=== PATIENT | male | born 1985 | race Caucasian/White ===

== ENCOUNTER 2021-02-20 16:12 | Emergency (ER) | payer MEDICARE, OTHER, SELFPAY ==
--- NOTE | ~2021-02-20 | CT_ITS ---
EXAMINATION: CT lumbar spine wo con DATE: 02/20/2021 19:22 INDICATION: Low back pain radiating to the left leg TECHNIQUE: Computed tomography (CT) of the lumbar spine was performed without intravenous contrast. T he dose-length product was 692.59 mGy-cm. COMPARISON: None FINDINGS: There are bilateral renal stones which are nonobstructing. Vertebral artery heights are matt ntained. There is mild disc narrowing at L2-3. There is levoscoliosis centered at L4. No acute fractu re, subluxation or dislocation. No evidence for spondylolisthesis. There is mild annular disc bulging at multiple levels without significant spinal stenosis. IMPRESSION: 1. No acute abnormality of the lumbar spine. 2: Mild lumbar spondylosis with levoscoliosis. 3: Nonobstructing bilateral nephrolithiasis. Reviewed, dictated and finalized at location A.
--- NOTE | ~2021-02-20 | US_ITS ---
US scrotum doppler INDICATION: Left testicular pain TECHNIQUE: Testicular sonogram utilizing grayscale and color Doppler FINDINGS: The testes are normal in size and appearance. No focal lesions are seen. The right testes measures 4.9 x 3.3 x 2.5 cm centimeters, and the left testis measures 4.3 x 3.1 x 2.2 cm cm. There is normal vascular flow to both testes. The right and left epididymides appear normal. There is no varicocele or hydrocele. IMPRESSION: 1. NORMAL TESTICULAR ULTRASOUND. Reviewed, dictated and finalized at location A.
[2021-02-20 16:42] VITALS: BP 133/66; PULSE 76; RESP 20; TEMP 36.2; O2SAT 100
[2021-02-20] MEDS: ACETAMINOPHEN 500 MG TABLET 1000 MG PO (18:57)
[2021-02-20] MEDS: CYCLOBENZAPRINE HCL 10 MG TABLET PO (18:57)
[2021-02-20 19:02] LABS: Basophils Percent Auto 0.6 % (0.2-1.2); Eosinophils Absolute Auto 0.1 K/mm3 (0-0.3); Eosinophils Percent Auto 2.4 % (0-4.4); Hematocrit 45.3 % (42.0-52.0); Hemoglobin 15.6 g/dL (14.0-18.0); Immature Granulocyte Absolute 0.01 K/mm3 (0.00-0.031); Immature Granulocyte Percent A 0.2 % (0-0.5); Lymphocytes Absolute Auto 1.68 K/mm3 (0.9-3.2); Lymphocytes Percent Auto 33.3 % (18.3-44.2); Mean Corpuscular HGB Conc 34.4 g/dl (32-36); Mean Corpuscular Volume 89.9 fl (80-100); Mean Platelet Volume 8.5 fl (7.4-10.4); Monocytes Absolute Auto 0.4 K/mm3 (0.1-0.6); Monocytes Percent Auto 7.9 % (2.6-8.5); Neutrophils Absolute Auto 2.8 K/mm3 (1.3-6.7); Neutrophils Percent Auto 55.6 % (45.5-73.1); Platelet Count Result 219 k/mm3 (150-375); Red Blood Count 5.04 M/mm3 (4.6-6.20); Red Cell Distribution Width 12.3 % (11.5-14.5); White Blood Count 5.1 K/mm3 (4.5-10.0)
--- NOTE | 2021-02-20 19:03 | ED.BACK ---
HPI - Back Pain/Injury General Chief Complaint: Back Pain/Injury Stated Complaint: back pain Time Seen by Provider: 02/20/21 17:58 Source: patient Mode of arrival: ambulatory Limitations: no limitations History of Present Illness HPI Narrative: This is a 35 year old male that presents to the ER for low back pain x 1 week. Reports the pain radiates down his left leg. Reports the pain is worse with movement and relieved with rest. also reports he has had pain in his left testicle for the last 3 days. No known injuries or trauma. Reports history of low back problems and that he has had disc replacements in the past. His spinal surgeon is at the [facility]. Denies fever, abdominal pain, vomiting, dysuria, hematuria, weakness, numbness, or bowel/bladder incontinence. Related Data Home Medications Medication Instructions Recorded Confirmed albuterol 02/20/21 methylphenidate 02/20/21 02/20/21 pantoprazole PO 02/20/21 sucralfate 02/20/21 vortioxetine 20 mg PO DAILY 02/20/21 02/20/21 Allergies Allergy/AdvReac Type Severity Reaction Status Date / Time topiramate Allergy Unknown Unknown Unverified 02/20/21 18:19 Review of Systems Review of Systems: Narrative: CONSTITUTIONAL: Denies fever GASTROINTESTINAL: Denies abdominal pain, nausea, vomiting GENITOURINARY: Denies dysuria or hematuria. SKIN: Denies rash MUSCULOSKELETAL: Reports back pain, joint pain, and myalgia. NEUROLOGIC: Denies numbness, or weakness. All systems reviewed & are unremarkable except as noted in HPI and below PMFSH Past Medical History Medical History (Updated 02/20/21 @ 20:18 by Laya Orozco PA-C) History of COPD History of depression History of gastroesophageal reflux (GERD) Exam Narrative: Exam Narrative: GENERAL: Well-appearing, well-nourished, and in no acute distress. HEAD: Normocephalic, atraumatic. EYES: EOMI. CHEST: Clear to auscultation. No respiratory distress. No wheezes rales or rhonchi HEART: Regular rate and rhythm. No murmur heard. Normal peripheral pulses. ABDOMEN: Soft, nontender, nondistended, normal active bowel sounds. No CVA tenderness BACK: No midline spinal tenderness EXTREMITIES: Normal range of motion. No edema. Strength equal in bilateral lower extremities (5/5) SKIN: Warm, dry, no rash. NEURO: No focal deficits. Alert and oriented x3. PSYCH: Normal mood and affect Course Vital Signs Vital signs: Vital Signs Temperature 97.2 F L 02/20/21 16:42 Pulse Rate 76 02/20/21 16:42 Respiratory Rate 20 02/20/21 16:42 Blood Pressure 133/66 02/20/21 16:42 Pulse Oximetry 100 02/20/21 16:42 Temperature 97.2 F L 02/20/21 16:42 Pulse Rate 76 02/20/21 16:42 Respiratory Rate 20 02/20/21 16:42 Blood Pressure 133/66 02/20/21 16:42 Pulse Oximetry 100 02/20/21 16:42 MDM - Back Pain/Injury MDM Narrative Medical decision making narrative: Patient presents to the emergency department for low back pain. Also reporting left testicular pain. No known injuries or trauma. He is neurologically intact. He is afebrile and nontoxic-appearing. CBC and metabolic panel without concerning findings. UA was normal. Scrotal ultrasound without acute findings. CT scan of the lumbar spine is without acute findings. Shows mild lumbar spondylosis. Patient updated on case findings. Instructed to rest, ice and take [id number] pain medication as needed. He is to follow-up with his spine surgeon. He was given warnings to return to the ER Lab Data Attestation: I reviewed the patient's lab results. Result diagrams: 02/20/21 18:56 02/20/21 18:56 Labs: Lab Results 02/20/21 02/20/21 02/20/21 Range/Units 18:56 18:56 18:56 WBC 5.1 (4.5-10.0) K/mm3 RBC 5.04 (4.6-6.20) M/mm3 Hgb 15.6 (14.0-18.0) g/dL Hct 45.3 (42.0-52.0) % MCV 89.9 (80-100) fl MCH 31.0 (26-34) pg MCHC 34.4 (32-36) g/dl RDW 12.3 (11.5-14.5) % Plt Count 219
[2021-02-20 19:05] LABS: Add Urine Microscopic? NO; Appearance Urine Clear (Clear); Bilirubin Urine Negative (Negative); Blood Urine Negative (Negative); Color Urine Yellow (Yellow); Glucose Urine UA Negative (Negative); Ketones Urine Negative (Negative); Leukocyte Esterase Ur Negative LEU/UL (Negative); Nitrate Urine Negative (Negative); Protein Urine Negative (Negative); Specific Grav Ur 1.029 (1.001-1.035); Urobilinogen Urine Negative mg/dL (<2.0)
[2021-02-20 19:15] LABS: Anion Gap 5 mmol/L (8-16); Blood Urea Nitrogen 17 mg/dL (9-20); Calcium 9.2 mg/dL (8.4-10.2); Carbon Dioxide 31 mmol/L (22-30); Chloride 104 mmol/L (98-107); Estimated CRCL calculation 92 ml/min; Estimated Glomerular Filt Rate > 60; Glucose 112 mg/dL (75-110); Sodium 140 mmol/L (137-145)
[2021-02-20 19:23] LABS: Potassium 4.2 mmol/L (3.4-5.0)
[2021-02-20 21:36] VITALS: BP 105/80; PULSE 70; RESP 16; TEMP 37; O2SAT 96
== END 2021-02-20 21:37 | disposition home or self-care (01) ==
PROVIDERS: Physician Assistant; Emergency Provider Emergency Medicine
DX: M54.16 Radiculopathy, lumbar region (principal); J44.9 Chronic obstructive pulmonary disease, unspecified; K21.9 Gastro-esophageal reflux disease without esophagitis; F32.9 Major depressive disorder, single episode, unspecified; M47.816 Spondylosis without myelopathy or radiculopathy, lumbar region; N20.0 Calculus of kidney; N50.812 Left testicular pain
CPT/HCPCS: 36415; 72131; 76870; 80048; 81003; 85025; 93976; 99284; A9270

== ENCOUNTER 2022-01-09 09:23 | Emergency (ER) | payer MEDICARE, OTHER, SELFPAY ==
--- NOTE | ~2022-01-09 | CT_ITS ---
EXAMINATION: CT abdomen pelvis wo con DATE: 01/09/2022 11:26 INDICATION: Right flank pain TECHNIQUE: Computed tomography (CT) of the abdomen and pelvis was performed without intravenous contr ast. The dose-length product (DLP) was 580.12 mGy-cm. Automated exposure control and iterative recons truction technique were employed. COMPARISON: None FINDINGS: Minimal dependent atelectasis is present in the lung bases. The heart size is normal. The l iver, spleen, pancreas, gallbladder, and adrenal glands are normal. There is a 5 mm stone in the lowe r pole calyx of the right kidney. There is no hydronephrosis or hydroureter. The left kidney is unrem arkable. No pathologically enlarged abdominal or pelvic lymph nodes are identified. There is no free intraperitoneal gas or evidence of bowel obstruction. IMPRESSION: 1. 5 mm stone in a lower pole calyx of the right kidney. Reviewed, dictated and finalized at location B. [employer]
[2022-01-09 09:33] VITALS: BP 123/64; PULSE 78; RESP 19; TEMP 36.4; O2SAT 100
[2022-01-09 10:16] LABS: Basophils Percent Auto 0.4 % (0.2-1.2); Eosinophils Absolute Auto 0.1 K/mm3 (0-0.3); Eosinophils Percent Auto 0.6 % (0-4.4); Hematocrit 49.6 % (42.0-52.0); Hemoglobin 17.4 g/dL (14.0-18.0); Immature Granulocyte Absolute 0.03 K/mm3 (0.00-0.031); Immature Granulocyte Percent A 0.4 % (0-0.5); Lymphocytes Absolute Auto 0.83 K/mm3 (0.9-3.2); Lymphocytes Percent Auto 10.2 % (18.3-44.2); Mean Corpuscular HGB Conc 35.1 g/dl (32-36); Mean Corpuscular Volume 91.2 fl (80-100); Mean Platelet Volume 8.8 fl (7.4-10.4); Monocytes Absolute Auto 0.6 K/mm3 (0.1-0.6); Monocytes Percent Auto 6.9 % (2.6-8.5); Neutrophils Absolute Auto 6.7 K/mm3 (1.3-6.7); Neutrophils Percent Auto 81.5 % (45.5-73.1); Platelet Count Result 217 k/mm3 (150-375); Red Blood Count 5.44 M/mm3 (4.6-6.20); Red Cell Distribution Width 12.5 % (11.5-14.5); White Blood Count 8.2 K/mm3 (4.5-10.0)
[2022-01-09 10:27] LABS: Add Urine Microscopic? YES; Appearance Urine Clear (Clear); Bilirubin Urine Negative (Negative); Blood Urine 1+ (Negative); Color Urine Straw (Yellow); Glucose Urine UA Negative (Negative); Ketones Urine Trace mg/dL (Negative); Leukocyte Esterase Ur Negative LEU/UL (Negative); Mucus Urine Rare /lpf; Nitrate Urine Negative (Negative); Protein Urine Negative (Negative); Specific Grav Ur 1.011 (1.001-1.035); Urobilinogen Urine Negative mg/dL (<2.0); WBC Urine 0-3 /hpf
[2022-01-09 10:30] LABS: Alanine Aminotransferase 21 U/L (4-50); Albumin Level 4.7 g/dL (3.5-5.1); Alkaline Phosphatase 56 U/L (38-126); Anion Gap 9 mmol/L (8-16); Aspartate Amino Transferase 26 U/L (17-59); Bilirubin,Total 0.8 mg/dL (0.2-1.3); Blood Urea Nitrogen 14 mg/dL (9-20); Calcium 9.1 mg/dL (8.4-10.2); Carbon Dioxide 24 mmol/L (22-30); Chloride 103 mmol/L (98-107); Estimated CRCL calculation 90 ml/min; Estimated Glomerular Filt Rate > 60; Glucose 127 mg/dL (65-110); Potassium 3.9 mmol/L (3.4-5.0); Sodium 136 mmol/L (137-145)
[2022-01-09] MEDS: ONDANSETRON INJ 4 MG/2 ML VIAL IV PUSH (11:36)
[2022-01-09] MEDS: SODIUM CHLORIDE 0.9% IV 1,000 ML 999 ML IV CONT (11:36)
[2022-01-09] MEDS: KETOROLAC 30 MG/ML VIAL (*BKC) IV PUSH (11:36)
--- NOTE | 2022-01-09 12:37 | ED.GENADULT ---
HPI - General Adult General Chief complaint: Abdominal Pain Stated complaint: R flank pain Time Seen by Provider: 01/09/22 11:04 History of Present Illness HPI narrative: Patient is a 36-year-old male who presents ER with right-sided flank pain. Radiates into his testicle, but it is his left testicle. No hematuria. Mild pressure in his suprapubic region. Feels similar to previous kidney stones. Has had some waves of nausea without vomiting. No fevers or chills or sweats. Patient is oxygen dependent due to COPD. He has had no increase in his O2 or dyspnea. No swelling to his testicles. No urethral discharge. No concern for STI. Related Data Home Medications Medication Instructions Recorded Confirmed albuterol 02/20/21 methylphenidate 02/20/21 02/20/21 pantoprazole PO 02/20/21 sucralfate 02/20/21 vortioxetine 20 mg PO DAILY 02/20/21 02/20/21 Allergies Allergy/AdvReac Type Severity Reaction Status Date / Time topiramate Allergy Unknown Unknown Unverified 01/09/22 11:20 Review of Systems Review of Systems: All systems reviewed & are unremarkable except as noted in HPI and below Constitutional: Constitutional: Denies chills, Denies fever(s) and Denies weakness ENT: Denies nasal congestion and Denies sore throat Cardiovascular: Cardiovascular: Denies chest pain, Denies rapid heart rate and Denies radiating jaw, neck or arm pain Respiratory: Respiratory: Denies cough and Denies dyspnea Gastrointestinal: Gastrointestinal: Reports abdominal pain, Denies diarrhea, Reports nausea and Denies vomiting Genitourinary: Genitourinary: Denies hematuria, Denies oliguria, Denies dysuria and Reports urinary frequency PMFSH Past Medical History Medical History (Updated 01/09/22 @ 12:44 by Mika Butcher MD) Diabetes History of COPD History of depression History of gastroesophageal reflux (GERD) Kidney stones Surgical History Surgical History (Updated 01/09/22 @ 12:41 by Mika Butcher MD) No pertinent past surgical history Exam Narrative: GENERAL: Well-appearing, well-nourished, and in no acute distress. HEAD: Normocephalic, atraumatic. CHEST: Clear to auscultation. No respiratory distress. HEART: Regular rate and rhythm. Normal peripheral pulses. ABDOMEN: Soft, nontender, nondistended, normal active bowel sound. : Normal-appearing external genitalia without urethral discharge, testicles normal in appearance without tenderness or swelling. No epididymal tenderness. No tenderness over the spermatic cord. EXTREMITIES: Normal range of motion. No edema. SKIN: Warm, dry, no rash. NEURO: Alert and oriented x3. PSYCH: Normal mood and affect. Course Course Emergency Course: Pain improved with Toradol. Unremarkable evaluation. Discharge home. Vital Signs Vital signs: Vital Signs Temperature 97.6 F 01/09/22 09:33 Pulse Rate 78 01/09/22 09:33 Respiratory Rate 19 01/09/22 09:33 Blood Pressure 123/64 01/09/22 09:33 Pulse Oximetry 100 01/09/22 09:33 Temperature 97.6 F 01/09/22 09:33 Pulse Rate 78 01/09/22 09:33 Respiratory Rate 19 01/09/22 09:33 Blood Pressure 123/64 01/09/22 09:33 Pulse Oximetry 100 01/09/22 09:33 Medical Decision Making Vital Signs Vital Signs: Vital Signs Temperature 97.6 F 01/09/22 09:33 Pulse Rate 78 01/09/22 09:33 Respiratory Rate 19 01/09/22 09:33 Blood Pressure 123/64 01/09/22 09:33 Pulse Oximetry 100 01/09/22 09:33 Temperature 97.6 F 01/09/22 09:33 Pulse Rate 78 01/09/22 09:33 Respiratory Rate 19 01/09/22 09:33 Blood Pressure 123/64 01/09/22 09:33 Pulse Oximetry 100 01/09/22 09:33 Lab Data Result diagrams: 01/09/22 10:07 01/09/22 10:07 Labs: Lab Results 01/09/22 01/09/22 01/09/22 Range/Units 10:07 10:07 10:07 WBC 8.2 (4.5-10.0) K/mm3 RBC 5.44 (4.6-6.20) M/mm3 Hgb 17.4 (14.0-18.0) g/dL Hct 49.6 (42.0-52.0) % MCV 91.2
[2022-01-09 13:15] VITALS: BP 116/77; PULSE 70; RESP 19; TEMP 36.6; O2SAT 100
== END 2022-01-09 13:17 | disposition home or self-care (01) ==
PROVIDERS: Emergency Provider Emergency Medicine; PCP Internal Medicine
DX: R10.9 Unspecified abdominal pain (principal); E11.9 Type 2 diabetes mellitus without complications; J44.9 Chronic obstructive pulmonary disease, unspecified; K21.9 Gastro-esophageal reflux disease without esophagitis; Z87.442 Personal history of urinary calculi; F32.A Depression, unspecified
CPT/HCPCS: 36415; 74176; 80053; 81001; 85025; 96361; 96374; 96375; 99284; J1885; J2405; J7030

== ENCOUNTER 2022-09-05 01:56 | Day surgery (SDC) | payer MEDICARE, OTHER, SELFPAY ==
[2022-09-05] VITALS (11 sets, daily range): BP systolic 96–142; BP diastolic 59–94; PULSE 72–93; RESP 9–20; TEMP 36.5–36.7; O2SAT 98–100
--- NOTE | ~2022-09-05 | XR_ITS ---
EXAMINATION: XR retrograde pyelo w/stent RT DATE: 09/05/2022 12:29 CDT INDICATION: cysto, right RPG, right stent placement . TECHNIQUE: 5 fluoroscopic images of the abdomen and pelvis were obtained during right retrograde pyel ography with stent placement performed by the surgeon. I was not present in the operating room. Fluor oscopy exposure time was 45.8 seconds. DAP [id number] [id number]. COMPARISON: CT and x-ray abdomen, performed on the same date FINDINGS: Contrast fills a mildly dilated right collecting system. Stent deployment with partial uncoiling of t he proximal stent in the region of the renal pelvis. The distal coil is positioned over the bladder. IMPRESSION: Fluoroscopic documentation of right retrograde pyelography with stent placement. Please refer to the operative note for complete procedural details . Reviewed, dictated and finalized at location K. IMPRESSION: Fluoroscopic documentation of right retrograde pyelography with stent placement . Please refer to the operative note for complete procedural details .
--- NOTE | ~2022-09-05 | XR_ITS ---
XR abdomen/kub 1V DATE: 09/05/2022 06:22 INDICATION: Right kidney stone TECHNIQUE: 2 portable supine AP views COMPARISON: 09/2022 CT abdomen pelvis FINDINGS: Faint calcific density overlies the proximal right ureter at the L1-2 level, corresponding to the location of a reported 6 mm calculus at the proximal right ureter on 09/05/2022 CT abdomen pelv is examination. There is a prominent amount of fecal material in the cecum and ascending colon and to a lesser extent descending colon and gaseous distention of ascending and transverse colon. There are nondilated gas distended small bowel segments, possibly due to adynamic ileus. No bowel obstruction is evident. IMPRESSION: Faintly calcified proximal right ureteral calcified calculus Prominent of fecal material and gas in the colon and nondilated small bowel gas; no bowel obstruction is evident Reviewed, dictated and finalized at Location A. Reviewed, dictated and finalized at location A. IMPRESSION: Faintly calcified proximal right ureteral calcified calculus Prominent of fecal material and gas in the colon and nondilated small bowel gas ; no bowel obstruction is evident
--- NOTE | ~2022-09-05 | CT_ITS ---
EXAMINATION: CT abdomen pelvis wo con DATE: 09/05/2022 04:50 INDICATION: Right scrotal pain. Known right kidney stones. TECHNIQUE: Computed tomography (CT) of the abdomen and pelvis was performed without intravenous contr ast. Automated exposure control and iterative reconstruction technique were employed. Exam dose: 544 .60 mGy-cm total exam DLP. COMPARISON: 01/09/[address] abdomen pelvis FINDINGS: Mild atelectasis in the lower lungs. Normal heart size. No pericardial or pleural effusion. The liver, gallbladder, bile ducts, spleen, pancreas, pancreatic duct, and adrenal glands are unremar kable. There are couple of pinpoint nonobstructing left renal calculi. No left ureteral calculus or left hyd roureteronephrosis. There are couple of pinpoint nonobstructing right renal calculi. Approximately 4 x 6.7 mm proximal ri ght ureteral calculus with moderate right hydronephrosis. Prostate enlargement and calcifications. The urinary bladder is unremarkable. Bilateral small fat-containing inguinal hernias. Small fat-containing umbilical hernia. Normal appendix. No bowel obstruction or intraperitoneal free air. Included skeletal structures are unremarkable. IMPRESSION: 4 x 6.7 mm proximal right ureteral calculus with moderate right hydronephrosis There are couple of pinpoint nonobstructing calculi of each kidney Reviewed, dictated and finalized at [facility]. Reviewed, dictated and finalized at location A. IMPRESSION: 4 x 6.7 mm proximal right ureteral calculus with moderate right hy dronephrosis There are couple of pinpoint nonobstructing calculi of each kidney
[2022-09-05] MEDS: ONDANSETRON INJ 4 MG/2 ML VIAL IV PUSH ×2 (02:50→09:30)
[2022-09-05] MEDS: HYDROmorphone HCL INJ (*CRX) 1 MG/ML SYR IV PUSH ×3 (02:50→09:34)
--- NOTE | 2022-09-05 02:54 | ED.MALEGU ---
HPI - Male Genitourinary General Chief complaint: Urogenital-Male Stated complaint: kidney stone Time Seen by Provider: 09/05/22 02:34 Source: patient, EMS and RN notes reviewed Mode of arrival: EMS Limitations: no limitations History of Present Illness HPI Narrative: This is a 37 year old male with history of COPD, chronic respiratory failure on 2 L NC , kidney stones who presents for evaluation of right testicular pain. Patient states last wednesday he developed right testicular pain, so he went to ER at the [facility]. He was diagnosed with obstruction right proximal ureteral stone. He was seen by his urologist on Wednesday and he was told yesterday that he will need to have procedure done. He was told they would call him in 7-10 days. He has been prescribed hydrocodone 7.5 and he last took at dose at 8 pm tonight. He reports subjective fever with nausea. His pain has been severe so he called EMS. HE was given morphine 4 mg IV by EMS. He denies testicular swelling or discoloration. He still has severe pain. Related Data Home Medications Medication Instructions Recorded Confirmed albuterol 02/20/21 methylphenidate 10 mg/9 hr daily 02/20/21 02/20/21 transdermal patch pantoprazole 40 mg tablet,delayed PO 02/20/21 release sucralfate 1 gram tablet 02/20/21 vortioxetine 20 mg tablet 20 mg PO DAILY 02/20/21 02/20/21 Allergies Allergy/AdvReac Type Severity Reaction Status Date / Time topiramate Allergy Unknown Unknown Verified 09/05/22 14:04 Review of Systems Review of Systems: All systems reviewed & are unremarkable except as noted in HPI and below Constitutional: Constitutional: Reports chills, Denies fatigue and Reports fever(s) Cardiovascular: Cardiovascular: Denies chest pain Respiratory: Respiratory: Denies chest congestion and Denies cough Gastrointestinal: Gastrointestinal: Denies abdominal pain, Denies diarrhea and Reports nausea Genitourinary: Genitourinary: Denies hematuria, Denies oliguria, Reports testicular pain and Denies urinary frequency Musculoskeletal: Musculoskeletal: Denies back pain and Denies myalgias PMF Past Medical History Medical History Diabetes History of COPD History of depression History of gastroesophageal reflux (GERD) Kidney stones Surgical History Surgical History (Updated 09/05/22 @ 11:55 by Kuldeep Rosado MD) History of lumbar surgery Social History Social History Smoking status: Former smoker Exam Const: General: alert Nutritional Appearance: well nourished Limitations: no limitations HENMT: Head: normal to inspection Eyes: EOM: EOMs intact bilaterally Neck: Neck: normal visual inspection Chest: Chest palpation & inspection: normal inspection of the chest Resp: Effort & Inspection: normal respiratory effort Auscultation: clear to auscultation bilaterally Cardio: Rate: regular rate Rhythm: regular rhythm Heart sounds: no murmurs GI: GI Palp: Yes Soft to palpation, Yes Tenderness to palpation present (GI), No Guarding due to palpation present (GI) and No Rigid due to palpation Auscultation: normal bowel sounds Back/Spine/Pelvis: Back: no CVA tenderness Skin: General skin exam: normal color Rashes: no rashes Wounds: no wounds Neuro: General: patient oriented x3 and moves all extremities Cranial nerves: Yes CN's II-XII intact bilaterally Speech: normal speech Gait exam (Neuro): Normal gait present Extrem: General: normal to inspection Psych: Mental Status: mental status grossly normal Affect: normal affect Attitude: cooperative Course Reevaluation(s) Reevaluation #1: Patient reports pain is 4/10. He states he would like to stay at [facility] instead of [facility]. I Discussed option of discharge vs possible stent. Patient would like to have stent. Date: 09/05/22 Time: 06:47 Reevaluation #2: Dr. Andrade came to ER and he
[2022-09-05 03:20] LABS: Appearance Urine Clear (Clear); Basophils Percent Auto 0.2 % (0.2-1.2); Bilirubin Urine Negative (Negative); Blood Urine 3+ (Negative); Color Urine Yellow (Yellow); Eosinophils Percent Auto 0.4 % (0-4.4); Glucose Urine UA Negative (Negative); Hematocrit 49.6 % (42.0-52.0); Hemoglobin 17.4 g/dL (14.0-18.0); Immature Granulocyte Absolute 0.03 K/mm3 (0.00-0.031); Immature Granulocyte Percent A 0.3 % (0-0.5); Ketones Urine 3+ mg/dL (Negative); Leukocyte Esterase Ur Negative LEU/UL (Negative); Lymphocytes Absolute Auto 0.73 K/mm3 (0.9-3.2); Mean Corpuscular HGB Conc 35.1 g/dl (32-36); Mean Corpuscular Hemoglobin 31.2 pg (26-34); Mean Corpuscular Volume 88.9 fl (80-100); Mean Platelet Volume 8.3 fl (7.4-10.4); Monocytes Absolute Auto 0.4 K/mm3 (0.1-0.6); Monocytes Percent Auto 3.8 % (2.6-8.5); Neutrophils Absolute Auto 9.2 K/mm3 (1.3-6.7); Neutrophils Percent Auto 88.3 % (45.5-73.1); Nitrate Urine Negative (Negative); Platelet Count Result 211 k/mm3 (150-375); Protein Urine 1+ mg/dL (Negative); Red Blood Count 5.58 M/mm3 (4.6-6.20); Red Cell Distribution Width 12.6 % (11.5-14.5); Specific Grav Ur 1.015 (1.001-1.035); Urobilinogen Urine 0.2 mg/dL (<2.0); White Blood Count 10.4 K/mm3 (4.5-10.0); pH Urine 8.5 (5.0-9.0)
[2022-09-05 03:25] LABS: Amorphous Sediment Urine Few; Bacteria Urine Trace /hpf; Mucus Urine Few /lpf; RBC Urine >75 /hpf (0-2); Squamous Epithelial Cell Urine Rare /hpf (Few)
[2022-09-05 03:34] LABS: Alanine Aminotransferase 31 U/L (6-50); Albumin Level 4.7 g/dL (3.5-5.1); Alkaline Phosphatase 57 U/L (38-126); Anion Gap 12 mmol/L (8-16); Aspartate Amino Transferase 33 U/L (17-59); Bilirubin,Total 1.5 mg/dL (0.2-1.3); Blood Urea Nitrogen 18 mg/dL (9-20); Calcium 9.4 mg/dL (8.4-10.2); Carbon Dioxide 24 mmol/L (22-30); Chloride 100 mmol/L (98-107); Estimated Glomerular Filt Rate > 60; Glucose 130 mg/dL (65-110); Sodium 136 mmol/L (137-145)
[2022-09-05 03:43] LABS: Add Urine Microscopic? YES
[2022-09-05] MEDS: SODIUM CHLORIDE 0.9% IV 1,000 ML 999 ML IV CONT (06:24)
--- NOTE | 2022-09-05 07:24 | P.HP_ITS ---
History of Present Illness History of Present Illness Consent: Risks, benefits, and alternatives have been discussed and questions answered. Patient agrees to proceed with procedure. Chief complaint: kidney stone Narrative: Luis Angel Palmer is a 37 year old male the history of recurrent urolithiasis who was in the emergency department at the [facility] approximately 1 week ago. He was diagnosed with a proximal ureteral stone but was told it would take 7-10 days for treatment. He presents here with intractable pain, nausea vomiting. He has had no fevers or chills. Review of Systems Cardiovascular: Cardiovascular: Denies chest pain, Denies lightheadedness, Denies palpitations and Denies dyspnea Respiratory: Respiratory: Denies dyspnea Gastrointestinal: Gastrointestinal: Denies diarrhea, Denies nausea and Denies vomiting Genitourinary: Genitourinary: Denies hematuria and Denies dysuria Endocrine: Endocrine: Denies palpitations PMFSH Past Medical History Medical History Diabetes History of COPD History of depression History of gastroesophageal reflux (GERD) Kidney stones Surgical History Surgical History (Updated 01/09/22 @ 12:41 by Mika Butcher MD) No pertinent past surgical history Social History Social History (Updated 09/05/22 @ 02:58 by Korin Brown MD) Smoking status: Current every day smoker Meds Home Medications and Allergies Home Medications Medication Instructions Recorded Confirmed Type albuterol 02/20/21 History methylphenidate 10 mg/9 hr daily 02/20/21 02/20/21 History transdermal patch pantoprazole 40 mg tablet,delayed PO 02/20/21 History release sucralfate 1 gram tablet 02/20/21 History vortioxetine 20 mg tablet 20 mg PO DAILY 02/20/21 02/20/21 History Allergies Allergy/AdvReac Type Severity Reaction Status Date / Time topiramate Allergy Unknown Unknown Verified 09/05/22 02:01 Vital Signs Vital Signs - 24 hr 09/05/22 01:57 09/05/22 02:43 09/05/22 07:09 Temperature 98.0 F Pulse Rate 89 72 Respiratory Rate 20 18 Blood Pressure 142/94 H 133/86 Pulse Oximetry 100 99 Oxygen Delivery Nasal Cannula Nasal Cannula Oxygen Flow Rate 2 2 Exam Const: General: no acute distress Resp: Effort & Inspection: normal respiratory effort GI: Inspection: non-distended GI Palp: No abdominal tenderness and No Guarding due to palpation present (GI) Auscultation: normal bowel sounds Assessment and Plan Assessment and plan (1) Calculus of proximal right ureter: Code(s): N20.1 - Calculus of ureter Status: Acute Assessment and Plan: * Cystoscopy with right retrograde pyelogram and right ureteral stent placement. This can be done as an outpatient. * Right ESWL either at the [facility] here in the future.
--- NOTE | 2022-09-05 07:43 | PC.NURSE ---
Patient denies any needs at this time. Patient resting on stretcher, looking at his cell phone.
--- NOTE | 2022-09-05 11:39 | WPDHPUPDATE1 ---
History and Physical Update Update Date/Time: 09/05/22 11:39 History and Physical has been reviewed, including an updated exam of the patient. There are NO changes in the patient's condition. Risks, benefits, and alternatives have been discussed and questions answered. Patient agrees to proceed with procedure.
--- NOTE | 2022-09-05 11:54 | WPDANESEPPF ---
Anes - Initial Pre Proc Eval Procedure: Operation Date: 09/05/22 12:00 Proposed Procedures p Cystoscopy, Right Stent Placement, Right Retrograde Pyelogram(Right) - Papito Andrade MD Date/Time: 09/05/22 11:54 Surgeon: Papito Andrade MD Pre Op Diagnosis: Stent Placement Patient Data Age: 37 Gender: M Height: 1.75 m Weight: Last Vital Signs Temp 36.7 C 09/05/22 01:57 Pulse 72 09/05/22 07:09 Resp 18 09/05/22 07:09 BP 119/62 09/05/22 11:33 Pulse Ox 99 09/05/22 11:19 O2 Del Method Nasal Cannula 09/05/22 02:43 O2 Flow Rate 2 09/05/22 02:43 Allergies Allergy/AdvReac Type Severity Reaction Status Date / Time topiramate Allergy Unknown Unknown Verified 09/05/22 02:01 Home Medications Medication Instructions Recorded Confirmed Type albuterol 02/20/21 History methylphenidate 10 mg/9 hr daily 02/20/21 02/20/21 History transdermal patch pantoprazole 40 mg tablet,delayed PO 02/20/21 History release sucralfate 1 gram tablet 02/20/21 History vortioxetine 20 mg tablet 20 mg PO DAILY 02/20/21 02/20/21 History Laboratory Tests 09/05/22 09/05/22 09/05/22 03:11 03:11 03:12 WBC 10.4 K/mm3 H K/mm3 (4.5-10.0) RBC 5.58 M/mm3 M/mm3 (4.6-6.20) Hgb 17.4 g/dL g/dL (14.0-18.0) Hct 49.6 % % (42.0-52.0) MCV 88.9 fl fl (80-100) MCH 31.2 pg pg (26-34) MCHC 35.1 g/dl g/dl (32-36) RDW 12.6 % % (11.5-14.5) Plt Count 211 k/mm3 k/mm3 (150-375) MPV 8.3 fl fl (7.4-10.4) Immature Gran % (Auto) 0.3 % % (0-0.5) Neut % (Auto) 88.3 % H % (45.5-73.1) Lymph % (Auto) 7.0 % L % (18.3-44.2) Dewitt % (Auto) 3.8 % % (2.6-8.5) Eos % (Auto) 0.4 % % (0-4.4) Baso % (Auto) 0.2 % % (0.2-1.2) Lymph # (Auto) 0.73 K/mm3 L K/mm3 (0.9-3.2) Dewitt # (Auto) 0.4 K/mm3 K/mm3 (0.1-0.6) Eos # (Auto) 0.0 K/mm3 K/mm3 (0-0.3) Baso # (Auto) 0.0 K/mm3 K/mm3 (0.0-0.1) Abs Immat Gran (auto) 0.03 K/mm3 K/mm3 (0.00-0.031) Absolute Neuts (auto) 9.2 K/mm3 H K/mm3 (1.3-6.7) Absolute Nucleated RBC 0.0 K/mm3 K/mm3 (0.0-0.012) Nucleated RBC % 0.0 % % (0.0-0.2) Sodium 136 mmol/L L mmol/L (137-145) Potassium 4.0 mmol/L mmol/L (3.4-5.0) Chloride 100 mmol/L mmol/L (98-107) Carbon Dioxide 24 mmol/L mmol/L (22-30) Anion Gap 12 mmol/L mmol/L (8-16) BUN 18 mg/dL mg/dL (9-20) Creatinine 1.30 mg/dL mg/dL (0.7-1.3) Estim Creat Clear Calc Not Reportable Estimated GFR > 60 (59 - ) Glucose 130 mg/dL H mg/dL (65-110) Calcium 9.4 mg/dL mg/dL (8.4-10.2) Total Bilirubin 1.5 mg/dL H mg/dL (0.2-1.3) AST 33 U/L U/L (17-59) ALT 31 U/L U/L (6-50) Alkaline Phosphatase 57 U/L U/L (38-126) Total Protein 8.0 g/dL g/dL (6.3-8.2) Albumin 4.7 g/dL g/dL (3.5-5.1) Urine Color Yellow (Yellow) Urine Appearance Clear (Clear) Urine pH 8.5 (5.0-9.0) Ur Specific [place] 1.015 (1.001-1.035) Urine Protein 1+ mg/dL H mg/dL (Negative) Urine Glucose (UA) Negative mg/dL mg/dL (Negative) Urine Ketones 3+ mg/dL H mg/dL (Negative) Ur Blood (Man) 3+ H (Negative) Urine Nitrate Negative (Negative) Urine Bilirubin Negative (Negative) Urine Urobilinogen 0.2 mg/dL mg/dL (<2.0) Leukocyte Esterase Rfl Negative ASIF/UL ASIF/UL (Negative) Urine RBC >75 /hpf H /hpf (0-2) Urine WBC 7-9 /hpf H /hpf Ur Squamous Epith Cells Rare /hpf /hpf (Few) Amorphous Sediment Few H (None) Urine Bacteria Trace /hpf /hpf
[2022-09-05] MEDS: LACTATED RINGERS 1,000 ML 30 ML IV CONT (12:27)
[2022-09-05] MEDS: ceFAZolin SODIUM 1 GM VIAL 2 GM IV PUSH (12:41)
[2022-09-05] MEDS: LIDOCAINE HCL 2% GEL UROJET 10 ML PKG MUCOUS MEM (12:47)
--- NOTE | 2022-09-05 13:19 | W.PM.PROC2 ---
Procedure Note - Detailed Date of Procedure 09/05/22 Pre-op Diagnosis Right proximal ureteral stone Post-op Diagnosis Same Procedure Performed Cystoscopy, right retrograde pyelography and right ureteral stent placement Surgeon Papito Andrade MD Anesthesia General Description of Procedure patient is brought the operative suite was prepped draped in routine sterile fashion while in dorsal lithotomy position. 2% lidocaine jelly was introduced intraurethrally and a general LMA anesthetic is administered per the anesthesia department. Cystoscopy is undertaken with a 19 F rigid cystoscope. There was no intravesical foreign body or neoplasm. He has minimal prostatic hyperplasia. There is a single orthotopic ureteral orifice bilaterally. An angiographic catheter was used to obtain a right retrograde pyelogram to outline the renal pelvis and ensure appropriate positioning of a ureteral stent. A 0.035 in glidewire was advanced into the right renal pelvis and a 4.8 F variable length stent is position with the proximal tip in the renal pelvis and distal tip in the bladder. Scopes and wires removed and the patient was taken recovery room in good condition. Drains Yes Packing No Pathology None sent Complications No immediate complications
[2022-09-05] MEDS: oxyCODONE HCL (*CRX) 5 MG TAB IR PO (14:05)
--- NOTE | 2022-09-05 15:06 | SUR.PHASEII ---
Patient wears 4L NC Home O2.
== END 2022-09-05 15:04 | disposition home or self-care (01) ==
LOC: ANHED 07:20 → ANHSURGERY 07:33
PROVIDERS: Emergency Provider General Practice; PCP Internal Medicine; Visit Provider Urology
PROC: (CPT 52352; principal; 2022-09-05 12:00)
DX: N13.2 Hydronephrosis with renal and ureteral calculous obstruction (principal); J44.9 Chronic obstructive pulmonary disease, unspecified; E11.9 Type 2 diabetes mellitus without complications; K21.9 Gastro-esophageal reflux disease without esophagitis; F32.A Depression, unspecified; Z79.51 Long term (current) use of inhaled steroids; Z87.891 Personal history of nicotine dependence
CPT/HCPCS: 52332; 36415; 74018; 74176; 74420; 80053; 81001; 85025; 87086; 96361; 96374; 96375; 96376; 99285; A9270; C1758; C1769; C1887; C2617; J0131; J0690; J1100; J1170; J2250; J2405; J2704; J3010; J7030; J7120

== ENCOUNTER 2022-10-22 15:23 | Observation (INO) | payer MEDICARE, OTHER, SELFPAY ==
[2022-10-22] VITALS (27 sets, daily range): BP systolic 96–125; BP diastolic 41–67; PULSE 84–141; RESP 19–43; TEMP 36.6–36.7; O2SAT 95–100; BMI 27.7
--- NOTE | ~2022-10-22 | CT_ITS ---
EXAMINATION: CTA chest PE protocol DATE: 10/22/2022 17:16 INDICATION: Chest pain, shortness of breath, nonproductive cough. Tachycardia. TECHNIQUE: Computed tomography angiography (CTA) of the chest was performed with 100 mL Omnipaque-350 intravenous contrast timed to evaluate the pulmonary arteries. Coronal maximum intensity projection 3D-reconstructions were created by the technologist. Automated exposure control and iterative reconst ruction technique were employed. Exam dose: 486.62 mGy-cm total exam DLP. COMPARISON: 01/14/2015 CT pulmonary scan Minimal portable AP chest FINDINGS: There is minimal dependent right upper and left lower lobe atelectasis and mild dependent right lower lobe atelectasis. No pulmonary consolidation. There is moderate opacification the pulmonary arteries and no evidence of pulmonary embolism. No thoracic aortic aneurysm or dissection. Normal heart size. Trace pericardial fluid. No hilar or me diastinal mass lesion or lymphadenopathy. Indeterminate approximately 1.8 cm mass in upper pole right kidney. Adrenal glands are unremarkable. Included skeletal structures are unremarkable. IMPRESSION: No evidence of pulmonary embolism Reviewed, dictated and finalized at [facility]. Reviewed, dictated and finalized at location A. RECORDER REPAIRER
--- NOTE | ~2022-10-22 | US_ITS ---
EXAMINATION: US abdomen limited DATE: 10/23/2022 09:37 INDICATION: Epigastric abdominal pain. TECHNIQUE: Multiple grayscale and Doppler ultrasound images of the abdomen were obtained. COMPARISON: None FINDINGS: The region of the pancreas is obscured by shadowing bowel gas. The visualized proximal inferior vena cava is normal. 1.7 cm cyst at the upper pole of the right kidney. Liver has normal echogenicity and contour, with a smooth surface. No liver lesion identified. No intrahepatic biliary duct dilation mariel pected. Portal venous flow was seen in the hepatopetal, normal direction and has normal Doppler wavef orm. The gallbladder is normal in appearance. There is no cholelithiasis. The common bile duct measu res 5 mm, which is normal. Sonographic Cornelius sign was reported as negative by the vaccine customer representative. IMPRESSION: 1. Incidental 1.7 cm right renal cyst. Otherwise normal right upper quadrant ultrasound. Reviewed, dictated and finalized at location B. ER IMPRESSION: 1. Incidental 1.7 cm right renal cyst. Otherwise normal right upper quadrant ul trasound.
--- NOTE | ~2022-10-22 | NM_ITS ---
EXAMINATION: NM anton stress w perfusion DATE: 10/23/2022 12:50 INDICATION: Chest pain TECHNIQUE: Rest images were obtained following intravenous administration of 11.8 mCi Tc99m tetrofosm in (Myoview). The patient was infused intravenously with Lexiscan (Regadenoson). Then, 35.5 mCi Tc99m tetrofosmin (Myoview) was administered intravenously, and stress images were obtained. Data was kraig nstructed into short axis and horizontal and vertical long axis SPECT images. Gated SPECT images were also obtained. COMPARISON: None. FINDINGS: There is no definite reversible or fixed perfusion abnormality to suggest ischemia or infar ction. There is normal left ventricular chamber size, wall motion and ejection fraction. Left ventr icular ejection fraction measures >70%. IMPRESSION: 1. Normal myocardial perfusion at rest and during stress. 2. Left ventricular ejection fraction measuring >70%. Reviewed, dictated and finalized at location A. UCT DESIGN ENGINEER
--- NOTE | 2022-10-22 15:45 | ECG_ITS ---
Measurements Intervals [place] Rate: 122 P: 54 WI: 114 QRS: 61 QRSD: 106 T: 1 QT: 349 QTc: 499 Interpretive Statements SINUS TACHYCARDIA WITH SHORT WI INTERVAL POSSIBLE INFERIOR MYOCARDIAL INFARCTION , OF INDETERMINATE AGE WITH POSTERIOR EXTENSION [30 ms Q WAVE IN II/aVFPROMINENT R WAV ABNORMAL ECG NO PREVIOUS ECG AVAILABLE FOR COMPARISON Electronically Signed On 10-22-2022 16:55:52 COLLISION REPAIR TECHNICIAN by Enoch Hoffman M.D.
--- NOTE | 2022-10-22 15:46 | ED.SOB ---
HPI - SOB/Dyspnea General Chief Complaint: Shortness of Breath/Dyspnea Stated Complaint: SOB, COPD, ANXIETY History of Present Illness HPI Narrative: Pt presents with SOB and CP with breathing for 3 days. Pt has history of PE on blood thinners from several weeks ago. Pt was seen at [facility] and diagnosed. 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 Related Data Home Medications Medication Instructions Recorded Confirmed albuterol 02/20/21 methylphenidate 10 mg/9 hr daily 02/20/21 02/20/21 transdermal patch pantoprazole 40 mg tablet,delayed PO 02/20/21 release sucralfate 1 gram tablet 02/20/21 vortioxetine 20 mg tablet 20 mg PO DAILY 02/20/21 02/20/21 Allergies Allergy/AdvReac Type Severity Reaction Status Date / Time topiramate Allergy Unknown Unknown Verified 10/22/22 15:34 Review of Systems Review of Systems: All systems reviewed & are unremarkable except as noted in HPI and below PMFSH Past Medical History Medical History (Updated 10/22/22 @ 18:04 by Lala Barnett III, DO) Diabetes History of COPD History of depression History of gastroesophageal reflux (GERD) Kidney stones Surgical History Surgical History (Updated 09/05/22 @ 11:55 by Kuldeep Rosado MD) History of lumbar surgery Social History Social History Smoking status: Former smoker Exam Const: General: healthy appearing Nutritional Appearance: well nourished Orientation/consciousness: patient oriented x3 Limitations: no limitations Chest: Chest palpation & inspection: normal inspection of the chest Resp: Effort & Inspection: tachypneic Auscultation: clear to auscultation bilaterally Cardio: Rate: tachycardic Rhythm: regular rhythm GI: GI Palp: Yes Soft to palpation Auscultation: normal bowel sounds Skin: General skin exam: normal color Rashes: no rashes Neuro: General: patient oriented x3, moves all extremities, no meningeal signs, no focal motor deficits and CN's II-XI intact bilaterally Cranial nerves: Yes Nystagmus not present Speech: normal speech Extrem: General: normal to inspection and no clubbing, cyanosis or edema Psych: Mental Status: mental status grossly normal Affect: normal affect Attitude: cooperative Course Vital Signs Vital signs: Vital Signs Temperature 98.0 F 10/22/22 15:22 Pulse Rate 128 H 10/22/22 15:22 Respiratory Rate 43 H 10/22/22 15:22 Blood Pressure 111/41 L 10/22/22 15:22 Pulse Oximetry 97 10/22/22 15:22 Oxygen Delivery Nasal Cannula 10/22/22 15:22 Oxygen Flow Rate 2 10/22/22 15:22 Temperature 98.0 F 10/22/22 15:22 Pulse Rate 128 H 10/22/22 15:22 Respiratory Rate 43 H 10/22/22 15:22 Blood Pressure 111/41 L 10/22/22 15:22 Pulse Oximetry 97 10/22/22 15:36 Oxygen Delivery Nasal Cannula 10/22/22 15:36 Oxygen Flow Rate 2 10/22/22 15:36 MDM - SOB/Dyspnea Lab Data 10/22/22 16:12 10/22/22 16:12 Labs: Lab Results 10/22/22 10/22/22 10/22/22 Range/Units 16:12 16:12 16:12 WBC 10.0 (4.5-10.0) K/mm3 RBC 5.16 (4.6-6.20) M/mm3 Hgb 16.2 (14.0-18.0) g/dL Hct 47.7 (42.0-52.0) % MCV 92.4 (80-100) fl MCH 31.4 (26-34) pg MCHC 34.0 (32-36) g/dl RDW 13.6 (11.5-14.5) % Plt Count 178 (150-375) k/mm3 MPV 8.5 (7.4-10.4) fl Immature Gran % (Auto) 0.4 (0-0.5) % Neut % (Auto) 79.4 H (45.5-73.1) % Lymph % (Auto) 12.5 L (18.3-44.2) % [place] % (Auto) 6.0 (2.6-8.5) % Eos % (Auto) 1.5 (0-4.4) % Baso % (Auto) 0.2 (0.2-1.2) % Lymph # (Auto) 1.25 (0.9-3.2) K/mm3 [place] # (Auto) 0.6 (0.1-0.6) K/mm3 Eos # (Auto) 0.2 (0-0.3) K/mm3 Baso # (Auto) 0.0 (0.0-0.1) K/mm3 Abs Immat Gran (auto) 0.04 H (0.00-0.031) K/mm3 Absolute Neuts (auto) 7.9 H (1.3-6.7) K/mm3 Absolute Nucleated RBC 0.0 (0.0-0.012) K/mm3
[2022-10-22 16:17] LABS: Basophils Percent Auto 0.2 % (0.2-1.2); Eosinophils Absolute Auto 0.2 K/mm3 (0-0.3); Eosinophils Percent Auto 1.5 % (0-4.4); Hematocrit 47.7 % (42.0-52.0); Hemoglobin 16.2 g/dL (14.0-18.0); Immature Granulocyte Absolute 0.04 K/mm3 (0.00-0.031); Immature Granulocyte Percent A 0.4 % (0-0.5); Lymphocytes Absolute Auto 1.25 K/mm3 (0.9-3.2); Lymphocytes Percent Auto 12.5 % (18.3-44.2); Mean Corpuscular Hemoglobin 31.4 pg (26-34); Mean Corpuscular Volume 92.4 fl (80-100); Mean Platelet Volume 8.5 fl (7.4-10.4); Monocytes Absolute Auto 0.6 K/mm3 (0.1-0.6); Neutrophils Absolute Auto 7.9 K/mm3 (1.3-6.7); Neutrophils Percent Auto 79.4 % (45.5-73.1); Platelet Count Result 178 k/mm3 (150-375); Red Blood Count 5.16 M/mm3 (4.6-6.20); Red Cell Distribution Width 13.6 % (11.5-14.5)
[2022-10-22 16:28] LABS: INR 1.1; Prothrombin Time 13.9 Seconds (11.1-14.7)
[2022-10-22 16:29] LABS: Partial Thromboplastin Time 27.3 SECONDS (22.3-36.8)
[2022-10-22 16:37] LABS: Albumin Level 4.4 g/dL (3.5-5.1); Alkaline Phosphatase 39 U/L (38-126); Anion Gap 10 mmol/L (8-16); Aspartate Amino Transferase 23 U/L (17-59); Bilirubin,Total 0.4 mg/dL (0.2-1.3); Blood Urea Nitrogen 13 mg/dL (9-20); Calcium 8.5 mg/dL (8.4-10.2); Carbon Dioxide 24 mmol/L (22-30); Chloride 104 mmol/L (98-107); Estimated CRCL calculation 82 ml/min; Estimated Glomerular Filt Rate > 60; Glucose 161 mg/dL (65-110); Potassium 2.5 mmol/L (3.4-5.0); Sodium 138 mmol/L (137-145)
[2022-10-22 16:40] LABS: Alanine Aminotransferase 32 U/L (6-50)
[2022-10-22 16:43] LABS: Troponin I < 0.012 ng/mL (0.000-0.034)
[2022-10-22] MEDS: POTASSIUM CHLORIDE 20 MEQ TABLET 40 MEQ PO (17:34)
[2022-10-22] MEDS: MORPHINE SULFATE (*CRX) 4 MG/ML INJ IV PUSH (17:38)
[2022-10-22] MEDS: KCL 20 MEQ/SW 100 ML 100 ML 50 MEQ IVPB (17:50)
[2022-10-22] MEDS: SODIUM CHLORIDE 0.9% IV 250 ML 50 ML (17:56)
[2022-10-22 18:57] LABS: Influenza A QL RT-PCR Negative (Negative); Influenza B QL RT-PCR Negative (Negative); SARS-CoV-2 RNA PCR Negative
--- NOTE | 2022-10-22 19:05 | PM.IMHP ---
H&P: HPI History of Present Illness Date/Time: 10/22/22 19:05 Chief Complaint: Chest pain Narrative: This is a 37-year-old male patient has chronic respiratory failure with chronic oxygen at 2 L per nasal cannula. The patient has been feeling short of breath and having chest pain for last 3 days. The patient has a history of a Pe and had been on blood thinners several weeks ago. Patient has COPD from inhaling chemicals while he was in [place]. The patient [place] goes to [place] and [place] [facility] [place]. [facility] told him to go to the emergency room so he chose to come here. No evidence of any PE indeterminate approximately 1.8 cm mass in upper pole right kidney. His potassium was 2.5. He was given oral potassium as well as IV potassium. The patient was given morphine and Zofran and a GI cocktail in the emergency room. Initial troponin was nonreactive. Next troponin 0.080 and last 1 is pending. Initial EKG was read as sinus tachycardia with short WA interval. Second EKG was the same. The patient is complaining of midsternal chest pain that does not radiate anywhere he also has a history of GERD. The patient is being admitted to observation status and we will change it to IMU. Date of service is 10/22/2022 Review of Systems Review of Systems: See HPI All systems reviewed & are unremarkable except as noted in HPI and below Constitutional: Constitutional: Reports as per HPI and Reports no additional constitutional complaints Eyes: Eyes: Reports as per HPI and Reports no additional eye complaints ENT: Reports system reviewed and no additional complaints, except as documented and Reports Normal hearing present Cardiovascular: Cardiovascular: Reports no additional cardiovascular complaints Respiratory: Respiratory: Reports no additional respiratory complaints and Reports no additional respiratory complaints Gastrointestinal: Gastrointestinal: Reports as per HPI and Reports no additional gastrointestinal complaints Musculoskeletal: Musculoskeletal: Reports no additional musculoskeletal complaints Integumentary/Breasts: Skin/Breast: Reports system reviewed and no additional complaints, except as docu and Reports as per HPI Neurologic: Reports system reviewed and no additional complaints, except as documented, Reports as per HPI and Reports Normal hearing present Psychiatric: Psychiatric: Reports no additional psychiatric complaints and Reports as per HPI Endocrine: Endocrine: Reports no additional endocrine complaints Hematologic/Lymphatic: Hematologic/Lymphatic: Reports no additional hematologic/lymphatic complaints Allergic/Immunologic: Allergic/Immunologic: Reports no additional allergic/immunologic complaints [facility] Past Medical History Medical History (Updated 10/22/22 @ 22:51 by Reena Ahuja NP) History of COPD History of depression History of gastroesophageal reflux (GERD) History of kidney stones Kidney stones Pulmonary emboli Seizure Surgical History Surgical History (Updated 10/22/22 @ 22:42 by Reena Ahuja NP) H/O cystoscopy History of lumbar surgery History of urethral stent Family History Family History (Updated 10/22/22 @ 19:07 by Reena Ahuja NP) Father Diabetes mellitus Social History Social History (Updated 10/22/22 @ 22:43 by Reena Ahuja NP) Social History: The patient lives alone. He is single. He has no children. He is disabled . He typically goes to the [place]. He is a former smoker. He denies any alcohol marijuana or illicit drugs. 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
--- NOTE | 2022-10-22 19:52 | ECG_ITS ---
Measurements Intervals [place] Rate: 116 P: 52 SD: 126 QRS: 50 QRSD: 100 T: -13 QT: 330 QTc: 459 Interpretive Statements SINUS TACHYCARDIA NONSPECIFIC ST & T-WAVE ABNORMALITY COMPARED TO ECG 10/22/2022 16:11:28 NO SIGNIFICANT CHANGE Electronically Signed On 10-23-2022 19:55:18 BUSINESS CONTINUITY CONSULTANT by Inocente Kovacs M.D.
--- NOTE | 2022-10-22 20:02 | PC.NURSE ---
patient reported midsternal CP with nausea. Patient's trop slightly elevated. EKG repeated and Reena hospitalist aware and assessed results.
[2022-10-22] MEDS: ONDANSETRON INJ 4 MG/2 ML VIAL IV PUSH (20:11)
[2022-10-22] MEDS: MORPHINE SULFATE (*CRX) 2 MG/ML INJ IV PUSH (20:14)
[2022-10-22] MEDS: BELLADONNA ALK/PHENOB ELIX 10 ML, MAG HYDROX/ALUMINUM HYD/SIMETH 30 ML, LIDOCAINE HCL 2... PO (20:15)
[2022-10-22 21:50] LABS: Troponin I 0.093 ng/mL (0.000-0.034)
[2022-10-22] MEDS: HYDROcodone/acetaminophen (*CRX) 5-325 MG TABLET 1 TAB PO (21:53)
[2022-10-22] MEDS: PANTOPRAZOLE SODIUM IV 40 MG VIAL IV PUSH (21:55)
--- NOTE | 2022-10-22 22:45 | PC.NURSE ---
critical results called to provider and she is also aware of drop in BP. ok to send to IMU and she will assess patient in room
--- NOTE | 2022-10-22 22:49 | EST_ITS ---
Patient Info Name: Luis Angel Palmer Age: 37 years : 1985 Gender: Male Ht: 69 in Wt: 200 lbs BSA: 2.12 m2 HR: 99 bpm BP: 121 / 58 mmHg Heart Rhythm: Sinus Rhythm Exam Date: 10/23/2022 11:17 AM Exam Location: [facility] Stress Patient Status: Inpatient Admit Date: 10/22/2022 Staff Ordering Physician: Reena Ahuja NP Attending Provider: Cristian Moore MD Exercise Technologist: Alma Chi CT Exercise Physician: Inocente Kovacs MD Exam Type: CA stress anton w NM Study Info Indications R07.9 - Chest pain, unspecified A regadenoson stress test was performed. Summary 1. Sinus tachycardia with small nondiagnostic Q-waves. 2. No ST or T-wave abnormality noted with Lexiscan infusion. 3. Clinically and electrocardiographically negative Lexiscan stress test. 4. Myocardial perfusion imaging study to be interpreted by radiology. Protocol: Lexiscan Stress ECG Details Stage: REST Duration (min): 0 min : 59 sec HR (bpm): 102 SBP (mmHg): 121 DBP (mmHg): 58 Stage: REST Duration (min): 8 min : 6 sec HR (bpm): 121 SBP (mmHg): 121 DBP (mmHg): 58 Stage: STAGE 1 Duration (min): 0 min : 59 sec HR (bpm): 165 SBP (mmHg): 121 DBP (mmHg): 57 Stage: RECOVERY Duration (min): 1 min : 0 sec HR (bpm): 169 SBP (mmHg): 121 DBP (mmHg): 57 Stage: RECOVERY Duration (min): 2 min : 0 sec HR (bpm): 146 SBP (mmHg): 121 DBP (mmHg): 57 Stage: RECOVERY Duration (min): 3 min : 0 sec HR (bpm): 136 SBP (mmHg): 117 DBP (mmHg): 93 Stage: RECOVERY Duration (min): 4 min : 0 sec HR (bpm): 134 SBP (mmHg): 117 DBP (mmHg): 93 Stage: RECOVERY Duration (min): 5 min : 0 sec HR (bpm): 135 SBP (mmHg): 117 DBP (mmHg): 93 Stage: RECOVERY Duration (min): 5 min : 36 sec HR (bpm): 127 SBP (mmHg): 115 DBP (mmHg): 51 Rest HR: 121 bpm Peak HR: 169 bpm Rest Sys BP: 121 mmHg Peak Sys BP: 121 mmHg Max Pred HR: 184 bpm % Max Pred HR: 92 % Target HR: 156 bpm Max RPP: 20,449 bpm*mmHg Termination Reason: Completed protocol Cardiac Symptoms: None Total Time: 1 min : 0 sec Rest Rice BP: 58 mmHg Peak Rice BP: 57 mmHg Total Dose: 0.4 mg Resting ECG Sinus tachycardia with small nondiagnostic Q-waves. Stress ECG No ST or T-wave abnormality noted with Lexiscan infusion. Report Signatures
[2022-10-22 23:12] LABS: Anion Gap 9 mmol/L (8-16); Blood Urea Nitrogen 13 mg/dL (9-20); Calcium 8.9 mg/dL (8.4-10.2); Carbon Dioxide 25 mmol/L (22-30); Chloride 104 mmol/L (98-107); Estimated CRCL calculation 82 ml/min; Estimated Glomerular Filt Rate > 60; Glucose 168 mg/dL (65-110); Potassium 3.1 mmol/L (3.4-5.0); Sodium 138 mmol/L (137-145)
--- NOTE | 2022-10-22 23:22 | ADMGEN ---
This patient, Luis Angel Palmer, was admitted to IMU Room 209-01. Patient/family oriented to hospital policies and general routines including ID bracelet, bed and alarms, visiting hours, pain management, procedures, bathroom and other care routines, personal items, smoking policy, room service/diet, and visiting hours. Information on how to activate the Rapid Response Team has been discussed. Patient/Family are encouraged to report perceived risks to care and to ask questions if they do not understand what they are told or what they should do.
[2022-10-23] VITALS (14 sets, daily range): BP systolic 99–114; BP diastolic 42–52; PULSE 91–135; RESP 16–22; TEMP 36–36.3; O2SAT 97–99; BMI 37.7
--- NOTE | 2022-10-23 | ECHO_ITS ---
Patient Info Name: Luis Angel Palmer Age: 37 years : 1985 Gender: Male Ht: 69 in Wt: 200 lbs BSA: 2.12 m2 HR: 103 bpm BP: 109 / 42 mmHg Heart Rhythm: Sinus Rhythm Technical Quality: Fair Exam Date: 10/23/2022 8:26 AM Exam Location: [facility] Pulmonary Patient Status: Outpatient Admit Date: 10/22/2022 Staff Ordering Physician: Reena Ahuja NP Photoengraving Photographer: Malaika Smith RDCS Attending Provider: Cristian Moore MD Referring Physician: Seymour HURST; Exam Type: CA echo doppler color flow Study Info Indications R07.9 - Chest pain, unspecified Complete two-dimensional, color flow and Doppler transthoracic echocardiogram is performed. Summary 1. Complete two-dimensional, color flow and Doppler transthoracic echocardiogram is performed. 2. Normal left ventricular size with hyperdynamic systolic function and normal diastolic function. 3. Otherwise unremarkable echocardiogram. Left Ventricle Left ventricular chamber dimension is normal. Left ventricular systolic function is hyperdynamic, estimated at >70%. The left ventricular diastolic function is normal. Right Ventricle Right ventricular chamber dimension is normal. Left Atria Left atrial chamber dimension is normal. Right Atria Right atrial chamber dimension is normal. Aortic Valve The aortic valve is normal. Pulmonic Valve The pulmonic valve is normal. Mitral Valve The mitral valve has normal leaflets. Tricuspid Valve The tricuspid valve leaflets are normal. Pericardium/Pleural The pericardium appears normal. Aorta The aortic root size at the sinus of Valsalva is normal. Left Ventricular Outflow Tract Name Value Normal LVOT 2D LVOT Diameter 2.0 cm LVOT Doppler LVOT Peak Gradient 5 mmHg LVOT Mean Gradient 3 mmHg LVOT VTI 18 cm LVOT VTI/AV VTI Ratio 0.6 LVOT Stroke Volume 57 ml LVOT CO 5.7 l/min LVOT CI 2.7 l/min/m2 Pulmonic Valve Name Value Normal RVOT Doppler RVOT Peak Gradient 5 mmHg PV Doppler PV Peak Gradient 12 mmHg Mitral Valve Name Value Normal MV Doppler MV Decel [place] 698 cm/s2 MV PHT 45 ms MV Area (PHT) 4.9 cm2 4.0-5.0 MV Diastolic Function
[2022-10-23 06:09] LABS: Basophils Percent Auto 0.3 % (0.2-1.2); Eosinophils Absolute Auto 0.1 K/mm3 (0-0.3); Eosinophils Percent Auto 1.2 % (0-4.4); Hematocrit 44.5 % (42.0-52.0); Hemoglobin 14.8 g/dL (14.0-18.0); Immature Granulocyte Absolute 0.03 K/mm3 (0.00-0.031); Immature Granulocyte Percent A 0.5 % (0-0.5); Lymphocytes Percent Auto 18.6 % (18.3-44.2); Mean Corpuscular HGB Conc 33.3 g/dl (32-36); Mean Corpuscular Hemoglobin 31.1 pg (26-34); Mean Corpuscular Volume 93.5 fl (80-100); Mean Platelet Volume 8.6 fl (7.4-10.4); Monocytes Absolute Auto 0.5 K/mm3 (0.1-0.6); Monocytes Percent Auto 7.3 % (2.6-8.5); Neutrophils Absolute Auto 4.7 K/mm3 (1.3-6.7); Neutrophils Percent Auto 72.1 % (45.5-73.1); Platelet Count Result 147 k/mm3 (150-375); Red Blood Count 4.76 M/mm3 (4.6-6.20); Red Cell Distribution Width 13.9 % (11.5-14.5); White Blood Count 6.5 K/mm3 (4.5-10.0)
[2022-10-23 06:27] LABS: Alanine Aminotransferase 18 U/L (6-50); Albumin Level 3.9 g/dL (3.5-5.1); Alkaline Phosphatase 39 U/L (38-126); Anion Gap 7 mmol/L (8-16); Aspartate Amino Transferase 18 U/L (17-59); Bilirubin,Total 0.4 mg/dL (0.2-1.3); Blood Urea Nitrogen 14 mg/dL (9-20); CRP 1.2 mg/dL (<1.0); Calcium 8.4 mg/dL (8.4-10.2); Carbon Dioxide 25 mmol/L (22-30); Chloride 106 mmol/L (98-107); Estimated CRCL calculation 90 ml/min; Estimated Glomerular Filt Rate > 60; Glucose 114 mg/dL (65-110); Lipase 38 U/L (23-300); Magnesium 1.9 mg/dL (1.6-2.3); Potassium 3.3 mmol/L (3.4-5.0); Sodium 138 mmol/L (137-145)
--- NOTE | 2022-10-23 07:40 | PM.IMPN ---
Progress Note: A&P Assessment and Plan (1) Chest pain: Code(s): R07.9 - Chest pain, unspecified Status: Acute Assessment and Plan: Uncertain etiology, concern for GI origin, home CT negative, continue PPI, check right upper quadrant ultrasound, follow-up stress test and echo Trend troponins, monitor telemetry Given 1 dose of therapeutic Lovenox in the ER, then transitioned to Eliquis 5 mg, because patient has been off blood thinners for a while, will increase this dose to 10 mg twice daily for 7 days and then reduce back down to 5 mg twice daily (2) Pulmonary emboli: Code(s): I26.99 - Other pulmonary embolism without acute cor pulmonale Status: Acute Assessment and Plan: History of PE, no longer on a blood thinner, unsure when patient was diagnosed with this Continue Eliquis as above (3) History of gastroesophageal reflux (GERD): Code(s): Z87.19 - Personal history of other diseases of the digestive system Status: Acute Assessment and Plan: PPI b.i.d. (4) Hypokalemia: Code(s): E87.6 - Hypokalemia Status: Acute Assessment and Plan: Replete and recheck Plan DVT prophylaxis with Eliquis GI prophylaxis with PPI Code status full code Subjective Date/time seen: 10/23/22 07:40 Interval history: No overnight events noted. No chest pain or shortness of breath. No nausea, vomiting or diarrhea. No fevers or chills. Review of Systems Review of Systems: 12 point review of systems was assessed and was negative except as noted in the HPI Exam Narrative: General: No acute distress, alert and oriented per baseline HEENT: Atraumatic, normocephalic, mucous membranes moist CV: Regular rate and rhythm, S1, S2 Lungs: Clear to auscultation bilaterally, no rales or crackles noted, no wheezes, good air entry Abdomen: Soft, nontender, nondistended Extremities: Normal to inspection Skin: No rashes noted, no lesions or wounds seen Psych: Euthymic, normal affect Objective Data Vital Signs Vital Signs: Vital Signs - 24 hr 10/22/22 15:22 10/22/22 15:35 10/22/22 15:36 Temperature 98.0 F Pulse Rate 128 H Respiratory Rate 43 H Blood Pressure 111/41 L Pulse Oximetry 97 97 97 Oxygen Delivery Nasal Cannula Nasal Cannula Nasal Cannula Oxygen Flow Rate 2 2 2 10/22/22 15:44 10/22/22 15:45 10/22/22 15:46 Temperature Pulse Rate 141 H 133 H 129 H Respiratory Rate 25 H 29 H 26 H Blood Pressure 110/46 L Pulse Oximetry 98 95 95 Oxygen Delivery Oxygen Flow Rate 10/22/22 16:00 10/22/22 16:01 10/22/22 16:15 Temperature Pulse Rate 122 H 124 H 132 H Respiratory Rate 24 H 22 H 29 H Blood Pressure 101/44 L Pulse Oximetry 97 96 98 Oxygen Delivery Oxygen Flow Rate 10/22/22 16:30 10/22/22 16:31 10/22/22 16:45 Temperature Pulse Rate 121 H 119 H 121 H Respiratory Rate 25 H 24 H 24 H Blood Pressure Pulse Oximetry 98 98 96 Oxygen Delivery Oxygen Flow Rate 10/22/22 16:46 10/22/22 17:18 10/22/22 17:30 Temperature Pulse Rate 118 H 127 H 127 H Respiratory Rate 23 H 22 H Blood Pressure 98/45 L Pulse Oximetry 96 99 Oxygen Delivery Oxygen Flow Rate 10/22/22 17:31 10/22/22 17:45 10/22/22 17:46 Temperature Pulse Rate 128 H 130 H 135 H Respiratory Rate 19 26 H 36 H Blood Pressure 96/58 L 108/61 Pulse Oximetry 99 97 98 Oxygen Delivery Oxygen Flow Rate 10/22/22 18:00 10/22/22 18:15 10/22/22 18:16 Temperature Pulse Rate 128 H 136 H 132 H Respiratory Rate 29 H 21 H 23 H Blood Pressure Pulse Oximetry 96 100 100 Oxygen Delivery Oxygen Flow Rate 10/22/22 18:20 10/22/22 18:31 10/22/22 18:48 Temperature Pulse Rate 119 H 121 H 119 H Respiratory Rate 27 H 31 H 26 H Blood Pressure 112/65 Pulse Oximetry 99 98 97 Oxygen Delivery Oxygen Flow Rate 10/22/22 22:36 10/22/22 23:05 10/22/22 23:57 Temperature 97.8 F Pulse Rate 97 84 96 Respirato
[2022-10-23] MEDS: DIVALPROEX SODIUM DR 250 MG TABEC 500 MG PO (08:05)
[2022-10-23] MEDS: LORazepam (*CRX) 0.5 MG TABLET PO ×3 (08:06→17:56)
[2022-10-23] MEDS: diphenhydrAMINE HCl INJ 50 MG/ML VIAL 25 MG IV PUSH (09:46)
[2022-10-23] MEDS: POTASSIUM CHLORIDE 20 MEQ TABLET 40 MEQ PO (09:46)
[2022-10-23] MEDS: KETOROLAC 30 MG/ML VIAL (*BKC) IV PUSH (09:47)
[2022-10-23] MEDS: METOCLOPRAMIDE HCL INJ 10 MG/2 ML VIAL IV PUSH (09:50)
[2022-10-23] MEDS: APIXABAN 5 MG TABLET 10 MG PO ×2 (14:11→17:56)
[2022-10-23] MEDS: ACETAMINOPHEN 500 MG TABLET 1000 MG PO (14:15)
[2022-10-23 14:20] LABS: Add Urine Microscopic? YES; Appearance Urine Clear (Clear); Bilirubin Urine Negative (Negative); Blood Urine Trace-Intact (Negative); Color Urine Light Yellow (Yellow); Glucose Urine UA Negative (Negative); Ketones Urine Negative (Negative); Leukocyte Esterase Ur Negative LEU/UL (NEGATIVE); Nitrate Urine Negative (Negative); Protein Urine Negative (Negative); Specific Grav Ur >= 1.030 (1.001-1.035); Urobilinogen Urine 0.2 mg/dL (<2.0); pH Urine 5.5 (5.0-9.0)
[2022-10-23 14:26] LABS: Bacteria Urine Trace /hpf; Mucus Urine Moderate /lpf; Squamous Epithelial Cell Urine Rare /hpf (Few)
--- NOTE | 2022-11-05 13:40 | PM.DS ---
DS: Admitting Diagnosis Discharge Date 10/23/22 Admitting Diagnosis chest pain DS: Discharge Diagnosis Discharge Diagnosis (1) Chest pain: Code(s): R07.9 - Chest pain, unspecified Status: Acute Assessment and Plan: Uncertain etiology, concern for GI origin, home CT negative, continue PPI, check right upper quadrant ultrasound, follow-up stress test and echo Trend troponins, monitor telemetry Given 1 dose of therapeutic Lovenox in the ER, then transitioned to Eliquis 5 mg, because patient has been off blood thinners for a while, will increase this dose to 10 mg twice daily for 7 days and then reduce back down to 5 mg twice daily (2) Pulmonary emboli: Code(s): I26.99 - Other pulmonary embolism without acute cor pulmonale Status: Acute Assessment and Plan: History of PE, no longer on a blood thinner, unsure when patient was diagnosed with this Continue Eliquis as above (3) History of gastroesophageal reflux (GERD): Code(s): Z87.19 - Personal history of other diseases of the digestive system Status: Acute Assessment and Plan: PPI b.i.d. (4) Hypokalemia: Code(s): E87.6 - Hypokalemia Status: Acute Assessment and Plan: Replete and recheck Plan DVT prophylaxis with Eliquis GI prophylaxis with PPI Code status full code DS: Summary Hospital Course Hospital Course: 37-year-old male patient has chronic respiratory failure with chronic oxygen at 2 L per nasal cannula.? The patient has been feeling short of breath and having chest pain for last 3 days.? The patient has a history of a Pe and had been on blood thinners several weeks ago.? Patient has COPD from inhaling chemicals while he was in [place].? The patient typically goes to the [place] and was seen at a [facility] today.? [facility] told him to go to the emergency room so he chose to come here.? No evidence of any PE indeterminate approximately 1.8 cm mass in upper pole right kidney.? His potassium was 2.5.? He was given oral potassium as well as IV potassium.? The patient was given morphine and Zofran and a GI cocktail in the emergency room.? Initial troponin was nonreactive.? Next troponin 0.080 and last 1 is pending.? Initial EKG was read as sinus tachycardia with short OR interval.? Second EKG was the same.? The patient is complaining of midsternal chest pain that does not radiate anywhere he also has a history of GERD. Stress test and echo negative, symptoms resolved. Follow up outpatient. Time Spent with Patient Time attestation: Total time spent providing and/or coordinating discharge services: Exam Narrative: General: No acute distress, alert and oriented per baseline HEENT: Atraumatic, normocephalic, mucous membranes moist CV: Regular rate and rhythm, S1, S2 Lungs: Clear to auscultation bilaterally, no rales or crackles noted, no wheezes, good air entry Abdomen: Soft, nontender, nondistended Extremities: Normal to inspection Skin: No rashes noted, no lesions or wounds seen Psych: Euthymic, normal affect Discharge Plan Discharge Attending physician on discharge: Calli Orozco Consulting providers: Reena Ahuja ; Enoch Hoffman ; Simeon Covington ; Inocente Kovacs ; Chirag Ward Discharging Clinician: Calli Orozco Patient Disposition: Home, Self-Care Activity: as tolerated Diet: as tolerated Discharge Instructions: Please follow up with cardiology at the [facility] and get your 30 day event monitor on Wednesday as scheduled. Patient Instructions: Antibiotic Form, Chest Pain (DC) Stand Alone Forms: General Discharge Information Follow-up/Referrals: Deysi,MD Kranthi [Primary Care Provider] - Discharge Medications: Continued pantoprazole 40 mg Tablet,Delayed Release (Dr/Ec) 40 mg PO DAILY albuterol sulfate 0.63 mg/3 mL Solution For Nebulization 0.63 mg INHALATION Q4H PRN (Reason: Shortness Of Breath Or Wheezing) divalproex [Depakote] 50
== END 2022-10-23 19:45 | disposition home or self-care (01) ==
LOC: ANHED 18:04 → ANHIMU 10-23 00:23 → ANH3MEDSUR 10-27 10:47 → ANHIMU 10-27 10:47
PROVIDERS: Nurse Practitioner; Admitting Provider Internal Medicine; Emergency Provider Emergency Medicine; PCP Internal Medicine; Visit Provider Student in an Organized Health Care Education/Training Program
DX: R07.9 Chest pain, unspecified (principal); I26.99 Other pulmonary embolism without acute cor pulmonale; E87.6 Hypokalemia; N28.1 Cyst of kidney, acquired; E11.9 Type 2 diabetes mellitus without complications; J44.9 Chronic obstructive pulmonary disease, unspecified; J68.9 Unspecified respiratory condition due to chemicals, gases, fumes and vapors; K21.9 Gastro-esophageal reflux disease without esophagitis; J96.10 Chronic respiratory failure, unspecified whether with hypoxia or hypercapnia; F32.A Depression, unspecified; R00.0 Tachycardia, unspecified; Z83.3 Family history of diabetes mellitus; Z99.81 Dependence on supplemental oxygen; R94.31 Abnormal electrocardiogram [ECG] [EKG]; Z87.891 Personal history of nicotine dependence; Z87.19 Personal history of other diseases of the digestive system; Z79.51 Long term (current) use of inhaled steroids; Z79.891 Long term (current) use of opiate analgesic; Z79.899 Other long term (current) drug therapy; Z86.711 Personal history of pulmonary embolism
CPT/HCPCS: 36415; 71275; 76705; 78452; 80048; 80053; 81001; 83690; 83735; 84443; 84484; 85025; 85610; 85730; 86140; 87636; 93005; 93017; 93306; 96365; 96366; 96375; 96376; 99285; A9270; A9502; C9113; G0378; J1200; J1885; J2270; J2405; J2765; J2785; J3480; J7050; Q9967

== ENCOUNTER 2023-03-24 08:42 | Emergency (ER) | payer MEDICARE, OTHER, SELFPAY ==
--- NOTE | ~2023-03-24 | US_ITS ---
EXAMINATION: US scrotum doppler DATE: 03/24/2023 09:34 INDICATION: Left testicular pain. TECHNIQUE: Grayscale and Doppler ultrasound images of the testes were obtained. COMPARISON: CT abdomen and pelvis 09/05/2022 FINDINGS: The right testis measures 4.1 x 2.0 x 2.6 cm. The left testis measures 3.7 x 1.8 x 2.8 cm. There is normal vascular flow to both testes. The right epididymis is normal with normal vascular susana w. The left epididymis is normal with normal vascular flow. There is no varicocele or hydrocele. IMPRESSION: 1. Normal testes. Reviewed, dictated and finalized at location A. IMPRESSION: 1. Normal testes.
--- NOTE | ~2023-03-24 | CT_ITS ---
EXAMINATION: CT abdomen pelvis wo con DATE: 03/24/2023 14:42 CDT INDICATION: Kidney stones TECHNIQUE: Computed tomographic angiography (CTA) of the abdomen was performed without and with 100 m L Omnipaque-350 intravenous contrast. The dose-length product was 229.51 mGy-cm. Maximum intensity pr ojection 3D-reconstructions of the aorta and other arteries were constructed by the technologist on a separate workstation. Automated exposure control and iterative reconstruction technique were employed. COMPARISON: CT dated 09/05/2022. FINDINGS: There is emphysema. Heart size normal. No significant pleural or pericardial effusion. The liver, spleen, pancreas, adrenal glands are unremarkable. Gallbladder is present. There small nonobst ructing bilateral renal stones measuring 2 mm. There is a small hyperdense lesion of the right kidney measuring 4 mm, likely hyperdense cysts. No hydronephrosis. No ureteral stones. Bladder is unremarka ble. Gallbladder is present. Nonobstructive bowel pattern. No free air or free fluid. There is an accessor y splenule. There is levoscoliosis. IMPRESSION: 1. Nonobstructing bilateral nephrolithiasis. Reviewed, dictated and finalized at location B.
[2023-03-24 08:48] VITALS: BP 143/73; PULSE 94; RESP 20; TEMP 36.6; O2SAT 98
[2023-03-24 11:05] LABS: Appearance Urine Clear (Clear); Bilirubin Urine Negative (Negative); Blood Urine Negative (Negative); Color Urine Yellow (Yellow); Glucose Urine UA Negative (Negative); Ketones Urine Negative (Negative); Leukocyte Esterase Ur Negative LEU/UL (Negative); Nitrate Urine Negative (Negative); Protein Urine Negative (Negative); Specific Grav Ur 1.025 (1.001-1.035); pH Urine 5.5 (5.0-9.0)
[2023-03-24 11:22] LABS: Add Urine Microscopic? NO
--- NOTE | 2023-03-24 11:53 | ED.MALEGU ---
HPI - Male Genitourinary General Chief complaint: Urogenital-Male Stated complaint: testicular pain Time Seen by Provider: 03/24/23 10:52 History of Present Illness HPI Narrative: 37-year-old male reports for evaluation of left testicular pain since last night. Patient states intermittently, the left testicle retracts with pain described as squeezing . States it will then let back down into the scrotum and the pain will resolve. Patient states this has been occurring about every 30 minutes since the onset last night. He denies swelling to his testicles, fever, rashes, penile discharge, concern for STDs, abdominal pain, n/v/d, rectal pain, hematuria. Patient states this is never happened to him before. He reports increased testicular pain when he urinates as well. Related Data Home Medications Medication Instructions Recorded Confirmed pantoprazole 40 mg tablet,delayed 40 mg PO DAILY 02/20/21 10/23/22 release albuterol sulfate 0.63 mg/3 mL 0.63 mg inhalation Q4H PRN 10/23/22 10/23/22 solution for nebulization Shortness Of Breath Or Wheezing apixaban 5 mg tablet (Eliquis) 5 mg PO BID 10/23/22 10/23/22 divalproex 500 mg tablet,delayed 500 mg PO DAILY 10/23/22 10/23/22 release (Depakote) lorazepam 0.5 mg tablet 0.5 mg PO TID 10/23/22 10/23/22 Allergies Allergy/AdvReac Type Severity Reaction Status Date / Time topiramate Allergy Unknown Unknown Verified 10/22/22 15:34 Review of Systems Review of Systems: CONSTITUTIONAL: Denies fever, chills EYES: Denies visual changes, redness, or discharge. ENT: Denies rhinorrhea, congestion, sore throat, or otalgia. CARDIOVASCULAR: Denies chest pain, palpitations, or edema. RESPIRATORY: Denies cough or dyspnea. GASTROINTESTINAL: Denies abdominal pain, nausea, vomiting, or diarrhea. GENITOURINARY: See HPI SKIN: Denies rash or itching. MUSCULOSKELETAL: Denies back pain, joint pain, or myalgia. NEUROLOGIC: Denies headache, numbness, dizziness, or weakness. PSYCHIATRIC: Denies anxiety or depression. [facility] Past Medical History Medical History History of COPD History of depression History of gastroesophageal reflux (GERD) History of kidney stones Kidney stones Pulmonary emboli Seizure Surgical History Surgical History H/O cystoscopy History of lumbar surgery History of urethral stent Family History Family History Father Diabetes mellitus Social History Social History Social History: The patient lives alone. He is single. He has no children. He is disabled . He typically goes to the [place]. He is a former smoker. He denies any alcohol marijuana or illicit drugs. No power of estate attorney was listed Code status full code Smoking status: Former smoker Alcohol intake: never Substance use: never Substance use type: does not use Lack of Transportation: No Lack of Food: Never True Current Housing: I Have Housing Concerned About Future Housing: No Difficulty Paying Gas/Electric Bills: No Difficulty Paying for Meds: No Currently Unemployed: No Education: High School Diploma/GED Difficulty w/ Childcare or Family Care: No Spiritual care concerns: No Exam Narrative: GENERAL: Well-appearing, in no acute distress. HEAD: Normocephalic EYES: PERRLA ENT: Nares clear. Mucous membranes moist. Oropharynx without tonsillar hypertrophy exudate or other lesions. NECK: Supple. CHEST: No respiratory distress. Clear to auscultation, no adventitious breath sounds. HEART: Regular rate and rhythm. No murmur heard. Normal peripheral pulses. ABDOMEN: Soft, nontender, normal active bowel sounds. No CVA tenderness. : No edema or tenderness with palpation of testicles or penis. No rash, crepitus, or other overlying skin
[2023-03-24 12:42] VITALS: BP 140/74; PULSE 85; RESP 20; O2SAT 96
--- NOTE | 2023-03-24 13:11 | PC.NURSE ---
physical exam performed by provider with loan underwriter present
[2023-03-24 14:37] LABS: Basophils Percent Auto 0.5 % (0.2-1.2); Eosinophils Absolute Auto 0.2 K/mm3 (0-0.3); Eosinophils Percent Auto 2.6 % (0-4.4); Hematocrit 49.8 % (42.0-52.0); Hemoglobin 17.2 g/dL (14.0-18.0); Immature Granulocyte Absolute 0.02 K/mm3 (0.00-0.031); Immature Granulocyte Percent A 0.3 % (0-0.5); Lymphocytes Absolute Auto 1.56 K/mm3 (0.9-3.2); Lymphocytes Percent Auto 26.6 % (18.3-44.2); Mean Corpuscular HGB Conc 34.5 g/dl (32-36); Mean Corpuscular Hemoglobin 31.7 pg (26-34); Mean Corpuscular Volume 91.9 fl (80-100); Mean Platelet Volume 8.6 fl (7.4-10.4); Monocytes Absolute Auto 0.4 K/mm3 (0.1-0.6); Monocytes Percent Auto 7.2 % (2.6-8.5); Neutrophils Absolute Auto 3.7 K/mm3 (1.3-6.7); Neutrophils Percent Auto 62.8 % (45.5-73.1); Platelet Count Result 220 k/mm3 (150-375); Red Blood Count 5.42 M/mm3 (4.6-6.20); Red Cell Distribution Width 12.8 % (11.5-14.5); White Blood Count 5.9 K/mm3 (4.5-10.0)
[2023-03-24 14:51] LABS: Alanine Aminotransferase 24 U/L (6-50); Albumin Level 4.6 g/dL (3.5-5.1); Alkaline Phosphatase 44 U/L (38-126); Anion Gap 8 mmol/L (8-16); Aspartate Amino Transferase 24 U/L (17-59); Bilirubin,Total 0.6 mg/dL (0.2-1.3); Blood Urea Nitrogen 16 mg/dL (9-20); Calcium 8.7 mg/dL (8.4-10.2); Carbon Dioxide 27 mmol/L (22-30); Chloride 103 mmol/L (98-107); Estimated CRCL calculation 96 ml/min; Estimated Glomerular Filt Rate > 60; Glucose 83 mg/dL (65-110); Lipase 166 U/L (23-300); Sodium 138 mmol/L (137-145)
--- NOTE | 2023-03-24 16:44 | WPDURCON ---
Assessment and Plan Assessment and plan (1) Left testicular pain: Code(s): N50.812 - Left testicular pain Status: Acute Plan 37-year-old gentleman with history of nephrolithiasis and acute onset of left-sided intermittent testicular pain. The pain is now resolved. -recommend scrotal elevation and nonsteroidal anti-inflammatories as needed. -patient to be given a 1 week course of doxycycline for empiric antibiotic treatment -ultrasound imaging without abnormality. Torsion is unlikely. Patient instructed to return to the ER immediately/worsening testicular pain. -no significant kidney stone. Patient should continue follow-up at the [facility] for stone management Urology Consult Note HPI Date Seen: 03/24/23 Primary Care Provider: Kranthi Jo, Consult Narrative Narrative: Luis Angel Palmer is a 37 year old male presented to the ER with 1 day acute intermittent left-sided testicular pain. Denies nausea vomiting. He denies fevers or chills. PMFSH Past Medical History Medical History History of COPD History of depression History of gastroesophageal reflux (GERD) History of kidney stones Kidney stones Pulmonary emboli Seizure Surgical History Surgical History H/O cystoscopy History of lumbar surgery History of urethral stent Family History Family History Father Diabetes mellitus Social History Social History Social History: The patient lives alone. He is single. He has no children. He is disabled . He typically goes to the [place]. He is a former smoker. He denies any alcohol marijuana or illicit drugs. No power of commercial real estate attorney was listed Code status full code Smoking status: Former smoker Alcohol intake: never Substance use: never Substance use type: does not use Lack of Transportation: No Lack of Food: Never True Current Housing: I Have Housing Concerned About Future Housing: No Difficulty Paying Gas/Electric Bills: No Difficulty Paying for Meds: No Currently Unemployed: No Education: High School Diploma/GED Difficulty w/ Childcare or Family Care: No Spiritual care concerns: No Meds Home Medications and Allergies Home Medications Medication Instructions Recorded Confirmed Type pantoprazole 40 mg tablet,delayed 40 mg PO DAILY 02/20/21 10/23/22 History release albuterol sulfate 0.63 mg/3 mL 0.63 mg inhalation Q4H PRN 10/23/22 10/23/22 History solution for nebulization Shortness Of Breath Or Wheezing apixaban 5 mg tablet (Eliquis) 5 mg PO BID 10/23/22 10/23/22 History divalproex 500 mg tablet,delayed 500 mg PO DAILY 10/23/22 10/23/22 History release (Depakote) lorazepam 0.5 mg tablet 0.5 mg PO TID 10/23/22 10/23/22 History doxycycline monohydrate 100 mg 100 mg PO BID #14 caps 03/24/23 Rx capsule Allergies Allergy/AdvReac Type Severity Reaction Status Date / Time topiramate Allergy Unknown Unknown Verified 10/22/22 15:34 Vital Signs Vital Signs - 24 hr 03/24/23 08:48 03/24/23 12:42 Temperature 36.6 C Pulse Rate 94 85 Respiratory Rate 20 20 Blood Pressure 143/73 H 140/74 Pulse Oximetry 98 96 Oxygen Delivery Nasal Cannula Oxygen Flow Rate 2 Exam Narrative: The patient is awake and alert. He is in no acute distress. His breathing is unlabored. His abdomen soft nontender nondistended. Patient has bilateral descended testicles and normal phallus. There are no testicular masses. He does not have significant testicular tenderness. The patient has bilateral normal epididymi without pain or discomfort to palpation Results Labs 03/24/23 14:30 03/24/23 14:30 Labs: Short CBC 03/24/23 Range/Units 14:30 WBC 5.9 (4.5-10.0) K/mm3 Hgb 17.
== END 2023-03-24 16:13 | disposition home or self-care (01) ==
PROVIDERS: Emergency Medicine; Emergency Provider Physician Assistant; PCP Internal Medicine
DX: N50.812 Left testicular pain (principal); N20.0 Calculus of kidney; J44.9 Chronic obstructive pulmonary disease, unspecified; K21.9 Gastro-esophageal reflux disease without esophagitis; F32.A Depression, unspecified; Z96.0 Presence of urogenital implants; Z87.442 Personal history of urinary calculi; Z86.711 Personal history of pulmonary embolism; Z87.891 Personal history of nicotine dependence; Z79.01 Long term (current) use of anticoagulants
CPT/HCPCS: 36415; 74176; 76870; 80053; 81003; 83690; 85025; 93976; 99284

== ENCOUNTER 2023-06-18 11:03 | Emergency (ER) | payer MEDICARE, OTHER, SELFPAY ==
--- NOTE | ~2023-06-18 | XR_ITS ---
EXAMINATION: XR knee RT 3V DATE: 06/18/2023 11:55 INDICATION: Right posterior knee pain. Fall. TECHNIQUE: 3 views of right knee were obtained. COMPARISON: None. FINDINGS: Bone alignment is normal. No fracture. 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 Joint spaces are normal. No knee joint effusion. IMPRESSION: 1. No fracture. Reviewed, dictated and finalized at location A. IMPRESSION: 1. No fracture.
[2023-06-18 11:08] VITALS: BP 132/72; PULSE 86; RESP 16; TEMP 36.2; O2SAT 99
--- NOTE | 2023-06-18 12:27 | ED.GENADULT ---
HPI - General Adult General Chief complaint: Extremity Injury, Lower Stated complaint: fall through ceiling Time Seen by Provider: 06/18/23 11:22 Source: patient Mode of arrival: ambulatory Limitations: no limitations History of Present Illness HPI narrative: This is a 37-year-old male who presents to the ED with chief complaint of right knee injury occurring just prior to arrival. Patient states he was working up in his attic above his porch when he missed the plywood board on the floor and it caused him to go through the roof. Patient states he was able to grab onto the rafters above and prevent himself from falling all the way down to the porch. He reports that he felt like he hyperextended the knee when he went through and felt a pop. Denies any further site of pain or injury. Denies numbness or weakness. Related Data Home Medications Medication Instructions Recorded Confirmed pantoprazole 40 mg tablet,delayed 40 mg PO DAILY 02/20/21 10/23/22 release albuterol sulfate 0.63 mg/3 mL 0.63 mg inhalation Q4H PRN 10/23/22 10/23/22 solution for nebulization Shortness Of Breath Or Wheezing apixaban 5 mg tablet (Eliquis) 5 mg PO BID 10/23/22 10/23/22 divalproex 500 mg tablet,delayed 500 mg PO DAILY 10/23/22 10/23/22 release (Depakote) lorazepam 0.5 mg tablet 0.5 mg PO TID 10/23/22 10/23/22 Allergies Allergy/AdvReac Type Severity Reaction Status Date / Time topiramate Allergy Unknown Unknown Verified 06/18/23 11:27 Review of Systems Review of Systems: All systems as dictated in [facility] Past Medical History Medical History History of COPD History of depression History of gastroesophageal reflux (GERD) History of kidney stones Kidney stones Pulmonary emboli Seizure Surgical History Surgical History H/O cystoscopy History of lumbar surgery History of urethral stent Family History Family History Father Diabetes mellitus Social History Social History Social History: The patient lives alone. He is single. He has no children. He is disabled . He typically goes to the [place]. He is a former smoker. He denies any alcohol marijuana or illicit drugs. No power of claim attorney was listed Code status full code Smoking status: Former smoker Alcohol intake: never Substance use: never Substance use type: does not use Lack of Transportation: No Lack of Food: Never True Current Housing: I Have Housing Concerned About Future Housing: No Difficulty Paying Gas/Electric Bills: No Difficulty Paying for Meds: No Currently Unemployed: No Education: High School Diploma/GED Difficulty w/ Childcare or Family Care: No Spiritual care concerns: No Exam Narrative: GENERAL: Well-appearing, well-nourished, and in no acute distress. HEAD: Normocephalic, atraumatic. EYES: PERRLA and EOMI. ENT: Nares clear, no rhinorrhea or epistaxis. Mucous membranes moist. Oropharynx without tonsillar hypertrophy exudate or other lesions. NECK: Supple. No adenopathy or masses. CHEST: No respiratory distress. Clear to auscultation. No wheezes rales or rhonchi HEART: Regular rate and rhythm. No murmur heard. Normal peripheral pulses. ABDOMEN: Soft, nontender, nondistended, normal active bowel sounds. MSK: Right knee: No gross deformity. No swelling. No bruising. Full range of motion. Moderate medial and posterior tenderness. Neurovascularly intact distally. Left knee: Benign. SKIN: Warm, dry, no rash. NEURO: Alert and oriented x3. No focal deficits. PSYCH: Normal mood and affect. Course Vital Signs Vital signs: Vital Signs Temperature 97.1 F L 06/18/23 11:08 Pulse Rate 86 06/18/23 11:08 Respiratory Rate 16 06/18/23 11:08 Blood Pressure 132/
== END 2023-06-18 13:43 | disposition home or self-care (01) ==
PROVIDERS: Emergency Provider Physician Assistant; PCP Internal Medicine
DX: S89.91XA Unspecified injury of right lower leg, initial encounter (principal); J44.9 Chronic obstructive pulmonary disease, unspecified; K21.9 Gastro-esophageal reflux disease without esophagitis; F32.A Depression, unspecified; Z86.711 Personal history of pulmonary embolism; Z87.442 Personal history of urinary calculi; Z79.01 Long term (current) use of anticoagulants; Z87.891 Personal history of nicotine dependence; W13.2XXA Fall from, out of or through roof, initial encounter
CPT/HCPCS: 73562; 99283

== ENCOUNTER 2024-02-28 18:09 | Emergency (ER) | payer MEDICARE, OTHER, SELFPAY ==
--- NOTE | ~2024-02-28 | XR_ITS ---
EXAM: XR hand LT min 3V DATE: 02/28/2024 22:13 HISTORY: laceration to the base of the thumb . COMPARISON: None available. FINDINGS: Normal mineralization. No fracture or dislocation. No lytic or blastic lesion. Joint space s are maintained. No erosion or periosteal change. 3 mm linear radiopacity in the soft tissues anteri or to the third DIP joint. IMPRESSION: No acute osseous finding. 3 mm linear, radiopaque foreign body in the soft tissues anteri or to the third DIP joint. Reviewed, dictated and finalized at location K. IMPRESSION: No acute osseous finding. 3 mm linear, radiopaque foreign body in t he soft tissues anterior to the third DIP joint.
[2024-02-28 18:53] VITALS: BP 119/79; PULSE 83; RESP 16; TEMP 36.7; O2SAT 98
[2024-02-28] MEDS: TETANUS,DIPHTHERIA,AC PERTUSSIS ADULT (0.5 ML) BOOSTRIX IM (22:42)
--- NOTE | 2024-02-28 23:36 | ED.WOUNDLAC ---
HPI - Wound/Laceration General Chief Complaint: Wound/Laceration Stated Complaint: lac to right hand Time Seen by Provider: 02/28/24 21:07 Source: patient Mode of arrival: ambulatory Limitations: no limitations History of Present Illness HPI narrative: This is a 38-year-old male that presents to the ER for laceration to the left 1st finger sustained just prior to arrival. Reports he was cutting turkey and accidentally cut himself with a knife. He is not up to date on his tetanus vaccination. Reports bleeding and pain to the area. Denies decreased range of motion or numbness. Related Data Home Medications Medication Instructions Recorded Confirmed pantoprazole 40 mg tablet,delayed 40 mg PO DAILY 02/20/21 10/23/22 release albuterol sulfate 0.63 mg/3 mL 0.63 mg inhalation Q4H PRN 10/23/22 10/23/22 solution for nebulization Shortness Of Breath Or Wheezing apixaban 5 mg tablet (Eliquis) 5 mg PO BID 10/23/22 10/23/22 divalproex 500 mg tablet,delayed 500 mg PO DAILY 10/23/22 10/23/22 release (Depakote) lorazepam 0.5 mg tablet 0.5 mg PO TID 10/23/22 10/23/22 Allergies Allergy/AdvReac Type Severity Reaction Status Date / Time topiramate Allergy Unknown Unknown Verified 06/18/23 11:27 Review of Systems Review of Systems: CONSTITUTIONAL: Denies fever SKIN: Reports laceration MUSCULOSKELETAL: Reports joint pain, and myalgia. NEUROLOGIC: Denies numbness All systems reviewed & are unremarkable except as noted in HPI and below PMFSH Past Medical History Medical History History of COPD History of depression History of gastroesophageal reflux (GERD) History of kidney stones Kidney stones Pulmonary emboli Seizure Surgical History Surgical History H/O cystoscopy History of lumbar surgery History of urethral stent Family History Family History Father Diabetes mellitus Social History Social History Social History: The patient lives alone. He is single. He has no children. He is disabled . He typically goes to the [place]. He is a former smoker. He denies any alcohol marijuana or illicit drugs. No power of deputy prosecuting attorney was listed Code status full code Smoking status: Former smoker Alcohol intake: never Substance use: never Substance use type: does not use Lack of Transportation: No Lack of Food: Never True Current Housing: I Have Housing Concerned About Future Housing: No Difficulty Paying Gas/Electric Bills: No Difficulty Paying for Meds: No Currently Unemployed: No Education: High School Diploma/GED Difficulty w/ Childcare or Family Care: No Spiritual care concerns: No Exam Narrative: GENERAL: Well-appearing, well-nourished, and in no acute distress. HEAD: Normocephalic, atraumatic. EYES: EOMI. EXTREMITIES: Normal range of motion. No edema. 3 cm linear, superficial laceration at the base of the left thumb SKIN: Warm, dry, no rash. NEURO: No focal deficits. Alert and oriented x3. PSYCH: Normal mood and affect Course Course Emergency Course: Patient updated on his workup and agrees with plan of care Vital Signs Vital signs: Vital Signs Temperature 98.0 F 02/28/24 18:53 Pulse Rate 83 02/28/24 18:53 Respiratory Rate 16 02/28/24 18:53 Blood Pressure 119/79 02/28/24 18:53 Pulse Oximetry 98 02/28/24 18:53 Oxygen Delivery Nasal Cannula 02/28/24 18:53 Oxygen Flow Rate 2 02/28/24 18:53 Temperature 98.0 F 02/28/24 18:53 Pulse Rate 83 02/28/24 18:53 Respiratory Rate 16 02/28/24 18:53 Blood Pressure 119/79 02/28/24 18:53 Pulse Oximetry 98 02/28/24 18:53 Oxygen Delivery Nasal Cannula 02/28/24 18:53 Oxygen Flow Rate 2 02/28/24 18:53 Procedures Laceration Laceration 1:
[2024-02-29 00:06] VITALS: BP 118/74; PULSE 84; RESP 18; O2SAT 98
== END 2024-02-29 00:07 | disposition home or self-care (01) ==
PROVIDERS: Emergency Provider Physician Assistant; PCP Internal Medicine
DX: S61.012A Laceration without foreign body of left thumb without damage to nail, initial encounter (principal); Z23 Encounter for immunization; J44.9 Chronic obstructive pulmonary disease, unspecified; K21.9 Gastro-esophageal reflux disease without esophagitis; Z87.442 Personal history of urinary calculi; F32.A Depression, unspecified; Z86.711 Personal history of pulmonary embolism; Z87.891 Personal history of nicotine dependence; Z79.01 Long term (current) use of anticoagulants; W26.0XXA Contact with knife, initial encounter; Y93.G1 Activity, food preparation and clean up
CPT/HCPCS: 73130; 90471; 90715; 99283

== ENCOUNTER 2025-05-24 10:39 | Emergency (ER) | payer MEDICARE, OTHER, SELFPAY ==
[2025-05-24 10:43] VITALS: BP 124/83; PULSE 95; RESP 20; TEMP 36.5; O2SAT 98
--- OUTSIDE RECORDS SUMMARY | 2025-05-24 10:43 | XMS_ITS | Clinical Summary ---
Author Organization [facility] Healthcare Address [address] [place] [address] Care Team Providers Care Fac Engineer Name Role Phone No, Physician Primary Care Provider [phone] Allergies Active Allergy Reactions Criticality Noted Date Comments Sumatriptan Anaphylaxis High 03/01/2025 Topiramate Anxiety Low 02/21/2018 Medications albuterol (PROVENTIL,VENTOLI N) 0.63 mg/3 mL nebulizer solutionIndication s:Chronic Obstructive Pulmonary Disease Take 3 mL (0.63 mg total) by nebulization every 6 (six) hours as needed for wheezing or shortness of breath Active divalproex ER (DEPAKOTE ER) 500 mg 24 hr tabletIndications: Migraine Prevention,epileps y,Stress seizures Grand Mal Take 3 tablets (1,500 mg total) by mouth 3 (three) times a day Active tamsulosin (FLOMAX) 0.4 mg extended release capsuleIndications :Urolithiasis Take 1 capsule (0.4 mg total) by mouth 2 (two) times a day as needed None in past 6 months Active budesonide/glycopy r/formoterol (BREZTRI AEROSPHERE INHAL) Inhale 2 puffs 2 (two) times a day Active cholecalciferol (VITAMIN D-3) 25 mcg (1,000 unit) tabletIndications: Vitamin D Deficiency Take 1 tablet (1,000 Units total) by mouth every morning Active ferrous sulfate 325 mg (65 mg of elemental iron) tabletIndications: Iron Deficiency Anemia Take 1 tablet (325 mg total) by mouth daily with breakfast Active minoxidiL (LONITEN) 10 mg tabletIndications: 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 Take 1 tablet (10 mg total) by mouth every morning Active testosterone cypionate (DEPO-TESTOTERONE) 200 mg/mL injectionIndicatio ns:Androgen Deficiency Inject 0.5 mL (100 mg total) into the muscle as instructed every 14 (fourteen) days WED and Active pantoprazole DR (PROTONIX) 40 mg EC tabletIndications: gastroesophageal reflux disease Take 1 tablet (40 mg total) by mouth every morning Active albuterol HFA (PROVENTIL HFA,VENTOLIN HFA,PROAIR HFA) 90 mcg/actuation inhalerIndications :Chronic Obstructive Pulmonary Disease Inhale 2 puffs every 6 (six) hours as needed for wheezing or shortness of breath Active sertraline (ZOLOFT) 50 mg tabletIndications: depression Take 1 tablet (50 mg total) by mouth nightly Takes for 14 days 1/2 tab and then goes to full tab thereafter 11/29/19 24 Active morphine ER (MS CONTIN) 30 mg 12 hr tabletIndications: severe chronic pain requiring long-term opioid treatment Take 1 tablet (30 mg total) by mouth 2 (two) times a day Active clonazePAM (KlonoPIN) 1 mg tabletIndications: anxiety Take 1 tablet (1 mg total) by mouth 4 (four) times a day He states he takes generally 3-4 times daily depending on day Active miscellaneous medical supply miscIndications:Ch ronic Obstructive Pulmonary Disease with Bronchospasms 1 each Home Oxygen 2 liters nasal cannula (16-18 hours a day) Active HYDROcodone-acetam inophen (NORCO) 5-325 mg per tabletIndications: Pain Take 1 tablet by mouth every 6 (six) hours as needed for pain 8 tablet 11/30/19 25 Active Additional Information Patient not taking.Reported on 01/08/2025 ondansetron ODT (ZOFRAN-ODT) 8 mg disintegrating tablet 01/02/20 25 Active Zepbound 2.5 mg/0.5 mL pen injector Inject 2.5 mL (12.5 mg total) under the skin once a week 01/24/20 25 Active spironolactone (ALDACTONE) 100 mg tablet TAKE 1 TABLET BY ORAL ROUTE EVERY DAY FOR EDEMA 02/22/20 25 Active Active Problems Problem Noted Date Diagnosed Date Bronchiolitis obliterans 03/01/2025 Obstructive sleep apnea 01/26/2025 Trigger middle finger of right hand 10/16/2024 Trigger finger, left middle finger 10/16/2024 Dyspnea, unspecified type 10/05/2022 Panlobular emphysema 10/05/2022 Seizure disorder 10/05/2022 History of pulmonary embolism 10/05/2022 Overview (10/05/2022): 2015 Acute pulmonary embolism without acute cor pulmo nale 10/05/2022 Migraines 10/05/2022 PTSD (post-traumatic stress disorder) 10/05/2022 Syncope 10/05/2022 Sinus tachycardia 10/05/2022 Encounters Date Type Department Care Team Description 03/01/2025 2:27 PM CDT - 03/01/2025 11:59 PM CDT Hospital Encounter [facility] [address] [place] [address] Discharge Disposition: Discharge to home or self care 03/01/2025 1:00 PM CDT Office Visit [facility] [address] [facility] Advanced [facility] 8th [place] [address] [place] [address] Birdie Coleman MD Bronchiolitis obliterans (HCC) (Primary Dx); Chronic obstructive pulmonary disease, unspecified COPD type (HCC) 03/01/2025 11:14 AM CDT - 03/01/2025 11:59 PM CDT Hospital Encounter [facility] [address] [facility] [address] [place] [address] Bronchiolitis obliterans (HCC) Discharge Disposition: Discharge to home or self care 03/01/2025 11:02 AM CDT - 03/01/2025 11:59 PM CDT Hospital Encounter [facility]) [address] [place] [address] Bronchiolitis obliterans (HCC) Discharge Disposition: Discharge to home or self care from Last 3 Months Surgical History Surgery Date Site/Laterality Comments LUMBAR DISC SURGERY 11/01/2017 - 10/31/2018 KIDNEY STONE SURGERY 11/01/2021 - 10/31/2022 TRIGGER FINGER RELEASE 11/30/2024 Left left middle Medical History Medical History Date Comments COPD (chronic obstructive pulmonary disease) (HC C) Seizures (HCC) PTSD (post-traumatic stress disorder) Migraines On home oxygen therapy Family History Medical History Relation Name Comments Alzheimer disease early onset Father Diabetes type II Father No Known Problems Mother Leukemia Sister Anesthesia problems Neg Hx Relation Name Status Comments Father Mother Alive Sister Alive Social History Tobacco Use Types Packs/Day Years Used Date Smoking Tobacco: Former Cigarettes 0.1 6 2 008 - 2014 Passive Smoke Exposure: Past Smokeless Tobacco: Never Tobacco Cessation:Counseling Given: Not Answered Passive Exposure Comments:Dad smoked AUDIT-C Answer Date Recorded Q1: How often do you have a drink containing alcohol? Never 11/30/2024 Q2: How many drinks containi ng alcohol do you have on a typical day when you are drinking? Patient does not drink Q3: How often do you have si x or more drinks on one occasion? Never 11/30/2024 Personal Safety Answer Date Recorded Have you ever been in or are you currently in a harmful physical or emotional relationship or is someone making you feel afraid or unsafe? 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 Gender Identity Not on file Sexual Orientation Not on file Obstetrics History Last Filed Vital Signs Vital Sign Reading Time Taken Comments Blood Pressure 116/77 03/01/2025 12:53 PM CDT Pulse 86 03/01/2025 12:53 PM CDT Temperature 36.3 C (97.4 F) 03/01/2025 12:53 PM CDT Respiratory Rate 18 03/01/2025 12:53 PM CDT Oxygen Saturation 99% 03/01/2025 12:53 PM CDT Inhaled Oxygen Concentration - - Weight 95.7 kg (211 lb) 03/01/2025 12:53 PM CDT Height 172.7 cm (5' 8) 03/01/2025 12:53 PM CDT Body Mass Index 32.08 03/01/2025 12:53 PM CDT Plan of Treatment Health Maintenance Due Date Last Done Comments Depression Screening 1985 Hepatitis C Screening 1985 Regular Well Visit/Exam 18-64 2004 Varicella Vaccines (1 of 2 - 13+ 2-dose series) 08/13/2009 HPV Vaccines (1 - 3-dose SCD M series) 2013 Influenza Vaccine (#1) 2025 2, 08/03/2021, 08/01/2021, Additional history exists DTaP/Tdap/Td Vaccine (5 - Td or Tdap) 02/27/2034 02/28/2024, 05/12/2016, 05/11/2006, Additional history exists Pneumococcal vaccine <65 (3 of 3 - PCV20 or PCV21) 2036 09/06/2017, 10/14/2015 Hepatitis B Screening Completed 07/19/2007 , 11/19/2006, 06/16/2006, Additional history exists Procedures Procedure Name Priority Date/Time Associated Diagnosis Comments PULMONARY FUNCTION TEST (PFT) Routine 03/01/2025 12:37 PM CDT Bronchiolitis obliterans (HCC) XR CHEST PA LATERAL 2 VIEWS Schedule Routine, Read Routine (OP Routine) 03/01/2025 11:07 AM CDT Bronchiolitis obliterans (HCC) from Last 3 Months Results * Pulmonary Function Test - (03/01/2025 12:37 PM CDT) FVC PRE 1.57 L [facility] FVC %PRE PRED 34 % [facility] FVC POST 2.11 L [facility] FVC %POST PRED 46 % [facility] FEV1 PRE 0.92 L [facility] FEV1 %PRE PRED 24 % [facility] FEV1 POST 1.48 L [facility] FEV1 %POST PRED 39 % [facility] FEV1/FVC PRE 58.8 % [facility] FEV1/FVC POST 70.1 % [facility] FRC [address] PRE 3.[address] [facility] [address] %PRE PRED 98 % [facility] RV PRE 2.53 L [facility] RV %PRE PRED 149 % [facility] TLC PRE 4.62 L [facility] TLC %PRE PRED 70 % [facility] DLCO PRE 10.9 ml/min/mmH g [facility] DLCO %PRE PRED 36 % [facility] FIO2 % 21.00 % [facility] PaO2 70.0 mmHg [facility] PaCO2 40.0 mmHg [facility] pH 7.40 [facility] A-aDO2 POC 30.0 mmHg [facility] METHGB % 0.5 % [facility] COHb POC 1.4 % [facility] HCO3 24.8 mEq/L [facility] Anatomical Region Laterality Modality PFT 03/01/2025 11:4 3 AM CDT Narrative 03/01/2025 6:45 PM CDT Table formatting from the original result was not included. [facility] Division of Pulmonary & Critical Care Medicine [address] [place] [address]; [place] [address] [facility]; [place] [address]; [phone] Pulmonary Function Laboratory Pulmonary Stress Test Simple/Oxygen Assessment Patient: Luis Angel Palmer Date: 03/01/2025 : 1985 Ht: 68 in Wt: 211 lbs Time (min) Distance (ft)/ Mazariegos O2 L/M SpO2 HR Katlyn* BP FEV1 % Pred Rest: RA 98 90 3 140/101 0.92 24 % Walk/Bike: 1 RA 97 97 4 2 RA 99 109 5 3 RA 100 109 5 4 RA 99 105 5 5 RA 99 103 6 6 min 0 sec RA 99 109 6 Recovery: 1 RA 99 114 6 138/94 1.09 29 % 3 RA 99 92 5 *Katlyn rate of perceived exertion (1-10 dyspnea scale) Anthony, CHEST 2003; 123:1408 Walk Test Summary: Six Minute Walk Distance: 375 ft Six-minute Walk Work [distance (m) x body wt (kg)]: 72645 kg.m (normal >60,000kg.m) Oxygen required to maintain SpO2 greater than 90% during six minutes of walkin L/M Comments: O2A. Stopped 5 times due to shortness of breath and dizziness. Interpretation: Breathing room air, SpO2 is normal at rest and during exercise sufficient to increase pulse, SpO2 is stable. On this basis, SpO2 is adequate at rest breathing room air and while walking breathing room air. This level of exercise is associated with no significant change of FEV1. By signing this report, the attending pulmonary physician certifies that he/she has personally reviewed and interpreted the graphic and numerical data associated with this pulmonary function study and has reviewed and /or edited a preliminary draft report and agrees with the written final report. PFT performed at:->[facility] Adult PFT Lab- [facility] Procedure:->Oxygen Assessment Titration Procedure:->Spirometry Procedure:->Spirometry with Bronchodilator Procedure:->ABG Procedure:->Lung Volumes Procedure:->DLCO Lung Volumes via:->Pleth with Airway Resistance DLCO:->Spirometry Pulmonary Function Test Interpretation SPIROMETRY: There is a decrease in expiratory airflow at all lung volumes. The FEV1 to FVC ratio is reduced. The decreased expiratory flow and FEV1 and FVC are consistent with a combined restrictive and obstructive abnormality. There is significant improvement after inhaling a single dose of albuterol. The inspiratory loop is suggestive of submaximal effort. LUNG VOLUMES: TLC measured by plethysmography is decreased. The increased RV suggests air trapping. DLCO: DLCO testing did not meet standards of accuracy and reproducibility. The diffusing capacity corrected for hemoglobin level (DLCO ADJ) is severely decreased. A decreased diffusing capacity may be due to loss of pulmonary capillary surface area. Causes include pulmonary fibrosis (altered V/Q relationship), pulmonary vascular disease, emphysema, or interstitial pneumonitis. ARTERIAL BLOOD GAS: The pH and pCO2 are normal. The arterial pO2 is below the lower limit of normal for the patient's age at rest. O2 saturation measured by oximetry is adequate at rest. Measured hemoglobin is 18.3 g/dL. Impression: There is a combined severe obstructive and mild restrictive ventilatory defect. There is air trapping. There is a severe impairment of alveolar gas exchange by DLCO. There is a mild impairment of gas exchange at rest by ABG. Polycythemia is noted. The attending pulmonary physician certifies a physician presence in the [facility] during the administration of aerosolized bronchodilator. The attending pulmonary physician certifies that he/she has reviewed and interpreted the graphic and numerical data of this pulmonary function study and agrees with the written final report. The lower limit of normal for PaO2 and %HbO2 is age dependent. However, the [facility] Pul[facility] Function Laboratory defines hypoxemia as a PaO2 <56 mm Hg or a %HbO2 <89%. Starting on November of [address] [facility] Pul[facility] Function Laboratory utilizes race neutral GLI Global normative equations. us Genevieve Butcher MD PFT ORDERABLES Final Result * XR Chest Pa Lateral 2 Views (03/01/2025 11:07 AM CDT) Anatomical Region Laterality Modality Body, Chest N/A Computed Radiogr aphy 03/01/2025 11:3 7 AM CDT Impressions 03/01/2025 11:56 AM CDT Comparison radiographs dated 10/05/2022. No focal airspace consolidation, pleural effusion or pneumothorax. Normal cardiomediastinal silhouette. Moderate gaseous distention of the stomach and mild distention of the distal esophagus, best seen on the lateral radiograph. Dictated by: Sunni Shepard MD The radiology attending physician has personally reviewed this study, and had reviewed and/or edited this written report and agrees with it. Electronically signed by: Chaparro Chilel MD, PHD Narrative 03/01/2025 11:56 AM CDT EXAMINATION: 2 view chest radiograph Procedure Note Chaparro Chilel MD PhD - 03/01/2025 EXAMINATION: 2 view chest radiograph IMPRESSION: Comparison radiographs dated 10/05/2022. No focal airspace consolidation, pleural effusion or pneumothorax. Normal cardiomediastinal silhouette. Moderate gaseous distention of the stomach and mild distention of the distal esophagus, best seen on the lateral radiograph. Dictated by: Sunni Shepard MD The radiology attending physician has personally reviewed this study, and had reviewed and/or edited this written report and agrees with it. Electronically signed by: Chaparro Chilel MD, PHD Genevieve Butcher MD IMG XR PROCEDURES Final Resu lt from Last 3 Months Insurance [employer] [facility] MEDICARE ADVANTAGE [facility] FOR LIFE [place] COMMUN[facility] [place] C[facility] FOR LIFE [facility] MEDICARE ADVANTAGE Advance Directives For more information, please contact: [phone] * Full Code (Latest Code Status on File) Date Activated Date Inactivated Comments 10/05/2022 5:48 PM 10/06/2022 10:50 PM Care Teams Fac Engineer Relationship Specialty Start Date End Date No, Physician PCP - General 03/24/24
--- OUTSIDE RECORDS SUMMARY | 2025-05-24 10:43 | XMS_ITS | Referral Summary ---
Author Organization [facility] Healthcare Address [address] [place] [address] Care Team Providers Care Drywall Taper Name Role Phone No, Physician Primary Care Provider [phone] Encounters Date Type Department Care Team Description 03/01/2025 2:27 PM CDT - 03/01/2025 11:59 PM CDT Hospital Encounter [facility] [place] [facility] ([facility]) [address] [place] [address] Discharge Disposition: Discharge to home or self care 03/01/2025 11:02 AM CDT - 03/01/2025 11:59 PM CDT Hospital Encounter [facility] ([facility]) [address] [place] [address] Bronchiolitis obliterans (HCC) Discharge Disposition: Discharge to home or self care 03/01/2025 1:00 PM CDT Office Visit [facility] [address] [place] [address] Advanced Medicine 8th [place] [address] [place] [address] Birdie Coleman MD Bronchiolitis obliterans (HCC) (Primary Dx); Chronic obstructive pulmonary disease, unspecified COPD type (HCC) 03/01/2025 11:14 AM CDT - 03/01/2025 11:59 PM CDT Hospital Encounter [facility] [address] [facility] [address] [place] [id number] Bronchiolitis obliterans (HCC) Discharge Disposition: Discharge to home or self care from Last 3 Months Allergies Active Allergy Reactions Criticality Noted Date [...] as needed for pain 8 tablet 11/30/19 Active Additional Information Patient not taking.Reported on 01/08/2025 ondansetron ODT (ZOFRAN-ODT) 8 mg disintegrating tablet 01/02/20 Active Zepbound 2.5 mg/0.5 mL pen injector Inject 2.5 mL (12.5 mg total) under the skin once a week 01/24/20 Active spironolactone (ALDACTONE) 100 mg tablet TAKE 1 TABLET BY ORAL ROUTE EVERY DAY FOR EDEMA 02/22/20 25 Active Active Problems Problem Noted Date Diagnosed Date Bronchiolitis obliterans 03/01/2025 Obstructive sleep apnea 01/26/2025 Trigger middle finger of right hand 10/16/2024 Trigger finger, left middle finger 10/16/2024 Dyspnea, unspecified type 10/05/2022 Panlobular emphysema 10/05/2022 Seizure disorder 10/05/2022 History of pulmonary embolism 10/05/2022 Overview (10/05/2022): 2014 Acute pulmonary embolism without acute cor pulmo nale 10/05/2022 Migraines 10/05/2022 PTSD (post-traumatic stress disorder) 10/05/2022 Syncope 10/05/2022 Sinus tachycardia 10/05/2022 Social History Tobacco Use Types Packs/Day Years [...] on file 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 Gender Identity Not on file Sexual Orientation Not on file Last Filed Vital Signs Vital Sign Reading [...] 03/01/2025 12:53 PM CDT Plan of Treatment Not on file Procedures Procedure Name Priority Date/Time Associated Diagnosis Comments PULMONARY FUNCTION TEST (PFT) Routine 03/01/2025 12:37 PM CDT Bronchiolitis obliterans (HCC) XR CHEST PA LATERAL 2 VIEWS Schedule Routine, Read Routine (OP Routine) 03/01/2025 11:07 AM CDT Bronchiolitis obliterans (HCC) from Last 3 Months Results * Pulmonary Function Test - (03/01/2025 12:37 PM CDT) FVC PRE 1.57 L [facility] FVC %PRE PRED 34 % [facility] FVC POST 2.11 L [facility] FVC %POST PRED 46 % [facility] FEV1 PRE 0.92 L [facility] FEV1 %PRE PRED 24 % [facility] FEV1 POST 1.48 L [facility] FEV1 %POST PRED 39 % [facility] FEV1/FVC PRE 58.8 % [facility] FEV1/FVC POST 70.1 % [facility] FRC PL PRE 3.16 L [facility] FRC PL %PRE PRED 98 % [facility] RV PRE 2.53 L [facility] RV %PRE PRED 149 % [facility] TLC PRE 4.62 L [facility] TLC %PRE PRED 70 % [facility] DLCO PRE 10.9 ml/min/mmH g [facility] DLCO %PRE PRED 36 % [facility] FIO2 % 21.00 % [facility] PaO2 70.0 mmHg [facility] PaCO2 40.0 mmHg [facility] pH 7.40 [facility] A-aDO2 POC 30.0 mmHg [facility] METHGB % 0.5 % [facility] COHb POC 1.4 % [facility] HCO3 24.8 mEq/L [facility] Anatomical Region Laterality Modality PFT 03/01/2025 11:4 3 AM CDT Narrative 03/01/2025 6:45 PM CDT Table formatting from the original result was not included. [facility] Division of Pulmonary & Critical Care Medicine [address] [place] [address]; [place] [address] [facility]; [place] [address]; [phone] Pulmonary Function Laboratory Pulmonary Stress Test Simple/Oxygen [...] Work [distance (m) x body wt (kg)]: 26076 kg.m (normal >60,000kg.m) Oxygen required to maintain [...] with the written final report. PFT performed at:->[facility] Adult PFT Lab- [facility] Procedure:->Oxygen Assessment Titration [...] and %HbO2 is age dependent. However, the [facility] Pulmonary Function Laboratory defines hypoxemia as a PaO2 <56 mm Hg or a %HbO2 <89%. Starting on November of 2024 the [facility] Pulmonary Function Laboratory utilizes race neutral GLI [...] Resu lt from Last 3 Months Insurance FOR LIFE [facility] MEDICARE ADVANTAGE [facility] MEDIC[facility] Address: [address] [address] [place] [address] FOR LIFE [facility] FOR LIFE [facility] MEDICARE ADVANTAGE [facility] Address: [id number] [place] [id number] Advance Directives For more information, please contact: [phone] * Full Code (Latest Code Status on File) Date Activated Date Inactivated Comments 10/05/2022 5:48 PM 10/06/2022 10:50 PM Care Teams Drywall Taper Relationship Specialty Start Date End Date No, Physician PCP - General 03/24/24
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
--- OUTSIDE RECORDS SUMMARY | 2025-05-24 10:43 | XMS_ITS | Clinical Summary ---
Author Organization [facility] Address [address] [place] [address] Phone Care Team Providers Care Oil Well Services Superintendent Name Role Phone Unavailable Primary Care Provider Unavailabl e Allergies No known active allergies Medications No known medications Active Problems Problem Noted Date Diagnosed Date Respiratory alkalosis 09/22/2022 Tachypnea 09/22/2022 Chronic bronchitis 09/22/2022 PTSD (post-traumatic stress disorder) 09/22/2022 Migraines 09/22/2022 History of seizures 09/22/2022 COPD with exacerbation 09/22/2022 Social History Tobacco Use Types Packs/Day Years Used Date Smoking Tobacco: Unknown Tobacco Cessation:Counseling Given: Not Answered Sex and Gender Information Value Date Recorded Sex Assigned at Not on file Legal Sex Male 8:47 AM BUSINESS ACCOUNT SPECIALIST Gender Identity Not on file Sexual Orientation Not on file Last Filed Vital Signs Vital Sign Reading Time Taken Comments Blood Pressure 104/53 09/22/2022 9:20 PM BUSINESS ACCOUNT SPECIALIST Pulse 100 09/22/2022 9:20 PM BUSINESS ACCOUNT SPECIALIST Temperature 37.6 C (99.7 F) 09/22/2022 1:52 PM BUSINESS ACCOUNT SPECIALIST Respiratory Rate 25 09/22/2022 9:20 PM BUSINESS ACCOUNT SPECIALIST Oxygen Saturation 98% 09/22/2022 9:20 PM BUSINESS ACCOUNT SPECIALIST Inhaled Oxygen Concentration - - Weight 81.6 kg (180 lb) 09/22/2022 1:47 PM BUSINESS ACCOUNT SPECIALIST Height 175.3 cm (5' 9) 09/22/2022 1:47 PM BUSINESS ACCOUNT SPECIALIST Body Mass Index 26.58 09/22/2022 1:47 PM BUSINESS ACCOUNT SPECIALIST Plan of Treatment Health Maintenance Due Date Last Done Comments HPV VACCINES (1 - Male 3-dose series) 2001 DTAP/TDAP/TD VACCINES (1 - Tdap) 2005 HEPATITIS B VACCINES (1 of 3 - 19+ 3-dose series) 07/02 INFLUENZA VACCINE (#1) 2025 Insurance AETNA [facility] * Guarantor: [facility] H (C) 2022 Account Type Relation to Patient Date of Phone Billing Address Corporate Other DEFAULT ADDRESS [address] [place]
--- NOTE | 2025-05-24 10:54 | ED_ITS ---
HPI - Allergic Reaction General Chief complaint: Allergic Reaction Stated complaint: bee stings Time Seen by Provider: 05/24/25 10:53 Source: patient Mode of arrival: wheelchair Limitations: no limitations History of Present Illness HPI narrative: This is a 39-year-old male that presents to the emergency department for allergic reaction. Reports about 20 minutes ago he was stung by what he believes to be knees. He sustained a sting to the lip and feels like 1 in the mouth. He has been having feelings of swelling in the mouth and throat, difficulty breathing. Reports no previous similar allergic reactions. He does have history of COPD, chronically wears oxygen. Related Data Home Medications ?Medication ?Instructions ?Recorded ?Confirmed ?Last Taken ?Type pantoprazole 40 mg tablet,delayed 40 mg PO DAILY 02/20/21 10/23/22 Unknown History release albuterol sulfate 0.63 mg/3 mL 0.63 mg inhalation Q4H PRN 10/23/22 10/23/22 Unkn own History solution for nebulization Shortness Of Breath Or Wheezing apixaban 5 mg tablet (Eliquis) 5 mg PO BID 10/23/22 10/23/22 Unknown History divalproex 500 mg tablet,delayed 500 mg PO DAILY 10/23/22 10/23/22 Unknown History release (Depakote) lorazepam 0.5 mg tablet 0.5 mg PO TID 10/23/22 10/23/22 Unknown History Allergies Allergy/AdvReac Type Severity Reaction Status Date / Time topiramate Allergy Unknown Unknown Verified 06/18/23 11:27 Review of Systems Review of Systems: All systems reviewed & are unremarkable except as noted in HPI and below PMFSH Past Medical History Medical History History of COPD History of depression History of gastroesophageal reflux (GERD) History of kidney stones Kidney stones Pulmonary emboli Seizure Surgical History Surgical History H/O cystoscopy History of lumbar surgery History of urethral stent Family History Family History Father Diabetes mellitus Social History Social History Social History: The patient lives alone. He is single. He has no children. He is disabled . He typically goes to the [place]. He is a former smoker. He denies any alcohol marijuana or illicit drugs. 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 HEAD: Normocephalic, atraumatic. EYES: EOMI. ENT: Nares clear, no rhinorrhea or epistaxis. Mucous membranes moist. Oropharynx without tonsillar hypertrophy exudate or other lesions. Swelling of the left side of the upper lip noted. No obvious swelling in the mouth or oropharynx NECK: Supple. No adenopathy or masses. CHEST: Clear to auscultation. No respiratory distress. No wheezes rales or rhonchi HEART: Regular rate and rhythm. No murmur heard. Normal peripheral pulses. EXTREMITIES: Normal range of motion. No edema. SKIN: Warm, dry, no rash. NEURO: No focal deficits. Alert and oriented x3. PSYCH: Normal mood and affect Course Course Emergency Course: patient resting comfortably. swelling to the lip has improved. Vital Signs Vital signs: Vital Signs Temperature 97.7 F 05/24/25 10:43 Pulse Rate 95 05/24/25 10:43 Respiratory Rate 20 05/24/25 10:43 Blood Pressure 124/83 05/24/25 10:43 Pulse Oximetry 98 05/24/25 10:43 Oxygen Delivery Nasal Cannula 05/24/25 10:43 Oxygen Flow Rate 2 05/24/25 10:43 Temperature 97.7 F 05/24/25 10:43 Pulse Rate 106 H 05/24/25 13:46 Respiratory Rate 20 05/24/25 13:46 Blood Pressure 127/82 05/24/25 13:46 Pulse Oximetry 96 05/24/25 13:46 Oxygen Delivery Room Air 05/24/25 11:02 Oxygen Flow Rate 2 05/24/25 10:43 MDM - Allergic Reaction MDM Narrative Medical decision making narrative: Patient presents to the emergency department after being stung by several bees around the mouth. Oxygen saturations remained normal on room air. Lungs are clear on exam. Swelling noted of the lip, no notable swelling inside of the mouth or in the throat. The patient was given Benadryl, Pepcid, Solu-Medrol, and epinephrine. He was monitored in the ER for 4 hours with continued improvement in his condition. Will be discharged with a prescription for epinephrine. Instructed to have close follow-up with his PCP Differential Diagnosis Differential diagnosis: Likely anaphylaxis, allergic reaction, angioedema, contact dermatitis and urticaria Critical Care Time Critical Care Time Critical Care Time: No Discharge Plan Discharge Clinical Impression: Allergic reaction Qualifiers: Encounter type: initial encounter Qualified Code(s): T78.40XA - Allergy, unspecified, initial encounter Patient Disposition: Home Condition: Improved Instructions: General Allergic Reaction (ED) Additional Instructions: Return to the emergency department if you experience fever, difficulty swallowing, trouble breathing, or any other symptoms that are concerning to you Take a Pepcid and Zyrtec daily. Benadryl as needed for severe itching Follow-up with your primary care doctor Patient Language: Ukrainian Prescriptions: New epinephrine [EpiPen 2-Ralph] 0.3 mg/0.3 mL auto-injector 0.3 mg IM Q5-15M PRN (Reason: anaphylaxis) Qty: 2 0RF Rx Instructions: do not exceed 3 doses per episode No Action pantoprazole 40 mg Tablet,Delayed Release (Dr/Ec) 40 mg PO DAILY doxycycline monohydrate 100 mg capsule 100 mg PO BID Qty: 14 0RF cephalexin 500 mg capsule 500 mg PO Q8H 5 Days Qty: 15 0RF albuterol sulfate 0.63 mg/3 mL Solution For Nebulization 0.63 mg INHALATION Q4H PRN (Reason: Shortness Of Breath Or Wheezing) divalproex [Depakote] 500 mg Tablet,Delayed Release (Dr/Ec) 500 mg PO DAILY lorazepam 0.5 mg Tablet 0.5 mg PO TID Eliquis 5 mg tablet 5 mg PO BID Follow-up/Referrals: Deysi,MD Kranthi [Primary Care Provider] -
[2025-05-24] MEDS: EPINEPHrine HCL INJ 1 MG/ML AMPUL 0.3 MG IM (10:59)
[2025-05-24] MEDS: FAMOTIDINE 20 MG/2 ML VIAL IV PUSH (11:00)
[2025-05-24 11:02] VITALS: BP 112/68; PULSE 84; RESP 16; O2SAT 100
[2025-05-24 11:11] VITALS: PULSE 80; RESP 20
[2025-05-24] MEDS: IPRATROPIUM 0.5 MG/ALBUTEROL SULFATE 2.5 MG AMPUL.NEB 3 ML INHALATION (11:11)
[2025-05-24 11:22] VITALS: PULSE 81; RESP 20
--- OUTSIDE RECORDS SUMMARY | 2025-05-24 11:49 | XMS_ITS | Clinical Summary ---
Author Organization [facility] Address [address] [place] [address] Phone Care Team Providers Care Electronic Test Technician Name Role Phone Unavailable Primary Care Provider [...] on file Legal Sex Male 8:47 AM SENIOR BIOINFORMATICS SCIENTIST Gender Identity Not on file Sexual Orientation Not on file Last Filed Vital Signs Vital Sign Reading Time Taken Comments Blood Pressure 104/53 09/22/2022 9:20 PM SENIOR BIOINFORMATICS SCIENTIST Pulse 100 09/22/2022 9:20 PM SENIOR BIOINFORMATICS SCIENTIST Temperature 37.6 C (99.7 F) 09/22/2022 1:52 PM SENIOR BIOINFORMATICS SCIENTIST Respiratory Rate 25 09/22/2022 9:20 PM SENIOR BIOINFORMATICS SCIENTIST Oxygen Saturation 98% 09/22/2022 9:20 PM SENIOR BIOINFORMATICS SCIENTIST Inhaled Oxygen Concentration - - Weight 81.6 kg (180 lb) 09/22/2022 1:47 PM SENIOR BIOINFORMATICS SCIENTIST Height 175.3 cm (5' 9) 09/22/2022 1:47 PM SENIOR BIOINFORMATICS SCIENTIST Body Mass Index 26.58 09/22/2022 1:47 PM SENIOR BIOINFORMATICS SCIENTIST Plan of Treatment Health Maintenance Due Date Last Done Comments HPV VACCINES (1 - Male 3-dose series) 2001 DTAP/TDAP/TD VACCINES (1 - Tdap) 2005 HEPATITIS B VACCINES (1 of 3 - 19+ 3-dose series) 07/02 INFLUENZA VACCINE (#1) 2025 Insurance AETNA O [facility] * Guarantor: [facility] H (C) 2022 Account Type Relation to Patient Date of Phone Billing Address Corporate Other DEFAULT ADDRESS [address] [place]
--- OUTSIDE RECORDS SUMMARY | 2025-05-24 11:49 | XMS_ITS | Encounter Summary ---
Author Name [facility] [place] Organization [facility] [place] [facility] [place] Address [address] [place] [id number] Care Team Providers Care Aerophysics Engineer Name Role Phone HENRY POPE Primary Care Provider Unavailabl e Insurance Providers: All historical and current Section Date Range: From patient's date of to the date document was created. This section includes the names of all active insurance providers for the patient. Insurance Provider Type of Coverage Plan Name Start of Policy Coverage End of Policy Coverage Group Number Member ID Insurance Provider's Telephone Number Policy Lowe's Name Patient's Relationship to Policy Lowe AARP [facility] MEDICARE ADVANTAGE [facility] Nov 01, 2024 [id number] ALLI RAMOS PATIENT AETNA [facility] MEDICARE ADVANTAGE [facility] Nov 01, 2021 [id number] ALLI RAMOS PATIENT INACTIVE [facility] TRI Oct 14, 2009 [facility] [id number] ALLI RAMOS PATIENT MEDICARE ([place]) MEDICARE ([place]) PART A Sep 01, 2015 PART A [id number] ALLI RAMOS PATIENT MEDICARE (WN) MEDICARE ([place]) PART B Sep 01, 2015 PART B [id number] ALLI RAMOS PATIENT -FO R-LIFE [facility] [facility] FOR LIFE WNR Nov 01, 2017 FOR LIFE [id number] [phone] ALLI RAMOS PATIENT Selected Encounter This section includes the information on record at [place] for the Encounter. Date/Time Encounter Type Encounter Description Reason Provider Source Apr 18, 2025 08:00 AM 3D RENDER W/INTRP POSTPROCES CARDIAC ECHO ICD-10-CM R06.00 Dyspnea, unspecified OU,JIAFU IHE Encounter Template Text not used by [place] Assessments - Encounter Diagnoses This section includes the primary and secondary diagnoses documented for the Encounter. Date/Time Primary/Secondary Diagnosis Diagnosis Name Provider Source Apr 18, 2025 09:27 AM PRIMARY Dyspnea, unspecified [facility] Plan of Treatment: Future Appointments (+ 6 months) and Future Tests (+/- 45 days) The Plan of Treatment section includes future care activities for the patient from all [place] treatmentfacilities. This section includes future appointments and future orders which are active, pending or scheduled. Future Appointments This section includes appointments that were scheduled to occur 6 months from the date of the Encounter, up to a maximum of 20 appointments. The data comes from all [place] treatment facilities. Appointment Date/Time Appointment Type Appointme nt Facility Name May 15, 2025 09:00 AM AMBULATORY - MEDICINE [facility] Jun 13, 2025 10:00 AM AMBULATORY - SURGERY [facility] Jun 29, 2025 01:30 PM AMBULATORY - NEUROLOGY [facility] Jul 03, 2025 01:30 PM AMBULATORY - SURGERY [facility] Jul 19, 2025 03:00 PM AMBULATORY - MEDICINE [facility] Sep 04, 2025 11:20 AM AMBULATORY - MEDICINE [facility] Active, Pending, and Scheduled Orders This section includes a listing of several types of active, pending, and scheduled orders, including clinic medications orders, diagnostic test orders, procedure orders and consult orders; where the start date of the order is 45 days before the date of the Encounter or 45 days after the date of theEncounter. The data comes from all [place] treatment facilities. Test Date/Time Test Type Test Details Facility Name Apr 05, 2025 08:18 AM Consult Order [facility]THO SURG Cons Paperboard Machine Operator's Choice [facility] May 15, 2025 09:46 AM Consult Order NEUROLOGY BOTOX INJECTION OUTPATIENT AWILDA Cons Paperboard Machine Operator's Choice [facility] Social History: Smoking Status (Most current) and Tobacco Use (All prior to encounter date) This section includes the most current, and the historical, smoking and tobacco- related health factors from the [place] facility where the Encounter took place. Current Smoking Status This section includes the most current smoking, or tobacco-related health factor, from the [place] facility where the Encounter took place. Date/Time Current Smoking Status Comment Mirtha ity Jun 19, 2024 12:19 PM VA-TOBACCO NEVER USED [facility] Tobacco Use History This section includes a history of the smoking, or tobacco-related health factors, that were collected on or before the date of the Encounter. The data comes from the [place] facility where the Encounter took place. Date/Time Smoking Status/Tobacco Use Comment F acility Sep 03, 2023 12:30 PM AH-BPR SMOKING DEPLOYMENT NO [facility] Apr 27, 2022 11:01 AM VA-TOBACCO NEVER USED [facility] Oct 10, 2020 10:28 AM [place]-TOBACCO NEVER USED [facility] Encounter Notes: All associated encounter notes This section contains the clinical notes associated to the Encounter. Date/Time Encounter Note(s) Provider Source Apr 18, 2025 09:26 AM CARDIOLOGY DIAGNOS TIC STUDY NOTE: LOCAL TITLE: CP ECHO TTE STL STANDARD TITLE: CARDIOLOGY DIAGNOSTIC STUDY NOTE DATE OF NOTE: APR 18, 2025@09:26:57 ENTRY DATE: APR 18, 2025@09:26:57 AUTHOR: CLINICAL,DEVICE PRO EXP COSIGNER: URGENCY: STATUS: COMPLETED DOCUMENT IN [facility] SEE FULL REPORT IN [facility] SIGNATURE NOT REQUIRED SEE SIGNATURE IN [facility]IST[facility] ([employer] TTE (P)) AUTO-INSTRUMENT DIAGNOSIS Procedure: TTE CP TTE ECHOCARDIOGRAM AWILDA Release Status: Released Off-Line Verified Date Verified: Apr 18, 2025@09:26:34 Administrative Closure: 04/18/2025 by: DEVICE PROXY SERVICE CLINICAL CLINICAL,DEVICE PROXY SERVICE CLINICAL,DEVICE PROXY SERVICE [facility]
--- OUTSIDE RECORDS SUMMARY | 2025-05-24 11:49 | XMS_ITS ---
Author Name [facility] [place] [facility] [place] [facility] [place] Address [address] [place] [address] Care Team Providers Care Certified Technician Specialist Name Role Phone HERNY POPE Primary Care Provider Unavailabl e Insurance [...] Lowe's Name Patient's Relationship to Policy Lowe AENA [facility] MEDICARE ADVANTAGE [facility]) Nov 01, 2021 [id number] ALLI RAMOS PATIENT AETNA [facility] ([facility]) MEDICARE ADVANTAGE [place] INDIV IDUAL - ILLI Nov 01, 2019 [id number] ARIELANGELATAL ALLI PATIENT INACTIVE [facility] TRI Oct 14, 2009 [facility] [id number] ALLI RAMOS PATIENT MEDICARE (WNR) MEDICARE (M) PART A Sep 01, 2015 PART A [id number] ALLI RAMOS PATIENT MEDICARE (WN) MEDICARE (M) PART B Sep 01, 2015 PART B [id number] ALLI RAMOS PATIENT -FO R-LIFE [facility] RE FOR LIFE WNR Nov 01, 2017 [facility] LIFE [id number] [phone] ALLI RAMOS PATIENT Selected Encounter This section includes the information on record at [place] for the Encounter. Date/Time Encounter Type Encounter Description Reason Provider Source Dec 13, 2024 08:00 AM OFFICE O/P EST LOW 20 MIN OPTOMETRY ICD-10-CM H53.19 Other subjective visual disturbances JOSE ALBERTO DAVIS E IHE Encounter Template Text not used by [place] Assessments - Encounter Diagnoses This section includes the primary and secondary diagnoses documented for the Encounter. Date/Time Primary/Secondary Diagnosis Diagnosis Name Provider Source Dec 13, 2024 11:59 AM PRIMARY Other subjective visual disturbances [facility] Dec 13, 2024 11:59 AM SECONDARY Hypermetropia, bilateral [facility] Dec 13, 2024 11:59 AM SECONDARY Strabismic amblyopia, left eye [facility] Plan of Treatment: Future Appointments (+ 6 months) and Future Tests (+/- 45 days) The Plan of Treatment section includes future care activities for the patient from all [place] treatmentfacilities. This section includes future appointments and future orders which are active, pending or scheduled. Future Appointments This section includes appointments that were scheduled to occur 6 months from the date of the Encounter, up to a maximum of 20 appointments. The data comes from all [place] treatment facilities. Appointment Date/Time Appointment Type Appointme nt Facility Name Jan 02, 2025 01:30 PM AMBULATORY - MEDICINE [facility] Jan 15, 2025 02:00 AM AMBULATORY - MEDICINE [facility] Feb 22, 2025 02:30 PM AMBULATORY - MEDICINE [facility] Feb 23, 2025 08:20 AM AMBULATORY - SURGERY [facility] March 01, 2025 11:15 AM AMBULATORY - MEDICINE [facility] March 06, 2025 01:30 PM AMBULATORY - SURGERY [facility] Apr 05, 2025 11:00 AM AMBULATORY - PSYCHIATRY [facility] Active, Pending, and Scheduled Orders This section includes a listing of several types of active, pending, and scheduled orders, including clinic medications orders, diagnostic test orders, procedure orders and consult orders; where the start date of the order is 45 days before the date of the Encounter or 45 days after the date of theEncounter. The data comes from all [place] treatment facilities. Test Date/Time Test Type Test Details Facility Name Dec 07, 2024 07:14 AM Consult Order [facility] Cons Sales Representative [employer] [facility] Jan 02, 2025 12:00 AM Laboratory - Chemistry Order IRON/TIBC PROFILE GOLD/RED SST SERUM SP [facility] Jan 02, 2025 12:00 AM Laboratory - Chemistry Order CBC BLOOD SP [facility] Jan 02, 2025 12:00 AM Laboratory - Chemistry Order COMPREHENSIVE METABOLIC PANEL GREEN LI/HEP BLD/PLAS PLASMA SP [facility] Jan 02, 2025 12:00 AM Laboratory - Chemistry Order FERRITIN GOLD/RED SST SERUM SP [facility] Jan 02, 2025 12:00 AM Laboratory - Chemistry Order [id number] BLOOD SP [facility] Jan 02, 2025 12:00 AM Laboratory - Chemistry Order LIPID PANEL (STL) GREEN LI/HEP BLD/PLAS PLASMA SP [facility] Jan 02, 2025 12:00 AM Laboratory - Chemistry Order VITAMIN D, 25-HYDROXY GOLD/RED SST SERUM SP [facility] Jan 02, 2025 12:00 AM Laboratory - Chemistry Order TSH (MA-PB) GOLD/RED SST SERUM SP [facility] Social History: Smoking Status (Most current) and Tobacco Use (All prior to encounter date) This section includes the most current, and the historical, smoking and tobacco- related health factors from the [place] facility where the Encounter took place. Current Smoking Status This section includes the most current smoking, or tobacco-related health factor, from the [place] facility where the Encounter took place. Date/Time Current Smoking Status Comment Mirtha itcoreen Jun 19, 2024 12:19 PM VA-TOBACCO NEVER USED [facility] Tobacco Use History This section includes a history of the smoking, or tobacco-related health factors, that were collected on or before the date of the Encounter. The data comes from the [place] facility where the Encounter took place. Date/Time Smoking Status/Tobacco Use Comment Robert stewart Sep 03, 2023 12:30 PM -BPR SMOKING DEPLOYMENT NO . [facility] Apr 27, 2022 11:01 AM VA-TOBACCO NEVER USED [facility] Oct 10, 2020 10:28 AM VA-TOBACCO NEVER USED [facility] Encounter Notes: All associated encounter notes This section contains the clinical notes associated to the Encounter. Date/Time Encounter Note(s) Provider Source Dec 13, 2024 12:53 PM OPTOMETRY CONSULT: LOCAL TITLE: OPTOMETRY CONSULT STL STANDARD TITLE: OPTOMETRY CONSULT DATE OF NOTE: DEC 13, 2024@12:53 ENTRY DATE: DEC 13, 2024@12:53:28 AUTHOR: JANETTE DAVIS EXP COSIGNER: URGENCY: STATUS: COMPLETED 12/13/24 VISUAL FIELD Report HVF 24-2 Report Reason for HVF: 1. Visual Disturbance Assessment: O.D. Reliability poor Description of VF: superior arcuate defect O.S. Reliability poor Description of VF : superior defect /es/ JANETTE DAVIS, HANK Staff Physician, Optometry Signed: 12/13/2024 12:59 JANETTE DAVIS Terrie [facility] Dec 13, 2024 08:03 AM OPTOMETRY NOTE: LOCAL TITLE: OPTOMETRY NOTE STANDARD TITLE: OPTOMETRY NOTE DATE OF NOTE: DEC 13, 2024@08:03 ENTRY DATE: DEC 13, 2024@08:03:25 AUTHOR: JANETTE DAVIS EXP COSIGNER: URGENCY: STATUS: COMPLETED Last seen: Comprehensive 06/12/2024 CC: doctor directed F/u for subjective vision loss Here today for HVF 1. Vision is - blurry/static vision 10-15 seconds and then clears - still experiencing same symptoms - feels he sees longstanding floaters - reports he has never seen well w/ left eye Ocular meds: ATs as needed Ocular ROS: 1. Hx of Strabismic Amblyopia OS *Hx of EOM surgery as a child. 2. High Hyperopia/Astigmatism OU (-) ocular injuries (-) ocular injections/laser treatments Family OcHX: (-) blindness (-) glaucoma (-) AMD (-) RD Cardiovascular ROS: no change from problem & medication lists CPRS Problem list, medications and allergies reviewed: [facility] Serology for Diabetes GLUCOSE 148 H mg/dL 11/02/2024 17:05 HGA1C 5.3 % 03/17/2024 08:23 Cardiovascular BP: 122/76 (11/02/2024 20:00) Pulse: 94 (11/02/2024 20:00) Neuro: Orientation: Normal Psych: Mood/Affect: Normal Depression/suicide ideation: NO VISUAL ACUITY With correction Distance Visual Acuity [employer] Hostess OD: 20/20 OS: 20/25-2 Pupils PERRL OU (-)APD Tours Hostess Confrontation: FTFC OU Extra-Ocular Muscles Full OU (-) pain, diplopia Externals/adnexa Unremarkable OU Manifest Refraction: 06/12/24 OD: +6.25 -3.25 x095 20/20 OS: +6.25 -3.25 x070 20/30-2 - stable per chart review SLIT LAMP EXAMINATION Lids/Lashes/Lacrimal No blepharitis OU Conjunctiva Clear OU Sclera White/quiet OU Cornea Clear OU Ant Chamber Deep and quiet OU Iris Normal, (-)NVI OU Lens Clear OU Intraocular Pressures (Goldmann) 1 gtt fluress Date OD OS Time Meds 03/15/23 16 16 1431 none 06/12/24 16 16 0958 none 12/13/2024 16 15 0837 none Tours Hostess RETINAL EVALUATION - undilated retinal exam Optic Nerve OD: 0.2 CDR Flat, pink, distinct (-)NVD OS: 0.2 CDR Flat, pink, distinct (-)NVD Vessels: 2/3 OU, (-)NVE OU Macula: OD: Flat, clear (-)CSME OS: Flat, clear (-)CSME Additional testing: brought forward and updated as needed OCT RNFL: 06/12/24 OD: avg 113, no thinning (poor quality scan sup) OS: avg 109, no thinning 360 *GCC: no thinning 360 OU OCT MACULA: 06/12/24 OD: normal foveal contour, trace ERM, no SRF/IRF OS: normal foveal contour, no SRF/IRF HVF 24-2 12/13/2024 OD: Reliability poor, high false NEG Fixation losses 07/14 Description of the VF: superior nasal defect crosses horizontal midline, nasal step defect repeatable since previous scan in 2022, scattered isolated inferior defects *possible eyelid involvement superiorly OS: Reliability good Fixation losses 0/0 Description of the VF: relative superior hemifield defect, improved since previous scan in 2022, scattered isolated inferior temporal defects Kathy Taveras, Optometry Tours Hostess participated in the care of this under my supervision. I personally examined the patient and provided the following assessment and plan: Assessment/Plan 12/13/2024 1. 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 reports continued episodes of blurred/static vision vision OU that lasts 10-15 seconds. Not worsening since previous visit. - CT Head (03/2023): Impression: no acute intracranial process. If clinical suspicion is high for hypertensive, consider MRI with diffusion-weighted imaging. - No ONH edema noted on undilated evaluation today or DFE 06/12/2024 - HVF 24-2 today: OD: superior nasal defect, possible eyelid interference OS: relative superior hemifield defect, improved field since 2022 - Educated patient on findings, HVF field, ocular health - Due to patient still noting symptoms wiill refer to neuro-ophth for evalaution, pt agreeable to plan - Refer for next available visit with neuro-ophthalmology. 2. Hx of Strabismic Amblyopia, OS - Stable BVA - Discussed monocular precautions - Monitor 3. Refractive error, OU - Pt. is a SCL wearer (obtains outside) - Discussed proper CL care and hygiene - Discussed monocular precautions - Hold off on new specs today, vision stable with habitual. Pt edu on all findings and given the opportunity to have questions answered RTC next available with neuro-ophthalmology, sooner with changes /es/ JANETTE DAVIS, OD Staff Physician, Optometry Signed: 12/13/2024 12:59 JANETTE DAVIS [facility]
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
--- OUTSIDE RECORDS SUMMARY | 2025-05-24 11:50 | XMS_ITS | Encounter Summary ---
Author Name [facility] [place] [facility] [place] Address [address] [place] [address] Care Team Providers Care Tie Bucker Name Role Phone HENRY POPE Primary Care [...] Name Patient's Relationship to Policy Lowe AARP [facility] ([facility]) MEDICARE ADVANTAGE [facility] ([facility]) Nov 01, 2024 [id number] ALLI RAMOS PATIENT AETNA [facility] ([facility]) MEDICARE ADVANTAGE [facility] ([facility]) Nov 01, 2021 [id number] ALLI RAMOS PATIENT INACTIVE [facility] TRI Oct 14, 2009 [facility] [id number] ALLI RAMOS PATIENT MEDICARE (WNR) MEDICARE (M) PART B Sep 01, 2015 PART B [id number] ALLI RAMOS PATIENT MEDICARE (WN) MEDICARE (M) PART A Sep 01, 2015 PART A [id number] ALLI RAMOS PATIENT -FO R-LIFE [facility] FOR LIFE WNR Nov 01, 2017 FOR LIFE [id number] [phone] ALLI RAMOS PATIENT Selected Encounter This section includes the information on record at [place] for the Encounter. Date/Time Encounter Type Encounter Description Reason Pro vider Source Apr 12, 2025 09:15 AM Outpatient Encounter PULMONARY/CHEST IHE Encounter Template Text not used by [place] Plan of Treatment: Future Appointments (+ 6 months) and Future Tests (+/- 45 days) The Plan of Treatment section includes future care activities for the patient from all [place] treatmentfacilities. This section includes future appointments and future orders which are active, pending or scheduled. Future Appointments This section includes appointments that were scheduled to occur 6 months from the date of the Encounter, up to a maximum of 20 appointments. The data comes from all [facility]. Appointment Date/Time Appointment Type Appointme nt Facility Name Apr 18, 2025 08:00 AM AMBULATORY - MEDICINE [facility] May 15, 2025 09:00 AM AMBULATORY - MEDICINE [facility] Jun 13, 2025 10:00 AM AMBULATORY - SURGERY [facility] Jun 29, 2025 01:30 PM AMBULATORY - NEUROLOGY [facility] Jul 03, 2025 01:30 PM AMBULATORY - SURGERY [facility] Jul 19, 2025 03:00 PM AMBULATORY - MEDICINE [facility] Sep 04, 2025 11:20 AM AMBULATORY - MEDICINE [facility] Active, Pending, and Scheduled Orders This section includes a listing of several types of active, pending, and scheduled orders, including clinic medications orders, diagnostic test orders, procedure orders and consult orders; where the start date of the order is 45 days before the date of the Encounter or 45 days after the date of theEncounter. The data comes from all [facility]. Test Date/Time Test Type Test Details Facility Name Apr 05, 2025 08:18 AM Consult Order [facility] Cons [facility] May 15, 2025 09:46 AM Consult Order NEUROLOGY BOTOX INJECTION OUTPATIENT AWILDA Cons [facility] Choice [facility] Vital Signs: All taken on the encounter date This section contains inpatient and outpatient Vital Signs collected on the date of the Encounter. Date/Time Temperature Pulse Blood Pressure Respiratory Rate SP02 Pain Height Weight Body Mass Index Source Apr 12, 2025 09:43 AM 98.1 74 107/69 16 98 198.4 30 [facility] Social History: Smoking Status (Most current) and Tobacco Use (All prior to encounter date) This section includes the most current, and the historical, smoking and tobacco- related health factors from the [place] facility where the Encounter took place. Current Smoking Status This section includes the most current smoking, or tobacco-related health factor, from the [place] facility where the Encounter took place. Date/Time Current Smoking Status Comment Mirtha ity Sep 03, 2023 12:30 PM AH-BPR SMOKING DEPLOYMENT NO [facility] Tobacco Use History This section includes a history of the smoking, or tobacco-related health factors, that were collected on or before the date of the Encounter. The data comes from the [place] facility where the Encounter took place. Date/Time Smoking Status/Tobacco Use Comment F acility Sep 23, 2022 12:40 AM ORYX ADMIT TOBACCO SCREEN NO [facility] Sep 06, 2022 05:41 AM ORYX ADMIT TOBACCO SCREEN NO [facility] May 09, 2018 08:36 PM LIFETIME NON-USER OF TOBACCO [facility] Apr 02, 2014 10:48 AM CURRENT TOBACCO USER [facility] Apr 02, 2014 10:48 AM TOBACCO OFFERRED P T MEDS (PROVIDER) [facility] Sep 15, 2011 10:37 AM CURRENT TOBACCO USER [facility] Apr 13, 2011 02:21 PM CURRENT TOBACCO USER [facility] May 22, 2010 02:00 PM CURRENT TOBACCO USER [facility] May 22, 2010 02:[address] [facility] SMOKING CLINIC [facility] May 22, 2010 02:00 PM TOBACCO OFFERRED P T MEDS (PROVIDER) [facility] Apr 21, 2010 02:03 PM CURRENT TOBACCO USER [facility] Apr 21, 2010 02:03 PM TOBACCO MEDS OFFER ED BUT DECLINED [facility] Encounter Notes: All associated encounter notes This section contains the clinical notes associated to the Encounter. Date/Time Encounter Note(s) Provider Source Apr 12, 2025 03:56 PM CARDIOLOGY DIAGNOS TIC STUDY CONSULT: LOCAL TITLE: EKG CONSULT STL STANDARD TITLE: CARDIOLOGY DIAGNOSTIC STUDY CONSULT DATE OF NOTE: APR 12, 2025@15:56:46 ENTRY DATE: APR 12, 2025@15:56:46 AUTHOR: CLINICAL,DEVICE PRO EXP COSIGNER: URGENCY: STATUS: COMPLETED DOCUMENT IN [facility] SEE FULL REPORT IN [facility] SIGNATURE NOT REQUIRED SEE SIGNATURE IN [facility] ([place] EKG) AUTO-INSTRUMENT DIAGNOSIS Procedure: [id number] Lead ECG Release Status: Released Off-Line Verified Date Verified: Apr 12, 2025@15:56:45 90014.2 Ventricular Rate: 68 BPM 85242.3 Atrial Rate: 68 BPM 19702.4 P-R Interval: 128 ms 31465.5 QRS Duration: 96 ms 81731.6 Q-T Interval: 394 ms 90034 QTC Calculation(Bazett)418 ms 42951.12 Calculated P Draper: 30 degrees 98218.13 Calculated R Draper: 63 degrees 21778.14 Calculated T Draper: 5 degrees Normal sinus rhythm Normal ECG When compared with ECG of 02-NOV-2024 17:27, Nonspecific T wave abnormality no longer evident in Lateral leads Administrative Closure: 04/12/2025 by: CLINICAL,DEVICE PROXY SERVICE CLINICAL,DEVICE PROXY SERVICE [facility]
--- OUTSIDE RECORDS SUMMARY | 2025-05-24 11:50 | XMS_ITS ---
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 to father for help and led to counseling/support at [facility] Current Access to Guns/Weapons: Present, describe: Lethal means counseling completed. Comment: stored safely, gives to friend when have suicidal thoughts TRAUMA HISTORY: Non- Trauma History, Violence: Absent/Denied Trauma History (including MST): Present: see above Abuse/Neglect/Exploitation/Interpe rsonal Violence Absent/Denied SUBSTANCE USE & ADDICTIVE DISORDER HISTORY: ======== History of Problematic Substance Use: Present, describe: *Alcohol: see above Other addictions/behaviors that is difficult to stop or [place] engages in for longer than intended (e.g. gambling.etc): Absent/Denied History of substance related medical problems: Absent/Denied PERTINENT MEDICAL/SURGICAL HISTORY: Primary Care Provider:HENRY POPE History of Illness/Medications: Present, describe: Rated Disabilities: MIGRAINE HEADACHES (30%-SC): Depakote CHRONIC OBSTRUCTIVE PULMONARY DISEASE (100%-SC):inhalers SEIZURE DISORDER (10%-SC): Depakote, last around 2012 LUMBOSACRAL OR CERVICAL STRAIN (10%-SC): oxycodone *Kidney stones: following topiramate, controlled with diet *Low vitamin D: supplement *Pulmonary embolism: *Iron deficiency anemia: supplement *Low testosterone: supplement from civilian PCP History of Head Injuries: Present, describe: *Head injuries following seizures (e.g. fell down stairs), last seizure around 2012 NUTRITION ASSESSMENT: Unexplained/unintended weight loss: No Reliable access to nutrition (e.g., missing meals b/c of inadequate finances, etc): Yes PAIN ASSESSMENT: On scale of 0 to 10 rate pain: 6 Location: back, lungs Current pain management plan:Other seeing physician relations specialist, morphine Achieving Pain Management Goals: Yes Is the interested in additional services for pain at this time? If so, recommendation is: Life Sustaining Treatment Orders ALLERGIES: TOPAMAX 25MG TABLET OUTPATIENT MEDICATIONS: Active Outpatient Medications (excluding Supplies): Issue Date Status Last Fill Active Outpatient Medications Refills Expiration ========= = 1) ALBUTEROL 90MCG (CFC-F) 200D ORAL INHL Qty: ACTIVE (S) Issue: 08/10/24 3 for 90 days Sig: INHALE 2 PUFFS ORAL Refills: 2 Last : 11/02/24 INHALATION FOUR TIMES A DAY FOR BREATHING. Expr : 08/11/25 SHAKE WELL. RINSE MOUTHPIECE FREQUENTLY TO PREVENT CLOGGING. Indication: FOR COPD 2) ALBUTEROL SO4 0.083% INHL 3ML Qty: 180 for ACTIVE (S) Issue: 08/10/24 60 days Sig: INHALE 1 VIAL (2.5MG/3ML) BY Refills: 3 Last : 12/02/24 NEBULIZATION EVERY 6 HOURS DIRECTED Expr : 08/11/25 NEEDED FOR BREATHING Indication: FOR COPD 3) ATOGEPANT 60MG TAB Qty: 30 for 30 days Sig: ACTIVE Issue: 01/13/24 TAKE ONE TABLET BY MOUTH ONCE A DAY Refills: 0 Last : 06/06/24 Indication: FOR MIGRAINE HEADACHE Expr : 01/13/25 4) BREZTRI 160/9/4.8MCG/ACT 120D ORAL INHL Qty: ACTIVE (S) Issue: 08/10/24 3 for 90 days Sig: INHALE 2 PUFFS INHALATION Refills: 2 Last : 11/02/24 TWICE A DAY DIRECTED FOR BREATHING (CLEAN Expr : 08/11/25 INHALER FOLLOWED BY 2 PRIMING PUFFS ONCE WEEKLY) 5) CARBOXYMETHYLCELLULOSE NA 1% OPH GEL Qty: 30 ACTIVE Issue: 06/12/24 for 60 days Sig: INSTILL 1 DROP INTO BOTH Refills: 4 Last : 08/02/24 EYES FOUR TIMES A DAY NEEDED Expr : 06/13/25 Indication: FOR DRY EYE(S) Issue Date Status Last Fill Pending Outpatient Medications Refills Expiration ========= = 1) SERTRALINE HCL 50MG TAB Qty: 83 Sig: TAKE PENDING ONE-HALF TABLET BY MOUTH AT BEDTIME FOR 14 Refills: 0 DAYS, THEN TAKE ONE TABLET AT BEDTIME FOR 76 DAYS Indication: FOR POST TRAUMATIC STRESS DISORDER Start Date Active Non-VA Medications Status Stop Date ========= = 1) Non-VA CHOLECALCIFEROL (LOW DOSE VIT D) - ACTIVE (OTC) TAB Sig: BY MOUTH 2) Non-VA CLONAZEPAM 1MG TAB SiMG BY MOUTH ACTIVE THREE TIMES A DAY (MORNING, NOON, EARLY EVENING) Indication: FOR ANXIETY 3) Non-VA FERROUS SULFATE 325MG TAB SiMG ACTIVE BY MOUTH ONCE A DAY 4) Non-VA MORPHINE SO4 IR 30MG TAB SiMG BY ACTIVE MOUTH TWICE A DAY Indication: FOR SEVERE PAIN 5) Non-VA TESTOSTERONE CYPIONATE (PA-F) ACTIVE INJ,SOLN Sig: DEEP INTRAMUSCULARLY 11 Total Medications ACTIVE OUTPATIENT INJECTIONS AND INPATIENT MEDICATIONS: No medications found. FAMILY HISTORY (including history of mental health conditions, suicide, addiction/substance abuse): Denies family history of mental illness, addictive disorders, or suicide SOCIAL AND DEVELOPMENTAL HISTORY: = Mr. Ramos was born and raised in the [facility]. He denied having any significant childhood trauma, injury, or abuse. He attended normal classes in school and graduated high school on time. He did attempt to return to college after the , but he struggled with interpersonal interactions and focus. He was last week. He does not have any biological children. He lives with his part-time, otherwise living in a more secluded/rural house. [place] He is unemployed and receives VA disability/SSDI. He identifies as Anglican. Denies any ongoing legal issues. 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 REVIEW OF SYSTEMS: Positive 13 system review Constitutional: Normal Eyes: Normal Ears/Nose/Mouth/Throat: Normal Cardiovascular: Normal Respiratory: Abnormal: cough Gastrointestinal: Normal Genitourinary: Normal Muscular: Normal Integumentary: Normal Neurological: Abnormal: migraine Endocrine: Normal Hematologic/Lymphatic: Normal Allergies/Immune: Normal PSYCHIATRIC SPECIALTY EXAMINATION: MENTAL STATUS EXAMINATION CONSTITUTIONAL: Vital signs: Pulse.................81 (10/16/2024 13:47) Temperature...........97.3 F [36.3 C] (10/16/2024 13:47) Blood Pressure........132/89 (10/16/2024 13:47) Pain..................6 (10/16/2024 13:47) Weight................228 lb [103.42 kg] (10/16/2024 13:47) Patient Weight History - Last Four Patient Weight History - Last Four 1. 228.0 lbs. / 103.4 kg. on OCT 16, 2024@13:47:39 2. 217.1 lbs. / 98.5 kg. on SEP 12, 2024@09:39:08 3. 215.0 lbs. / 97.5 kg. on MARCH 31, 2024@09:58:09 4. 217.4 lbs. / 98.6 kg. on MARCH 17, 2024@07:51:49 BMI: 34.7 General appearance of patient: White male, appears stated age, overweight, good hygiene/grooming, short/dark hair with large/well manicured faith, wearing appropriate street clothes, supplemental oxygen delivered via nasal cannula MUSCULOSKELETAL: Assessment of muscle strength and tone: Moving spontaneously without abnormal movement appreciated Examination of gait and station: Stable and intact PSYCHIATRIC: Description of speech: Mildly slow; unremarkable amount, volume, and prosody Description of thought processes: Linear, logical, goal oriented Description of associations: Intact Description of abnormal psychotic thoughts: Denies auditory or visual hallucinations, not clearly responding to internal stimuli, no clearly delusional content on exam, denies suicidal and homicidal ideation, denies clear obsessions or compulsive behaviors Description of the patient's judgement: Good COMPLETE MENTAL STATUS EXAMINATION INCLUDING: Orientation to time, place and person: Oriented normally throughout interview Recent and remote memory: Grossly intact Attention span and concentration: Engaged throughout interview appropriately Language: Normal Fund of knowledge: Average Mood and affect: Worse with reactive/mood congruent affect LABORATORY DATA: CBC: WBC 6.1 10*3/uL 03/17/2024 08:21 RBC 5.77 H 10*6/uL 03/17/2024 08:21 HGB 17.7 H g/dL 03/17/2024 08:21 HCT 50.5 H % 03/17/2024 08:21 MCV 87.5 fL 03/17/2024 08:21 MCH 30.7 pg 03/17/2024 08:21 MCHC 35.0 g/dL 03/17/2024 08:21 RDW 12.8 % 03/17/2024 08:21 PLT 227 10*3/uL 03/17/2024 08:21 MPV 9.2 fL 03/17/2024 08:21 NEUTROPHILS, AUTO % 68 % 03/17/2024 08:21 LYMPHOCYTES, AUTO % 23 % 03/17/2024 08:21 MONOCYTES, AUTO % 7 % 03/17/2024 08:21 EOSINOPHILS, AUTO % 2 % 03/17/2024 08:21 BASOPHILS, AUTO % 0 % 03/17/2024 08:21 NEUTROPHILS, ABSOLUTE 4.17 10*3/uL 03/17/2024 08:21 LYMPHOCYTES, ABSOLUTE 1.38 10*3/uL 03/17/2024 08:21 MONOCYTES, ABSOLUTE 0.43 10*3/uL 03/17/2024 08:21 EOSINOPHILS, ABSOLUTE 0.10 10*3/uL 03/17/2024 08:21 BASOPHILS, ABSOLUTE 0.02 10*3/uL 03/17/2024 08:21 CHEM 7: SODIUM 138 mEq/L 09/14/2024 14:46 POTASSIUM 4.2 mEq/L 09/14/2024 14:46 CHLORIDE 104 mEq/L 09/14/2024 14:46 UREA NITROGEN 14.9 mg/dL 09/14/2024 14:46 CREATININE 1.41 H mg/dL 09/14/2024 14:46 CALCIUM 9.9 mg/dL 09/14/2024 14:46 CARBON DIOXIDE 26 mEq/L 09/14/2024 14:46 GLUCOSE 124 H mg/dL 09/14/2024 14:46 EGFR (CKD-EPI 2020) 65.4 09/14/2024 14:46 HEPATIC PANEL: 10/18/2024 17:02 CONFIDENTIAL HEPATIC PANEL STL SUMMARY pg. 1 ALLI RAMOS [id number] : 1985 [facility] - Lab Tests Selected (max 1 occurrence or 1 year) Collection DT Specimen Test Name Result Units Ref Range 03/17/2024 08:23 PLASMA PROTEIN 7.5 g/dL 6 - 8.6 Comment: No hemolysis noted. 09/14/2024 14:46 PLASMA ALBUMIN 4.4 g/dL 3.4 - 5 Comment: No hemolysis noted. 03/17/2024 08:23 PLASMA TOTAL BILIRUBIN 0.7 mg/dL 0.2 - 1.2 03/17/2024 08:23 PLASMA ALKALINE PHOSPHAT 50 U/L 40 - 150 03/17/2024 08:23 PLASMA AST/SGOT 14 U/L 5 - 34 03/17/2024 08:23 PLASMA ALT/SGPT 20 U/L 8 - 40 Comment: No hemolysis noted. LABS: 10/16/2024 *Several other labs collected *ESR normal *CRP normal *CPK elevated (233) *Rheumatoid factor negative 09/14/2024 *BMP with elevated creatinine (1.41) (liver enzymes normal 03/17/2024 *Uric acid normal 03/17/2024 *TSH normal *Vitamin D low (20.4) *Lipid panel with hypertriglyceridemia (162), low HDL (39), elevated LDL (126) *Hemoglobin A1c 5.3 *CBC with elevated hemoglobin (17.7), elevated hematocrit (50.5) ECG *03/15/2023: Normal sinus rhythm, anterior infarct (age undetermined), QTc 416 Imaging *03/15/2023, head CT without contrast (blurry vision, left greater than right): No acute intracranial process. If clinical suspicion is high for hypertensive, consider MRI with diffusion-weighted imaging SAFETY RISK ASSESSMENT Risk Factors for Suicide: *History of suicidal behaviors *Access to lethal means *History of mental health hospitalizations *Psychological conditions/symptoms *Medical conditions and health-related problems *Preexisting risk factors (e.g. trauma) Protective Factors Against Suicide: *Access to and engagement with health care *Reports motivation for medical treatment *Access to and engagement with mental health care *Reports motivation for mental health treatment *Has a significant other *Hope for the future *Protective personal traits or beliefs (e.g. help seeking, cognitive flexibility) *Reports holiness or spiritual beliefs/connections (Anglican) *Connections to cultural groups (e.g. ethnic, holiness, community) *Strong desire to live Risk Factors for Homicide: *Access to lethal means Protective Factors Against Homicide: *Denial of intention to harm anyone *Absence of violent fantasies *Absence of accepting attitudes toward violence *Lack of preparatory behavior *No history of violence Overall: *Current/imminent risk of harm to self or others is low. *Chronic risk of harm to self or others is intermediate. *The does not meet criteria for involuntary commitment at this time but will benefit from ongoing outpatient mental health treatment. ASSESSMENT AND TREATMENT PLANNING: DSM V DIAGNOSIS: 1. Posttraumatic Stress Disorder 100% SC 2. Alcohol Use Disorder, Mild, in Sustained Remission (2021) ASSESSMENT AND TREATMENT PLAN (INCLUDING RISK ASSESSMENT): Mr. Ramos is a , domiciled, disabled, male [employer] with a history most consistent with posttraumatic stress disorder and alcohol use disorder (in remission), complicated by a history of epilepsy, migraine, COPD, pulmonary embolism, nephrolithiasis, iron deficiency anemia, low vitamin D, low testosterone, and chronic pain. See above for diagnostic details/criteria and risk assessment. Today, he reports worsening anxiety/irritability and nightmares since discontinuing duloxetine. However, he reports incomplete control of symptoms when at full dose of duloxetine. Consequently, we discussed alternative agents and he is comfortable trialing sertraline. We discussed risks of his other medications as well, specifically opiate and benzodiazepine prescriptions. He was also encouraged to discuss moving divalproex to evening dosing only to minimize daytime fatigue. He is comfortable with this plan and follow-up in 1 or 2 months. INTERVENTIONS: Medications: *Titrate sertraline: 25 mg nightly x 14 nights, then 50 mg nightly Other: *Divalproex ER 750 mg 2 times daily (neurology; seizure/migraine) *Encouraged to discuss changing to QHS dosing *Clonazepam 1 mg daily (not VA) *Taking 3-4 times a day *Discussed risks of long-term use and with opiates coprescription *Morphine 30 mg twice a day *Recently switched from OxyContin We discussed alternatives to treatment, including no treatment, as well as risks, benefits, side effects. The patient/guardian understood and consented to treatment provided. [place] is new to team. Provided [place] with an overview of the interdisciplinary team and available services. REFERRALS: None INSTRUCTIONS GIVEN TO PATIENT/FAMILY: Report medication side effects promptly No alcohol/illicit drug use with medication Exercise caution with driving/use of machinery Monitor for sedation with use of the medication and if needed avoid use in situations where decreased level of alertness could potentially be dangerous Follow up with Primary Care Provider If symptoms get worse, call clinic or Emergency Room as appropriate Provided orientation to the inter-disciplinary team and ways to access crisis/emergency care FOLLOW-UP: Return to clinic 1-2 months /loren/ SHAGGY MUKHERJEE Staff Physician / [place]iat[place] [facility] [place]: 10/18/2024 17:29 SHAGGY MUKHERJEE [facility]
--- OUTSIDE RECORDS SUMMARY | 2025-05-24 11:50 | XMS_ITS | Encounter Summary ---
Author Name [facility] Address [address] [place] [address] Care Team Providers Care Vice President Lending Name Role Phone HENRY POPE Primary Care [...] Name Patient's Relationship to Policy Lowe AARP [facility] ([facility]) MEDICARE ADVANTAGE [facility] ([facility]) Nov 01, 2024 [id number] ALLI RAMOS PATIENT AETNA [facility] ([facility]) MEDICARE ADVANTAGE [facility] ([facility]) Nov 01, 2021 [id number] ALLI RAMOS PATIENT INACTIVE [facility] TRI Oct 14, 2009 [facility] [id number] ALLI RAMOS PATIENT MEDICARE (WNR) MEDICARE (M) PART B Sep 01, 2015 PART B [id number] [phone] ALLI RAMOS PATIENT MEDICARE (WN) MEDICARE (M) PART A Sep 01, 2015 PART A [id number] ALLI RAMOS PATIENT -FO R-LIFE [facility] WNR Nov 01, 2017 [facility] LIFE [id number] [phone] ALLI RAMOS PATIENT Selected Encounter This section includes the information on record at [place] for the Encounter. Date/Time Encounter Type Encounter Description Reason Provider Source Dec 21, 2024 10:14 AM Outpatient Encounter COMMUNITY CARE CONSULT YUN LOUIS Marquis Encounter Template Text not used by [place] Plan of Treatment: Future Appointments (+ 6 months) and Future Tests (+/- 45 days) The Plan of Treatment section includes future care activities for the [facility] This section includes future appointments and future orders which are active, pending or scheduled. Future Appointments This section includes appointments that were scheduled to occur 6 months from the date of the Encounter, up to a maximum of 20 appointments. The data comes from all [place] treatment facilities. Appointment Date/Time Appointment Type Appointme nt Facility Name Jan 02, 2025 01:30 PM AMBULATORY - MEDICINE [facility] Jan 15, 2025 02:00 AM AMBULATORY - MEDICINE [facility] Feb 22, 2025 02:30 PM AMBULATORY - MEDICINE [facility] Feb 23, 2025 08:20 AM AMBULATORY - SURGERY [facility] March 01, 2025 11:15 AM AMBULATORY - MEDICINE [facility] Apr 05, 2025 11:00 AM AMBULATORY - PSYCHIATRY [facility] Apr 12, 2025 09:30 AM AMBULATORY - MEDICINE [facility] Apr 18, 2025 08:00 AM AM[facility]ORY - [facility]ICINE [facility] May 15, 2025 09:00 AM AMBULATORY - MEDICINE [facility] Jun 13, 2025 10:00 AM AMBULATORY - SURGERY [facility] Active, Pending, and Scheduled Orders This section includes a listing of several types of active, pending, and scheduled orders, including clinic medications orders, diagnostic test orders, procedure orders and consult orders; where the start date of the order is 45 days before the date of the Encounter or 45 days after the date of theEncounter. The data comes from all [place] treatment facilities. Test Date/Time Test Type Test Details Facility Name Jan 02, 2025 12:00 AM Laboratory - Chemistry Order IRON/TIBC PROFILE GOLD/RED SST SERUM SP [facility] Jan 02, 2025 12:00 AM Laboratory - Chemistry Order FERRITIN GOLD/RED SST SERUM SP [facility] Jan 02, 2025 12:00 AM Laboratory - Chemistry Order CBC BLOOD SP [facility] Jan 02, 2025 12:00 AM Laboratory - Chemistry Order COMPREHENSIVE METABOLIC PANEL GREEN LI/HEP BLD/PLAS PLASMA SP [facility] Jan 02, 2025 12:00 AM Laboratory - Chemistry Order HGA1C BLOOD SP [facility] Jan 02, 2025 12:00 AM Laboratory - Chemistry Order LIPID PANEL (STL) GREEN LI/HEP BLD/PLAS PLASMA SP [facility] Jan 02, 2025 12:00 AM Laboratory - Chemistry Order TSH (MA-PB) GOLD/RED SST SERUM SP [facility] Jan 02, 2025 12:00 AM Laboratory - Chemistry Order VITAMIN D, 25-HYDROXY GOLD/RED SST SERUM SP [facility] Social History: Smoking Status (Most current) and Tobacco Use (All prior to encounter date) This section includes the most current, and the historical, smoking and tobacco- related health factors from the [place] facility where the Encounter took place. Current Smoking Status This section includes the most current smoking, or tobacco-related health factor, from the [place] facility where the Encounter took place. Date/Time Current Smoking Status Comment Mirtha ity Sep 03, 2023 12:30 PM AH-BPR SMOKING DEPLOYMENT NO [facility] Tobacco Use History This section includes a history of the smoking, or tobacco-related health factors, that were collected on or before the date of the Encounter. The data comes from the [place] facility where the Encounter took place. Date/Time Smoking Status/Tobacco Use Comment F acility Sep 23, 2022 12:40 AM ORYX ADMIT TOBACCO SCREEN NO [facility] Sep 06, 2022 05:41 AM ORYX ADMIT TOBACCO SCREEN NO [facility] May 09, 2018 08:36 PM LIFETIME NON-USER OF TOBACCO [facility] Apr 02, 2014 10:48 AM CURRENT TOBACCO USER [facility] Apr 02, 2014 10:48 AM TOBACCO OFFERRED P T MEDS (PROVIDER) [facility] Sep 15, 2011 10:37 AM CURRENT TOBACCO USER [facility] Apr 13, 2011 02:21 PM CURRENT TOBACCO USER [facility] May 22, 2010 02:00 PM CURRENT TOBACCO USER [facility] May 22, 2010 02:[address] OP SMOKING CLINIC [facility] May 22, 2010 02:00 PM TOBACCO OFFERRED P T MEDS (PROVIDER) [facility] Apr 21, 2010 02:03 PM CURRENT TOBACCO USER [facility] Apr 21, 2010 02:03 PM TOBACCO MEDS OFFER ED BUT DECLINED [facility] Encounter Notes: All associated encounter notes This section contains the clinical notes associated to the Encounter. Date/Time Encounter Note(s) Provider Source Dec 14, 2024 01:30 PM NONVA NOTE: LOCAL TITLE: COMMUNITY CARE-CARE COORDINATION PLAN NOTE [address] TITLE: NONVA NOTE DATE OF NOTE: DEC 14, 2024@13:30 ENTRY DATE: DEC 21, 2024@10:14:40 AUTHOR: YUN LOUIS EXP COSIGNER: URGENCY: STATUS: COMPLETED COMMUNITY CARE-CARE COORDINATION PLAN NOTE [address] Has ADDENDA Community Care Consult: pulmonary Consult No: [id number] [facility] Referral #: Chief Complaint: Obstructive lung disease, chronic hyxpoxemic resp failure, burn pit exposure Patient Admitted? 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 Follow up with provider for scheduling update. Follow up with after appointment. Assess if any other care is needed. 39 yr old with severe obstructive lung dz presumably 2/2 burn pit exposure, very limted tobacco hx <5PY, on suppl O2 for 8 yrs. /loren/ YUN LOUIS RN MSN REGISTERED NURSE Signed: 12/21/2024 10:17 12/21/2024 ADDENDUM STATUS: COMPLETED CONTACT [facility] contacted on Dec to discuss LVM for patient regarding community care consult being approved and will be faxed to preferred provider. Left CC contact phone number if any questions. Action Needed? Yes f/u re appt status /loren/ YUN LOUIS RN MSN REGISTERED NURSE Signed: 12/21/2024 10:21 04/05/2025 ADDENDUM STATUS: COMPLETED PROVIDER CONTACT Records received from [facility] on Apr to include scheduled visit on 03/01/2025, PFT report and X-Ray. Significant findings documented. Inhouse Provider to f/u with [facility] regarding any significant testing or results, as needed. Documents can be viewed in [facility]. Appointment Management: Appointment 1 Pulmonary Appointment Location: [facility] Appointment Date: Sep @.2:30 PM Reason for Appointment: Follow up visit Action Needed? Yes Will f/u monthly for any additional assistance needed related to episode of care. /loren/ KYLIE PRUITT REGISTERED NURSE Signed: 04/05/2025 15:13 YUN LOUIS [facility]
--- OUTSIDE RECORDS SUMMARY | 2025-05-24 11:50 | XMS_ITS | Encounter Summary ---
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 Oct 14, [address] [facility] [id number] ALLI RAMOS PATIENT MEDICARE (WNR) MEDICARE (M) PART B Sep 01, 2015 PART B [id number] [phone] ALLI RAMOS PATIENT MEDICARE (WNR) MEDICARE (M) PART A Sep 01, 2015 PART A [id number] ALLI RAMOS PATIENT -FO R-LIFE [facility] RE FOR LIFE WNR Nov 01, 2017 FOR LIFE [id number] [phone] ALLI RAMOS PATIENT Selected Encounter This section includes the information on record at [place] for the Encounter. Date/Time Encounter Type Encounter Description Reason Provider Source Nov 02, 2024 04:33 PM Outpatient Encounter EMERGENCY DEPT DORCAS BENITEZ Marquis Encounter Template Text not used by [place] Plan of Treatment: Future Appointments (+ 6 months) and Future Tests (+/- 45 days) The Plan of Treatment section includes future care activities for the patient from all [place] [facility]. This section includes future appointments and future orders which are active, pending or scheduled. Future Appointments This section includes appointments that were scheduled to occur 6 months from the date of the Encounter, up to a maximum of 20 appointments. The data comes from all [facility]. Appointment Date/Time Appointment Type Appointme nt Facility Name Dec 05, 2024 09:30 AM AMBULATORY - PSYCHIATRY [facility] Dec 13, 2024 08:00 AM AMBULATORY - SURGERY [facility] Jan 02, 2025 01:30 PM AMBULATORY - MEDICINE [facility] Jan 15, 2025 02:00 AM AMBULATORY - MEDICINE [facility] Feb 22, 2025 02:30 PM AMBULATORY - MEDICINE [facility] Feb 23, 2025 08:20 AM AMBULATORY - SURGERY [facility] March 01, 2025 11:15 AM AMBULATORY - MEDICINE [facility] March 06, 2025 01:30 PM AMBULATORY - SURGERY [facility] Apr 05, 2025 11:00 AM AMBULATORY - PSYCHIATRY [facility] Active, Pending, and Scheduled Orders This section includes a listing of several types of active, pending, and scheduled orders, including clinic medications orders, diagnostic test orders, procedure orders and consult orders; where the start date of the order is 45 days before the date of the Encounter or 45 days after the date of theEncounter. The data comes from all [facility] treatment facilities. Test Date/Time Test Type Test Details Facility Name Dec 07, 2024 07:14 AM Consult Order [facility] PULMONARY Cons Latin Dancer's Choice [facility] Lab Results: +/- 30 days of the encounter This section includes the Chemistry and Hematology Lab Results on record with [place] for the patient. Radiology Reports and Pathology Reports are provided separately, in subsequent sections. Lab Results This section contains the Chemistry/Hematology Results that were resulted 30 days before or 30 daysafter the date of the Encounter. Date/Time Source Result Type Result - Unit Interpretation Reference Range Specimen Type Comment Nov 02, 2024 05:25 PM [facility] COVID-19 DIAGNOSTIC (FLU/RSV)(ST) NASOPHARYNX Spec imen Type: NASOPHARYNX Comment: Qualitative [...] Nov 02, 2024 04:41 PM Reporting Lab: [facility] [address] [facility] [address] Performing Lab: [facility] [address] [facility] [address] INFLUENZA A Negative Negative INFLUENZA B Negative Negative COVID-19 (STL-PB) Not Detected Not Detec leonardo RSV (Cepheid) NEGATIVE Negative Nov 02, 2024 05:05 PM [facility] APTT PLASMA Specimen Type: PLASM A No comment entered. Ordering Provider: BRIAN ULLOA Report Released Date/Time: Nov 02, 2024 05:13 PM Reporting Lab: [facility] [address] [facility] [address] Performing Lab: [facility] [address] [facility] [address] APTT 32.9 s 26.7-39.9 Nov 02, 2024 05:05 PM [facility] TROPONIN I PLASMA Specimen Type: PLASM A Comment: No hemolysis noted. Ordering Provider: BRIAN ULLOA Report Released Date/Time: Nov 02, 2024 05:13 PM Reporting Lab: [facility] [address] [facility] [address] Performing Lab: [facility] [address] [facility] [address] TROPONIN I <0.010 ng/mL 0-0.033 Nov 02, 2024 05:05 PM [facility] PT/INR NEW (STL-MA) PLASMA Specimen Type: PLAS MA No comment entered. Ordering Provider: BRIAN ULLOA Report Released Date/Time: Nov 02, 2024 05:13 PM Reporting Lab: [facility] [address] [facility] [address] Performing Lab: [facility] [address] [facility] [address] PROTIME 12.4 s 9.4-12.5 INR VALUE 1.1 {INR} Nov 02, 2024 05:05 PM [facility] D-DIMER HS (MA-STL-PB) PLASMA Specimen Type: P LASMA No comment entered. Ordering Provider: BRIAN ULLOA Report Released Date/Time: Nov 02, 2024 05:13 PM Reporting Lab: [facility] [address] [facility] [address] Performing Lab: [facility] [address] [facility] [address] D-DIMER HS (MA-STL-PB) <215 <500 Nov 02, 2024 05:05 PM [facility] BRAIN NATRIURETIC PEPTIDE PLASMA Specimen Type : PLASMA No comment entered. Ordering Provider: BRIAN ULLOA Report Released Date/Time: Nov 02, 2024 05:16 PM Reporting Lab: [facility] [address] [facility] [address] Performing Lab: [facility] [address] [facility] [address] BRAIN NATRIURETIC PEPTIDE <10.0 pg/mL 0- 100 Nov 02, 2024 05:05 PM [facility] COMPREHENSIVE METABOLIC PANEL PLASMA Specimen Type: PLASMA Comment: No hemolysis noted. Ordering Provider: BRIAN ULLOA Report Released Date/Time: Nov 02, 2024 05:13 PM Reporting Lab: [address] [address] Performing Lab: [address] [address] CREATININE 0.91 mg/dL 0.7-1.3 UREA NITROGEN 15.6 [...] 110.6 >60 Nov 02, 2024 05:05 PM [facility] CBC BLOOD Specimen Type: BLOOD No comment entered. Ordering Provider: BRIAN ULLOA Report Released Date/Time: Nov 02, 2024 05:13 PM Reporting Lab: [address] [address] Performing Lab: [address] [address] WBC 7.1 10*3/uL 3.6-11.2 RBC 5.35 10*6/uL [...] 0.00-0. 20 Oct 16, 2024 03:52 PM [facility] SHANNON AB (STL) SERUM Specimen Type: SERUM Comment: A positive result indicates an autoantibody against one or more of the following antigens: SM, SM/LIDAR TECHNICIAN, Ro/SS-A, La/SS-B, Scl-70, Bree-1. Positive screens will be reflexed to an SHANNON Profile to determine which antibody(s) are present. Ordering Provider: CLAUDINE SCHMITZ Report Released Date/Time: Oct 16, 2024 12:45 PM Reporting Lab: [address] [address] Performing Lab: [facility] [address] [facility] [address] SHANNON SCREEN(STL) Negative Negative Oct 16, 2024 03:52 PM [facility] ALDOLASE SERUM Specimen Type: SERUM Comment: Test Performed by [employer], [employer] [facility], [address] [place] [address] Srikanth Navarro M.D., Ph.D., Director of Laboratories , [place] [id number] Ordering Provider: CLAUDINE SCHMITZ Report Released Date/Time: Oct 16, 2024 12:45 PM Reporting Lab: [facility] [address] [place] [phone] Performing Lab: [facility] [address] [facility] ALDOLASE 6.4 U/L <=8.1 Oct 16, 2024 03:51 PM [facility] RESTRICTED-SO OTHER Specimen Type: OTHER Comment: ~For Test: RESTRICTED-SO ~3-Full Gold Top SST tubes For test results see [facility] Lab & Path consult #[id number] placed on 10/16/2024. SMN 10/30/2024 Ordering Provider: CLAUDINE SCHMITZ Report Released Date/Time: Oct 16, 2024 01:53 PM Reporting Lab: [place] [address] Performing Lab: [address] RESTRICTED-SO comment Oct 16, 2024 03:51 PM [facility] ANTI-CCP SERUM Specimen Type: SERUM Comment: REFERENCE RANGE: <20 Units Negative: <20 Weak Positive: 20 - 39 Moderate Positive: 40 - 59 Strong Positive: >59 Test Per[facility] by [facility], [employer] [facility], [address] [place] [address] Srikanth Navarro M.D., Ph.D., Director of Laboratories , [facility] [id number] Ordering Provider: CLAUDINE SCHMITZ Report Released Date/Time: Oct 16, 2024 12:45 PM Reporting Lab: [address] [address] Performing Lab: [address] ANTI-CCP <16 SEE BELOW Oct 16, 2024 03:51 PM [facility] ANCA/Vasculitides (STL) SERUM Specimen Type: SERUM No comment entered. Ordering Provider: CLAUDINE SCHMITZ Report Released Date/Time: Oct 16, 2024 12:45 PM Reporting Lab: [address] [address] Performing Lab: [address] [address] .MYELOPEROXIDASE AB NEGATIVE NEGATIVE .PROTEINASE AB NEGATIVE NEGATIVE Oct 16, 2024 03:51 PM [facility] ANTI-NUCLEAR ANTIBODY (STL-PB) SERUM Specimen Type: SERUM No comment entered. Ordering Provider: CLAUDINE SCHMITZ Report Released Date/Time: Oct 16, 2024 12:45 PM Reporting Lab: [facility] [address] [place] [address] Performing Lab: [facility] [address] [place] [phone] ANTI-NUCLEAR ANTIBODY (STL-PB) POSITIVE H Oct 16, 2024 03:51 PM [facility] BRETT-TITER(STL)CONFIRMATION SERUM Specimen Typ e: SERUM No comment entered. Ordering Provider: CLAUDINE SCHMITZ Report Released Date/Time: Oct 16, 2024 12:45 PM Reporting Lab: [address] [address] Performing Lab: [address] [address] BRETT-TITER(STL)CONFIRMATION 320 {titer} Oct 16, 2024 03:51 PM [facility] RHEUMATOID FACTOR (STL) SERUM Specimen Type: SERUM No comment entered. Ordering Provider: CLAUDINE SCHMITZ Report Released Date/Time: Oct 16, 2024 12:45 PM Reporting Lab: [address] [address] Performing Lab: [address] [address] RHEUMATOID FACTOR (STL) <15.0 0-29 Oct 16, 2024 03:51 PM [facility] CPK PLASMA Specimen Type: PLASM A No comment entered. Ordering Provider: CLAUDINE SCHMITZ Report Released Date/Time: Oct 16, 2024 12:45 PM Reporting Lab: [address] [address] Performing Lab: [address] [address] CPK 233 U/L H 30-200 Oct 16, 2024 03:51 PM [facility] CRP PLASMA Specimen Type: PLASM A No comment entered. Ordering Provider: CLAUDINE SCHMITZ Report Released Date/Time: Oct 16, 2024 12:45 PM Reporting Lab: [facility] [address] [facility] [address] Performing Lab: [facility] [address] [facility] [address] CRP 0.3 mg/dL 0-0.5 Oct 16, 2024 03:51 PM [facility] ESR ISED(STL) BLOOD Specimen Type: BLOOD No comment entered. Ordering Provider: CLAUDINE SCHMITZ Report Released Date/Time: Oct 16, 2024 12:45 PM Reporting Lab: [place] [address] [facility] [address] Performing Lab: [place] [address] [facility] [address] ESR ISED(STL) 2 mm/h 0-14 Vital Signs: All taken on the encounter date This section contains inpatient and outpatient Vital Signs collected on the date of the Encounter. Date/Time Temperature Pulse Blood Pressure Respiratory Rate SP02 Pain Height Weight Body Mass Index Source Nov 02, 2024 08:00 PM 94 122/76 18 96 [facility] Nov 02, 2024 07:00 PM 81 127/73 0 [facility] Nov 02, 2024 05:00 PM 97 139/84 0 [facility] Nov 02, 2024 04:38 PM 92 143/81 16 [facility] Social History: Smoking Status (Most current) and Tobacco Use (All prior to encounter date) This section includes the most current, and the historical, smoking and tobacco- related health factors from the [place] facility where the Encounter took place. Current Smoking Status This section includes the most current smoking, or tobacco-related health factor, from the [place] facility where the Encounter took place. Date/Time Current Smoking Status Comment Mirtha henry Sep 03, 2023 12:30 PM AH-BPR SMOKING DEPLOYMENT NO [facility] Tobacco Use History This section includes a history of the smoking, or tobacco-related health factors, that were collected on or before the date of the Encounter. The data comes from the [place] facility where the Encounter took place. Date/Time Smoking Status/Tobacco Use Comment F acility Sep 23, 2022 12:40 AM ORYX ADMIT TOBACCO SCREEN NO [facility] Sep 06, 2022 05:41 AM ORYX ADMIT TOBACCO SCREEN NO [facility] May 09, 2018 08:36 PM LIFETIME NON-USER OF TOBACCO [facility] Apr 02, 2014 10:48 AM CURRENT TOBACCO USER [facility] Apr 02, 2014 10:48 AM TOBACCO OFFERRED P T MEDS (PROVIDER) [facility] Sep 15, 2011 10:37 AM CURRENT TOBACCO USER [facility] Apr 13, 2011 02:21 PM CURRENT TOBACCO USER [facility] May 22, 2010 02:00 PM CURRENT TOBACCO USER [facility] May 22, 2010 02:[address] [facility] SMOKING CLINIC [facility] May 22, 2010 02:00 PM TOBACCO OFFERRED P T MEDS (PROVIDER) [facility] Apr 21, 2010 02:03 PM CURRENT TOBACCO USER [facility] Apr 21, 2010 02:03 PM TOBACCO MEDS OFFER ED BUT DECLINED [facility] Radiology Reports: +/- 30 days of the [...] the Encounter. The data comes from all [place] treatment facilities. Date/Time Radiology Report Provider Source Nov 02, 2024 04:52 PM CHEST X-RAY, 2 VIE WS: ALLI RAMOS [id number] -[id number] M Exm Date: NOV 02, 2024@16:52 Req Phys: MARCELO FERNANDEZ Loc: [facility]-EMERGENCY DEPT 3RD SHIFT (R Img Loc: -MAIN RADIOLOGY SUITE Service: [facility] [address] [place] [address] (Case [id number] COMPLETE) CHEST X-RAY, 2 VIEWS (RAD Detailed) CPT:80148 Reason for Study: chest tightness Clinical History: Report Status: Verified Date Reported: NOV 02, 2024 Date Verified: NOV 02, 2024 Skiver Counter E-Sig: Report: CHEST X-RAY, 2 VIEWS HISTORY: chest tightness COMPARISON: Chest radiograph 09/26/2022 TECHNIQUE: Frontal and lateral views of the chest, submitted to the [place] National Teleradiology Program (NTP) for interpretation. FINDINGS: Lungs: Similar scattered areas of atelectasis-scarring. No new consolidation. Pleura: No pleural effusion or pneumothorax. Mediastinum: Normal size and contour. Bones: Unremarkable. Impression: No acute cardiopulmonary disease. READING PHYSICIAN: Dami [id number] 11/02/2024 17:59 [facility] National Teleradiology Program [phone] (For Medical Practitioner Use Only) Attention Patients / Veterans: If you have questions or concerns about these test results, please contact your ordering provider or primary care team. Primary Interpreting Staff: RADIOLOGY,OUTSIDE SERVICE, Staff Physician / RADIOLOGY,OUTSIDE SERVICE [facility] Encounter Notes: All associated encounter notes This section contains the clinical notes associated to the Encounter. Date/Time Encounter Note(s) Provider Source Nov 02, 2024 04:37 PM EMERGENCY DEPT TRI AGE NOTE: LOCAL TITLE: EMERGENCY DEPARTMENT TRIAGE NOTE STANDARD TITLE: EMERGENCY DEPT TRIAGE NOTE DATE OF NOTE: NOV 02, 2024@16:37 ENTRY DATE: NOV 02, 2024@16:37:36 AUTHOR: DORCAS BENITEZ EXP COSIGNER: URGENCY: STATUS: COMPLETED EMERGENCY DEPARTMENT TRIAGE NOTE Has ADDENDA Emergency Department/Urgent Care Center Triage Patient age:39 Sex in chart: MALE Mode of Arrival: Private vehicle Self Mode of Mobility: * Walk Chief Complaint: sob,nausea, fatigue. 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 Pt observed wearing 2L NC>. 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 NURS TELE PULMONARY NOTE::::::: calls Pulmonary w/ c/o SOB , feels like someone sitting on chest, lungs burning, exhaustion for the last several days. He denies fever but c/o night sweats. [place] instructed to present to the ER for evaluation. agreeable to plan. Level of Consciousness (AVPU): Alert = Appears aware of and responsive to the environment on their own. Follows commands, opens eyes spontaneously, and tracks objects. Vital Signs: Pulse 92 Respirations 16 Blood Pressure 143/81 Pulse Oximetry 98 Room Air Pain: DVPRS Scale Location: chest pain Defense and Veterans Pain Rating Scale (DVPRS): 7 Focus of attention, prevents doing daily activities Patient's acceptable pain goal: Suicide Screen: [place] Suicide Severity Rating Scale (C-SSRS) screener 1. Over the past month, have you [...] went to the roof but didn't jump)? No 8. If YES, was this within the past 3 months? Response not required due to responses to other questions. 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 12) Pulmonary embolism 13) Therapeutic drug effect 14) Tachycardia 15) Right knee pain 16) Iron deficiency anemia 17) Contact with and (Suspected) Exposure to Air Pollution 18) Contact with and (suspected) exposure to other hazardous substances 19) Exposure to Disaster, War and other Hostilities 20) Exposure to Potentially Hazardous Substance ([facility] [id number]) 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 patient wheeled to exam room 102-1 for c/o SOB. patient placed on the monitor, blood pressure cuff, and pulse ox. pt covered with blankets. call light placed at bedside. pt waiting for provider evaluation. Blood Pressure: 139/84 Pulse: 97 Pain: 0 Pulse Oximetry: 95% 170 Dr. Ulloa in to examine patient. 172 20 gauge IV started in RAC times 1 attempt. Good blood return. blood specimens obtained and IV flushed with 10ml of saline. no signs of infiltration noted. IV secured to site and specimens sent to lab via transport personnel. covid swab obtained. 1730 ekg completed at bedside by KILEY Quick. 1745 see BCMA solumedrol 125mg IVP given. albuterol/ipratropium neb started. 1800 pt c/o nausea. made aware. 182 see BCMA zofran 4mg IVP given. albuterol/ipratropium neb started. 1900 Blood Pressure: 127/73 Pulse: 81 Pain: 0 Pulse Oximetry: 99% 1929 report given to KILEY Lam. /loren/ TODD MORGAN RN REGISTERED NURSE Signed: 11/02/2024 19:48 11/02/2024 ADDENDUM STATUS: COMPLETED 1930 Tita Leigh RN, assumes pt care from KILEY Bond. Pt lying on stretcher in er room 102-1 without distress or complaints. Pt has #20 PAL noted to right ac. Awaiting dispostion/additional orders. 2033 Discharge instructions explained. Pt verbalizes understanding. Ambulatory with steady gait out of ed. No adverse reaction to medication. /es/ KEYSHA LEIGH RN REGISTERED NURSE Signed: 11/02/2024 20:47 DORCAS BENITEZ [facility]
--- OUTSIDE RECORDS SUMMARY | 2025-05-24 11:50 | XMS_ITS | Encounter Summary ---
Author Name [facility] [place] Organization [facility] [place] [facility] [place] Address [address] [place] [address] Care Team Providers Care Life Specialist Name Role Phone HENRY POPE Primary [...] Name Patient's Relationship to Policy Lowe AARP [facility] ([facility]) MEDICARE ADVANTAGE [facility] ([facility]) Nov 01, 2024 [id number] ALLI RAMOS PATIENT AETNA [facility] ([facility]) MEDICARE ADVANTAGE [facility] ([facility]) Nov 01, 2021 [id number] ALLI RAMOS PATIENT INACTIVE [facility] TRI Oct 14, 2009 [facility] [id number] ALLI RAMOS PATIENT MEDICARE (WN) MEDICARE (M) PART A Sep 01, 2015 PART A [id number] [phone] ALLI RAMOS PATIENT MEDICARE (WN) MEDICARE (M) PART B Sep 01, 2015 PART B [id number] ALLI RAMOS PATIENT -FO R-LIFE [facility] RE FOR LIFE WNR Nov 01, 2017 FOR LIFE [id number] [phone] ALLI RAMOS PATIENT Selected Encounter This section includes the information on record at [place] for the Encounter. 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 Date/Time Primary/Secondary Diagnosis Diagnosis Name Provider Source Apr 12, 2025 12:22 PM PRIMARY Bronchiolitis obliterans and bronchiolitis obliterans synd [facility] Apr 12, 2025 12:22 PM SECONDARY Chronic obstructive pulmonary disease, unspecified [facility] Apr 12, 2025 12:22 PM SECONDARY Chronic respiratory failure with hypoxia [facility] Apr 12, 2025 12:22 PM SECONDARY Contact with and exposure to other hazardous substances [facility] Plan of Treatment: Future Appointments (+ 6 months) and Future Tests (+/- 45 days) The Plan of Treatment section includes future care activities for the patient from all [place] treatmentfacilities. This section includes future appointments and future orders which are active, pending or scheduled. Future Appointments This section includes appointments that were scheduled to occur 6 months from the date of the Encounter, up to a maximum of 20 appointments. The data comes from all [place] treatment facilities. Appointment Date/Time Appointment Type Appointme nt Facility Name Apr 18, 2025 08:00 AM AMBULATORY - MEDICINE [facility] May 15, 2025 09:00 AM AMBULATORY - MEDICINE [facility] Jun 13, 2025 10:00 AM AMBULATORY - SURGERY [facility] Jun 29, 2025 01:30 PM AMBULATORY - NEUROLOGY [facility] Jul 03, 2025 01:30 PM AMBULATORY - SURGERY [facility] Jul 19, 2025 03:00 PM AMBULATORY - MEDICINE [facility] Sep 04, 2025 11:20 AM AMBULATORY - MEDICINE [facility] Active, Pending, and Scheduled Orders This section includes a listing of several types of active, pending, and scheduled orders, including clinic medications orders, diagnostic test orders, procedure orders and consult orders; where the start date of the order is 45 days before the date of the Encounter or 45 days after the date of theEncounter. The data comes from all [place] treatment facilities. Test Date/Time Test Type Test Details Facility Name Apr 05, 2025 08:18 AM Consult Order [facility]THO SURG Cons Plate Worker [facility] May 15, 2025 09:46 AM Consult Order NEUROLOGY BOTOX INJECTION OUTPATIENT [facility] Cons Plate Worker [facility] Vital Signs: All taken on the encounter date This section contains inpatient and outpatient Vital Signs collected on the date of the Encounter. Date/Time Temperature Pulse Blood Pressure Respiratory Rate SP02 Pain Height Weight Body Mass Index Source Apr 12, 2025 09:43 AM 98.1 74 107/69 16 98 198.4 30 [facility] Social History: Smoking Status (Most current) and Tobacco Use (All prior to encounter date) This section includes the most current, and the historical, smoking and tobacco- related health factors from the [place] facility where the Encounter took place. Current Smoking Status This section includes the most current smoking, or tobacco-related health factor, from the [place] facility where the Encounter took place. Date/Time Current Smoking Status Comment Mirtha ity Sep 03, 2023 12:30 PM AH-BPR SMOKING DEPLOYMENT NO [facility] Tobacco Use History This section includes a history of the smoking, or tobacco-related health factors, that were collected on or before the date of the Encounter. The data comes from the [place] facility where the Encounter took place. Date/Time Smoking Status/Tobacco Use Comment F acility Sep 23, 2022 12:40 AM ORYX ADMIT TOBACCO SCREEN NO [facility] Sep 06, 2022 05:41 AM ORYX ADMIT TOBACCO SCREEN NO [facility] May 09, 2018 08:36 PM LIFETIME NON-USER OF TOBACCO [facility] Apr 02, 2014 10:48 AM CURRENT TOBACCO USER [facility] Apr 02, 2014 10:48 AM TOBACCO OFFERRED P T MEDS (PROVIDER) [facility] Sep 15, 2011 10:37 AM CURRENT TOBACCO USER [facility] Apr 13, 2011 02:21 PM CURRENT TOBACCO USER [facility] May 22, 2010 02:00 PM CURRENT TOBACCO USER [facility] May 22, 2010 02:[address] [facility]MO[facility] CLIN[facility] May 22, 2010 02:00 PM TOBACCO OFFERRED P T MEDS (PROVIDER) [facility] Apr 21, 2010 02:03 PM CURRENT TOBACCO USER [facility] Apr 21, 2010 02:03 PM TOBACCO MEDS OFFER ED BUT DECLINED [facility] Encounter Notes: All associated encounter notes This section contains the clinical notes associated to the Encounter. Date/Time Encounter Note(s) Provider Source Apr 12, 2025 09:45 AM PULMONARY OUTPATIENT NOTE: LOCAL TITLE: PULMONARY OUTPATIENT FOLLOW UP [facility] STANDARD TITLE: PULMONARY OUTPATIENT NOTE DATE OF NOTE: APR 12, 2025@09:45 ENTRY DATE: APR 12, 2025@10:04:48 AUTHOR: CLAUDINE SCHMITZ COSIGNER: URGENCY: STATUS: COMPLETED PULMONARY OUTPATIENT FOLLOW UP [facility] Has ADDENDA 39 year old MALE here for Pulmonary follow up visit on 04/12/25 09:30. HISTORY: See prior pulm notes for more details. 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 Recent consult at [facility].....recs: 1. Echo to evkaci for pHTN (hx of PE in past)..scheduled 04/18. If elevated, f/u VQ scan for chronic PE. 2. 6 month trial azithro 250mg daily for improvement in pulm function/sx. 3. CARP. Here today for EKG before starting azithro, no QT prolongation. Will start azithro first, then f/u in early fall, consider CARP at that time. Has f/u appt at [facility] in Sep. 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 12) Pulmonary embolism 13) Therapeutic drug effect 14) Tachycardia 15) Right knee pain 16) Iron deficiency anemia 17) Contact with and (Suspected) Exposure to Air Pollution 18) Contact with and (suspected) exposure to other hazardous substances 19) Exposure to Disaster, War and other Hostilities 20) Exposure to Potentially Hazardous Substance (SCT 559046174661213) 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 SHAKE WELL. RINSE MOUTHPIECE FREQUENTLY TO PREVENT CLOGGING. Indication: FOR COPD 2) ALBUTEROL SO4 0.083% INHL 3ML INHALE 1 VIAL (2.5MG/3ML) BY ACTIVE (S) NEBULIZATION EVERY 6 HOURS DIRECTED NEEDED FOR BREATHING Indication: FOR COPD 3) BREZTRI 160/9/4.8MCG/ACT 120D ORAL INHL INHALE 2 PUFFS ACTIVE (S) INHALATION TWICE A DAY DIRECTED FOR BREATHING (CLEAN INHALER FOLLOWED BY 2 PRIMING PUFFS ONCE WEEKLY) 4) CARBOXYMETHYLCELLULOSE NA 1% OPH GEL INSTILL 1 DROP INTO ACTIVE BOTH EYES FOUR TIMES A DAY NEEDED Indication: FOR DRY EYE(S) 5) DIVALPROEX 250MG 24HR (ER) SA TAB TAKE THREE TABLETS BY ACTIVE (S) MOUTH TWICE A DAY Indication: FOR SEIZURES 6) SERTRALINE HCL 100MG TAB TAKE ONE TABLET BY MOUTH AT BEDTIME ACTIVE (S) Indication: PTSD Pending Outpatient Medications Status 1) AZITHROMYCIN 250MG TAB TAKE ONE TABLET BY MOUTH ONCE A DAY PENDING TAKE UNTIL GONE. DO NOT TAKE WITH ALUMINUM OR MAGNESIUM ANTACIDS. Indication: BRONCHIOLITIS OBLITERANS Active Non-VA Medications Status 1) Non-VA CHOLECALCIFEROL (LOW DOSE VIT D) - (OTC) TAB BY MOUTH ACTIVE 2) Non-VA CLONAZEPAM 1MG TAB 1MG BY MOUTH THREE TIMES A DAY ACTIVE (MORNING, NOON, EARLY EVENING) Indication: FOR ANXIETY 3) Non-VA FERROUS SULFATE 325MG TAB 325MG BY MOUTH ONCE A DAY ACTIVE 4) Non-VA MORPHINE SO4 IR 30MG TAB 30MG BY MOUTH TWICE A DAY ACTIVE Indication: FOR SEVERE PAIN 5) Non-VA TESTOSTERONE CYPIONATE (PA-F) INJ,SOLN DEEP ACTIVE INTRAMUSCULARLY 12 Total Medications ALLERGIES: TOPAMAX 25MG TABLET REVIEW OF SYSTEMS: - As noted above, otherwise negative. PHYSICAL EXAMINATION: Vital Signs: Temperature: 98.1 F [36.7 C] (04/12/2025 09:43) Blood Pressure: 107/69 (04/12/2025 09:43) Pulse: 74 (04/12/2025 09:43) Respirations: 16 (04/12/2025 09:43) Pain: 0 (02/23/2025 08:04) Patient Height:68 in [172.7 cm] (02/23/2025 08:04) Patient Weight:198.4 lb [89.99 kg] (04/12/2025 09:43) BMI: 30.2 O2 saturation: 98% (04/12/2025 09:43) GENERAL: Walked to exam rooml on suppl O2, no distress. HEENT: Supple. RESP: Nonlabored at rest. BS diminished, no wheezing/crackles. CARDIO: RRR. 12 lead EKG, SR, no QT prolongation. 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 Continue suppl O2. - Continue current inhaler tx: Breztri, prn alb MDI/nebulizer. - Start azithromcyin 250mg daily, 6 month trial. - Check echo for pHTN, scheduled 04/18. - Consider CARP at next f/u. RTC in 3 months /quirino SCHMITZ PHYSICIAN KETTLE FRY COOK OPERATOR Signed: 04/12/2025 12:24 04/20/2025 ADDENDUM STATUS: COMPLETED [place] contacted via phone. Echo results reviewed, wnl. No evidence of pHTN. /quirino SCHMITZ PHYSICIAN KETTLE FRY COOK OPERATOR Signed: 04/20/2025 10:38 CLAUDINE SCHMITZ [facility]
--- OUTSIDE RECORDS SUMMARY | 2025-05-24 11:50 | XMS_ITS | Clinical Summary ---
Author Organization [facility] Address [address] [place] [address] Care Team Providers Care Training Professional Name Role Phone Unavailable Primary Care Provider Unavailabl e Source Comments [facility],non-owned Affiliates and Associated Physician Practices is amultiple site organization consisting of ambulatory clinics and hospital sitesin [place], [place], [place] and [place]. This disclosure is being madepursuant to the Care Everywhere program and may not contain all information available regarding this patient. 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 Gender Identity Not on file Sexual Orientation Not on file Last Filed Vital Signs Vital Sign Reading Time Taken Comments Blood Pressure 126/79 09/13/2021 3:57 AM DANCING MASTER Pulse 74 09/13/2021 3:57 AM DANCING MASTER Temperature 36.8 C (98.2 F) 09/13/2021 3:57 AM DANCING MASTER Respiratory Rate 18 09/13/2021 3:57 AM DANCING MASTER Oxygen Saturation 99% 09/13/2021 3:57 AM DANCING MASTER Inhaled Oxygen Concentration - - Weight 81.7 kg (180 lb 1.9 oz) 09/13/2021 3:57 A M DANCING MASTER Height 172.7 cm (5' 8) 09/12/2021 3:40 AM DANCING MASTER Body Mass Index 27.39 09/12/2021 3:40 AM DANCING MASTER Plan of Treatment Health Maintenance Due Date [...] complete this topic Insurance THIRD LIBERTARIAN LIABILITY Republican Liability [employer] TPL THIRD LIBERTARIAN LIABILITY Republican Liability TP THIRD LIBERTARIAN LIABILITY Republican Liability [employer] Advance Directives * Full Code (Latest Code Status on File) Date Activated Date Inactivated Comments 09/12/2021 7:32 PM 09/13/2021 1:27 PM * Full Code Date Activated Date Inactivated Comments 09/12/2021 8:47 AM 09/12/2021 7:32 PM * Full Code Date Activated Date Inactivated Comments 09/12/2021 1:27 AM 09/12/2021 8:47 AM
--- OUTSIDE RECORDS SUMMARY | 2025-05-24 11:51 | XMS_ITS | Encounter Summary ---
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 Tech Name Role Phone STEPHANIE POPE Primary Care Provider Unavailabl e Insurance [...] Name Patient's Relationship to Policy Lowe AETNA [facility] (R) MEDICARE ADVANTAGE [facility] ([facility] Nov 01, 2021 [id number] [phone] ALLI RAMOS PATIENT AETNA [facility] (R) MEDICARE ADVANTAGE [place] INDIV IDUAL - [place]I Nov 01, 2019 [id number] ALLI RAMOS PATIENT [facility]NA[facility] Oct 14, 2009 [facility] [id number] ALLI RAMOS PATIENT MEDICARE (WNR) MEDICARE (M) PART B Sep 01, 2015 PART B [id number] ALLI RAMOS PATIENT MEDICARE (WN) MEDICARE (M) PART A Sep 01, 2015 PART A [id number] ALLI RAMOS PATIENT -FO R-LIFE [facility] FOR LIFE WNR Nov 01, 2017 FOR LIFE [id number] [phone] ALLI RAMOS PATIENT Selected Encounter This section includes the information on record at [place] for the Encounter. Date/Time Encounter Type Encounter Description Reason Provider Source Nov 02, 2024 04:33 PM EMERGENCY DEPT VISIT MOD [facility] EMERGENCY DEPT ICD-10-CM J44.9 Chronic obstructive pulmonary disease, unspecified BRIAN ULLOA [facility] Encounter Template Text not used by [place] Assessments - Encounter Diagnoses This section includes the primary and secondary diagnoses documented for the Encounter. Date/Time Primary/Secondary Diagnosis Diagnosis Name Provider Source Nov 02, 2024 08:35 PM PRIMARY Chronic obstructive pulmonary disease, unspecified BRIAN ULLOA [facility] Plan of Treatment: Future Appointments (+ 6 months) and Future Tests (+/- 45 days) The Plan of Treatment section includes future care activities for the patient from all [place] treatmentfacilities. This section includes future appointments and future orders which are active, pending or scheduled. Future Appointments This section includes appointments that were scheduled to occur 6 months from the date of the Encounter, up to a maximum of 20 appointments. The data comes from all [place] treatment facilities. Appointment Date/Time Appointment Type Appointme nt Facility Name Dec 05, 2024 09:30 AM AMBULATORY - PSYCHIATRY [facility] Dec 13, 2024 08:00 AM AMBULATORY - SURGERY [facility] Jan 02, 2025 01:30 PM AMBULATORY - MEDICINE [facility] Jan 15, 2025 02:00 AM AMBULATORY - MEDICINE [facility] Feb 22, 2025 02:30 PM AMBULATORY - MEDICINE [facility] Feb 23, 2025 08:20 AM AMBULATORY - SURGERY [facility] March 01, 2025 11:15 AM AMBULATORY - MEDICINE [facility] March 06, 2025 01:30 PM AMBULATORY - SURGERY [facility] Apr 05, 2025 11:00 AM AMBULATORY - PSYCHIATRY [facility] Active, Pending, and Scheduled Orders This section includes a listing of several types of active, pending, and scheduled orders, including clinic medications orders, diagnostic test orders, procedure orders and consult orders; where the start date of the order is 45 days before the date of the Encounter or 45 days after the date of theEncounter. The data comes from all [place] treatment facilities. Test Date/Time Test Type Test Details Facility Name Dec 07, 2024 07:14 AM Consult Order [facility] P[facility] Cons It Portfolio Manager's Choice [facility] Lab Results: +/- 30 days of the encounter This section includes the Chemistry and Hematology Lab Results on record with [place] for the patient. Radiology Reports and Pathology Reports are provided separately, in subsequent sections. Lab Results This section contains the Chemistry/Hematology Results that were resulted 30 days before or 30 daysafter the date of the Encounter. Date/Time Source Result Type Result - Unit Interpretation Reference Range Specimen Type Comment Nov 02, 2024 05:25 PM [facility] COVID-19 DIAGNOSTIC (FLU/RSV)(STL) NASOPHARYNX Spec imen Type: [...] Nov 02, 2024 04:41 PM Reporting Lab: [facility] [address] [facility] [address] Performing Lab: [place] [address] [facility] [address] INFLUENZA A Negative Negative INFLUENZA B Negative Negative COVID-19 (STL-PB) Not Detected Not Detec leonardo RSV (Cepheid) NEGATIVE Negative Nov 02, 2024 05:05 PM [facility] APTT PLASMA Specimen Type: PLASM A No comment entered. Ordering Provider: BRIAN ULLOA Report Released Date/Time: Nov 02, 2024 05:13 PM Reporting Lab: [facility] [address] [facility] [address] Performing Lab: [facility] [address] [place] [phone] APTT 32.9 s 26.7-39.9 Nov 02, 2024 05:05 PM [facility] TROPONIN I PLASMA Specimen Type: PLASM A Comment: No hemolysis noted. Ordering Provider: BRIAN ULLOA Report Released Date/Time: Nov 02, 2024 05:13 PM Reporting Lab: [place] [address] [facility] [address] Performing Lab: [address] [address] TROPONIN I <0.010 ng/mL 0-0.033 Nov 02, 2024 05:05 PM [facility] PT/INR NEW (STL-MA) PLASMA Specimen Type: PLAS MA No comment entered. Ordering Provider: BRIAN ULLOA Report Released Date/Time: Nov 02, 2024 05:13 PM Reporting Lab: [place] [address] [facility] [address] Performing Lab: [address] [address] PROTIME 12.4 s 9.4-12.5 INR VALUE 1.1 {INR} Nov 02, 2024 05:05 PM [facility] D-DIMER HS (MA-STL-PB) PLASMA Specimen Type: P LASMA No comment entered. Ordering Provider: BRIAN ULLOA Report Released Date/Time: Nov 02, 2024 05:13 PM Reporting Lab: [address] [address] Performing Lab: [address] [address] D-DIMER HS (MA-STL-PB) <215 <500 Nov 02, 2024 05:05 PM [facility] BRAIN NATRIURETIC PEPTIDE PLASMA Specimen Type : PLASMA No comment entered. Ordering Provider: BRIAN ULLOA Report Released Date/Time: Nov 02, 2024 05:16 PM Reporting Lab: [address] [address] Performing Lab: [address] [address] BRAIN NATRIURETIC PEPTIDE <10.0 pg/mL 0- 100 Nov 02, 2024 05:05 PM [facility] COMPREHENSIVE METABOLIC PANEL PLASMA Specimen Type: PLASMA Comment: No hemolysis noted. Ordering Provider: BRIAN ULLOA Report Released Date/Time: Nov 02, 2024 05:13 PM Reporting Lab: [address] [address] Performing Lab: [address] [address] CREATININE 0.91 mg/dL 0.7-1.3 UREA NITROGEN 15.6 [...] 110.6 >60 Nov 02, 2024 05:05 PM [facility] CBC BLOOD Specimen Type: BLOOD No comment entered. Ordering Provider: BRIAN ULLOA Report Released Date/Time: Nov 02, 2024 05:13 PM Reporting Lab: [address] [address] Performing Lab: [address] [address] WBC 7.1 10*3/uL 3.6-11.2 RBC 5.35 10*6/uL [...] 0.00-0. 20 Oct 16, 2024 03:[address] [facility] SHANNON AB (STL) SERUM Specimen Type: SERUM Comment: A positive result indicates an autoantibody against one or more of the following antigens: SM, SM/MANAGEMENT PROFESSOR, Ro/SS-A, La/SS-B, Scl-70, Bree-1. Positive screens will be reflexed to an SHANNON Profile to determine which antibody(s) are present. Ordering Provider: CLAUDINE SCHMITZ Report Released Date/Time: Oct 16, 2024 12:45 PM Reporting Lab: [address] [address] Performing Lab: [facility] [address] [facility] [address] SHANNON SCREEN(STL) Negative Negative Oct 16, 2024 03:52 PM [facility] ALDOLASE SERUM Specimen Type: SERUM Comment: Test Performed by Erika Landaverde, [employer] [facility], [address] [place] [address] Srikanth Navarro M.D., Ph.D., Director of Laboratories , CLIA [id number] Ordering Provider: CLAUDINE SCHMITZ Report Released Date/Time: Oct 16, 2024 12:45 PM Reporting Lab: [facility] [address] [facility] [address] Performing Lab: [address] ALDOLASE 6.4 U/L <=8.1 Oct 16, 2024 03:51 PM [facility] RESTRICTED-SO OTHER Specimen Type: OTHER Comment: ~For Test: RESTRICTED-SO ~3-Full Gold Top SST tubes For test results see [facility] Lab & Path consult #[id number] placed on 10/16/2024. SMN 10/30/2024 Ordering Provider: CLAUDINE SCHMITZ Report Released Date/Time: Oct 16, 2024 01:53 PM Reporting Lab: [address] [address] Performing Lab: [address] RESTRICTED-SO comment Oct 16, 2024 03:51 PM [facility] ANTI-CCP SERUM Specimen Type: SERUM Comment: REFERENCE RANGE: <20 Units Negative: <20 Weak Positive: 20 - 39 Moderate Positive: 40 - 59 Strong Positive: >59 Test Per[facility] by [facility], [employer] [facility], [address] [place] [address] Srikanth Navarro M.D., Ph.D., Director of Laboratories , [facility] [id number] Ordering Provider: CLAUDINE SCHMITZ Report Released Date/Time: Oct 16, 2024 12:45 PM Reporting Lab: [place] [address] [facility] [address] Performing Lab: [address] ANTI-CCP <16 SEE BELOW Oct 16, 2024 03:51 PM [facility] ANCA/Vasculitides (STL) SERUM Specimen Type: SERUM No comment entered. Ordering Provider: CLAUDINE SCHMITZ Report Released Date/Time: Oct 16, 2024 12:45 PM Reporting Lab: [facility] [address] [facility] [address] Performing Lab: [facility] [address] [facility] [address] .MYELOPEROXIDASE AB NEGATIVE NEGATIVE .PROTEINASE AB NEGATIVE NEGATIVE Oct 16, 2024 03:51 PM [facility] ANTI-NUCLEAR ANTIBODY (STL-PB) SERUM Specimen Type: SERUM No comment entered. Ordering Provider: CLAUDINE SCHMITZ Report Released Date/Time: Oct 16, 2024 12:45 PM Reporting Lab: [facility] [address] [facility] [address] Performing Lab: [facility] [address] [facility] [address] ANTI-NUCLEAR ANTIBODY (STL-PB) POSITIVE H Oct 16, 2024 03:51 PM [facility] BRETT-TITER(STL)CONFIRMATION SERUM Specimen Typ e: SERUM No comment entered. Ordering Provider: CLAUDINE SCHMITZ Report Released Date/Time: Oct 16, 2024 12:45 PM Reporting Lab: [facility] [address] [facility] [address] Performing Lab: [facility] [address] [facility] [address] BRETT-TITER(STL)CONFIRMATION 320 {titer} Oct 16, 2024 03:51 PM [facility] RHEUMATOID FACTOR (STL) SERUM Specimen Type: SERUM No comment entered. Ordering Provider: CLAUDINE SCHMITZ Report Released Date/Time: Oct 16, 2024 12:45 PM Reporting Lab: [facility] [address] [facility] [address] Performing Lab: [facility] [address] [facility] [address] RHEUMATOID FACTOR (STL) <15.0 0-29 Oct 16, 2024 03:51 PM [facility] CPK PLASMA Specimen Type: PLASM A No comment entered. Ordering Provider: CLAUDINE SCHMITZ Report Released Date/Time: Oct 16, 2024 12:45 PM Reporting Lab: [facility] [address] [facility] [address] Performing Lab: [facility] [address] [facility] [address] CPK 233 U/L H 30-200 Oct 16, 2024 03:51 PM [facility] CRP PLASMA Specimen Type: PLASM A No comment entered. Ordering Provider: CLAUDINE SCHMITZ Report Released Date/Time: Oct 16, 2024 12:45 PM Reporting Lab: [address] [address] Performing Lab: [address] [address] CRP 0.3 mg/dL 0-0.5 Oct 16, 2024 03:51 PM [facility] ESR ISED(STL) BLOOD Specimen Type: BLOOD No comment entered. Ordering Provider: CLAUDINE SCHMITZ Report Released Date/Time: Oct 16, 2024 12:45 PM Reporting Lab: [place] [address] [facility] [address] Performing Lab: [address] [address] ESR ISED(STL) 2 mm/h 0-14 Vital Signs: All taken on the encounter date This section contains inpatient and outpatient Vital Signs collected on the date of the Encounter. Date/Time Temperature Pulse Blood Pressure Respiratory Rate SP02 Pain Height Weight Body Mass Index Source Nov 02, 2024 08:00 PM 94 122/[address] [facility] Nov 02, 2024 07:00 PM 81 127/[address] [facility] Nov 02, 2024 05:00 PM 97 139/[address] [facility] Nov 02, 2024 04:38 PM 92 143/[address] [facility] Social History: Smoking Status (Most current) and Tobacco Use (All prior to encounter date) This section includes the most current, and the historical, smoking and tobacco- related health factors from the [place] facility where the Encounter took place. Current Smoking Status This section includes the most current smoking, or tobacco-related health factor, from the [place] facility where the Encounter took place. Date/Time Current Smoking Status Comment Mirtha ity Sep 03, 2023 12:30 PM AH-BPR SMOKING DEPLOYMENT NO [facility] Tobacco Use History This section includes a history of the smoking, or tobacco-related health factors, that were collected on or before the date of the Encounter. The data comes from the [place] facility where the Encounter took place. Date/Time Smoking Status/Tobacco Use Comment F acility Sep 23, 2022 12:40 AM ORYX ADMIT TOBACCO SCREEN NO [facility] Sep 06, 2022 05:41 AM ORYX ADMIT TOBACCO SCREEN NO [facility] May 09, 2018 08:36 PM LIFETIME NON-USER OF TOBACCO [facility] Apr 02, 2014 10:48 AM CURRENT TOBACCO USER [facility] Apr 02, 2014 10:48 AM TOBACCO OFFERRED P T MEDS (PROVIDER) [facility] Sep 15, 2011 10:37 AM CURRENT TOBACCO USER [facility] Apr 13, 2011 02:21 PM CURRENT TOBACCO USER [facility] May 22, 2010 02:00 PM CURRENT TOBACCO USER [facility] May 22, 2010 02:[address] [facility] SMOKING CLIN[facility] May 22, 2010 02:00 PM TOBACCO OFFERRED P T MEDS (PROVIDER) [facility] Apr 21, 2010 02:03 PM CURRENT TOBACCO USER [facility] Apr 21, 2010 02:03 PM TOBACCO MEDS OFFER ED BUT DECLINED [facility] Radiology Reports: +/- 30 days of the [...] the Encounter. The data comes from all [place] treatment facilities. Date/Time Radiology Report Provider Source Nov 02, 2024 04:52 PM CHEST X-RAY, 2 VIE WS: ALLI RAMOS [id number] -[id number] M Exm Date: NOV 02, 2024@16:52 Req Phys: MARCELO FERNANDEZ Loc: [facility]-EMERGENCY DEPT 3RD SHIFT (R Img Loc: [facility]-MAIN RADIOLOGY SUITE Service: [facility], [address] [place] [address] (Case [id number] COMPLETE) CHEST X-RAY, 2 VIEWS (RAD Detailed) CPT:21775 Reason for Study: chest tightness Clinical History: Report Status: Verified Date Reported: NOV 02, 2024 Date Verified: NOV 02, 2024 Contract Officer E-Sig: Report: CHEST X-RAY, 2 VIEWS HISTORY: chest tightness COMPARISON: Chest radiograph 09/26/2022 TECHNIQUE: Frontal and lateral views of the chest, submitted to the [place] National Teleradiology Program (NTP) for interpretation. FINDINGS: Lungs: Similar scattered areas of atelectasis-scarring. No new consolidation. Pleura: No pleural effusion or pneumothorax. Mediastinum: Normal size and contour. Bones: Unremarkable. Impression: No acute cardiopulmonary disease. READING PHYSICIAN: Dami [id number] 11/02/2024 17:59 PST [facility] National Teleradiology Program [phone] (For Medical Practitioner Use Only) Attention Patients / Veterans: If you have questions or concerns about these test results, please contact your ordering provider or primary care team. Primary Interpreting Staff: RADIOLOGY,OUTSIDE SERVICE, Staff Physician / RADIOLOGY,OUTSIDE SERVICE [facility] Encounter Notes: All associated encounter notes This section contains the clinical notes associated to the Encounter. Date/Time Encounter Note(s) Provider Source Nov 02, 2024 05:14 PM PHYSICIAN EMERGENCY DEPT NOTE: LOCAL TITLE: EMERGENCY DEPARTMENT STL STANDARD TITLE: PHYSICIAN EMERGENCY DEPT NOTE DATE OF NOTE: NOV 02, 2024@17:14 ENTRY DATE: NOV 02, 2024@17:14:12 AUTHOR: BRIAN ULLOA COSIGNER: URGENCY: STATUS: COMPLETED TRIAGE CHIEF COMPLAINT: HPI: Patient is a 39-year-old male with history of migraine headaches, seizure disorder, chronic low back pain, COPD, PTSD, presents for chest heaviness, shortness of breath. Symptoms started approximately 3 days ago. Patient reports worsening shortness of breath. He also reports a sense of chest heaviness he equates as being very difficult to breathe. Patient has a history of COPD and wears 2 L nasal cannula at baseline. He is currently using his baseline oxygen requirement. He has taken multiple neb treatments as well as his albuterol MDI over the last 2 to 3 days without relief. He also reports a nonproductive cough. Patient states that this feels like a COPD exacerbation but much worse than once he has previously experienced. No orthopnea. No lower extremity swelling or pain. No fevers. No other symptoms reported. REVIEW OF SYSTEMS: See HPI for further details. All 10 systems reviewed and otherwise negative unless otherwise detailed herein. 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 12) Pulmonary embolism 13) Therapeutic drug effect 14) Tachycardia 15) Right knee pain 16) Iron deficiency anemia 17) Contact with and (Suspected) Exposure to Air Pollution 18) Contact with and (suspected) exposure to other hazardous substances 19) Exposure to Disaster, War and other Hostilities 20) Exposure to Potentially Hazardous Substance ([facility] [id number]) 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 22) Chronic post-traumatic stress disorder 23) History of alcohol abuse CURRENT MEDICATIONS: Active Outpatient Medications (including Supplies): Active [...] Indication: FOR COPD 3) ATOGEPANT 60MG TAB TAKE ONE TABLET BY MOUTH ONCE A DAY ACTIVE Indication: FOR MIGRAINE HEADACHE 4) BREZTRI 160/9/4.8MCG/ACT 120D ORAL INHL INHALE 2 PUFFS ACTIVE (S) INHALATION TWICE A DAY DIRECTED FOR BREATHING (CLEAN INHALER FOLLOWED BY 2 PRIMING PUFFS ONCE WEEKLY) 5) CARBOXYMETHYLCELLULOSE NA 1% OPH GEL INSTILL 1 DROP INTO ACTIVE BOTH EYES FOUR TIMES A DAY NEEDED Indication: FOR DRY EYE(S) 6) SERTRALINE HCL 50MG TAB TAKE ONE-HALF TABLET BY MOUTH AT ACTIVE BEDTIME FOR 14 DAYS, THEN TAKE ONE TABLET AT BEDTIME FOR 76 DAYS Indication: FOR POST TRAUMATIC STRESS DISORDER Active Non-[place] Medications Status 1) Non-VA CHOLECALCIFEROL [...] TESTOSTERONE CYPIONATE (PA-F) INJ,SOLN DEEP ACTIVE INTRAMUSCULARLY 11 Total Medications 1) ALBUTEROL/IPRATROPIUM (NEB) SOLN,INHL NEB Q20MIN PRN 1 AMPULE (3ML) 2) METHYLPREDNISOLONE NA SUCC INJ,SOLN IVP ONE-TIME 125MG/1VIAL. I have reviewed the patient's medication list with the patient and/or his/her care-chief wellness officer. Any medication discrepancies have been resolved. Patient will be provided with an updated list of his/her medication(s). SURGICAL HISTORY: not pertinent FAMILY HISTORY: not pertinent SOCIAL HISTORY: Social History Main Topics: Smoking status: 04/02/2014 Current Tobacco User Alcohol Use: not indorsed ____ Illicit Drug Use: not indorsed Sexual Activity: Other Topics of Concern: Child bearing age: N/A LMP: N/A possible: N/A ALLERGIES: Review of patient's allergies indicates: TOPAMAX 25MG TABLET PHYSICAL EXAM: VITAL SIGNS: 143/81 (11/02/2024 16:38)92 (11/02/2024 16:38)96% (10/16/2024 13:47)97.3 F [36.3 C] (10/16/2024 13:47)16 (11/02/2024 16:38)The OBJECT WEIGHT LAST 3 was NOT found...Contact IRM. MAThe OBJECT was NOT found...Contact IRM.PAIN ASSESSMENTThe OBJECT was NOT found...Contact IRM. No data available for: PAIN CONSTITUTIONAL: No acute distress, Non-toxic appearance HENT: airway patent EYES: Conj pink, sclera clear NECK: Normal range of motion, No tenderness, Supple, No stridor CARDIOVASCULAR: Normal heart rate, Normal rhythm PULMONARY/CHEST: Scattered expiratory wheezes bilaterally; diminished bilaterally ABDOMEN: Soft, flat, No tenderness, No masses, No pulsatile masses BACK: No tenderness, No CVA tenderness : RECTAL: EXTREMITIES: Normal range of motion, Intact distal pulses, No edema, No tenderness NEUROLOGIC: Alert & oriented/reactive, Normal motor function, No ataxia, No focal deficits appreciated on cursory screening exam SKIN: Warm, Dry, No erythema, No rash LABS: Report Released Date/Time: Nov 02, 2024@18:32 Provider: MARCELO FERNANDEZ Specimen: NASOPHARYNX. JCGE [id number] Specimen Collection Date: Nov 02, 2024@17:25 Test name Result units Ref. range Site Code COVID-19 (STL-PB) Not Detected Ref: Not Detected [657] Eval: A negative result does not preclude infection with SARS-CoV-2 and should Eval: not be used as the sole basis for treatment or other patient management Eval: decisions. Positive results do not rule out bacterial infection or Eval: co-infection with other viruses. All results must be combined with Eval: clinical observations, patient history, and epidemiological information Eval: for final interpretation. RSV (Cepheid) NEGATIVE Ref: Negative [657] INFLUENZA A Negative Ref: Negative [657] INFLUENZA B Negative Ref: Negative [657] Comment: Qualitative real-time PCR and RT-PCR to [...] history, and epidemiological information for final interpretation. Report Released Date/Time: Nov 02, 2024@18:11 Provider: BRIAN ULLOA Specimen: PLASMA. JC [id number] Specimen Collection Date: Nov 02, 2024@17:05 Test name Result units Ref. range Site Code BRAIN NATRIURETIC PEPTIDE <10.0 pg/mL 0 - 100 [657] Eval: BNP LEVELS INCREASE WITH AGE IN THE GENERAL POPULATION WITH THE HIGHEST Eval: VALUES SEEN IN INDIVIDUALS GREATER THAN 75 YEARS OF AGE. Eval: REFERENCE: J. AM. KAJAL. CARDIOL. 2002; [phone] Report Released Date/Time: Nov 02, 2024@18:11 Provider: BRIAN ULLOA Specimen: PLASMA. JCCO [id number] Specimen Collection Date: Nov 02, 2024@17:05 Test name Result units Ref. range Site Code APTT 32.9 sec 26.7 - 39.9 [657] Eval: Effective 04/01/2020 Therapeutic Range for Heparin is 70-90 seconds. Eval: Eval: Therapeutic Range for ARGATROBAN (direct thrombin inhibitor): Eval: Steady-state APTT 1.5 - 3 times the initial baseline value (not to exceed Eval: 100 secs.) Eval: Eval: Therapeutic Range for LEPIRUDIN (direct thrombin inhibitor): APTT 1.5- Eval: 2.5 times the mean of the normal range. Eval: Eval: Providers: Please ensure that the aPTT specimen is received in the Eval: clinical lab within 1 hours of collection (unless frozen); if it is used Eval: for therapeutic heparin monitoring. Completion of testing after 4 hours Eval: may result in inaccurate test results. D-DIMER HS (MA-STL-PB) <215 ng/mL (FEU)Ref: <=500 [657] Eval: O-499 ng/ml FEU is considered negative, equal to or greater than 500 Eval: ng/ml FEU is positive. Eval: Eval: When the D-Dimer result is used in the evaluation of Deep Vein Eval: Thrombosis, Venous Thromboembolism, and/or Pulmonary Embolism, the Eval: cut-off for these conditions is 500 ng/mL FEU. Result of D-dimer assays Eval: should always be interpreted in conjunction with the patient's medical Eval: history, clinical presentation and other findings. Interference by Eval: Rheumatoid Factor may cause an elevated D-Dimer result. INR VALUE 1.1 INR [657] Eval: Eval: INTERPRETATION: Eval: Eval: Eval: Normal INR range 0.9 - 1.1 for Non-anticoagulated patients. Eval: Eval: The recommended therapeutic range for Eval: mechanical prosthetic heart valves is an Eval: INR range of 2.5 - 3.5. Eval: Eval: For all other conditions the recommended Eval: INR range is 2.0 - 3.0. PROTIME 12.4 sec 9.4 - 12.5 [657] Eval: EFFECTIVE 10/03/14 REFERENCE RANGE 9.6 - 12.5 (NEW INSTRUMENT - [id number]) Eval: Eval: EFFECTIVE 08/01/09 REFERENC RANGE 9.0 - 11.5 (NEW INSTRUMENT-[id number]) Eval: Eval: NOTE: REF RANGE CHANGE EFF 08/03/01 REF LOW 9.6 REF HIGH 12.8 (STAGO) Report Released Date/Time: Nov 02, 2024@18:03 Provider: BRIAN ULLOA Specimen: PLASMA. [facility] [id number] Specimen Collection Date: Nov 02, 2024@17:05 Test name Result units Ref. range Site Code TROPONIN I <0.010 ng/mL 0 - 0.033 [657] EGFR (CKD-EPI 2020) 110.6 Ref: >=60 [657] SODIUM 137 mEq/L 136 - 145 [657] POTASSIUM 3.3 L mEq/L 3.5 - 5 [657] CHLORIDE 106 mEq/L 98 - 107 [657] Eval: Effect 08/01/06 Ref Range changed from 96-109 to 98-107 UREA NITROGEN 15.6 mg/dL 9.0 - 25.0 [657] CREATININE 0.91 mg/dL 0.7 - 1.3 [657] Eval: NEW REF RANGE EFFECTIVE [id number] PER VISN DIRECTIVE CALCIUM 9.5 mg/dL 8.4 - 10.4 [657] Eval: Effective 07/16/14 ref range change from 8.4-10.2 to 8.4-10.4 as per VISN Eval: 15 Lab Committee Eval: Eval: Instances of spuriously high total calcium in lithium heparin tubes have Eval: been reported. If the total calcium resulted for this patient appears Eval: questionable, please order repeat testing on serum (blood collected in Eval: red-marbled top tube). PROTEIN 7.4 g/dL 6 - 8.6 [657] ALBUMIN 4.5 g/dL 3.4 - 5 [657] Eval: RR LOW CHANGED EFF [id number] PER VISN DIRECTIVE ALKALINE PHOSPHATASE 58 U/L 40 - 150 [657] Eval: NOTE: REF RANGE HIGH CHANGED EFF [id number] FROM 115 to 92 Eval: Ref Range Low changed from 30 to 34 Effective March Eval: Ref Range High Changed from 92 to 104 Effective March Eval: EFF 08/01/06 REF LOW CHANGED FROM 34 TO 40 Eval: REF HIGH CHANGED FROM 104 TO 150 ALT/SGPT 26 U/L 8 - 40 [657] Eval: EFFECTIVE 08/15/07 REF RANGE FROM 0-55 TO 8-40 AST/SGOT 22 U/L 5 - 34 [657] Eval: Effect 08/01/06 Ref Range changed from 8-40 to 5-34 TOTAL BILIRUBIN 0.4 mg/dL 0.2 - 1.2 [657] Eval: 07/04/14 : Reference Range changed in [place] to 0.2 - 1.2% on 07/04/14 by CHRISTIANO Eval: as per VISN 15 Directive. Eval: Eval: REF RANGE HIGH CHANDED FROM 1.2 TO 1.0 EFFECTIVE 08/01/08 Eval: Eval: Effect 08/01/06 Ref High changed from 1.0 to 1.2 CARBON DIOXIDE 18 L mEq/L 22 - 31 [657] Eval: CRITICAL VALUES ENTERED [id number]/PER VISN 15 DIRECTIVE Eval: Effective 08/01/06 Ref High changed from 31 to 32. GLUCOSE 148 H mg/dL 72 - 99 [657] Eval: Fasting Blood Sugar Interpretation effective 03/04/04: Eval: FPG <100 mg/dL = Normal Fasting Glucose Eval: FPG 100 - 125 mg/dL = IFG (Impaired Fasting Glucose) Eval: FPG >126 mg/dL = Provisional Diagnosis of Diabetes (Reference: Eval: [place] Eval: Diabetes Association's Expert Committee Eval: on the Diagnosis and Classification of Diabetes Mellitus 2002) Eval: 04/14/04- Added ref high of 99 to plasma per Visn Conf Call Eval: Eval: (Reference range prior to 03/04/04: 72-109 mg/dl) Comment: No hemolysis noted. Report Released Date/Time: Nov 02, 2024@17:38 Provider: BRIAN ULLOA Specimen: BLOOD. JCHE [id number] Specimen Collection Date: Nov 02, 2024@17:05 Test name Result units Ref. range Site Code WBC 7.1 10*3/uL 3.6 - 11.2 [657] RBC 5.35 10*6/uL 4.10 - 5.70 [657] HGB 16.6 g/dL 13.1 - 16.8 [657] HCT 47.3 % 38.2 - 48.4 [657] Eval: Note change eff 669796:HCT M ref low changed from 42; ref high from 52 Eval: Critical Range for HGB added 11/17/01 MCV 88.4 fL 80.0 - 100.0 [657] MCH 31.0 pg 27.0 - 34.0 [657] MCHC 35.1 g/dL 33.0 - 36.0 [657] RDW 12.6 % 11.8 - 15.1 [657] PLT 217 10*3/uL 150 - 400 [657] MPV 8.9 fL 7.5 - 11.2 [657] NEUTROPHILS, AUTO % 65 % [657] Eval: 01/30/2013 relative percentage reference ranges deleted as per VISN 15 Eval: directive Eval: RANGE CHANGED FROM LOW 50 & HIGH 70 EFFECTIVE [id number] Eval: Ref High changed from 80 to 74 effective [id number] VISN directive LYMPHOCYTES, AUTO % 25 % [657] Eval: 01/30/2013 relative percentage reference ranges deleted as per VISN 15 Eval: directive Eval: Eval: Ref Low changed from 20 to 16. Eval: Ref High changed from 30 to 42 - per VISN 15 [id number] MONOCYTES, AUTO % 8 % [657] EOSINOPHILS, AUTO % 2 % [657] BASOPHILS, AUTO % 0 % [657] NEUTROPHILS, ABSOLUTE 4.61 10*3/uL 2.10 - 8.00 [657] LYMPHOCYTES, ABSOLUTE 1.77 10*3/uL 0.77 - 4.50 [657] Eval: Ref Low changed .8 to .77---Ref High changed from 3.0 to 4.50---per VISN Eval: directive [id number] MONOCYTES, ABSOLUTE 0.58 10*3/uL 0.19 - 0.80 [657] Eval: Ref High changed from 1.5 to 0.8 - per VISN 15 [id number] EOSINOPHILS, ABSOLUTE 0.11 10*3/uL 0.00 - 0.60 [657] BASOPHILS, ABSOLUTE 0.01 10*3/uL 0.00 - 0.20 [657] Performing Lab Sites [657] [facility], VISN [facility] [IA# [id number]] [address] [facility] [address] [place] [address] RADIOLOGY: Report: CHEST X-RAY, 2 VIEWS HISTORY: chest tightness COMPARISON: Chest radiograph 09/26/2022 TECHNIQUE: Frontal and lateral views of the chest, submitted to the [place] National [facility] Program (NTP) for interpretation. FINDINGS: Lungs: Similar scattered areas of atelectasis-scarring. No new consolidation. Pleura: No pleural effusion or pneumothorax. Mediastinum: Normal size and contour. Bones: Unremarkable. Impression: No acute cardiopulmonary disease. ECG IMPRESSION: Sinus rhythm, ventricular rate 84, normal axis nonspecific T wave abnormality inferior leads ED COURSE & MEDICAL DECISION MAKIN-year-old male with prior history of COPD, O2 dependent on nasal cannula at baseline, presents for acute on chronic shortness of breath. Symptoms are primarily respiratory as described. No significant cardiac equivalent reported. Workup largely unremarkable. CBC without concerning abnormality. No concerning abnormality on CMP. BNP, troponin, D-dimer all negative. ECG with nonspecific borderline T wave abnormality inferior leads. Chest x-ray clear. Patient given 2 DuoNebs and reports marginal improvement. Repeat auscultation reveals mild improvement. Still has some wheezing and is diminished bilaterally. Vital signs are stable. Oxygenating well on baseline 2 L. No significant tachypnea noted. Advised admission given ongoing symptoms and need for monitoring, treatment. The patient is politely declining. States he will not stay in the hospital and wants to be discharged. He will continue to use his home nebulizer at home. Will prescribe doxycycline and prednisone. Patient will return immediately if his symptoms significantly worsen. Nursing notes, medications, vital signs, allergies and pertinent labs & imaging studies reviewed (see chart for details) with lab results reviewed with patient and family/caregivers at bedside and radiology results reviewed with patient and any family/caregivers at bedside. Stable, alert, nontoxic, nonfocal with clinically apparent COPD exacerbation. Clinical information obtained from an independent historian. History obtained from or confirmed by: ___spouse ___parent ___guardian ___family ___friend ___EMS ___other: Discussed with radiology regarding test interpretation: I performed an independent interpretation of: ___EKG ___rhythm strip ___plain x-ray ___ultrasound ___CT scan ___MRI ___other Patient's care impacted by: ___Diabetes ___Hypertension ___Cancer ___other: Patient's care is significantly limited by social determinants of health including, but not limited to: ___inadequate housing ___low income ___alcoholism and drug addiction in family ___problems related to primary support group ___unemployment ___problems with employment ___language barrier ___lack of transportation ___psychiatric disease ___other social determinants of health: External records reviewed: ___Inpatient records ___office records _X__outpatient records ___prior outpatient labs ___prior outpatient radiology ___primary care record ___outside ED record ___PMD referral ___outside ER ___urgent care referral ___other: Management of the patient was discussed with: ___Hospitalist ___consultant ___behavioral health provider _X__primary care provider ___other: The following testing was considered but ultimately was not performed after discussion with the patient/family: I considered prescription management with the following but ultimately did not prescribe: ___pain medication ___antiviral _X__antibiotic ___other: I considered admission/ observation but decided upon discharge due to: WREATH 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 DISPOSITION CONDITION:[ X ] Improved [ ] Unchanged [ ] Deteriorated CLINICAL IMPRESSION: 1 -COPD exacerbation 2 - 3 - DISCHARGE INSTRUCTIONS AND PATIENT-DIRECTED FOLLOW-UP RECOMMENDATIONS: DIET: regular ACTIVITY: ad terrance NEW MEDS: Prednisone, doxycycline MEDICATION RECONCILIATION: CONTINUE ALL PRESCRIBED MEDICATIONS DIRECTED EXCEPT: FOLLOW-UP WITH PRIMARY FAMILY LIFE COUNSELOR/SPECIALIST: routine in 1-2 weeks if not improving, sooner if worse RETURN TO EMERGENCY: if any worries or concerns ADDITIONAL SIGNATURE PCP: [ X ] YES [ ] NO [ ] not listed Active Outpatient Medications (including Supplies): Active Outpatient [...] Indication: FOR COPD 3) ATOGEPANT 60MG TAB TAKE ONE TABLET BY MOUTH ONCE A DAY ACTIVE Indication: FOR MIGRAINE HEADACHE 4) BREZTRI 160/9/4.8MCG/ACT 120D ORAL INHL INHALE 2 PUFFS ACTIVE (S) INHALATION TWICE A DAY DIRECTED FOR BREATHING (CLEAN INHALER FOLLOWED BY 2 PRIMING PUFFS ONCE WEEKLY) 5) CARBOXYMETHYLCELLULOSE NA 1% OPH GEL INSTILL 1 DROP INTO ACTIVE BOTH EYES FOUR TIMES A DAY NEEDED Indication: FOR DRY EYE(S) 6) SERTRALINE HCL 50MG TAB TAKE ONE-HALF TABLET BY MOUTH AT ACTIVE BEDTIME FOR 14 DAYS, THEN TAKE ONE TABLET AT BEDTIME FOR 76 DAYS Indication: FOR POST TRAUMATIC STRESS DISORDER Active Non-VA Medications Status 1) Non-VA CHOLECALCIFEROL [...] TESTOSTERONE CYPIONATE (PA-F) INJ,SOLN DEEP ACTIVE INTRAMUSCULARLY 11 Total Medications /es/ Brian Ulloa DO Staff Physician Signed: 11/02/2024 20:34 Receipt Acknowledged By: 11/03/2024 08:15 /es/ Stephanie Pope DNP, LABOR RELATIONS SPECIALIST, SOLAR MANAGER-C Primary Care Nurse Practitioner BRIAN ULLOA [facility]
--- OUTSIDE RECORDS SUMMARY | 2025-05-24 11:51 | XMS_ITS | Encounter Summary ---
Author Name [facility] [place] [facility] [place] Address [address] [place] [address] Care Team Providers Care Customer Care Specialist Name Role Phone HENRY POPE Primary [...] Name Patient's Relationship to Policy Lowe AETNA [facility] MEDICARE ADVANTAGE [facility] Nov 01, 2021 [id number] ALLI RAMOS PATIENT AETNA [facility] MEDICARE ADVANTAGE [place] INDIV IDUAL - ILLI Nov 01, 2019 [id number] ARIELALLI AVENDANO PATIENT INACTIVE [facility] TRI Oct 14, 2009 [facility] [id number] ALLI RAMOS PATIENT MEDICARE (WNR) MEDICARE (M) PART B Sep 01, 2015 PART B [id number] ALLI RAMOS PATIENT MEDICARE (WN) MEDICARE (M) PART A Sep 01, 2015 PART A [id number] ALLI RAMOS PATIENT -FO R-LIFE [facility] FOR LIFE WNR Nov 01, 2017 FOR LIFE [id number] [phone] ALLI RAMOS PATIENT Selected Encounter This section includes the information on record at [place] for the Encounter. Date/Time Encounter Type Encounter Description Reason Provider Source Oct 16, 2024 02:30 PM OFFICE O/P EST MOD 30 MIN PULMONARY/CHEST ICD-10-CM J44.9 Chronic obstructive pulmonary disease, unspecified CLAUDINE SCHMITZ [facility] Encounter Template Text not used by [place] Assessments - Encounter Diagnoses This section includes the primary and secondary diagnoses documented for the Encounter. Date/Time Primary/Secondary Diagnosis Diagnosis Name Provider Source Oct 17, 2024 03:01 PM PRIMARY Chronic obstructive pulmonary disease, unspecified [facility] Oct 17, 2024 03:01 PM SECONDARY Chronic respiratory failure with hypoxia [facility] Oct 17, 2024 03:01 PM SECONDARY Contact with and exposure to other hazardous substances [facility] Oct 17, 2024 03:01 PM SECONDARY Snoring [facility] Plan of Treatment: Future Appointments (+ 6 months) and Future Tests (+/- 45 days) The Plan of Treatment section includes future care activities for the patient from all [place] treatmentfacilities. This section includes future appointments and future orders which are active, pending or scheduled. Future Appointments This section includes appointments that were scheduled to occur 6 months from the date of the Encounter, up to a maximum of 20 appointments. The data comes from all [place] treatment facilities. Appointment Date/Time Appointment Type Appointme nt Facility Name Oct 18, 2024 08:00 AM AMBULATORY - PSYCHIATRY [facility] Nov 02, 2024 04:33 PM AMBULATORY - MEDICINE [facility] Dec 05, 2024 09:30 AM AMBULATORY - PSYCHIATRY [facility] Dec 13, 2024 08:00 AM AMBULATORY - SURGERY [facility] Jan 02, 2025 01:30 PM AMBULATORY - MEDICINE [facility] Jan 15, 2025 02:00 AM AMBULATORY - MEDICINE [facility] Feb 22, 2025 02:30 PM AMBULATORY - MEDICINE [facility] Feb 23, 2025 08:20 AM AMBULATORY - SURGERY [facility] March 01, 2025 11:15 AM AMBULATORY - MEDICINE [facility] March 06, 2025 01:30 PM AMBULATORY - SURGERY [facility] Apr 05, 2025 11:00 AM AMBULATORY - PSYCHIATRY [facility] Lab Results: +/- 30 days of the encounter This section includes the Chemistry and Hematology Lab Results on record with [place] for the patient. Radiology Reports and Pathology Reports are provided separately, in subsequent sections. Lab Results This section contains the Chemistry/Hematology Results that were resulted 30 days before or 30 daysafter the date of the Encounter. Date/Time Source Result Type Result - Unit Interpretation Reference Range Specimen Type Comment Nov 02, 2024 05:25 PM [facility] COVID-19 DIAGNOSTIC (FLU/RSV)(STL) NASOPHARYNX Spec imen Type: [...] Nov 02, 2024 04:41 PM Reporting Lab: [facility] [address] [facility] [facility] [address] Performing Lab: [facility] [address] [facility] [address] INFLUENZA A Negative Negative INFLUENZA B Negative Negative COVID-19 (STL-PB) Not Detected Not Detec leonardo RSV (Cepheid) NEGATIVE Negative Nov 02, 2024 05:05 PM [facility] APTT PLASMA Specimen Type: PLASM A No comment entered. Ordering Provider: BRIAN ULLOA Report Released Date/Time: Nov 02, 2024 05:13 PM Reporting Lab: [address] [address] Performing Lab: [address] [address] APTT 32.9 s 26.7-39.9 Nov 02, 2024 05:05 PM [facility] TROPONIN I PLASMA Specimen Type: PLASM A Comment: No hemolysis noted. Ordering Provider: BRIAN ULLOA Report Released Date/Time: Nov 02, 2024 05:13 PM Reporting Lab: [address] [address] Performing Lab: [address] [address] TROPONIN I <0.010 ng/mL 0-0.033 Nov 02, 2024 05:05 PM [facility] PT/INR NEW (STL-MA) PLASMA Specimen Type: PLAS MA No comment entered. Ordering Provider: BRIAN ULLOA Report Released Date/Time: Nov 02, 2024 05:13 PM Reporting Lab: [address] [address] Performing Lab: [address] [address] PROTIME 12.4 s 9.4-12.5 INR VALUE 1.1 {INR} Nov 02, 2024 05:05 PM [facility] D-DIMER HS (MA-STL-PB) PLASMA Specimen Type: P LASMA No comment entered. Ordering Provider: BRIAN ULLOA Report Released Date/Time: Nov 02, 2024 05:13 PM Reporting Lab: [address] [address] Performing Lab: [address] [address] D-DIMER HS (MA-STL-PB) <215 <500 Nov 02, 2024 05:05 PM [facility] BRAIN NATRIURETIC PEPTIDE PLASMA Specimen Type : PLASMA No comment entered. Ordering Provider: BRIAN ULLOA Report Released Date/Time: Nov 02, 2024 05:16 PM Reporting Lab: [address] [address] Performing Lab: [address] [address] BRAIN NATRIURETIC PEPTIDE <10.0 pg/mL 0- 100 Nov 02, 2024 05:05 PM [facility] COMPREHENSIVE METABOLIC PANEL PLASMA Specimen Type: PLASMA Comment: No hemolysis noted. Ordering Provider: BRIAN ULLOA Report Released Date/Time: Nov 02, 2024 05:13 PM Reporting Lab: [address] [address] Performing Lab: [address] [address] CREATININE 0.91 mg/dL 0.7-1.3 UREA NITROGEN 15.6 [...] 110.6 >60 Nov 02, 2024 05:05 PM [facility] CBC BLOOD Specimen Type: BLOOD No comment entered. Ordering Provider: BRIAN ULLOA Report Released Date/Time: Nov 02, 2024 05:13 PM Reporting Lab: [address] [address] Performing Lab: [address] [address] WBC 7.1 10*3/uL 3.6-11.2 RBC 5.35 10*6/uL [...] 0.00-0. 20 Oct 16, 2024 03:52 PM [facility] SHANNON AB (STL) SERUM Specimen Type: SERUM Comment: A positive result indicates an autoantibody against one or more of the following antigens: SM, SM/MEDICAL CERTIFICATION SPECIALIST, Ro/SS-A, La/SS-B, Scl-70, Bree-1. Positive screens will be reflexed to an SHANNON Profile to determine which antibody(s) are present. Ordering Provider: CLAUDINE SCHMITZ Report Released Date/Time: Oct 16, 2024 12:45 PM Reporting Lab: [facility] [address] [place] [address] Performing Lab: [facility] [address] [facility] [address] SHANNON SCREEN(STL) Negative Negative Oct 16, 2024 03:52 PM [facility] ALDOLASE SERUM Specimen Type: SERUM Comment: Test Performed by [facility], [facility], [address] [place], [place] Srikanth Navarro M.D., Ph.D., Director of Laboratories , CLIA [id number] Ordering Provider: CLAUDINE SCHMITZ Report Released Date/Time: Oct 16, 2024 12:45 PM Reporting Lab: [address] [address] Performing Lab: [address] ALDOLASE 6.4 U/L <=8.1 Oct 16, 2024 03:51 PM [facility] RESTRICTED-SO OTHER Specimen Type: OTHER Comment: ~For Test: RESTRICTED-SO ~3-Full Gold Top SST tubes For test results see [facility] Lab & Path consult #[id number] placed on 10/16/2024. SMN 10/30/2024 Ordering Provider: CLAUDINE SCHMITZ Report Released Date/Time: Oct 16, 2024 01:53 PM Reporting Lab: [address] [address] Performing Lab: [address] RESTRICTED-SO comment Oct 16, 2024 03:51 PM [facility] ANTI-CCP SERUM Specimen Type: SERUM Comment: REFERENCE RANGE: <20 Units Negative: <20 Weak Positive: 20 - 39 Moderate Positive: 40 - 59 Strong Positive: >59 Test Per[facility] by [facility], [facility], [address] [place] [address] Srikanth Navarro M.D., Ph.D., Director of Laboratories , CLIA [id number] Ordering Provider: CLAUDINE SCHMITZ Report Released Date/Time: Oct 16, 2024 12:45 PM Reporting Lab: [address] [address] Performing Lab: [address] ANTI-CCP <16 SEE BELOW Oct 16, 2024 03:51 PM [facility] ANCA/Vasculitides (STL) SERUM Specimen Type: SERUM No comment entered. Ordering Provider: CLAUDINE SCHMITZ Report Released Date/Time: Oct 16, 2024 12:45 PM Reporting Lab: [facility] [address] [facility] [address] Performing Lab: [facility] [address] [facility] [address] .MYELOPEROXIDASE AB NEGATIVE NEGATIVE .PROTEINASE AB NEGATIVE NEGATIVE Oct 16, 2024 03:51 PM [facility] ANTI-NUCLEAR ANTIBODY (STL-PB) SERUM Specimen Type: SERUM No comment entered. Ordering Provider: CLAUDINE SCHMITZ Report Released Date/Time: Oct 16, 2024 12:45 PM Reporting Lab: [facility] [address] [facility] [address] Performing Lab: [place] [address] [address] [facility] [address] ANTI-NUCLEAR ANTIBODY (STL-PB) POSITIVE H Oct 16, 2024 03:51 PM [facility] BRETT-TITER(STL)CONFIRMATION SERUM Specimen Typ e: SERUM No comment entered. Ordering Provider: CLAUDINE SCHMITZ Report Released Date/Time: Oct 16, 2024 12:45 PM Reporting Lab: [place] [address] [address] [facility] [address] Performing Lab: [facility] [address] [facility] [address] BRETT-TITER(STL)CONFIRMATION 320 {titer} Oct 16, 2024 03:51 PM [facility] RHEUMATOID FACTOR (STL) SERUM Specimen Type: SERUM No comment entered. Ordering Provider: CLAUDINE SCHMITZ Report Released Date/Time: Oct 16, 2024 12:45 PM Reporting Lab: [facility] [address] [facility] [address] Performing Lab: [place] [address] [address] [facility] [address] RHEUMATOID FACTOR (STL) <15.0 0-29 Oct 16, 2024 03:51 PM [facility] CPK PLASMA Specimen Type: PLASM A No comment entered. Ordering Provider: CLAUDINE SCHMITZ Report Released Date/Time: Oct 16, 2024 12:45 PM Reporting Lab: [facility] [address] [facility] [address] Performing Lab: [facility] [address] [facility] [address] CPK 233 U/L H 30-200 Oct 16, 2024 03:51 PM [facility] CRP PLASMA Specimen Type: PLASM A No comment entered. Ordering Provider: CLAUDINE SCHMITZ Report Released Date/Time: Oct 16, 2024 12:45 PM Reporting Lab: [facility] [address] [facility] [address] Performing Lab: [place] [address] [address] [facility] [address] CRP 0.3 mg/dL 0-0.5 Oct 16, 2024 03:51 PM [facility] ESR ISED(STL) BLOOD Specimen Type: BLOOD No comment entered. Ordering Provider: CLAUDINE SCHMITZ Report Released Date/Time: Oct 16, 2024 12:45 PM Reporting Lab: [facility] [address] [facility] [address] Performing Lab: [place] [address] [address] [facility] [address] ESR ISED(STL) 2 mm/h 0-14 Vital Signs: All taken on the encounter date This section contains inpatient and outpatient Vital Signs collected on the date of the Encounter. Date/Time Temperature Pulse Blood Pressure Respiratory Rate SP02 Pain Height Weight Body Mass Index Source Oct 16, 2024 01:47 PM 97.3 81 132/89 18 96 6 228 35 [facility] Social History: Smoking Status (Most current) and Tobacco Use (All prior to encounter date) This section includes the most current, and the historical, smoking and tobacco- related health factors from the [place] facility where the Encounter took place. Current Smoking Status This section includes the most current smoking, or tobacco-related health factor, from the [place] facility where the Encounter took place. Date/Time Current Smoking Status Comment Mirtha henry Sep 03, 2023 12:30 PM AH-BPR SMOKING DEPLOYMENT NO [facility] Tobacco Use History This section includes a history of the smoking, or tobacco-related health factors, that were collected on or before the date of the Encounter. The data comes from the [place] facility where the Encounter took place. Date/Time Smoking Status/Tobacco Use Comment F acility Sep 23, 2022 12:40 AM ORYX ADMIT TOBACCO SCREEN NO [facility] Sep 06, 2022 05:41 AM ORYX ADMIT TOBACCO SCREEN NO [facility] May 09, 2018 08:36 PM LIFETIME NON-USER OF TOBACCO [facility] Apr 02, 2014 10:48 AM CURRENT TOBACCO USER [facility] Apr 02, 2014 10:48 AM TOBACCO OFFERRED P T MEDS (PROVIDER) [facility] Sep 15, 2011 10:37 AM CURRENT TOBACCO USER [facility] Apr 13, 2011 02:21 PM CURRENT TOBACCO USER [facility] May 22, 2010 02:00 PM CURRENT TOBACCO USER [facility] May 22, 2010 02:[address] [facility] SMOKING CLINIC [facility] May 22, 2010 02:00 PM TOBACCO OFFERRED P T MEDS (PROVIDER) [facility] Apr 21, 2010 02:03 PM CURRENT TOBACCO USER [facility] Apr 21, 2010 02:03 PM TOBACCO MEDS OFFER ED BUT DECLINED [facility] Radiology Reports: +/- 30 days of the [...] the Encounter. The data comes from all [facility] facilities. Date/Time Radiology Report Provider Source Nov 02, 2024 04:52 PM CHEST X-RAY, 2 VIE WS: ALLI RAMOS [id number] -1985 M Exm Date: NOV 02, 2024@16:52 Req Phys: JIM,MARCELO Pat Loc: [facility]-EMERGENCY DEPT 3RD SHIFT (R Img Loc: [facility]-MAIN RADIOLOGY SUITE Service: Unknown [facility] [address] [place] [address] (Case [id number] COMPLETE) CHEST X-RAY, 2 VIEWS (RAD Detailed) CPT:46257 Reason for Study: chest tightness Clinical History: Report Status: Verified Date Reported: NOV 02, 2024 Date Verified: NOV 02, 2024 Road Production General Manager E-Sig: Report: CHEST X-RAY, 2 VIEWS HISTORY: chest tightness COMPARISON: Chest radiograph 09/26/2022 TECHNIQUE: Frontal and lateral views of the chest, submitted to the [place] National Teleradiology Program (NTP) for interpretation. FINDINGS: Lungs: Similar scattered areas of atelectasis-scarring. No new consolidation. Pleura: No pleural effusion or pneumothorax. Mediastinum: Normal size and contour. Bones: Unremarkable. Impression: No acute cardiopulmonary disease. READING PHYSICIAN: Dami [id number] 11/02/2024 17:59 PST [facility] National Teleradiology Program [phone] (For Medical Practitioner Use Only) Attention Patients / Veterans: If you have questions or concerns about these test results, please contact your ordering provider or primary care team. Primary Interpreting Staff: RADIOLOGY,OUTSIDE SERVICE, Staff Physician / RADIOLOGY,OUTSIDE SERVICE [facility] Sep 21, 2024 12:51 PM US RENAL COMPLETE: ALLI RAMOS [id number] -[id number] M Exm Date: SEP 21, 2024@12:51 Req Phys: TED CASTILLO Pat Loc: [facility]-RENAL [facility] (Req'g Loc) Img Loc: -ULTRASOUND Service: Unknown [facility] [address] [place] [address] (Case [id number] COMPLETE) US RENAL COMPLETE (US Detailed) CPT:63162 Reason for Study: f/u kidney stone and cysts Clinical History: Report Status: Verified Date Reported: SEP 21, 2024 Date Verified: SEP 21, 2024 Road Production General Manager E-Sig:/ES/RO MELGOZA Report: Case [id number]. US RENAL COMPLETE HISTORY: History of nephrolithiasis [...] hydronephrosis or renal calculi bilaterally. Dictated by Ángel Majano M.D. (Clerk Cashier) IRo, have reviewed the images and report and concur with these findings. Primary Interpreting Staff: RO MELGOZA MD (Road Production General Manager) Primary Interpreting Resident: ÁNGEL MAJANO, Resident Physician /RO TONG [facility] Encounter Notes: All associated encounter notes This section contains the clinical notes associated to the Encounter. Date/Time Encounter Note(s) Provider Source Oct 16, 2024 02:24 PM PULMONARY OUTPATIENT NOTE: LOCAL TITLE: PULMONARY OUTPATIENT FOLLOW UP STL STANDARD TITLE: PULMONARY OUTPATIENT NOTE DATE OF NOTE: OCT 16, 2024@14:24 ENTRY DATE: OCT 16, 2024@14:25:10 AUTHOR: CLAUDINE SCHMITZ EXP COSIGNER: URGENCY: STATUS: COMPLETED PULMONARY OUTPATIENT FOLLOW UP STL Has ADDENDA 39 year old MALE here for Pulmonary follow up visit on 10/16/24 14:30. 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 hx of PE at OSH (not currently on AC), hx of + BRETT, seen by rheum with neg rheum workup [phone]. Pt previously followed in pul clinic by Dr Phillips. Pt last seen in pul in Aug 2024, was first visit with this provider. He had no acute resp complaints at that time, was on breztri and prn alb neb/MDIs and 2L suppl O2. He reported a COPD exacerbation 2 months earlier, tx'd with steroids and antibxs by an outside provider. At that visit, pt requested assistance with getting an assigned SW at the [place] and help with getting a new support/service dog. He is now followed by the pul SW, Jered Hernandez, and is actively working with an organization to provide him a new support dog. Additionally, pt and his fiancee expressed concern about the current state of his severe pulmonary disease, as wel as available options to him, such as a lung transplant if his condition worsens. He returns today for planned follow up including repeat PFTs. In the interim, he had a repeat high res CT in September to re-evaluate for ILD or small airway disease. He denies any interval illnesses including resp infections or exacerbations. He has been referred to a outside hand surgeron for trigger finger surgery scheduled in Nov. States that his resp status remains at baseline, overall feels that it has been stable over the last year. He has chronic exertional dyspnea with some days better than others. He reports occ wheezing, minimal cough/sputum. He is using breztri as directed. Reports using alb nebs BID, uses alb MDI approx 1x/d for SOB/wheezing. He is accompanied by his gerrie, who expresses c/f sleep apnea.....reports loud snoring. Pt endores poor quality sleep, fatigue and daytime drowsiness. 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 12) Pulmonary embolism 13) Therapeutic drug effect 14) Tachycardia 15) Right knee pain 16) Iron deficiency anemia 17) Contact with and (Suspected) Exposure to Air Pollution 18) Contact with and (suspected) exposure to other hazardous substances 19) Exposure to Disaster, War and other Hostilities 20) Depression 21) Exposure to Potentially Hazardous Substance ([facility] [id number]) 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 SHAKE WELL. RINSE MOUTHPIECE FREQUENTLY TO PREVENT CLOGGING. 2) ALBUTEROL SO4 0.083% INHL 3ML INHALE 1 VIAL ACTIVE (S) (2.5MG/3ML) BY NEBULIZATION EVERY 6 HOURS DIRECTED NEEDED FOR BREATHING 3) ATOGEPANT 60MG TAB TAKE ONE TABLET BY MOUTH ONCE A ACTIVE DAY FOR MIGRAINE HEADACHE 4) BREZTRI 160/9/4.8MCG/ACT 120D ORAL INHL INHALE 2 ACTIVE (S) PUFFS INHALATION TWICE A DAY DIRECTED FOR BREATHING (CLEAN INHALER FOLLOWED BY 2 PRIMING PUFFS ONCE WEEKLY) 5) CARBOXYMETHYLCELLULOSE NA 1% OPH GEL INSTILL 1 DROP ACTIVE INTO BOTH EYES FOUR TIMES A DAY NEEDED FOR DRY EYE(S) Active Non-VA Medications Status ======= 1) Non-VA [...] TESTOSTERONE CYPIONATE (PA-F) INJ,SOLN DEEP ACTIVE INTRAMUSCULARLY 10 Total Medications ALLERGIES: TOPAMAX 25MG TABLET REVIEW OF SYSTEMS: - As noted above, otherwise negative. PHYSICAL EXAMINATION: Vital Signs: Temperature: 97.3 F [36.3 C] (10/16/2024 13:47) Blood Pressure: 132/89 (10/16/2024 13:47) Pulse: 81 (10/16/2024 13:47) Respirations: 18 (10/16/2024 13:47) Pain: 6 (10/16/2024 13:47) Patient Height:68 in [172.7 cm] (09/12/2024 09:39) Patient Weight:228 lb [103.42 kg] (10/16/2024 13:47) BMI: 34.7 O2 saturation: 96% (10/16/2024 13:47) GENERAL: Ambulated to exam room, no acute distress. HEENT: Supple. No LAD. RESP: On NC, nonlabored at rest, speaking in full sentences, BS diminished throughout, no active wheezing, rhonchi or crackles. CARDIO: RRR, no murmur noted. EXT: No edema. NEURO: Nl mood/affect. SELECTED RESULTS REVIEWED: - Reviewed chart including past pulm notes, PFTs, CT imaging. - Repeat PFTs today with very severe obstruction, FEV1 0.97L, 24%, no DATABASE SPECIALIST, mild restrictive pattern, mod decrease in DLCO. - Hig res CT 09/2024, images reviewed, air-trapping on exp imaging, also has atelectasis in rt lower lung. IMPRESSION/RECOMMENDATIONS: #Severe COPD, GOLD4 (FEV1 24%): #Mild restriction on PFTs 10/2024: #Chronic hypoxemic resp failure, on suppl O2: - Thought most likely 2/2 hazardous exposure hx/burn pits. - High res CT abnormal findings as noted above. - Hx of +BRETT, previously seen by rheum 2020, no evidence of active dz at that time. Will repeat lab workup for auto-immune/CTD disease. Pt going to lab following appt. - Continue home O2 2L with exertion. - Continue current inhaler tx: Bebeto, josesiton alb MDI/nebulizer. #Hx of snoring/sxs of SRIDHAR: - CC consult for PSG study with CPAP titration if indicated. #Limted tobacco hx: - <5py, quit 2013. #Immunizations: - Recommend annual influenza, pt declined. RTC in 4 months. /quirino SCHMITZ PHYSICIAN [employer] LAW CLERK Signed: 10/17/2024 12:34 12/11/2024 ADDENDUM STATUS: COMPLETED Spoke with Mr. Ramos by phone this am. During a previous phone convesation we had reviewed the results of his ILD workup including labs and high res CT. The CT showed discoid atelectasis in the RLL and RML, no interstitial lung disease. He has an elevated BRETT with titer 1:320, remaining labs were unremarkable. His BRETT has been elevated on past eval in [id number], however, rheum eval was negative. Today we discussed referral to [facility] pulm division, ILD clinic for further evaluation of his severe obstructive lung disease including possible workup for bronchiolitis obliterans. Pt is agreeable to a community care consult for further evaluation. /quirino SCHMITZ PHYSICIAN [employer] LAW CLERK Signed: 12/11/2024 10:28 CLAUDINE SCHMITZ [facility]
--- OUTSIDE RECORDS SUMMARY | 2025-05-24 11:51 | XMS_ITS | Encounter Summary ---
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 Oct 14, [address] [facility] [id number] ALLI RAMOS PATIENT MEDICARE (WNR) MEDICARE (M) PART B Sep 01, 2015 PART B [id number] [phone] ALLI RAMOS PATIENT MEDICARE (WN) MEDICARE (M) PART A Sep 01, 2015 PART A [id number] ALLI RAMOS PATIENT -FO R-LIFE [facility] FOR LIFE WNR Nov 01, 2017 [facility] LIFE [id number] [phone] ALLI RAMOS PATIENT Selected Encounter This section includes the information on record at [place] for the Encounter. Date/Time Encounter Type Encounter Description Reason Provider Source Jun 12, 2024 10:00 AM OFFICE O/P EST MOD 30 MIN OPTOMETRY ICD-10-CM H53.19 Other subjective visual disturbances MAURICE GROSS [place] Encounter Template Text not used by [place] Assessments - Encounter Diagnoses This section includes the primary and secondary diagnoses documented for the Encounter. Date/Time Primary/Secondary Diagnosis Diagnosis Name Provider Source Jun 12, 2024 11:46 AM PRIMARY Other subjective visual disturbances EMILE GROSS [facility] Jun 12, 2024 11:46 AM SECONDARY Presbyopia EMILE GROSS [facility] Jun 12, 2024 11:46 AM SECONDARY Strabismic amblyopia, left eye EMILE GROSS [facility] Plan of Treatment: Future Appointments (+ [...] Date/Time Appointment Type Appointme nt Facility Name Jun 23, 2024 11:00 AM AMBULATORY - PSYCHIATRY [facility] Jun 30, 2024 07:00 AM AMBULATORY - SURGERY [facility] Jul 25, 2024 08:30 AM AMBULATORY - NONE . [facility] Aug 08, 2024 11:00 AM AMBULATORY - MEDICINE [facility] Aug 25, 2024 11:00 AM AMBULATORY - REHAB MEDICIN E [facility] Aug 31, 2024 02:00 PM AMBULATORY - REHAB MEDICIN E [facility] Sep 12, 2024 09:40 AM AMBULATORY - MEDICINE [facility] Sep 14, 2024 03:30 PM AMBULATORY - NONE . AAYUSH Krishna [facility] Sep 21, 2024 01:30 PM AMBULATORY - MEDICINE [facility] Sep 22, 2024 07:50 AM AMBULATORY - SURGERY [facility] Oct 16, 2024 02:00 PM AMBULATORY - MEDICINE [facility] Oct 16, 2024 02:30 PM AMBULATORY - MEDICINE [facility] Oct 18, 2024 08:00 AM [facility] Nov 02, 2024 04:33 PM AMBULATORY - MEDICINE [facility] Dec 05, 2024 09:30 AM [facility] Dec 13, 2024 08:00 AM AMBULATORY - SURGERY [facility] Social History: Smoking Status (Most current) and [...] 2023 12:30 PM AH-BPR SMOKING DEPLOYMENT NO [facility] Tobacco Use History This section includes a history of the smoking, or tobacco-related health factors, that were collected on or before the date of the Encounter. The data comes from the [place] facility where the Encounter took place. Date/Time Smoking Status/Tobacco Use Comment F acility Apr 27, 2022 11:01 AM VA-TOBACCO NEVER USED [facility] Oct 10, 2020 10:28 AM [place]-TOBACCO NEVER USED [facility] Encounter Notes: All associated encounter notes This section contains the clinical notes associated to the Encounter. Date/Time Encounter Note(s) Provider Source Jun 12, 2024 11:49 AM OPTOMETRY CONSULT: LOCAL TITLE: OPTOMETRY CONSULT [facility] STANDARD TITLE: OPTOMETRY CONSULT DATE OF NOTE: JUN 12, 2024@11:49 ENTRY DATE: JUN 12, 2024@11:49:06 AUTHOR: MANI GROSS EXP COSIGNER: URGENCY: STATUS: COMPLETED OCT RNFL: 06/12/24 OD: avg 113, no thinning (poor quality scan sup) OS: avg 109, no thinning 360 *GCC: no thinning 360 OU OCT MACULA: 06/12/24 OD: normal foveal contour, trace ERM, no SRF/IRF OS: normal foveal contour, no SRF/IRF /es/ MANI GROSS, OD COMPLAINT ANALYST Signed: 06/12/2024 11:49 MANI GROSS [facility] Jun 12, 2024 09:45 AM OPTOMETRY NOTE: LOCAL TITLE: OPTOMETRY NOTE STANDARD TITLE: OPTOMETRY NOTE DATE OF NOTE: JUN 12, 2024@09:45 ENTRY DATE: JUN 12, 2024@09:45:17 AUTHOR: MANI GROSS EXP COSIGNER: URGENCY: STATUS: COMPLETED Last seen: 03/15/23 CC: 1. Vision is okay - Glasses broke when mowing lawn this week 2. 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 Monthly CLs - Takes out every night - Replaces new one every month - Uses OptiFree Ocular Meds: (+) ATs - not using, needs more Ocular ROS: (+) Hx of Strabismic Amblyopia OS *Hx of EOM surgery as a child. (+) High Hyperopia/Astigmatism OU Family OcHX: (-) blindness (-) glaucoma (-) AMD (-) RD Problem list, medications and allergies reviewed: CPRS Serology for Diabetes GLUCOSE 100 H mg/dL 03/17/2024 08:23 HGA1C 5.3 % 03/17/2024 08:23 Cardiovascular BP: 131/79 (06/02/2024 11:22) Pulse: 74 (06/02/2024 11:22) VISUAL ACUITY (DOC): With Correction (SCL), Distance Visual Acuity OD: 20/25 OS: 20/25 Pupils PERRL OU (-)APD Confrontation: FTFC OU Extra-Ocular Muscles Full OU Externals/Adnexa: Unremarkable OU Manifest Refraction: 06/12/24 OD: +6.25 -3.25 x095 20/20 OS: +6.25 -3.25 x070 20/30-2 - stable per chart review SLIT LAMP EXAMINATION Lids/Lashes/Lacrimal No blepharitis OU Conjunctiva/Sclera White/quiet OU Cornea Clear OU Ant Chamber Deep and quiet OU Iris Normal, (-)NVI OU Lens Clear OU Intraocular Pressure History (Fluress/Goldmann): Date OD OS Time Meds 03/15/23 16 16 1431 none 06/12/24 16 16 0958 none Additional testing: brought forward and updated as needed OCT RNFL: 06/12/24 OD: avg 113, no thinning (poor quality scan sup) OS: avg 109, no thinning 360 *GCC: no thinning 360 OU HVF 24-2: 03/15/23 OD: fair reliability, non-descript defect, S-T and I-N OS: general loss of VF OCT MACULA: 06/12/24 OD: normal foveal contour, trace ERM, no SRF/IRF OS: normal foveal contour, no SRF/IRF RETINAL EVALUATION: dilation warning, both eyes, 1% Tropicamide and 2.5% Phenylephrine 06/12/24 Optic Nerve: OD: 0.20 CDR Flat, pink, distinct (-)NVD OS: 0.20 CDR Flat, pink, distinct (-)NVD Vessels: 2/3 OU Macula: OD: Flat, clear (-)CSME OS: Flat, clear (-)CSME Periphery: OD: Flat and attached OS: Flat and attached Vitreous: No PVD O.U. Assessment/Plan: 06/12/24 1. 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 reports symptoms have improved since last visit - Was seen in ED - CT Head (03/2023): Impression: no acute intracranial process. If clinical suspicion is high for hypertensive, consider MRI with diffusion-weighted imaging. - No ONH edema noted on DFE today OU - Last HVF poor OS>>OD - DFE today unremarkable - Educated patient on findings - Will monitor with updated HVF 24-2 in 6 months, if improved monitor yearly 2. Hx of Strabismic Amblyopia, OS - Stable BVA - Discussed monocular precautions - Monitor 3. Refractive error, OU - Pt. is a SCL wearer (obtains outside) - Discussed proper CL care and hygiene - Discussed monocular precautions - Order glasses Educate and monitor, discussed all exam findings. Patient and/or surrogate verbalized understanding of the instructions/information given. RTC: 6 months HVF 24-2; sooner PRN /es/ MANI GROSS OD COMPLAINT ANALYST Signed: 06/12/2024 11:47 MANI GROSS [facility]
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
--- OUTSIDE RECORDS SUMMARY | 2025-05-24 11:51 | XMS_ITS ---
Author Name [facility] [facility] [place] Address [address] [place] [address] Care Team Providers Care Shearer Helper Name Role Phone STEPHANIE POPE Primary Care [...] Name Patient's Relationship to Policy Lowe [employer]ET[employer] [facility] (WNR) MEDICARE ADVANTAGE [facility] (WN) Nov 01, 2021 [id number] ALLI RAMOS PATIENT [employer] [facility] (WNR) MEDICARE ADVANTAGE [place] INDIV IDUAL - ILLI Nov 01, 2019 [id number] JENNIFERLALITALLI AVENDANO PATIENT INACTIVE [facility] Oct 14, 2009 [facility] [id number] ALLI RAMSO PATIENT MEDICARE (WNR) MEDICARE (M) PART A Sep 01, 2015 PART A [id number] [phone] ALLI RAMOS PATIENT MEDICARE (WNR) MEDICARE (M) PART B Sep 01, 2015 PART B [id number] ALLI RAMOS PATIENT -FO R-LIFE TRICA RE FOR LIFE WNR Nov 01, 2017 FOR LIFE [id number] [phone] ALLI RAMOS PATIENT Selected Encounter This section includes the information on record at [place] for the Encounter. Date/Time Encounter Type Encounter Description Reason Provider Source Jan 02, 2025 01:30 PM Outpatient Encounter PRIMARY CARE/MEDICINE ICD-10-CM Z00.00 Encntr for general adult medical exam w/o abnormal findings STEPHANIE POPE Mar[place] Encounter Template Text not used by [place] Assessments - Encounter Diagnoses This section includes the primary and secondary diagnoses documented for the Encounter. Date/Time Primary/Secondary Diagnosis Diagnosis Name Provider Source Jan 02, 2025 02:05 PM PRIMARY Encntr for general adult medical exam w/o abnormal findings STEPHANIE POPE [facility] Jan 02, 2025 02:05 PM SECONDARY Calculus of kidney STEPHANIE POPE STTerrie [facility] Jan 02, 2025 02:05 PM SECONDARY Chronic obstructive pulmonary disease, unspecified STEPHANIE POPE STTerrie [facility] Jan 02, 2025 02:05 PM SECONDARY Dry eye syndrome of bilateral lacrimal glands STEPHANIE POPE STTerrie [facility] Jan 02, 2025 02:05 PM SECONDARY Fatty (change of) liver, not elsewhere classified STEPHANIE POPE STTerrie [facility] Jan 02, 2025 02:05 PM SECONDARY Intervertebral disc disorders w radiculopathy, lumbar region STEPHANIE POPE STTerrie [facility] Jan 02, 2025 02:05 PM SECONDARY Iron deficiency anemia, unspecified STEPHANIE POPE STTerrie [facility] Jan 02, 2025 02:05 PM SECONDARY Low back pain, unspecified STEPHANIE POPE STTerrie [facility] Jan 02, 2025 02:05 PM SECONDARY Migraine w/o aura, not intractable, w/o status migrainosus STEPHANIE POPE [facility] Jan 02, 2025 02:05 PM SECONDARY Obesity, unspecified STEPHANIE POPE STTerrie [facility] Jan 02, 2025 02:05 PM SECONDARY Other pulmonary embolism without acute cor pulmonale STEPHANIE POPE [facility] Jan 02, 2025 02:05 PM SECONDARY Other seizures STEPHANIE POPE [facility] Jan 02, 2025 02:05 PM SECONDARY Other specified abnormal findings of blood chemistry STEPHANIE POPE [facility] Jan 02, 2025 02:05 PM SECONDARY Pain in right knee STEPHANIE POPE [facility] Jan 02, 2025 02:05 PM SECONDARY Post-traumatic stress disorder, chronic STEPHANIE POPE [facility] Jan 02, 2025 02:05 PM SECONDARY Tachycardia, unspecified STEPHANIE POPE [facility] Jan 02, 2025 02:05 PM SECONDARY Trigger finger, unspecified finger STEPHANIE POPE [facility] Jan 02, 2025 02:05 PM SECONDARY Vitamin D deficiency, unspecified [facility]PHANIE POPE [facility] Plan of Treatment: Future Appointments (+ 6 months) and Future Tests (+/- 45 days) The Plan of Treatment section includes future care activities for the patient [facility] [place] [facility] This section includes future appointments and future orders which are active, pending or scheduled. Future Appointments This section includes appointments that were scheduled to occur 6 months from the date of the Encounter, up to a maximum of 20 appointments. The data comes from all [facility] facilities. Appointment Date/Time Appointment Type Appointme nt Facility Name Jan 15, 2025 02:00 AM AMBULATORY - MEDICINE [facility] Feb 22, 2025 02:30 PM AMBULATORY - MEDICINE [facility] Feb 23, 2025 08:20 AM AMBULATORY - SURGERY [facility] March 01, 2025 11:15 AM AMBULATORY - MEDICINE [facility] March 06, 2025 01:30 PM AMBULATORY - SURGERY [facility] Apr 05, 2025 11:00 AM AMBULATORY - PSYCHIATRY [facility] Jun 28, 2025 02:30 PM AMBULATORY - MEDICINE [facility] Active, Pending, and Scheduled Orders This section includes a listing of several types of active, pending, and scheduled orders, including clinic medications orders, diagnostic test orders, procedure orders and consult orders; where the start date of the order is 45 days before the date of the Encounter or 45 days after the date of theEncounter. The data comes from all [place] treatment facilities. Test Date/Time Test Type Test Details Facility Name Dec 07, 2024 07:14 AM Consult Order COMMUNITY CARE-STL PULMONARY Cons Sample Builder's Choice [facility] Jan 02, 2025 12:00 AM Laboratory - Chemistry Order IRON/TIBC PROFILE GOLD/RED SST SERUM SP [facility] Jan 02, 2025 12:00 AM Laboratory - Chemistry Order FERRITIN GOLD/RED SST SERUM SP [facility] Jan 02, 2025 12:00 AM Laboratory - Chemistry Order CBC BLOOD SP [facility] Jan 02, 2025 12:00 AM Laboratory - Chemistry Order COMPREHENSIVE METABOLIC PANEL GREEN LI/HEP BLD/PLAS PLASMA SP [facility] Jan 02, 2025 12:00 AM Laboratory - Chemistry Order LIPID PANEL (STL) GREEN LI/HEP BLD/PLAS PLASMA SP [facility] Jan 02, 2025 12:00 AM Laboratory - Chemistry Order VITAMIN D, 25-HYDROXY GOLD/RED SST SERUM SP [facility] Jan 02, 2025 12:00 AM Laboratory - Chemistry Order HGA1C BLOOD SP [facility] Jan 02, 2025 12:00 AM Laboratory - Chemistry Order TSH (MA-PB) GOLD/RED SST SERUM SP [facility] Vital Signs: All taken on the encounter date This section contains inpatient and outpatient Vital Signs collected on the date of the Encounter. Date/Time Temperature Pulse Blood Pressure Respiratory Rate SP02 Pain Height Weight Body Mass Index Source Jan 02, 2025 01:27 PM 97.7 77 131/76 20 99 6 223 34 [facility] Social History: Smoking Status (Most current) and Tobacco Use (All prior to encounter date) This section includes the most current, and the historical, smoking and tobacco- related health factors from the [place] facility where the Encounter took place. Current Smoking Status This section includes the most current smoking, or tobacco-related health factor, from the [place] facility where the Encounter took place. Date/Time Current Smoking Status Comment Facil ity Sep 03, 2023 12:30 PM AH-BPR SMOKING DEPLOYMENT NO [facility] Tobacco Use History This section includes a history of the smoking, or tobacco-related health factors, that were collected on or before the date of the Encounter. The data comes from the [place] facility where the Encounter took place. Date/Time Smoking Status/Tobacco Use Comment F acility Jun 23, 2023 10:00 AM [place]-TOBACCO FORMER USER [facility] Jun 23, 2023 10:00 AM ND-TOBACCO QUIT 5 TO < 15 YRS [facility] Aug 09, 2018 04:07 PM VA-TOBACCO NEVER USED [facility] March 04, 2017 10:49 AM QUIT TOBACCO >12 M O & <7 YRS AGO [facility] May 12, 2016 02:19 PM QUIT TOBACCO >7 YEARS AGO [facility] Jan 29, 2015 01:28 PM QUIT TOBACCO IN TH E LAST 12 MONTHS [facility] March 29, 2014 01:49 PM CURRENT TOBACCO USER [facility] Encounter Notes: All associated encounter notes This section contains the clinical notes associated to the Encounter. Date/Time Encounter Note(s) Provider Source Jan 02, 2025 01:33 PM NURSING NOTE: LOCAL TITLE: V15 PACT FACE TO FACE NOTE [facility] STANDARD TITLE: NURSING NOTE DATE OF NOTE: JAN 02, 2025@13:33 ENTRY DATE: JAN 02, 2025@13:33:34 AUTHOR: ARA TRACEY EXP COSIGNER: URGENCY: STATUS: COMPLETED Provider Visit: Patient Identifiers : Full Name Date of Reason for visit: Established Follow-Up Mode of Arrival: Ambulatory Allergy Review: TOPAMAX 25MG TABLET Allergy list reviewed and remains current. Recent Vital Signs: Temperature: 97.7 F [36.5 C] (01/02/2025 13:27) Pulse: 77 (01/02/2025 13:27) Respiration: 20 (01/02/2025 13:27) B/P: 131/76 (01/02/2025 13:27) Pain: 6 (01/02/2025 13:27) Wt: 223 lb [101.15 kg] (01/02/2025 13:27) Ht: 68 in [172.7 cm] (09/12/2024 09:39) BMI: 34.0 POX: 99% (01/02/2025 13:27) PERSONAL HEALTH INVENTORY Notes: Prog Note DT Title Author Last Uli DT 03/13/2024 PERSONAL HEALTH INVENTORY NOTE [facility] PERSONAL HEALTH INVENTORY - MAP: 03/13/2024 Personal Health Plan [place], [place], Purpose (MAP) family and friends What matters most to you in your life right now? [place]'s Response: NOTHING WHOLE HEALTH SHARED GOALS: PERSONAL HEALTH PLAN - SHARED GOALS: 11/07/2019 [facility] Shared Goals SHARED GOALS WAKING UP Would you like to discuss any personal problem, family problem, alcohol use, drug use, or a mental or emotional illness? No My [facility] ([facility]), please select appointment type: Face to face: Yes- Done Contact provided Primary Care phone number and encouraged to call if any questions or concerns. Review that after hours nurse line [phone] and emergency room are available 24/05 for patient use. Contact verbalized good understanding. Alcohol Use Screen (AUDIT-C) - V: Alcohol Screen: SCREEN FOR ALCOHOL (AUDIT-C) An alcohol screening test (AUDIT-C) was negative (score=0). 1. How often did you have a drink containing alcohol in the past year? Consider a drink to be a 12 ounce can or bottle of regular beer, 8 ounces of malt liquor, a 5 ounce glass of table wine, or a 1.5 ounce shot of liquor (like scotch, gin, or vodka). Never 2. How many drinks containing alcohol did you have on a typical day when you were drinking in the past year? Response not required due to responses to other questions. 3. How often did you have six or more drinks on one occasion in the past year? Response not required due to responses to other questions. Depression Screening - V: Perform PHQ-2 A PHQ-2 screen was performed. The score was 6 which is a positive screen for depression. Over the past two weeks, how often have you been bothered by the following problems? 1. Little interest or pleasure in doing things Nearly every day 2. Feeling down, depressed, or hopeless Nearly every day Licensed Independent Provider notified of positive screen and need for follow-up. Name of provider notified: STEPHANIE POPE Homelessness/Food Insecurity Screen - DI,L,N,P,PH,PS,S,U: In the past 2 months, have you been living in stable housing that you own, rent, or stay in as part of a household? Yes - Living in stable housing. Are you worried or concerned that in the next 2 months you may NOT have stable housing that you own, rent, or stay in as part of a household? No - Not worried about housing near future The [place] reports the following: Within the past 12 months, you worried whether your food would run out before you got money to buy more. Never true Within the past 12 months, the food you bought just didn't last and you didn't have money to get more. Never true COVID-19 Immunization - L,N,P,PH,U: Refused Pfizer Monovalent COVID-19 vaccine Immunization: COVID-19 (PFIZER), MRNA, LNP-S, PF, ANYI-SUCROSE, 30 MCG/0.3 ML (AGES 12+ YEARS) Refusal Reason: PATIENT DECISION Patient refuses all immunization(s) in the COVID-19 group Date Documented: 01/02/25 13:35 Learning Assessment: - * This patient's learning ABILITIES, BARRIERS to learning, CULTURAL and BAPTIST beliefs, and learning PREFERENCES were assessed. Following are findings of note: Patient reads well. Patient has the following hearing/auditory barrier(s) to consider when teaching: Hard of hearing. Patient has the following speech barrier to consider when teaching: No speech barrier identified. LANGUAGE Patient reports that Indonesian is preferred language for healthcare. Patient has the following language barrier to consider when teaching: No language barrier has been identified. Patient has the following vision barrier(s) to consider when teaching: Requires glasses/contacts for reading Patient has the following dexterity/mobility barrier(s) to consider when teaching: OtherWALKING Patient has the following cognitive/memory barrier(s) to consider when teaching: Has difficulty in remembering instructions/names Patient has the following emotional/psychological barrier(s) to consider when teaching: OtherDEPRESSION,PTSD, ANXIETY * Influenza Immunization - L,N,P,PH,U: Deferral / Refusal The patient declines to receive the recommended dose of seasonal influenza vaccine. Immunization: INFLUENZA, UNSPECIFIED FORMULATION Refusal Reason: PATIENT DECISION Patient refuses all immunization(s) in the FLU group Date Documented: 01/02/25 13:37 /loren/ ARA TRACEY LPN LICENSED PRACITCAL NURSE Signed: 01/02/2025 13:41 ARA TRACEY [facility] Jan 02, 2025 01:30 PM PRIMARY CARE NOTE: LOCAL TITLE: PRIMARY CARE PROVIDER ESTABLISHED VISIT [facility] STANDARD TITLE: PRIMARY CARE NOTE DATE OF NOTE: JAN 02, 2025@13:30 ENTRY DATE: JAN 02, 2025@13:30:32 AUTHOR: STEPHANIE POPE EXP COSIGNER: URGENCY: STATUS: COMPLETED REASON FOR VISIT/CHIEF COMPLAINT: Evaluation and management of chronic medical conditions/My scheduled visit HPI: Patient is a 39 year old WHITE MALE who presents to the clinic for evaluation and management of chronic medical conditions. Patient denies any recent ED visits or hospitalizations. Patient goes by Alli. Patient reports the [place] manages the [facility] [place] primary care. Private providers: -Private PCP: Dr. Kranthi Ferrara. -Private chiropractor. #Obesity: -BMI: 33.98. -Diet: Regular. -Exercise: Workouts regularly. -Reports is pending to begin Zepbound is approved through private insurance. #Hx of PE: -Historically prescribed Apixaban. [facility]. #COPD: -Medications: Albuterol PRN (inhaler and nebulizer) and BREZTRI. -Denies increased SOB, coughing, wheezing, mucus production or hemoptysis. -Patient is on 2 liters of oxygen continuous. -Patient quit smoking in 2014. -[place] pending to be evaluated by [facility] dietitian teacher. #Depression/mood disorder/grief/PTSD: -Medication: DIVALPROEX, Sertraline and CLONAZEPAM. -Reports medication compliance. -Denies SI/HI. #Renal calculi hx: -Medication: Tamsulosin PRN. -Patient reports adequate hydration. -[place] evaluated by [place] urology 10/19/22 with RTC recommended in 1 year. Exam Date/Time 09/21/2024 12:51 Procedure Name US RENAL COMPLETE Reason for Study f/u kidney stone and cysts Impression: 1. Mildly complex right kidney upper pole cyst with layering milk of calcium, hemorrhage, or proteinaceous material. This is likely benign. 2. No evidence of hydronephrosis or renal calculi bilaterally. #Seizure disorder/Migraine: -Patient reports ADR to Imitrex. -Medication: DIVALPROEX and ATOGEPANT. -Patient reports medication compliance. -Patient denies any recent seizures. #Chronic back pain: -Hx f/u neurosurgery and pain management. -Medication: Morphine per private PCP. Patient has Naltrexone at home. -Denies bowel or bladder incontinence and saddle anesthesia. -Participated in PT in 2023 at the [place] with minimal relief. #Low testosterone: -Medication: TESTOSTERONE. -Patient stated his non-[place] providers has been managing his low testosterone. #Tacycardia: -Patient reports having palpitations once daily. -Patient had a Holter monitor and echocardiogram 12/2022. -Denies CP, SOB, headaches, blurred vision, dizziness/lightheadedness. -Patient reports he was evaluated by [place] paper cup machine tender. Per [facility] cardiology note 12/28/22 From cardiology standpoint would not recommend any changes in medications and can follow up PRN. #Right knee pain: -Onset: 06/2023. -Duration: Intermittent. -Character: Ache. -Aggravating factors: Prolonged activity. -Relieving factors: Rest. -Medications: Diclofenac gel. -Treatments: Participated in PT in 2022. -Patient has knee brace. -Injury: Patient had injury 06/2023 injury due to working up in his attic above his porch when he missed the plywood board on the flow that caused him to go through the roof. -Imaging: Exam Date/Time 09/28/2023 09:42 Procedure Name KNEE,RIGHT 3 VIEWS Reason for Study Knee pain Impression No fracture dislocation or arthritic change. No interval change. - had right knee MRI with [facility] orthopedics 01/14/24. #GEORGE: -Patient reports compliance with supplementation. #Vitamin D deficiency: -Reports compliance with supplementation. #Left middle knuckle pain/Trigger finger: -Onset: September 2023. -Duration: Intermittent. -Character: Feels like an ache, or is jammed. -Aggravating factors: When closing the hand like a fist. -Relieving factors: Rest. -Medications: Denies. -Treatments: Denies. -Injury: Denies. -Imaging: Exam Date/Time 01/14/2024 07:37 Procedure Name HAND,LEFT,3 OR MORE VIEWS Reason for Study Hand pain Impression No fracture dislocation or arthritic change. Soft tissue nodule in the dorsal aspect of the hand without abnormal calcification. - discharged from [facility] OT for this 03/02/24. -[place] evaluated by [facility] orthopedic surgeon for this 10/18/24 being diagnosed with trigger finger. Reports having surgery for this 11/30/24 with relief of the pain. #Snoring: - is pending [facility] sleep evaluation for this. #Dry eyes: - is prescribed eye drops through [facility] optometry. 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 Smoked for approx. 3 years 1/2 PPD. Alcohol: Denies. Illicit: Denies. ALLERGIES: TOPAMAX 25MG TABLET ALLERGY REVIEW: Allergy list reviewed and remains current. MEDICATIONS: Active and Recently Outpatient Medications (excluding Supplies): Active Outpatient Medications Status 1) ALBUTEROL [...] Indication: FOR DRY EYE(S) 6) SERTRALINE HCL 100MG TAB TAKE ONE TABLET BY MOUTH AT BEDTIME ACTIVE (S) Indication: PTSD Active Non-VA Medications Status 1) Non-VA CLONAZEPAM 1MG TAB 1MG BY MOUTH THREE TIMES A DAY ACTIVE (MORNING, NOON, EARLY EVENING) Indication: FOR ANXIETY 2) Non-VA FERROUS SULFATE 325MG TAB 325MG BY MOUTH ONCE A DAY ACTIVE 3) Non-VA MORPHINE SO4 IR 30MG TAB 30MG BY MOUTH TWICE A DAY ACTIVE Indication: FOR SEVERE PAIN 9 Total Medications REVIEW OF SYSTEMS: Constitutional: Denies weight loss, fever, chills. Ears, Nose, Mouth, Throat: Denies nasal drainage or sore throat. Denies dizziness. Denies hearing loss. Endocrinology: Denies heat or cold intolerance, polydipsia, polyuria, or polyphagia. Cardiovascular: Denies chest pain, palpitations, or dizziness. Respiratory: Denies cough or shortness of breath. ABD/GI: Denies abdominal pain, nausea, vomiting, constipation, diarrhea or incontinence. Musculoskeletal/Extremities: Denies edema. Denies pain. /WOOL GRADER: Denies frequency, hesitancy, urgency, or hematuria. Psychology: Denies insomnia or SI/HI. Denies anxiety or depression. Neurology: Denies GONZALES, tremors, neuropathy, or seizures. Skin: Denies rashes, skin lesions. PHYSICAL EXAMINATION: VITALS (most recent, as listed in the electronic record): Temperature: 97.7 F [36.5 C] (01/02/2025 13:27) BP: 131/76 (01/02/2025 13:27) Pulse: 77 (01/02/2025 13:27) Resp: 20 (01/02/2025 13:27) PulsOx: 99% (01/02/2025 13:27) Pain: 6 (01/02/2025 13:27) Weight: Measurement DT WEIGHT LB(KG)[BMI] 01/02/2025 13:27 223(101.15)[34*] 10/16/2024 13:47 228(103.42)[35*] 09/12/2024 09:39 217.1(98.47)[33*] HEENT: EOMI, PERRLA, Moist mucous membranes. No Scleral icterus or cervical lymphadenopathy. Lungs: Clear to auscultation bilaterally. No accessory muscle use. Cardiovascular: Regular rate and rhythm. No murmur. No JVD. Abdomen: Soft, nontender and non-distended. No palpable masses. Positive bowel sounds in all four quadrants. Extremities: No edema. Nontender. Full ROM to all joints. Gait steady. : Deferred. Neurologic: No focal neurological deficits. Psychiatric: Appropriate mood and affect. Skin: Skin warm, dry and intact. No lesions or rashes noted. DATA REVIEW: HGA1C 5.3 % 03/17/2024 08:23 ====== Lipid Panel: TRIGLYCERIDE 162 H mg/dL 03/17/2024 08:23 CHOLESTEROL 197 mg/dL 03/17/2024 08:23 HDL(New) 39 L mg/dL 03/17/2024 08:23 CALCULATED LDL 126 mg/dL 03/17/2024 08:23 ==== CMP: SODIUM 137 mEq/L 11/02/2024 17:05 POTASSIUM 3.3 L mEq/L 11/02/2024 17:05 CHLORIDE 106 mEq/L 11/02/2024 17:05 UREA NITROGEN 15.6 mg/dL 11/02/2024 17:05 CREATININE 0.91 mg/dL 11/02/2024 17:05 CALCIUM 9.5 mg/dL 11/02/2024 17:05 PROTEIN 7.4 g/dL 11/02/2024 17:05 ALBUMIN 4.5 g/dL 11/02/2024 17:05 ALKALINE PHOSPHATASE 58 U/L 11/02/2024 17:05 ALT/SGPT 26 U/L 11/02/2024 17:05 AST/SGOT 22 U/L 11/02/2024 17:05 TOTAL BILIRUBIN 0.4 mg/dL 11/02/2024 17:05 CARBON DIOXIDE 18 L mEq/L 11/02/2024 17:05 GLUCOSE 148 H mg/dL 11/02/2024 17:05 EGFR (CKD-EPI 2020) 110.6 11/02/2024 17:05 ===== CBC: WBC 7.1 10*3/uL 11/02/2024 17:05 RBC 5.35 10*6/uL 11/02/2024 17:05 HGB 16.6 g/dL 11/02/2024 17:05 HCT 47.3 % 11/02/2024 17:05 MCV 88.4 fL 11/02/2024 17:05 MCH 31.0 pg 11/02/2024 17:05 MCHC 35.1 g/dL 11/02/2024 17:05 RDW 12.6 % 11/02/2024 17:05 PLT 217 10*3/uL 11/02/2024 17:05 MPV 8.9 fL 11/02/2024 17:05 NEUTROPHILS, AUTO % 65 % 11/02/2024 17:05 LYMPHOCYTES, AUTO % 25 % 11/02/2024 17:05 MONOCYTES, AUTO % 8 % 11/02/2024 17:05 EOSINOPHILS, AUTO % 2 % 11/02/2024 17:05 BASOPHILS, AUTO % 0 % 11/02/2024 17:05 NEUTROPHILS, ABSOLUTE 4.61 10*3/uL 11/02/2024 17:05 LYMPHOCYTES, ABSOLUTE 1.77 10*3/uL 11/02/2024 17:05 MONOCYTES, ABSOLUTE 0.58 10*3/uL 11/02/2024 17:05 EOSINOPHILS, ABSOLUTE 0.11 10*3/uL 11/02/2024 17:05 BASOPHILS, ABSOLUTE 0.01 10*3/uL 11/02/2024 17:05 ====== PSA: No PSA EO data found Result: Acceptable. Health maintenance: -Declines immunizations today. Immunization Series Date Facility Reaction Info INFLUENZA, MDCK, QUADRIVALENT, PF 09/[facility] PNEUMOCOCCAL CONJUGATE PCV 13 09/06/2017 [facility] PNEUMOCOCCAL POLYSACCHARIDE PPV23 10/14/2015 [facility] TDAP 1 02/28/2024 [facility]:NONI IIS TDAP 05/12/2016 [facility] <C> TDAP 05/01/2006 No Site Colonoscopy: Patient denies family history of colon cancer. PSA: Patient denies family history of prostate cancer. LDCT: Review at age 51. AAA screening: Due at age 66. Eye exam: Evaluation and management per [facility] optometry. Labs ordered: CBC, CMP, A1C, Lipid panel, Vitamin D, TSH, Iron/TIBC and Ferritin (will obtain at a later date fasting). ASSESSMENT/PLAN: Annual visit: -Routine labs reviewed. -Preventative health screenings reviewed. -Recommend regular eye exams. -Discussed Fall Safety. -Continue wearing mask in public and wash hands frequently. -Immunizations reviewed. Obesity: -Reviewed lifestyle modifications. -MOVE program and dietitian contact information given. -Evaluation and management per private PCP. Hx of PE: -Lifestyle modifications reviewed. -Reviewed when to seek emergent care. -Evaluation and management per [facility] pulmonary. COPD: -Continue medication regimen. -Reviewed lifestyle modifications. -Evaluation and management per [facility] pulmonary. -Pending evaluation per [facility] pulmonary evaluation. Depression/mood disorder/grief/PTSD: -Continue medication regimen. -Reviewed lifestyle modifications. -[place] crisis line and whole health contact information given. -Evaluation and management per [facility] psychiatry. -Evaluation and management per private PCP. Renal calculi hx: -Continue medication regimen. -Lifestyle modifications reviewed. -Evaluation and management per [facility] renal. -[facility] urology consult placed for f/u. Seizure disorder/Migraine: -Continue medication regimen. -Seizure precautions reviewed. -Migraine triggers reviewed. -Evaluation and management per [facility] neurology. Chronic back pain: -Controlled. -Continue medication regimen. -Evaluation and management per private chiropractor. -Evaluation and management per private PCP. Low testosterone: -Continue medication regimen. -Evaluation and management per private PCP. Tachycardia: -Lifestyle modifications reviewed. -Reviewed when to seek emergent care. Right knee pain: -Continue medication regimen. -Whole health contact information given. -Evaluation and management per [facility] orthopedics. GEORGE: -Continue medication regimen. Vitamin D Deficiency: -Continue medication regimen. -Reviewed foods high in vitamin D including: Milk, orange juice, yogurt, salmon, canned tuna fish, cod liver oil and cereals with vitamin D added. Left middle knuckle pain/Trigger finger: -Whole health contact information given. -Evaluation and management per [facility] orthopedic surgeon. Snoring: -Evaluation and management per [facility] sleep medicine. Dry eyes: -Continue medication regimen. -Evaluation and management per [facility] optometry. RETURN TO CLINIC: 1 year or earlier as needed per preference. SUMMARY STATEMENT: Plan of care has been discussed with including expected therapeutic benefits and potential side effects of prescribed medication and treatments. [place] verbalizes understanding and is in agreement with the plan of care. Patient was instructed to keep all scheduled appointments and contact alarm field technician for any additional problems. Medication Reconciliation Opt STL: I have reviewed the patient's medication list (including active outpatient prescriptions dispensed from this [place] (local) and dispensed from another [place] or [facility] facility (remote) as well as inpatient orders (local pending and active), local clinic medications, locally documented non-VA medications, and local prescriptions that have or been discontinued in the past 90 days.) with the patient and/or his/her care-die developer. Handwritten corrections, additions and/or deletions were made to the list, as appropriate. Corrected Outpatient Medication List was provided to the patient/caregiver. Follow-Up Pos PTSD/Depression - M,P,PH,PS,R,S,T: I have reviewed the results of the Mental Health screens and have evaluated the patient. Based on the evaluation, the following disposition plan will be implemented: Already receiving needed treatment. Contact information and instructions for accessing emergency services provided. Sexual Orientation - CP,L,N,P,PH,PS,S,U: The patient thinks of their sexual orientation as: Straight or Heterosexual /es/ Stephanie Pope DNP, MANAGER CALL, CREATIVE/ART DIRECTOR-C Primary Care Nurse Practitioner Signed: 01/02/2025 14:05 STEPHANIE POPE [facility]
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
--- OUTSIDE RECORDS SUMMARY | 2025-05-24 11:52 | XMS_ITS | Encounter Summary ---
Author Name [facility] [place] Address [address] [place] [address] Care Team Providers Care Tool Technician Name Role Phone HENRY POPE Primary Care [...] Name Patient's Relationship to Policy Lowe AETNA [facility] (WNR) MEDICARE ADVANTAGE [facility] (WN) Nov 01, 2021 [id number] ALLI RAMOS PATIENT AETNA [facility] (WNR) MEDICARE ADVANTAGE [place] INDIV IDUAL - [place]LLI Nov 01, 2019 [id number] [place] [id number] ALLI RAMOS PATIENT INACTIVE [facility] Oct 14, 2009 [facility] [id number] ALLI RAMOS PATIENT MEDICARE (WNR) MEDICARE (M) PART A Sep 01, 2015 PART A [id number] ALLI RAMOS PATIENT MEDICARE (WNR) MEDICARE (M) PART B Sep 01, 2015 PART B [id number] ALLI RAMOS PATIENT -FO R-LIFE TRICA RE FOR LIFE WNR Nov 01, 2017 [facility] LIFE [id number] [phone] ALLI RAMOS PATIENT Selected Encounter This section includes the information on record at [place] for the Encounter. Date/Time Encounter Type Encounter Description Reason Pro vider Source Nov 30, 2024 12:16 PM Outpatient Encounter GENERAL INTERNAL MEDICINE IHE Encounter Template Text not used by [place] Plan of Treatment: Future Appointments (+ 6 months) and Future Tests (+/- 45 days) The Plan of Treatment section includes future care activities for the patient [facility] [place] [facility] This section includes future appointments and future orders which are active, pending or scheduled. Future Appointments This section includes appointments that were scheduled to occur 6 months from the date of the Encounter, up to a maximum of 20 appointments. The data comes from all [facility]. Appointment Date/Time Appointment Type Appointme nt Facility Name Dec 05, 2024 09:30 AM AMBULATORY - PSYCHIATRY [facility] Dec 13, 2024 08:00 AM AMBULATORY - SURGERY [facility] Jan 02, 2025 01:30 PM AMBULATORY - MEDICINE [facility] Jan 15, 2025 02:00 AM AMBULATORY - MEDICINE [facility] Feb 22, 2025 02:30 PM AMBULATORY - MEDICINE [facility] Feb 23, 2025 08:20 AM AMBULATORY - SURGERY [facility] March 01, 2025 11:15 AM AMBULATORY - MEDICINE [facility] March 06, 2025 01:30 PM AMBULATORY - SURGERY [facility] Apr 05, 2025 11:00 AM AMBULATORY - PSYCHIATRY [facility] Active, Pending, and Scheduled Orders This section includes a listing of several types of active, pending, and scheduled orders, including clinic medications orders, diagnostic test orders, procedure orders and consult orders; where the start date of the order is 45 days before the date of the Encounter or 45 days after the date of theEncounter. The data comes from all [facility]. Test Date/Time Test Type Test Details Facility Name Dec 07, 2024 07:14 AM Consult Order COMMUNITY CARE-STL PULMONARY Cons Electrical Installer's Choice [facility] Jan 02, 2025 12:00 AM Laboratory - Chemistry Order IRON/TIBC PROFILE GOLD/RED SST SERUM SP [facility] Jan 02, 2025 12:00 AM Laboratory - Chemistry Order FERRITIN GOLD/RED SST SERUM SP [facility] Jan 02, 2025 12:00 AM Laboratory - Chemistry Order CBC BLOOD SP [facility] Jan 02, 2025 12:00 AM Laboratory - Chemistry Order LIPID PANEL (STL) GREEN LI/HEP BLD/PLAS PLASMA SP [facility] Jan 02, 2025 12:00 AM Laboratory - Chemistry Order HGA1C BLOOD SP [facility] Jan 02, 2025 12:00 AM Laboratory - Chemistry Order COMPREHENSIVE METABOLIC PANEL GREEN LI/HEP BLD/PLAS PLASMA SP [facility] Jan 02, 2025 12:00 AM Laboratory - Chemistry Order TSH (MA-PB) GOLD/RED SST SERUM SP [facility] Jan 02, 2025 12:00 AM Laboratory - Chemistry Order VITAMIN D, 25-HYDROXY GOLD/RED SST SERUM SP [facility] Lab Results: +/- 30 days of the [...] Type Comment Nov 02, 2024 05:25 PM [facility] COVID-19 DIAGNOSTIC (FLU/RSV)(STL) NASOPHARYNX Spec imen Type: [...] Nov 02, 2024 04:41 PM Reporting Lab: [address] [address] Performing Lab: [address] [address] INFLUENZA A Negative Negative INFLUENZA B Negative Negative COVID-19 (STL-PB) Not Detected Not Detec leonardo RSV (Cepheid) NEGATIVE Negative Nov 02, 2024 05:05 PM [facility] PT/INR NEW (L-MA) PLASMA Specimen Type: PLAS MA No comment entered. Ordering Provider: BRIAN ULLOA Report Released Date/Time: Nov 02, 2024 05:13 PM Reporting Lab: [address] [address] Performing Lab: [address] [address] PROTIME 12.4 s 9.4-12.5 INR VALUE 1.1 {INR} Nov 02, 2024 05:05 PM [facility] APTT PLASMA Specimen Type: PLASM A No comment entered. Ordering Provider: BRIAN ULLOA Report Released Date/Time: Nov 02, 2024 05:13 PM Reporting Lab: [address] [address] Performing Lab: [address] [address] APTT 32.9 s 26.7-39.9 Nov 02, 2024 05:05 PM [facility] TROPONIN I PLASMA Specimen Type: PLASM A Comment: No hemolysis noted. Ordering Provider: BRIAN ULLOA Report Released Date/Time: Nov 02, 2024 05:13 PM Reporting Lab: [address] [address] Performing Lab: [address] [address] TROPONIN I <0.010 ng/mL 0-0.033 Nov 02, 2024 05:05 PM [facility] D-DIMER HS (MA-STL-PB) PLASMA Specimen Type: P LASMA No comment entered. Ordering Provider: BRIAN ULLOA Report Released Date/Time: Nov 02, 2024 05:13 PM Reporting Lab: [address] [address] Performing Lab: [address] [address] D-DIMER HS (MA-STL-PB) <215 <500 Nov 02, 2024 05:05 PM [facility] BRAIN NATRIURETIC PEPTIDE PLASMA Specimen Type : PLASMA No comment entered. Ordering Provider: BRIAN ULLOA Report Released Date/Time: Nov 02, 2024 05:16 PM Reporting Lab: [address] [address] Performing Lab: [address] [address] BRAIN NATRIURETIC PEPTIDE <10.0 pg/mL 0- 100 Nov 02, 2024 05:05 PM [facility] COMPREHENSIVE METABOLIC PANEL PLASMA Specimen Type: PLASMA Comment: No hemolysis noted. Ordering Provider: BRIAN ULLOA Report Released Date/Time: Nov 02, 2024 05:13 PM Reporting Lab: [address] [address] Performing Lab: [address] [address] CREATININE 0.91 mg/dL 0.7-1.3 UREA NITROGEN 15.6 [...] 110.6 >60 Nov 02, 2024 05:05 PM [facility] CBC BLOOD Specimen Type: BLOOD No comment entered. Ordering Provider: BRIAN ULLOA Report Released Date/Time: Nov 02, 2024 05:13 PM Reporting Lab: [facility] [address] [address] Performing Lab: [facility] [address] [address] WBC 7.1 10*3/uL 3.6-11.2 RBC 5.35 10*6/uL [...] 0.60 BASOPHILS, ABSOLUTE 0.01 10*3/uL 0.00-0. 20 Social History: Smoking Status (Most current) and Tobacco Use (All prior to encounter date) This section includes the most current, and the historical, smoking and tobacco- related health factors from the [place] facility where the Encounter took place. Current Smoking Status This section includes the most current smoking, or tobacco-related health factor, from the [place] facility where the Encounter took place. Date/Time Current Smoking Status Comment Mirhta henry Sep 03, 2023 12:30 PM -BPR SMOKING DEPLOYMENT NO [facility] Tobacco Use History This section includes a history of the smoking, or tobacco-related health factors, that were collected on or before the date of the Encounter. The data comes from the [place] facility where the Encounter took place. Date/Time Smoking Status/Tobacco Use Comment F acility Sep 23, 2022 12:40 AM ORYX ADMIT TOBACCO SCREEN NO [facility] Sep 06, 2022 05:41 AM ORYX ADMIT TOBACCO SCREEN NO [facility] May 09, 2018 08:36 PM LIFETIME NON-USER OF TOBACCO [facility] Apr 02, 2014 10:48 AM CURRENT TOBACCO USER [facility] Apr 02, 2014 10:48 AM TOBACCO OFFERRED P T MEDS (PROVIDER) [facility] Sep 15, 2011 10:37 AM CURRENT TOBACCO USER [facility] Apr 13, 2011 02:21 PM CURRENT TOBACCO USER [facility] May 22, 2010 02:00 PM CURRENT TOBACCO USER [facility] May 22, 2010 02:[address] [facility] SMOKING CLINIC [facility] May 22, 2010 02:00 PM TOBACCO OFFERRED P T MEDS (PROVIDER) [facility] Apr 21, 2010 02:03 PM CURRENT TOBACCO USER [facility] Apr 21, 2010 02:03 PM TOBACCO MEDS OFFER ED BUT DECLINED [facility] Radiology Reports: +/- 30 days of the [...] the Encounter. The data comes from all [facility] facilities. Date/Time Radiology Report Provider Source Nov 02, 2024 04:52 PM CHEST X-RAY, 2 VIE WS: ALLI RAMOS [id number] -1985 M Exm Date: NOV 02, 2024@16:52 Req Phys: MARCELO FERNANDEZ Pat Loc: [facility]-EMERGENCY DEPT 3RD SHIFT (R Img Loc: [facility]-MAIN RADIOLOGY SUITE Service: Unknown [facility], [address] [place] [address] (Case [id number] COMPLETE) CHEST X-RAY, 2 VIEWS (RAD Detailed) CPT:09087 Reason for Study: chest tightness Clinical History: Report Status: Verified Date Reported: NOV 02, 2024 Date Verified: NOV 02, 2024 Coffee Grinder E-Sig: Report: CHEST X-RAY, 2 VIEWS HISTORY: chest tightness COMPARISON: Chest radiograph 09/26/2022 TECHNIQUE: Frontal and lateral views of the chest, submitted to the [place] National Teleradiology Program (NTP) for interpretation. FINDINGS: Lungs: Similar scattered areas of atelectasis-scarring. No new consolidation. Pleura: No pleural effusion or pneumothorax. Mediastinum: Normal size and contour. Bones: Unremarkable. Impression: No acute cardiopulmonary disease. READING PHYSICIAN: Dami [id number] 11/02/2024 17:59 PST [facility] National Teleradiology Program [phone] (For Medical Practitioner Use Only) Attention Patients / Veterans: If you have questions or concerns about these test results, please contact your ordering provider or primary care team. Primary Interpreting Staff: RADIOLOGY,OUTSIDE SERVICE, Staff Physician / RADIOLOGY,OUTSIDE SERVICE [facility] Encounter Notes: All associated encounter notes This section contains the clinical notes associated to the Encounter. Date/Time Encounter Note(s) Provider Source Nov 30, 2024 12:16 PM ADMINISTRATIVE NOT E: LOCAL TITLE: ADMINISTRATIVE COMMUNITY CARE REQUEST STL STANDARD TITLE: ADMINISTRATIVE NOTE DATE OF NOTE: NOV 30, 2024@12:16 ENTRY DATE: NOV 30, 2024@12:16:47 AUTHOR: ALLEN BENTON EXP COSIGNER: URGENCY: STATUS: COMPLETED Received a call from a who stated that [facility] told him that they billed his surgery through his and then VA insurance. He also stated that his medication is .69 cents, and he wants to make sure his is not being billed. I called [facility] and spoke to Velma, who stated that per her system, everything was billed through the [facility], and his is not active in their system. I informed the that if he receives a bill, he should call [facility]. /loren/ ALLEN BENTON ADVANCED SHAPER HAND Signed: 11/30/2024 12:23 ALLEN BENTON [facility]
--- OUTSIDE RECORDS SUMMARY | 2025-05-24 11:52 | XMS_ITS | Continuity of Care Document ---
Author Name [facility] Organization [facility] Care Team Providers Care Retail Pharmacist Name Role Phone [facility] Unavailable Unavailable Problems Combined list of problems from Department of 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 It does not include entries that were removed or entered in error. Problem Status Onset Date Problem Type Date of Resolution Comments Source COMMON MIGRAINE (WITHOUT AURA) Active Condition DoD visit for: issue repeat prescription for medication Active Condition DoD Other Physical Therapy Active Condition DoD NONALLOPATHIC LESIONS SACRAL SACROILIAC Active Condition DoD SACROILIAC [place] Active Condition DoD NEPHROLITHIASIS Active Condition DoD LUMBAGO Active Condition DoD ALCOHOL DISORDERS Active Condition DoD headache Inactive Condition DoD Rehabilitation Active Condition [facility] visit for: physical medical evaluation board (MEB) Active Condition DoD NONEPILEPTIC SEIZURES RECURRENT Active Condition DoD NEW PATIENT OPHTHALMOLOGICAL EXAM Active Condition DoD visit for: administrative purpose Active Condition DoD MARITAL PROBLEM Inactive Condition DoD DEPRESSION Active Condition DoD Vaccines Prophylactic Need Against Influenza Inactive Condition DoD MIGRAINE HEADACHE Active Condition [facility] visit for: issue repeat prescription Active Condition [facility] ASSESSMENT OF PATIENT CONDITION WORK STATUS Active Condition DoD ANXIETY DISORDER NOS Active Condition D 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 DoD MIGRAINE TRIGGERED SEIZURES Active Condition [facility] visit for: exam following treatment Active Condition [facility] visit for: screening exam pulmonary tuberculosis Active Condition DoD CONDITIONS INFLUENCING HEALTH STATUS Active Condition [facility] Patient Education - Dietary Active Condition DoD Dietary Counseling Pertaining To Specific Condition Active Condition DoD Patient Counseling: Active Condition Do D NONEPILEPTIC SEIZURES Active Condition DoD nausea Inactive Condition DoD NO PSYCHIATRIC DIAGNOSIS OR CONDITION ON AXIS I Active Condition 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 DoD anxiety Active Condition DoD insomnia Active Condition DoD convulsions [as sx] Inactive Condition D oD SEIZURE DISORDER Active Condition DoD sleep disturbances Active Condition DoD Involuntary Movements Active Condition DoD CHEST PAIN Active Condition DoD PSYCHIATRIC DIAGNOSIS OR CONDITION DEFERRED ON AXIS I Active Condition DoD Patient Education - Alcohol Active Condition DoD POSTCONCUSSION SYNDROME Active Condition [facility] visit for: services physical Active Condition DoD VASOVAGAL SYNCOPE Inactive Condition DoD INJURY OF UPPER EXTREMITY SHOULDER Inactive Condition DoD NECK STRAIN Inactive Condition DoD BACKACHE Active Condition DoD ATYPICAL CHEST PAIN Inactive Condition D oD chest pain or discomfort Inactive Condition DoD fainting - unconscious about 1-5 minutes Inactive Condition DoD ASSESSMENT OF PATIENT CONDITION WORK-RELATED Active Condition DoD visit for: ears / hearing exam Inactive Condition 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 DoD AMBLYOPIA STRABISMIC Active Condition D oD ASTIGMATISM - REGULAR Active Condition DoD REFRACTIVE ERROR - HYPERMETROPIA Active Condition New gls rxOD +5.00-1.75x0 98OS +6.00-2.50x0 76polycarb DoD AMBLYOPIA Active Condition DoD visit for: services physical accession Active Condition DoD REFRACTIVE ERROR Active Condition DoD Chronic post-traumatic stress disorder Active Condition [facility] Contact with and (Suspected) Exposure to Air Pollution Active Condition [facility] Contact with and (suspected) exposure to other hazardous substances Active Condition [facility] COPD - Chronic Obstructive Pulmonary Disease (SCT 41344665) Active Condition [facility] Dry eyes Active Condition [facility] Exposure to Disaster, War and other Hostilities Active Condition [facility] Exposure to Potentially Hazardous Substance ([facility] 821724757776246) Active Condition [facility] Fatty liver Active Condition [facility] History of alcohol abuse Active Condition [facility] Iron deficiency anemia Active Condition [facility] Kidney stone Active Condition [facility] Low back pain Active Condition [facility] Low testosterone Active Condition [facility] Lumbar radiculopathy (SNOMED CT 324782970) Active Condition [facility] Migraine (SNOMED CT 32049832) Active Condition [facility] Obesity Active Condition [facility] Pseudo-obstruction of colon Active Condition [facility] Pulmonary embolism Active Condition [facility] Right knee pain Active Condition [facility] sedative hypnotic misuse Active Condition [facility] Seizure (SNOMED CT 00557918) Active Condition Sep 29, 2011 Entered By: AREN URIBE Comment: noted by neurology 02/09 that seizures are non-epilepti c [facility] Tachycardia Active Condition [facility] Therapeutic drug effect Active Condition [facility] Trigger finger Active Condition [facility] Vitamin D deficiency Active Condition [facility] Allergic Rhinitis, unspecified Inactive Condition 12/28/2023 [facility] Alteration of Consciousness * (ICD-9-CM 780.09) Inactive Condition 12/28/2023 [facility] Anxiety * (ICD-9-CM 300.00/300.09) Inactive Condition 12/28/2023 [facility] Bilateral hip joint pain Inactive Condition 12/28/2023 [facility] Chronic Obstructive Pulmonary Disease, unspecified Inactive Condition 12/28/2023 [facility] Depression Inactive Condition 10/18/2024 [facility] Depression * (ICD-9-CM 311./300.4) Inactive Condition 12/28/2023 [facility] Dyspnea Inactive Condition 12/28/2023 [facility] Elevated blood-pressure reading without diagnosis of hypertension Inactive Condition 12/28/2023 [facility] Generalized Anxiety Disorder Inactive Condition 12/28/2023 [facility] Head Injuries * (ICD-9-CM 854.00) Inactive Condition 12/28/2023 [facility] Headache Inactive Condition 12/28/2023 [facility] Headache, unspecified Inactive Condition 12/28/2023 [facility] Heartburn Inactive Condition 12/28/2023 [facility] Herniation of lumbar intervertebral disc with sciatica Inactive Condition 12/28/2023 [facility] Hyperlipidemia Inactive Condition 12/28/2023 [facility] Impaired FASTING Glucose (ICD-9-CM 790.21) Inactive Condition 12/28/2023 [facility] Kidney stone (SNOMED CT 19790989) Inactive Condition 09/18/2022 [facility] Lack of exercise Inactive Condition 12/28/2023 [facility] Migraine, unspecified, not Intractable, without Status Migrainosus Inactive Condition 12/28/2023 [facility] Mood disorder Inactive Condition 08/14/2023 [facility] Other unspecified back disorders (ICD-9-CM 724.9) Inactive Condition 09/20/2022 [facility] Pain in joint involving shoulder region (ICD-9-CM 719.41) Inactive Condition 12/28/2023 [facility] Pain of right shoulder joint Inactive Condition 12/28/2023 [facility] Post-Traumatic Stress Disorder, Chronic Inactive Condition 12/28/2023 [facility] Postnasal drip Inactive Condition 12/28/2023 [facility] Shortness of Breath Inactive Condition 12/28/2023 [facility] Tinnitus, unspecified Ear Inactive Condition 12/28/2023 [facility] Tobacco Use Disorder * (ICD-9-CM 305.1) Inactive Condition 12/28/2023 [facility] Unspecified visual disturbance Inactive Condition 12/28/2023 [facility] Diagnosis: ICD-10-CM G43.009 Migraine w/o aura, not intractable, w/o status migrainosus Active Diagnosis [facility] Diagnosis: ICD-10-CM R06.00 Dyspnea, unspecified Active Diagnosis [facility] Diagnosis: ICD-10-CM 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 [facility] Diagnosis: ICD-10-CM J44.9 Chronic obstructive pulmonary disease, unspecified Active Diagnosis [facility] Diagnosis: ICD-10-CM G40.89 Other seizures Active Diagnosis [facility] Diagnosis: ICD-10-CM N20.0 Calculus of kidney Active Diagnosis [facility] Diagnosis: ICD-10-CM Z71.89 Other specified counseling Active Diagnosis [facility] Diagnosis: ICD-10-CM Z00.00 Encntr for general adult medical exam w/o abnormal findings Active Diagnosis [facility] Diagnosis: ICD-10-CM H53.19 Other subjective visual disturbances Active Diagnosis [facility] Diagnosis: ICD-10-CM F43.12 Post-traumatic stress disorder, chronic Active Diagnosis [facility] Diagnosis: ICD-10-CM 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 [facility] Diagnosis: ICD-10-CM M54.50 Low back pain, unspecified Active Diagnosis [facility] Diagnosis: ICD-10-CM F32.A Depression, unspecified Active Diagnosis [facility] Diagnosis: ICD-10-CM M25.561 Pain in right knee Active Diagnosis [facility] Diagnosis: ICD-10-CM M79.642 Pain in left hand Active Diagnosis [facility] Diagnosis: ICD-10-CM E55.9 Vitamin D deficiency, unspecified Active Diagnosis [facility] Diagnosis: ICD-10-CM G43.719 Chronic migraine w/o aura, intractable, w/o stat migr Active Diagnosis [facility] Diagnosis: ICD-10-CM Z46.89 Encounter for fitting and adjustment of oth devices Active Diagnosis [facility] Medications Combined list of outpatient medications from Department of Defense and [facility] Affairs facilities.Medications provided include 1) outpatient medications from the last 15 months, and 2) patient-reported medications. Medication Details Route Status Patient Instructions Prescription Expires Prescription Number Last Dispense Date Ordering Provider Order Date Order Qty Source ALBUTEROL SO4 0.083% INHL,3ML INHALE 1 VIAL (2.5MG/3 ML) BY NEBULIZA TION EVERY 6 HOURS DIRECTED NEEDED FOR BREATHIN G NEBULI ZATION SUSPEND ED 02/23/2026 [id number] GRIFFIN SCHMITZ [place] [address] [facility] ALBUTEROL SO4 0.083% INHL,3ML INHALE 1 VIAL (2.5MG/3 ML) BY NEBULIZA TION EVERY 6 HOURS DIRECTED NEEDED FOR BREATHIN G NEBULI ZATION DISCONT INUED 08/11/2025 [id number] 5 GRIFFIN SCHMITZ RRI [address] [facility] ALBUTEROL SO4 90MCG/ACTUA T (CFC-F) INHL,ORAL,8 .5GM INHALE 2 PUFFS ORAL INHALATI ON FOUR TIMES A DAY FOR BREATHIN G. SHAKE WELL. RINSE MOUTHPIE CE FREQUENT LY TO PREVENT CLOGGING . RESPIR ATORY (INHAL ATION) SUSPEND ED 02/23/2026 [id number] 5 GRIFFIN SCHMITZ RRI [address] [facility] ALBUTEROL SO4 90MCG/ACTUA T (CFC-F) INHL,ORAL,8 .5GM INHALE 2 PUFFS ORAL INHALATI ON FOUR TIMES A DAY FOR BREATHIN G. SHAKE WELL. RINSE MOUTHPIE CE FREQUENT LY TO PREVENT CLOGGING . RESPIR ATORY (INHAL ATION) DISCONT INUED 08/11/2025 [id number] 5 GRIFFIN SCHMITZ RRI [address] [facility] ATOGEPANT 60MG TAB TAKE ONE TABLET BY MOUTH ONCE A DAY FOR MIGRAINE HEADACHE ORAL 01/13/2025 [id number] REGAN GARCIA [address] [facility] AZITHROMYCI N 250MG TAB TAKE ONE TABLET BY MOUTH ONCE A DAY BRONCHIO LITIS OBLITERA NS TAKE UNTIL GONE. DO NOT TAKE WITH ALUMINUM OR MAGNESIU M ANTACIDS . ORAL SUSPEND ED 04/13/2026 [id number] 5 GRIFFIN SCHMITZ RRI [address] [facility] BUDESONIDE 160/GLYCOPY R 9/FORMOTER 4.8MCG/ACT INHL,ORAL,1 0.7GM INHALE 2 PUFFS INHALATI ON TWICE A DAY DIRECTED FOR BREATHIN G (CLEAN INHALER FOLLOWED BY 2 PRIMING PUFFS ONCE WEEKLY) INHALA TION SUSPEND ED 02/23/2026 [id number] 5 GRIFFIN SCHMITZ RRI [address] [facility] BUDESONIDE 160/GLYCOPY R 9/FORMOTER 4.8MCG/ACT INHL,ORAL,1 0.7GM INHALE 2 PUFFS INHALATI ON TWICE A DAY DIRECTED FOR BREATHIN G (CLEAN INHALER FOLLOWED BY 2 PRIMING PUFFS ONCE WEEKLY) INHALA TION DISCONT INUED 08/11/2025 [id number] 5 GRIFFIN SCHMITZ RRI [address] [facility] CARBOXYMETH YLCELLULOSE NA 1% GEL,OPH INSTILL 1 DROP INTO BOTH EYES FOUR TIMES A DAY NEEDED FOR DRY EYE(S) OPHTHA LMIC ACTIVE 06/13/2025 [id number] MANI GROSS 2023 30 [facility] CHOLECALCIF SHARYN (LOW DOSE VIT D) - (OTC) TAB TAKE BY MOUTH ONCE A DAY ORAL ACTIVE WILL POPE LBKenny R 2021 [facility] CLONAZEPAM 1MG TAB TAKE ONE TABLET BY MOUTH THREE TIMES A DAY (MORNING , NOON, EARLY EVENING) ORAL ACTIVE LA EDWARDS N R 2022 [facility] DIVALPROEX NA 250MG TAB,SA TAKE THREE TABLETS BY MOUTH TWICE A DAY FOR SEIZURES ORAL ACTIVE 04/10/2026 [id number] 5 SHELBY RUSHING [address] [facility] DIVALPROEX NA 250MG TAB,SA TAKE THREE TABLETS BY MOUTH THREE TIMES A DAY FOR MIGRAINE HEADACHE ORAL 10/13/2024 [id number] RUBY BRADSHAW [address] [facility] DOXYCYCLINE HYCLATE 100MG TAB TAKE ONE TABLET BY MOUTH TWICE A DAY FOR COPD EXACERBA TION TAKE UNTIL FINISHED . AVOID SUN EXPOSURE WHILE TAKING. ORAL 12/02/2024 [id number] NUSRAT ULLOA R [address] [facility] DULOXETINE HCL 20MG CAP,EC TAKE TWO CAPSULES BY MOUTH ONCE A DAY FOR 7 DAYS, THEN TAKE ONE CAPSULE ONCE A DAY FOR 7 DAYS FOR DEPRESSI ON. DO NOT ABRUPTLY DISCONTI NUE MEDICATI ON. ORAL 07/23/2024 [id number] CAROLANN CHILDERS I 2023 21 [facility] DULOXETINE HCL 30MG CAP,EC TAKE ONE CAPSULE BY MOUTH ONCE A DAY DO NOT ABRUPTLY DISCONTI NUE MEDICATI ON. ORAL 07/23/2024 [id number] CAROLANN CHILDERS I 2023 7 [facility] Kesly DULOXETINE HCL 60MG CAP,EC TAKE ONE CAPSULE BY MOUTH ONCE A DAY FOR DEPRESSI ON. DO NOT ABRUPTLY DISCONTI NUE MEDICATI ON. ORAL DISCONT INUED (EDIT) 07/23/2024 [id number] 4 CAROLANN CHILDERS I 2023 90 [facility] FERROUS SO4 325MG TAB TAKE ONE TABLET BY MOUTH ONCE A DAY ORAL ACTIVE WILL POPE 2021 [facility] MORPHINE SO4 30MG TAB TAKE ONE TABLET BY MOUTH TWICE A DAY ORAL ACTIVE SHAGGY MUKHERJEE 2023 [facility] OXYCONTIN (OXYCODONE HCL), 10 MG, TAB ER 12H, ORAL, [employer] PHARMA L, 100 ea. BOTTLE Active [id number] 2023 120 [facility] PREDNISONE 50MG TAB TAKE ONE TABLET BY MOUTH EVERY MORNING FOR COPD EXACERBA TION TAKE WITH FOOD OR MILK. ORAL 12/02/2024 [id number] 5 NUSRAT ULLOA R [address] [facility] SERTRALINE HCL 100MG TAB TAKE ONE TABLET BY MOUTH AT BEDTIME PTSD ORAL ACTIVE 12/06/2025 [id number] SHAGGY MUKHERJEE 2024 90 [facility] SERTRALINE HCL 50MG TAB TAKE ONE-HALF TABLET BY MOUTH AT BEDTIME FOR 14 DAYS, THEN TAKE ONE TABLET AT BEDTIME FOR 76 DAYS ORAL DISCONT INUED (EDIT) 01/16/2025 [id number] 4 SHAGGY MUKHERJEE Giana 2023 83 [facility] TESTOSTERON E CYPIONATE INJ,SOLN INJECT DEEP INTRAMUS CULARLY TWO TIMES PER WEEK INTRAM USCULA R ACTIVE WILL POPE BECCA R 2021 [facility] Allergies, Adverse Reactions, Alerts Combined list of allergies from Department of 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 It does not include entries that were removed or entered in error. Substance Category Reaction Severity Reaction type Status Date Reported Comments Source No Known Allergies Drug allergy (disorder) active 9 [facility] SEASONAL ALLERGIES Propensity to adverse reaction (finding) Itching of eye active 3 [facility] TOPAMAX 25MG TABLET Propensity to adverse reactions to drug (finding) Kidney stone active [address] [facility] TOPAMAX 25MG TABLET Propensity to adverse reactions to drug (finding) Kidney stone MODERATE active 3 [facility] Immunizations Combined list of available immunizations from the Department of 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 Immunization Series Date Given Administered By Site Reaction Lot Number CVX Code Drug Window Systems Administrator Status Comments Source TDAP 1 2023 115 complet ed HISTORICA L INFORMATI ON - FROM OTHER [facility], [facility] INFLUENZA, INJECTABLE, MDCK, PRESERVATIVE FREE, QUADRIVALENT 2021 REGGIE TRACEY RIGHT DELTO ID [id number] 171 complet ed ADMINISTE RED AT ME, [facility] INFLUENZA, SEASONAL, INJECTABLE 2 2020 141 complet ed HISTORICA L INFORMATI ON - FROM OTHER REGISTRY, [facility] INFLUENZA, INJECTABLE, QUADRIVALENT, PRESERVATIVE FREE 2020 150 complet ed [facility] INFLUENZA, INJECTABLE, QUADRIVALENT, PRESERVATIVE FREE 2019 150 complet [address] [facility] INFLUENZA, INJECTABLE, QUADRIVALENT 1 2019 158 complet ed HISTORICA L INFORMATI ON - FROM OTHER REGISTRY, [facility] INFLUENZA, INJECTABLE, QUADRIVALENT, PRESERVATIVE FREE 2018 150 complet [address] [facility] INFLUENZA, INJECTABLE, QUADRIVALENT, PRESERVATIVE FREE 2017 150 complet ed [facility] INFLUENZA, INJECTABLE, QUADRIVALENT, PRESERVATIVE FREE 2016 150 complet ed [facility] PNEUMOCOCCAL CONJUGATE PCV 13 2016 133 complet ed [facility] TDAP 2015 115 complet ed Left Deltoid [facility] INFLUENZA, SEASONAL, INJECTABLE, PRESERVATIVE FREE 2014 140 complet ed [facility] PNEUMOCOCCAL POLYSACCHARID E PPV23 2014 33 complet ed [facility] INFLUENZA, UNSPECIFIED FORMULATION 2013 88 complet ed [facility] INFLUENZA, UNSPECIFIED FORMULATION 2010 88 complet [facility] NOVEL INFLUENZA-H1N 1-09, ALL FORMULATIONS 2009 128 complet ed [facility] Novel influenza-H1N 1-09, injectable 1 2008 [id number] 127 [employer]. (NOV) complet ed Novel influenza -L1Y3-96, injectabl e [facility] influenza virus vaccine, live, attenuated, for intranasal use 1 2008 [id number] [employer] (MED) complet influenza virus vaccine, live, attenuate d, for intranasa l use [facility] influenza virus vaccine, split virus (incl. purified surface antigen)-reti red CODE 1 2007 [id number] Unknown (UNK) complet ed influenza virus vaccine, split virus (incl. purified surface antigen)- retired CODE DoD anthrax vaccine 4 2007 UNK 24 Miles (MIL) complet ed anthrax vaccine DoD vaccinia (smallpox) vaccine 1 2007 UNK 75 [facility] complet ed vaccinia (smallpox ) vaccine DoD anthrax vaccine 3 2007 UNK 24 Unknown (UNK) comple t ed anthrax vaccine DoD anthrax vaccine 2 2007 UNK 24 Unknown (UNK) comple t ed anthrax vaccine DoD anthrax vaccine 1 2007 UNK 24 Unknown (UNK) comple t ed anthrax vaccine DoD typhoid Vi capsular polysaccharid e vaccine 1 2007 UNK 101 Unknown (UNK) comple t ed typhoid Vi capsular polysacch aride vaccine DoD influenza virus vaccine, live, attenuated, for intranasal use 1 2006 [id number] Unknown (UNK) comple t ed influenza virus vaccine, live, attenuate d, for intranasa l use DoD hepatitis B vaccine, adult dosage 4 2006 [id number] 43 [employer] (SKB) complet ed hepatitis B vaccine, adult dosage DoD hepatitis A vaccine, adult dosage 2 2006 [id number] Merck (MSD) complet ed hepatitis A vaccine, adult dosage DoD hepatitis A vaccine, adult dosage 1 2006 [id number] Merck (MSD) complet ed hepatitis A vaccine, adult dosage DoD hepatitis B vaccine, adult dosage 3 2006 UNK 43 Unknown (UNK) comple t ed hepatitis B vaccine, adult dosage DoD influenza virus vaccine, split virus (incl. purified surface antigen)-reti red CODE 1 2005 UNK 15 Unknown (UNK) comple t ed influenza virus vaccine, split virus (incl. purified surface antigen)- retired CODE DoD varicella virus vaccine 1 2005 NONE 21 (NON) Not Given varicella virus vaccine DoD hepatitis B vaccine, adult dosage 2 2005 [id number] 43 [employer] (SKB) complet ed hepatitis B vaccine, adult dosage DoD measles, mumps and rubella virus vaccine 1 2005 NONE 03 (NON) Not Given measles, mumps and rubella virus vaccine DoD poliovirus vaccine, inactivated 1 2005 [id number] Sanofi Pasteur (PMC) complet ed polioviru s vaccine, inactivat ed DoD meningococcal polysaccharid e vaccine (MPSV4) 1 2005 [id number] [employer] (AVB) complet ed meningoco ccal polysacch aride vaccine (MPSV4) DoD hepatitis B vaccine, adult dosage 1 2005 [id number] 43 [employer] (SKB) complet ed hepatitis B vaccine, adult dosage DoD tetanus toxoid, reduced diphtheria toxoid, and acellular pertu is vaccine, adsorbed 1 2005 [id number] 115 Sanofi Pasteur (PMC) complet ed tetanus toxoid, reduced diphtheri a toxoid, and acellular pertussis vaccine, adsorbed DoD TDAP 2005 [address] [facility] Results Combined list of recent chemistry, hematology and other laboratory results from Department of Defense and Veterans Affairs, ranging from 15 months to all on record, depending upon the facility. Order Name Results Value Reference Range Date Interpretation Specimen Comments Source COVID-19 DIAGNOST IC (FLU/RSV )(STL) INFLUENZA VIRUS A AG [PRESENCE] IN NASOPHARYN X Negative 11/02 Specimen Type: NASOPHARYNX Comment: Qualitative real-time PCR and RT-PCR to detect viral RNA. A negative result does not preclude infection with the agent(s) tested and should not be used as the sole basis for treatment or other patient management decisions. If negative, but symptoms persist, consider re-testing. Positive results do not rule out bacterial infection or co-infectio n with other viruses. All results must be combined with clinical observation s, patient history, and epidemiolog ical information for final interpretat ion. Ordering Provider: Kelsy FERNANDEZ Report Released Date/Time: Nov 02, 2024 04:41 PM Reporting Lab: [facility] [address] [facility] [id number] Performing Lab: [facility] [address] [facility] [id number] [facility] COVID-19 DIAGNOST IC (FLU/RSV )(STL) INFLUENZA B Negative 11/02 Specimen Type: NASOPHARYNX Comment: Qualitative real-time PCR and RT-PCR to detect viral RNA. A negative result does not preclude infection with the agent(s) tested and should not be used as the sole basis for treatment or other patient management decisions. If negative, but symptoms persist, consider re-testing. Positive results do not rule out bacterial infection or co-infectio n with other viruses. All results must be combined with clinical observation s, patient history, and epidemiolog ical information for final interpretat ion. Ordering Provider: Kelsy FERNANDEZ Report Released Date/Time: Nov 02, 2024 04:41 PM Reporting Lab: [place] [address] [facility] [id number] Performing Lab: [address] [address] [facility] COVID-19 DIAGNOST IC (FLU/RSV )(STL) SARS-COV-2 (COVID-19) RNA [PRESENCE] IN RESPIRATOR Y SYSTEM SPECIMEN BY PERCY WITH PROBE DETECTION Not Detected 11/02 Specimen Type: NASOPHARYNX Comment: Qualitative real-time PCR and RT-PCR to detect viral RNA. A negative result does not preclude infection with the agent(s) tested and should not be used as the sole basis for treatment or other patient management decisions. If negative, but symptoms persist, consider re-testing. Positive results do not rule out bacterial infection or co-infectio n with other viruses. All results must be combined with clinical observation s, patient history, and epidemiolog ical information for final interpretat ion. Ordering Provider: Kelsy FERNANDEZ Report Released Date/Time: Nov 02, 2024 04:41 PM Reporting Lab: [place] [id number] [facility] [address] Performing Lab: [address] [address] [facility] COVID-19 DIAGNOST IC (FLU/RSV )(STL) RESPIRATOR Y SYNCYTIAL VIRUS RNA [PRESENCE] IN RESPIRATOR Y SYSTEM SPECIMEN BY PERCY WITH PROBE DETECTION NEGATIVE 11/02 Specimen Type: NASOPHARYNX Comment: Qualitative real-time PCR and RT-PCR to detect viral RNA. A negative result does not preclude infection with the agent(s) tested and should not be used as the sole basis for treatment or other patient management decisions. If negative, but symptoms persist, consider re-testing. Positive results do not rule out bacterial infection or co-infectio n with other viruses. All results must be combined with clinical observation s, patient history, and epidemiolog ical information for final interpretat ion. Ordering Provider: Kelsy FERNANDEZ Report Released Date/Time: Nov 02, 2024 04:41 PM Reporting Lab: [place] [address] Performing Lab: [address] APTT APTT IN PLATELET POOR PLASMA BY COAGULATIO N ASSAY 32.9 s 26.7 - 39.9 11/02 Specimen Type: PLASMA No comment entered. Ordering Provider: KARSON ULLOA Report Released Date/Time: Nov 02, 2024 05:13 PM Reporting Lab: [place] [address] Performing Lab: [address] BRAIN NATRIURE TIC PEPTIDE NATRIURETI C PEPTIDE B [MASS/VOLU ME] IN SERUM OR PLASMA <10.0pg/ mL 0 - 100 11/02 Specimen Type: PLASMA No comment entered. Ordering Provider: KARSON ULLOA Report Released Date/Time: Nov 02, 2024 05:16 PM Reporting Lab: [place] [address] Performing Lab: [address] CBC LEUKOCYTES [#/VOLUME] IN BLOOD BY AUTOMATED COUNT 7.1 10*3/uL 3.6 - 11.2 11/02 Specimen Type: BLOOD No comment entered. Ordering Provider: KARSON ULLOA Report Released Date/Time: Nov 02, 2024 05:13 PM Reporting Lab: [place] [phone] Performing Lab: [address] [phone] CBC ERYTHROCYT ES [#/VOLUME] IN BLOOD BY AUTOMATED COUNT 5.35 10*6/uL 4.10 - 5.70 11/02 Specimen Type: BLOOD No comment entered. Ordering Provider: KARSON ULLOA Report Released Date/Time: Nov 02, 2024 05:13 PM Reporting Lab: [place] [address] Performing Lab: [address] CBC HEMOGLOBIN [MASS/VOLU ME] IN BLOOD 16.6 g/dL 13.1 - 16.8 11/02 Specimen Type: BLOOD No comment entered. Ordering Provider: KARSON ULLOA Report Released Date/Time: Nov 02, 2024 05:13 PM Reporting Lab: [place] [phone] Performing Lab: [address] [phone] [place] [address] CBC HEMATOCRIT [VOLUME FRACTION] OF BLOOD 47.3 38.2 - 48.4 11/02 Specimen Type: BLOOD No comment entered. Ordering Provider: KARSON ULLOA Report Released Date/Time: Nov 02, 2024 05:13 PM Reporting Lab: [place] [address] [place] [address] Performing Lab: [place] [phone] CBC MCV [ENTITIC VOLUME] BY AUTOMATED COUNT 88.4 fL 80.0 - 100.0 11/02 Specimen Type: BLOOD No comment entered. Ordering Provider: SHUERT,GEOR GE R Report Released Date/Time: Nov 02, 2024 05:13 PM Reporting Lab: [place] [address] [place] [phone] Performing Lab: [address] [phone] [place] [address] CBC MCH [ENTITIC MASS] BY AUTOMATED COUNT 31.0 pg 27.0 - 34.0 11/02 Specimen Type: BLOOD No comment entered. Ordering Provider: KARSON ULLOA Report Released Date/Time: Nov 02, 2024 05:13 PM Reporting Lab: [place] [address] Performing Lab: [place] [phone] CBC MCHC [MASS/VOLU ME] BY AUTOMATED COUNT 35.1 g/dL 33.0 - 36.0 11/02 Specimen Type: BLOOD No comment entered. Ordering Provider: KARSON ULLOA Report Released Date/Time: Nov 02, 2024 05:13 PM Reporting Lab: [place] [address] Performing Lab: [place] [address] [place] [phone] CBC PLATELETS [#/VOLUME] IN BLOOD BY AUTOMATED COUNT 217 10*3/uL 150 - 400 11/02 Specimen Type: BLOOD No comment entered. Ordering Provider: KARSON ULLOA Report Released Date/Time: Nov 02, 2024 05:13 PM Reporting Lab: [place] [address] [place] [phone] Performing Lab: [place] [phone] CBC PLATELET MEAN VOLUME [ENTITIC VOLUME] IN BLOOD BY AUTOMATED COUNT 8.9 fL 7.5 - 11.2 11/02 Specimen Type: BLOOD No comment entered. Ordering Provider: KARSON ULLOA Report Released Date/Time: Nov 02, 2024 05:13 PM Reporting Lab: [place] [address] [facility] [address] Performing Lab: [address] [address] [facility] CBC ERYTHROCYT E DISTRIBUTI ON WIDTH [RATIO] BY AUTOMATED COUNT 12.6 11.8 - 15.1 11/02 Specimen Type: BLOOD No comment entered. Ordering Provider: KARSON ULLOA Report Released Date/Time: Nov 02, 2024 05:13 PM Reporting Lab: [address] [address] Performing Lab: [place] [phone] CBC LYMPHOCYTE S/100 LEUKOCYTES IN BLOOD BY AUTOMATED COUNT 25 11/02 Specimen Type: BLOOD No comment entered. Ordering Provider: KARSON ULLOA Report Released Date/Time: Nov 02, 2024 05:13 PM Reporting Lab: [address] [address] Performing Lab: [place] [phone] [facility] CBC MONOCYTES/ 100 LEUKOCYTES IN BLOOD BY AUTOMATED COUNT 8 11/02 Specimen Type: BLOOD No comment entered. Ordering Provider: KARSON ULLOA Report Released Date/Time: Nov 02, 2024 05:13 PM Reporting Lab: [place] [address] [facility] [address] Performing Lab: [place] [address] [facility] [address] [facility] CBC NEUTROPHIL S/100 LEUKOCYTES IN BLOOD BY AUTOMATED COUNT 65 11/02 Specimen Type: BLOOD No comment entered. Ordering Provider: KARSON ULLOA Report Released Date/Time: Nov 02, 2024 05:13 PM Reporting Lab: [place] [address] [place] [phone] Performing Lab: [place] [address] [facility] [address] [facility] CBC EOSINOPHIL S/100 LEUKOCYTES IN BLOOD BY AUTOMATED COUNT 2 11/02 Specimen Type: BLOOD No comment entered. Ordering Provider: KARSON ULLOA Report Released Date/Time: Nov 02, 2024 05:13 PM Reporting Lab: [place] [address] [facility] [address] Performing Lab: [place] [address] [facility] [address] [facility] CBC BASOPHILS/ 100 LEUKOCYTES IN BLOOD BY AUTOMATED COUNT 0 11/02 Specimen Type: BLOOD No comment entered. Ordering Provider: KARSON ULLOA Report Released Date/Time: Nov 02, 2024 05:13 PM Reporting Lab: [address] [address] Performing Lab: [place] [address] [facility] [address] [facility] CBC LYMPHOCYTE S [#/VOLUME] IN BLOOD BY AUTOMATED COUNT 1.77 10*3/uL 0.77 - 4.50 11/02 Specimen Type: BLOOD No comment entered. Ordering Provider: KARSON ULLOA Report Released Date/Time: Nov 02, 2024 05:13 PM Reporting Lab: [place] [address] [facility] [address] Performing Lab: [address] [address] [facility] CBC MONOCYTES [#/VOLUME] IN BLOOD BY AUTOMATED COUNT 0.58 10*3/uL 0.19 - 0.80 11/02 Specimen Type: BLOOD No comment entered. Ordering Provider: KARSON ULLOA Report Released Date/Time: Nov 02, 2024 05:13 PM Reporting Lab: [address] [address] Performing Lab: [address] [address] [facility] CBC NEUTROPHIL S [#/VOLUME] IN BLOOD BY AUTOMATED COUNT 4.61 10*3/uL 2.10 - 8.00 11/02 Specimen Type: BLOOD No comment entered. Ordering Provider: KARSON ULLOA Report Released Date/Time: Nov 02, 2024 05:13 PM Reporting Lab: [place] [phone] Performing Lab: [place] [phone] CBC EOSINOPHIL S [#/VOLUME] IN BLOOD BY AUTOMATED COUNT 0.11 10*3/uL 0.00 - 0.60 11/02 Specimen Type: BLOOD No comment entered. Ordering Provider: KARSON ULLOA Report Released Date/Time: Nov 02, 2024 05:13 PM Reporting Lab: [place] [phone] Performing Lab: [place] [phone] CBC BASOPHILS [#/VOLUME] IN BLOOD BY AUTOMATED COUNT 0.01 10*3/uL 0.00 - 0.20 11/02 Specimen Type: BLOOD No comment entered. Ordering Provider: KARSON ULLOA Report Released Date/Time: Nov 02, 2024 05:13 PM Reporting Lab: [place] [phone] Performing Lab: [place] [phone] COMPREHE NSIVE METABOLI C PANEL CREATININE [MASS/VOLU ME] IN SERUM OR PLASMA 0.91 mg/dL 0.7 - 1.3 11/02 Specimen Type: PLASMA Comment: No hemolysis noted. Ordering Provider: KARSON ULLOA Report Released Date/Time: Nov 02, 2024 05:13 PM Reporting Lab: [place] [address] [facility] [address] Performing Lab: [place] [address] [address] [facility] [address] [facility] COMPREHE NSIVE METABOLI C PANEL UREA NITROGEN [MASS/VOLU ME] IN SERUM OR PLASMA 15.6 mg/dL 9.0 - 25.0 11/02 Specimen Type: PLASMA Comment: No hemolysis noted. Ordering Provider: KARSON ULLAO Report Released Date/Time: Nov 02, 2024 05:13 PM Reporting Lab: [place] [address] [address] [facility] [address] Performing Lab: [place] [address] [facility] [address] [facility] COMPREHE NSIVE METABOLI C PANEL GLUCOSE [MASS/VOLU ME] IN SERUM OR PLASMA 148 mg/dL 72 - 99 11/02 H Specimen Type: PLASMA Comment: No hemolysis noted. Ordering Provider: KARSON ULLOA Report Released Date/Time: Nov 02, 2024 05:13 PM Reporting Lab: [place] [address] [facility] [address] Performing Lab: [place] [address] [address] [facility] [address] [facility] COMPREHE NSIVE METABOLI C PANEL SODIUM [MOLES/VOL UME] IN SERUM OR PLASMA 137 meq/L 136 - 145 11/02 Specimen Type: PLASMA Comment: No hemolysis noted. Ordering Provider: KARSON ULLOA Report Released Date/Time: Nov 02, 2024 05:13 PM Reporting Lab: [place] [address] [facility] [address] Performing Lab: [place] [address] [facility] [address] [facility] COMPREHE NSIVE METABOLI C PANEL POTASSIUM [MOLES/VOL UME] IN SERUM OR PLASMA 3.3 meq/L 3.5 - 5 11/02 L Specimen Type: PLASMA Comment: No hemolysis noted. Ordering Provider: KARSON ULLOA Report Released Date/Time: Nov 02, 2024 05:13 PM Reporting Lab: [address] [address] Performing Lab: [facility] [address] [facility] [address] [facility] COMPREHE NSIVE METABOLI C PANEL CHLORIDE [MOLES/VOL UME] IN SERUM OR PLASMA 106 meq/L 98 - 107 11/02 Specimen Type: PLASMA Comment: No hemolysis noted. Ordering Provider: KARSON ULLOA Report Released Date/Time: Nov 02, 2024 05:13 PM Reporting Lab: [place] [address] [facility] [address] Performing Lab: [address] [address] [facility] COMPREHE NSIVE METABOLI C PANEL CARBON DIOXIDE, TOTAL [MOLES/VOL UME] IN SERUM OR PLASMA 18 meq/L 22 - 31 11/02 L Specimen Type: PLASMA Comment: No hemolysis noted. Ordering Provider: KARSON ULLOA Report Released Date/Time: Nov 02, 2024 05:13 PM Reporting Lab: [place] [address] [facility] [address] Performing Lab: [place] [address] [facility] [address] [facility] COMPREHE NSIVE METABOLI C PANEL CALCIUM [MASS/VOLU ME] IN SERUM OR PLASMA 9.5 mg/dL 8.4 - 10.4 11/02 Specimen Type: PLASMA Comment: No hemolysis noted. Ordering Provider: KARSON ULLOA Report Released Date/Time: Nov 02, 2024 05:13 PM Reporting Lab: [place] [address] [facility] [address] Performing Lab: [address] [address] [facility] COMPREHE NSIVE METABOLI C PANEL PROTEIN [MASS/VOLU ME] IN SERUM OR PLASMA 7.4 g/dL 6 - 8.6 11/02 Specimen Type: PLASMA Comment: No hemolysis noted. Ordering Provider: KARSON ULLOA Report Released Date/Time: Nov 02, 2024 05:13 PM Reporting Lab: [place] [address] [place] [phone] Performing Lab: [place] [address] [place] [phone] COMPREHE NSIVE METABOLI C PANEL ALBUMIN [MASS/VOLU ME] IN SERUM OR PLASMA 4.5 g/dL 3.4 - 5 11/02 Specimen Type: PLASMA Comment: No hemolysis noted. Ordering Provider: KARSON ULLOA Report Released Date/Time: Nov 02, 2024 05:13 PM Reporting Lab: [place] [address] [place] [address] Performing Lab: [place] [address] [place] [phone] COMPREHE NSIVE METABOLI C PANEL BILIRUBIN. TOTAL [MASS/VOLU ME] IN SERUM OR PLASMA 0.4 mg/dL 0.2 - 1.2 11/02 Specimen Type: PLASMA Comment: No hemolysis noted. Ordering Provider: KARSON ULLOA Report Released Date/Time: Nov 02, 2024 05:13 PM Reporting Lab: [place] [address] [place] [address] Performing Lab: [place] [address] [address] [place] [phone] COMPREHE NSIVE METABOLI C PANEL ALKALINE PHOSPHATAS E [ENZYMATIC ACTIVITY/V OLUME] IN SERUM OR PLASMA 58 U/L 40 - 150 11/02 Specimen Type: PLASMA Comment: No hemolysis noted. Ordering Provider: KARSON ULLOA Report Released Date/Time: Nov 02, 2024 05:13 PM Reporting Lab: [place] [address] [facility] [address] Performing Lab: [place] [address] [facility] [address] [facility] COMPREHE NSIVE METABOLI C PANEL ASPARTATE AMINOTRANS FERASE [ENZYMATIC ACTIVITY/V OLUME] IN SERUM OR PLASMA 22 U/L 5 - 34 11/02 Specimen Type: PLASMA Comment: No hemolysis noted. Ordering Provider: KARSON ULLOA Report Released Date/Time: Nov 02, 2024 05:13 PM Reporting Lab: [place] [address] [facility] [address] Performing Lab: [place] [address] [facility] [address] [facility] COMPREHE NSIVE METABOLI C PANEL ALANINE AMINOTRANS FERASE [ENZYMATIC ACTIVITY/V OLUME] IN SERUM OR PLASMA 26 U/L 8 - 40 11/02 Specimen Type: PLASMA Comment: No hemolysis noted. Ordering Provider: KARSON ULLOA Report Released Date/Time: Nov 02, 2024 05:13 PM Reporting Lab: [place] [address] [facility] [address] Performing Lab: [place] [address] [facility] [address] [facility] COMPREHE NSIVE METABOLI C PANEL GLOMERULAR FILTRATION RATE/1.73 SQ M.PREDICTE D [VOLUME RATE/AREA] IN SERUM, PLASMA OR BLOOD BY CREATININE -BASED FORMULA (CKD-EPI 2020) 110.6 60 11/02 Specimen Type: PLASMA Comment: No hemolysis noted. Ordering Provider: KARSON ULLOA Report Released Date/Time: Nov 02, 2024 05:13 PM Reporting Lab: [address] [address] Performing Lab: [place] [address] [facility] [address] [facility] D-DIMER HS (MA-STL- PB) FIBRIN D-DIMER FEU [MASS/VOLU ME] IN PLATELET POOR PLASMA BY IMMUNOASSA Y <215 <500 - 500 11/02 Specimen Type: PLASMA No comment entered. Ordering Provider: KARSON ULLOA Report Released Date/Time: Nov 02, 2024 05:13 PM Reporting Lab: [address] [address] Performing Lab: [address] [address] [facility] PT/INR NEW ([facility]) PROTHROMBI N TIME (PT) 12.4 s 9.4 - 12.5 11/02 Specimen Type: PLASMA No comment entered. Ordering Provider: KARSON ULLOA Report Released Date/Time: Nov 02, 2024 05:13 PM Reporting Lab: [address] [address] Performing Lab: [address] [address] [facility] PT/INR NEW ([facility]) INR IN PLATELET POOR PLASMA BY COAGULATIO N ASSAY 1.1 {INR} 11/02 Specimen Type: PLASMA No comment entered. Ordering Provider: KARSON ULLOA Report Released Date/Time: Nov 02, 2024 05:13 PM Reporting Lab: [place] [address] [facility] [address] Performing Lab: [address] [address] [facility] TROPONIN I TROPONIN I.CARDIAC [MASS/VOLU ME] IN SERUM OR PLASMA <0.010ng /mL 0 - 0.033 11/02 Specimen Type: PLASMA Comment: No hemolysis noted. Ordering Provider: KARSON ULLOA Report Released Date/Time: Nov 02, 2024 05:13 PM Reporting Lab: [place] [address] [facility] [address] Performing Lab: [address] [address] [facility] SHANNON AB (STL) EXTRACTABL E NUCLEAR AB [PRESENCE] IN SERUM Negative 10/16 Specimen Type: SERUM Comment: A positive result indicates an autoantibod y against one or more of the following antigens: SM, SM/DETAIL MANAGER, Ro/SS-A, La/SS-B, Scl-70, Bree-1. Positive screens will be reflexed to an SHANNON Profile to determine which antibody(s) are present. Ordering Provider: BALBINA SCHMITZ I Report Released Date/Time: Oct 16, 2024 12:45 PM Reporting Lab: [address] [address] Performing Lab: [facility] [address] [facility] [address] [facility] ALDOLASE ALDOLASE [ENZYMATIC ACTIVITY/V OLUME] IN SERUM OR PLASMA 6.4 U/L - 8.1 10/16 Specimen Type: SERUM Comment: [facility] by [facility], [facility], [address] [place] [address] Srikanth Navarro M.D., Ph.D., Director of Laboratorie s , [facility] [id number] Ordering Provider: BALBINA SCHMITZ I Report Released Date/Time: Oct 16, 2024 12:45 PM Reporting Lab: [address] [address] Performing Lab: [address] [facility] Vital Signs Combined list of inpatient and outpatient Vital Signs from Department of Defense and Veterans Affairs, ranging from 12 months to all on record, depending upon the facility. Vital Sign Value Date Comments Source SYSTOLIC BLOOD PRESSURE 107 04/12/2025 09:43:56 [facility] DIASTOLIC BLOOD PRESSURE 69 04/12/2025 09:43:56 [facility] PULSE OXIMETRY 98 04/12/2025 09:43:56 [facility] WEIGHT 198.4 04/12/2025 09:43:56 [facility] BMI 30 kg/m2 04/12/2025 09:43:56 [facility] TEMPERATURE 98.1 04/12/2025 09:43:[address] [facility] PULSE 74 04/12/2025 09:43:56 [facility] Maty [facility] RESPIRATION 16 04/12/2025 09:43:[address] [facility] SYSTOLIC BLOOD PRESSURE 115 02/23/2025 08:04:[address] [facility] DIASTOLIC BLOOD PRESSURE 76 02/23/2025 08:04:[address] [facility] PULSE OXIMETRY 98 02/23/2025 08:04:45 [facility] WEIGHT 219.3 02/23/2025 08:04:45 [facility] BMI 33 kg/m2 02/23/2025 08:04:45 [facility] PAIN 0 02/23/2025 08:04:45 [facility] HEIGHT 68 02/23/2025 08:04:45 [facility] TEMPERATURE 98 02/23/2025 08:04:[address] [facility] PULSE 79 02/23/2025 08:04:45 [facility] RESPIRATION 18 02/23/2025 08:04:[address] [facility] SYSTOLIC BLOOD PRESSURE 111 02/22/2025 14:23:[address] [facility] DIASTOLIC BLOOD PRESSURE 75 02/22/2025 14:23:[address] [facility] PULSE OXIMETRY 97 02/22/2025 14:23:24 [facility] WEIGHT 215.5 02/22/2025 14:23:24 [facility] BMI 33 kg/m2 02/22/2025 14:23:24 [facility] PAIN 5 02/22/2025 14:23:24 [facility] TEMPERATURE 97.8 02/22/2025 14:23:24 [facility] PULSE 90 02/22/2025 14:23:24 [facility] RESPIRATION 16 02/22/2025 14:23:24 [facility] SYSTOLIC BLOOD PRESSURE 131 01/02/2025 13:27:24 [facility] DIASTOLIC BLOOD PRESSURE 76 01/02/2025 13:27:24 [facility] PULSE OXIMETRY 99 01/02/2025 13:27:24 [facility] WEIGHT 223 01/02/2025 13:27:24 [facility] BMI 34 kg/m2 01/02/2025 13:27:[facility] PAIN 6 01/02/2025 13:27[facility] TEMPERATURE 97.7 01/02/2025 13:27:24 [facility] PULSE 77 01/02/2025 13:27:24 [facility] RESPIRATION 20 01/02/2025 13:27:24 [facility] SYSTOLIC BLOOD PRESSURE 143 11/02/2024 16:38:00 [facility] DIASTOLIC BLOOD PRESSURE 81 11/02/2024 16:38:00 [facility] PULSE 92 11/02/2024 16:38:00 [facility] RESPIRATION 16 11/02/2024 16:38:00 [facility] Encounters Combined list of: 1) Encounters from Department of Veterans Affairs facilities going backup to the last 18 months, not all VA inpatient encounters are included; 2) Encounters from the Department of Defense facilities going backup to 280 months. Location Location Details Encounter Type Encounter Number Reason For Visit Attending Provider ADM Date DC Date Status Disposition Source [facility](PES Optometry -Trainee) OUTPATIENT [id number] GERALD PICHARDO 05/21 Released w/o Limitations [facility] Medical [facility](P ES Optomet ry-Alex nee) [facility](BHR Optometry ) OUTPATIENT [id number] routine exam JACE CASILLAS [place] 03/15 Released w/o Limitations [facility](BHR Optomet ry) [facility](BHR Optometry ) OUTPATIENT [id number] [employer] License Exam SHELLFRANCISCO YOU Hari 09/28 Released w/o Limitations [facility](BHR Optomet ry) [facility](BHR Hearing Conservat ion) OUTPATIENT [id number] annual hearing test MAULIK DUKES 01/23 Released w/o Limitations [facility](BHR Hearing Conserv ation) [facility](BHR Hearing Conservat ion) OUTPATIENT [id number] annual hearing test, f/u # 1 MAULIK DUKES 01/23 Released w/o Limitations [facility](BHR Hearing Conserv ation) [facility](L Audiology , [address]) OUTPATIENT [id number] PRE-DEP ZOFIAYMEMIL MCINTOSH 01/29 Released w/o Limitations [facility](L Audiolo gy, Bldg 3766) [facility] OUTPATIENT [id number] 05/08 Released w/o Limitations [facility] OUTPATIENT [id number] 05/10 Released w/o Limitations [facility] OUTPATIENT [id number] 08/10 Released w/o Limitations [facility] OUTPATIENT [id number] 12/25 Released w/o Limitations [facility] OUTPATIENT [id number] 12/26 Released w/o Limitations Theater Facilit y [facility](ZZZ[facility] R Pre/Post Deploymen t) OUTPATIENT [id number] pdp SEGUNDO CORDOBA 03/28 Released w/o Limitations [facility](ZZZ BHR Pre/Pos t Deploym ent) [facility](ZZZ[facility] R Pre/Post Deploymen t) OUTPATIENT [id number] Post Deploym ent Patricki HAMMAD Kat 03/28 Released w/o Limitations [facility](ZZZ BHR Pre/Pos t Deploym ent) [facility] Physical Therapy) OUTPATIENT [id number] reinyeg ration/ TBI POLLO GARCIA*INAC T Y 03/28 Released w/o Limitations [facility] Physica l Therapy ) [facility] Primary Care) OUTPATIENT [id number] meds DONN GROVER 04/05 Released w/o Limitations [facility](R Primary Care) [facility](ZZZ[facility] R Physical Exam) OUTPATIENT [id number] INITIAL TBI EVALUAT ION HERBER COLE FLAKITA 04/23 Released w/o Limitations [facility](ZZZ BHR Physica l Exam) [facility] R Physical Exam) OUTPATIENT [id number] follow- up tbi HERBER KAINASHELY BOGGS 05/07 Released w/o Limitations [facility](ZZ[facility] BHR Physica l Exam) [facility] R Physical Exam) OUTPATIENT [id number] tbi f/up HERBER COLE FLAKITA 05/23 Released w/o Limitations [facility] BHR Physica l Exam) [facility] R Physical Exam) TELE CONSULT [id number] reporti yo an episod e COLE CRAVEN FLAKITA 05/27 [facility](ZZZ BHR Physica l Exam) [facility] Neurology ) OUTPATIENT [id number] BOOKED BY SANDIE TO 6C TROY ZIMMER 05/28 Released w/o Limitations [facility] Neurolo gy) [facility] Neurology ) OUTPATIENT [id number] 1ST EEG SLEEPY. ... sx] TROY ZIMMER 05/30 Released w/o Limitations [facility] [facility]) [facility] ) OUTPATIENT [id number] 2ND EEG ROUTINE TROY ZIMMER 05/31 Released w/o Limitations [facility]) [facility] Emergency Room) OUTPATIENT [id number] 23yo M DRK seizure GABO ZAMBRANO 05/31 Released with Work/Duty Limitations [facility] Emergen [facility] Room) [facility] Neu[facility] ) OUTPATIENT [id number] eeg JORDANTROY Tierney Bonilla 05/31 Released w/o Limitations [facility]) [facility] ) OUTPATIENT [id number] ER called, pt came in after convul josee TROY ZIMMER 05/31 Released w/o Limitations [facility]) [facility]) OUTPATIENT [id number] 23yo M seizure s/vomit ing/spo ts in vision GABO ZAMBRANO 06/03 Released with Work/Duty Limitations [facility] Emer[facility]) [facility] ) TELE CONSULT [id number] er call TROY ZIMMER 06/03 [facility]) [facility] ) OUTPATIENT [id number] per TROY Ortiz 06/07 Released w/o Limitations [facility]) [facility] ADMISSION RESULTING FROM [facility], DIRECT TO MIF [id number] ARELI MCMILLAN 06/09 RETURNED TO DUTY [facility] ) TELE CONSULT [id number] pt in [place] hospita TROY ZIMMER 06/10 [facility]) [facility] Nutrition Care) INPATIENT [id number] Nutriti on Evaluat ELIANE Sheffield 06/14 Inpatient- Still a Patient [facility] Nutriti on Care) [facility] DIRECT TO MIF FROM OTHER THAN ER OR APU [id number] JANELLE EDOUARD 06/16 RETURNED TO DUTY [facility] D. D. Shavonenhjanicee r [facility] DIRECT TO MIF FROM OTHER THAN ER OR APU [id number] ELIANE TEIXEIRA 06/17 RETURNED TO DUTY DTerrie Faria. Samuel [facility] [place] DTerrie Pachecoe r [facility] [place](Nutrit ion) INPATIENT [id number] INITIAL SCREEN DELANEY BARBER 06/18 Inpatient- Still a Patient D. D. Shavonamira [facility] [place](Nutr [place]ion) D. Dariel Pachecoe r [facility](Occupa tional Therapy) INPATIENT [id number] r/o convers ion d/o, pseudos PRITESH Jackman 06/19 Inpatient- Still a Patient D. D. Samuel [facility] [place](Occu pationa [place] Therapy ) DTerrie Bowser r [facility](Occupa tional Therapy) INPATIENT [id number] PRITESH Ren 06/19 Inpatient- Still a Patient D. D. Samuel [facility] [place](Occu pationa [place] Therapy ) DTerrie Bowser r [facility](Occupa tional Therapy) INPATIENT [id number] PRITESH Ren 06/19 Inpatient- Still a Patient D. D. Shavonamira [facility] (Occu pationa l Therapy ) DTerrie Bowser r [facility](Occupa tional Therapy) INPATIENT [id number] PRITESH Ren 06/21 Inpatient- Still a Patient D. D. Samuel [facility] [place](Occu pationa [place] Therapy ) DTerrie Bowser r [facility](Sleep Disorder) INPATIENT [id number] insuffi tito sleep PRITESH VANCE 06/21 Inpatient- Still a Patient D. D. Samuel [facility] [place](Slee p Disorde [place]) DTerrie Bowser r [facility](Occupa tional Therapy) INPATIENT [id number] psych PRITESH ALSTON 06/21 Inpatient- Still a Patient D. D. Samuel [place] ) Dariel Bowser [place]) OUTPATIENT [id number] initial KALEN Orantes 06/24 Released with Work/Duty Limitations Dariel Carrascoo [place]) Dariel Bowser [place]) INPATIENT [id number] see SHANIA Tamez 06/25 Inpatient- Intermediate Care Facility Dariel christiansen [place] [facility]) Dariel Bowser [place]) OUTPATIENT [id number] In-Proc ess/ [facility] ESDRAS MUNSON 06/25 Released w/o Limitations [place]en [place]) Dariel weaver [place]) OUTPATIENT [id number] [facility] ESDRAS RAMEY 06/27 Released w/o Limitations Dariel christ[place]en [place]) Dariel Bowser [place]) OUTPATIENT [id number] [facility] ESDRAS RAMEY 06/27 Released w/o Limitations Dariel christ[place]en [place]) Dariel Bowser [place] [place]) OUTPATIENT [id number] SHANIA PATEL 06/28 Released with Work/Duty Limitations Dariel christiansen [place] [facility]) Dariel Bowser [place]) OUTPATIENT [id number] ER f/u RICKY BELL 06/28 Released w/o Limitations Dar[place]en [place]) Dariel Bowser [place]([facility] try [facility]) OUTPATIENT [id number] eye exam GWENDOLYN CALLAHAN S 07/01 Released w/o Limitations Dariel christiansen [place](Opto metry [facility]) Dariel Bowser [place] [facility]([facility] [employer]) OUTPATIENT [id number] [place] weekly f/u. AMANDASHANIA CISSE A 07/02 Released with Work/Duty Limitations Dariel Baker [place]([facility] /[employer] [employer] ion) Dariel Bowser [place]([facility]) OUTPATIENT [id number] flu like symptom s YOUSUF ROGERS 07/03 Released with Work/Duty Limitations Dariel christiansen [place]([facility]) Dariel weaver [place] [facility](Occupa tional Therapy) OUTPATIENT [id number] JARON CASH 07/04 Released w/o Limitations Dariel christiansen [place](Occu pationa l Therapy ) Dariel Bowser [place] [facility]([facility] [employer]) OUTPATIENT [id number] [facility] weekly f/u. SHANIA PATEL 07/10 Released with Work/Duty Limitations Dariel christiansen [place]([facility] /[employer] In [employer] ion) Dariel Bowser [place]([facility]) OUTPATIENT [id number] medicat ion refill YOUSUF ROGERS 07/10 Released with Work/Duty Limitations Dariel christiansen [place]([facility]) Dariel Bowser r [facility](Neurol ogy) OUTPATIENT [id number] Convers ion disorde r NARGIS NORWOOD 07/12 Released w/o Limitations [place] christiansen [place](Neur ology) Dariel Bowser r [facility] [employer] n) OUTPATIENT [id number] SHANIA PATEL 07/15 Released with Work/Duty Limitations Dariel Carrascoo [place] [facility]) Dariel Pachecoe [place]) OUTPATIENT [id number] severe headach es YOUSUF ROGERS R 07/16 Released with Work/Duty Limitations Dariel Carrascoo [place]) Dariel Pachecoe [place](Neurol [place]gy) OUTPATIENT [id number] JASWINDER KNOX 07/18 Released w/o Limitations Dariel Carrascoo [place](Neur ology) Dariel Pachecoe [place] [employer] [facility]) OUTPATIENT [id number] [facility] weekly f/uSHANIA WEAVER 07/23 Released with Work/Duty Limitations Dariel Carrascoo [place] [facility] [employer] ion) Dariel Pachecoe [place] [employer]) OUTPATIENT [id number] [facility] update. SHANIA PATEL 07/24 Released with Work/Duty Limitations Dariel Carrascoo [place] [facility] [employer] [place]) Dariel Pachecoe [place]) OUTPATIENT [id number] FLU ESDRAS OLVERA 07/24 Released w/o Limitations Dariel Carrascoo [place]) Dariel Sandsenhjanicee [place] [place] [employer]) OUTPATIENT [id number] [facility] f/uSHANIA WEAVER 07/26 Released with Work/Duty Limitations Dariel Sandsenho [place] [facility] [employer] [place]) Dariel Vieira Eisenhowe [place] [employer]) OUTPATIENT [id number] SHANIA PATEL 07/30 Released with Work/Duty Limitations Dariel Carrascoo [place] [facility]) Dariel Pachecoe [place]) OUTPATIENT [id number] profile for YOUSUF Sanchez 07/30 Released with Work/Duty Limitations Dariel Carrascoo [place]) Dariel Pachecoe [place]([employer] [facility]) OUTPATIENT [id number] CHELSIE GWENDOLYN CALLAHAN Krishna 07/30 Released w/o Limitations Dariel Carrascoo [place]([employer] [facility]) Dariel Pachecoe [place] [place] [facility] [employer] [facility] OUTPATIENT [id number] SHANIA PATEL 08/05 Released with Work/Duty Limitations Dariel Carrascoo [place] [facility]) Dariel Pachecoe [place]) OUTPATIENT [id number] [facility] RICKY BELL 08/07 Released w/o Limitations Dariel Carrascoo [place]) Dariel Bowser [place] [employer]) OUTPATIENT [id number] [facility] weekly care plan. SHANIA PATEL 08/13 Released with Work/Duty Limitations Dariel Carrascoo [place] [facility]) Dariel Bowser [place](Medica l Exam Paty) OUTPATIENT [id number] meb/tor res TATIANA PIPER N 08/14 Released w/o Limitations Dariel Carrascoo [place](Medi cayla Exam Moore y) Dariel Pachecoe [place] [employer]) OUTPATIENT [id number] [facility] weekly f/u. SHANIA PATEL 08/19 Released with Work/Duty Limitations Dariel christiansen [place] [facility]) Dariel Bowser [place] [facility](Medica l Exam Paty) OUTPATIENT [id number] meb/tor res TATIANA PIPER 08/19 Released w/o Limitations Dariel christiansen [facility](Medi cayla Exam Moore y) Dariel Bowser [place]([facility] Occupatio nal Therapy) OUTPATIENT [id number] TBI GWOT initial SKYLER MO 08/22 Released w/o Limitations Dariel christiansen [facility] [place]([facility] Occupat ional Therapy ) Dariel weaver [facility]) OUTPATIENT [id number] f/u after ER/sezi ers YOUSUF ROGERS 08/23 Released with Work/Duty Limitations Dariel christiansen [facility]) Dariel Bowser r [facility] [place]([facility] Occupatio nal Therapy[place] OUTPATIENT [id number] SKYLER MO 08/26 Released w/o Limitations Dariel christiansen [facility](TBI Occupat ional Therapy ) Dariel weaver [facility](GW[facility]/W arrior In Transitio n) OUTPATIENT [id number] NCM weekly f/u SHANIA PATEL 08/28 Released with Work/Duty Limitations Dariel christiansen [facility]([facility] [facility] ion) Dariel Boswer r [facility] [place]([facility] [employer]) OUTPATIENT [id number] NCM weekly f/u. SHANIA PATEL 09/06 Released with Work/Duty Limitations Dariel Baker [facility] [place]) Dariel Bowser r [facility] [place]([facility] Occupatio nal Therapy) OUTPATIENT [id number] initial MARY KAY ROBLERO 09/09 Released w/o Limitations Dariel Baker [facility] [place]([facility] Occupat ional Therapy ) Dariel weaver [place] [facility](TBI Occupatio nal Therapy) OUTPATIENT [id number] TBI GWOT f/u Gym 5 MARY KAY ROBLERO 09/12 Released w/o Limitations Dariel christiansen [facility](TBI Occupat ional Therapy ) Dariel weaver [facility](GWOT/W arrior In Transitio n) OUTPATIENT [id number] [facility] weekly f/u. SHANIA PATEL 09/13 Released with Work/Duty Limitations Dariel christiansen [facility](GWOT /Warrio r In Transit ion) Dariel weaver [facility](TBI Occupatio nal Therapy) OUTPATIENT [id number] TBI GWOT f/u Bowling MARY KYA ROBLERO 09/13 Released w/o Limitations Dariel christiansen [facility](TBI Occupat ional Therapy ) Dariel weaver [facility](TBI Occupatio nal Therapy) OUTPATIENT [id number] TBI GWOT biofeed back f/u SKYLER MO B 09/16 Released w/o Limitations Dariel christiansen [facility](TBI Occupat ional Therapy ) Dariel weaver [place] [facility](TBI Occupatio nal Therapy) OUTPATIENT [id number] TBI GWOT f/u Gym 5 MARY KAY ROBLERO 09/17 Released w/o Limitations Dariel christiansen [facility](TBI Occupat ional Therapy ) Dariel weaver [place] [facility](TBI Occupatio nal Therapy) OUTPATIENT [id number] TBI GWOT f/u Gym 5 MARY KAY ROBLERO 09/18 Released w/o Limitations Dariel christiansen [place] [facility](TBI Occupat ional Therapy ) Dariel weaver [place] [facility](TBI Occupatio nal Therapy) OUTPATIENT [id number] TBI GWOT f/u Gym 5 MARY KAY ROBLERO 09/19 Released w/o Limitations Dariel christiansen [facility] [place]([facility]BI Occupat ional Therapy ) Dariel weaver [facility] [place]([facility] In [place]io [place]) OUTPATIENT [id number] [facility] weekly f/u. SHANIA PATEL 09/19 Released with Work/Duty Limitations Dariel christiansen [facility] [place] [facility] In [place]) Dariel weaver [facility] [place]) OUTPATIENT [id number] headach e 6-7 out of ten YOUSUF ROGERS R 09/19 Released with Work/Duty Limitations Dariel christiansen [facility]) Dariel weaver [facility] [place]([facility] Occupatio nal Therapy) OUTPATIENT [id number] TBI GWOT f/u Gym 5 MARY KAY ROBLERO 09/20 Released w/o Limitations Dariel christiansen [facility] [place]([facility] Occupat ional Therapy ) Dariel weaver [facility] [place]([facility] Occupatio [facility]al Therapy) OUTPATIENT [id number] TBI GWOT f/u Bowling MARY KAY ROBLERO 09/20 Released w/o Limitations Dariel christiansen [facility] [place]([facility] Occupat ional Therapy ) Dariel weaver [facility] [place]([facility] Occupatio nal Therapy) OUTPATIENT [id number] TBI GWOT f/u Gym 5 MARY KAY ROBLERO 09/23 Released w/o Limitations Dariel christiansen [facility] [place]([facility]BI Occupat ional Therapy ) Dariel weaver [facility] [place]([facility] In [place]) OUTPATIENT [id number] [facility] weekly f/u. SHANIA PATEL 09/23 Released with Work/Duty Limitations Dariel Baker [facility] [place] In [place] ion) Dariel weaver [facility] [place]([facility] Occupatio nal Therapy) OUTPATIENT [id number] TBI GWOT f/u Gym 5 MARY KAY ROBLERO 09/24 Released w/o Limitations Dariel christiansen [place] [facility](TBI Occupat ional Therapy ) Dariel weaver [place] [facility](TBI Occupatio nal Therapy) OUTPATIENT [id number] TBi GWOT biofeed back f/u CHEPE SKYLER Kaiden 09/30 Released w/o Limitations Dariel christiansen [place] [facility](TBI Occupat ional Therapy ) Dariel weaevr [place] [facility](GW[facility]/W arrior In Transitio n) OUTPATIENT [id number] [facility] weekly f/u. SHANIA PATEL 10/01 Released with Work/Duty Limitations Dariel christiansen [facility](GWOT /Warrio r In Transit ion) Dariel weaver [place] [facility](TBI Occupatio nal Therapy) OUTPATIENT [id number] TBI GWOT f/u Gym 5 MARY KAY ROBLERO 10/02 Released w/o Limitations Dariel christiansen [place] [facility](TBI Occupat ional Therapy ) Dariel weaver [place] [facility](TBI Occupatio nal Therapy) OUTPATIENT [id number] TBI GWOT f/u Gym 5 MARY KAY ROBLERO 10/03 Released w/o Limitations Dariel christiansen [place] [facility](TBI Occupat ional Therapy ) Dariel weaver [place] [facility](TBI Occupatio nal Therapy) OUTPATIENT [id number] TBI GWOT f/u Gym 5 MARY KAY ROBLERO 10/04 Released w/o Limitations Dariel christiansen [place] [facility](TBI Occupat ional Therapy ) Dariel weaver [place] [facility](TBI Occupatio nal Therapy) OUTPATIENT [id number] TBI GWOT group Gym 5 MARY KAY ROBLERO 10/07 Released w/o Limitations Dariel christiansen [place] [facility](TBI Occupat ional Therapy ) Dariel weaver [place] [facility](TBI Occupatio nal Therapy) OUTPATIENT [id number] TBI GWOT f/u Gym 5 [facility] Released w/o Limitations Dariel christiansen [place]([facility] Occupat ional Therapy ) Dariel weaver [place]([facility] In Transitio n) OUTPATIENT [id number] [facility] weekly f/u. SHANIA PATEL 10/08 Released with Work/Duty Limitations Dariel christiansen [place] In [place] ion) Dariel weaver [place]) OUTPATIENT [id number] med refill/ back pain júnioral YOUSUF ROGERS 10/08 Released with Work/Duty Limitations Dariel christiansen [place]) Dariel weaver [place]([facility]BI Occupatio nal Therapy) OUTPATIENT [id number] TBI GWOT f/u Gym 5 [facility] 10/09 Released w/o Limitations Dariel christiansen [place]([facility]BI Occupat ional Therapy ) Dariel weaver [place] [facility](TBI Occupatio nal Therapy) OUTPATIENT [id number] TBI GWOT group Gym 5 [facility] Oglesby 10/14 Released w/o Limitations Dariel christiansen [place]([facility]BI Occupat ional Therapy ) Dariel weaver [place](TBI Occupatio nal Therapy) OUTPATIENT [id number] TBI GWOT 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 SHANIA PATEL 10/16 Released with Work/Duty Limitations Dariel christiansen [place] In [place] ion) Dariel weaver [place]([facility]BI Occupatio nal Therapy) OUTPATIENT [id number] TBI GWOT group Gym 5 MARY KAY ROBLERO 10/16 Released w/o Limitations Dariel christiansen [place] MEEKA(TBI Occupat ional Therapy ) Dariel weaver [place]MEKA([facility]) OUTPATIENT [id number] back pain KALEN ASKEW 10/17 Released with Work/Duty Limitations Dariel christiansen [facility]) Dariel weaver [facility] (TBI Occupatio nal Therapy) OUTPATIENT [id number] TBI GWOT group Gym 5 MARY KAY SHAH 10/17 Released w/o Limitations Dariel christiansen [facility] [place]KA(TBI Occupat ional Therapy ) Dariel weaver [facility] [place](GWOT/W arrior In Transitio n) OUTPATIENT [id number] [facility] weekly f/uSHANIA WEAVER 11/04 Released with Work/Duty Limitations Dariel christiansen [facility] [place](GWOT /Warrio r In Transit ion) Dariel weaver [place] [facility](TBI Occupatio nal Therapy) OUTPATIENT [id number] TBI GWOT group [facility] MARY KAY ROBLERO 11/06 Released w/o Limitations Dariel christiansen [place] [facility](TBI Occupat ional Therapy ) Dariel weaver [place] [facility](TBI Occupatio nal Therapy) OUTPATIENT [id number] TBI GWOT group Gym 5 MARY KAY ROBLERO 11/07 Released w/o Limitations Dariel christiansen [facility] [place]KA(TBI Occupat ional Therapy ) Dariel weaver [place] [facility](TBI Occupatio nal Therapy) OUTPATIENT [id number] TBI GWOT group Gym 5 MARY KAY ROBLERO 11/08 Released w/o Limitations Dariel christiansen [place] [facility](TBI Occupat ional Therapy ) Dariel weaver [place] [facility](TBI Occupatio nal Therapy) OUTPATIENT [id number] TBI GWOT group Gym MARY KAY ROBLERO Davis Albarran 11/11 Released w/o Limitations Dariel christiansen [place] [facility](TBI Occupat ional Therapy ) Dariel weaver [place] [facility](GWOT/W arrior In Transitio n) OUTPATIENT [id number] [facility] weekly f/u. SHANIA PATEL 11/12 Released with Work/Duty Limitations Dariel christiansen [place] [facility](GWOT /Warrio r In Transit ion) Dariel weaver [place] [facility](TBI Occupatio nal Therapy) OUTPATIENT [id number] TBI GWOT group Gym TIERRA ROBLEROPINA Albarran 11/12 Released w/o Limitations Dariel christiansen [place] [facility](TBI Occupat ional Therapy ) Dariel weaver [place] [facility](TBI Occupatio nal Therapy) OUTPATIENT [id number] TBI GWOT group Gym OSBALDOMARY KAY 11/13 Released w/o Limitations Dariel christiansen [place] [facility](TBI Occupat ional Therapy ) Dariel weaver [place] [facility](TBI Occupatio nal Therapy) OUTPATIENT [id number] TBI GWOT group Gym OSBALDO MARY KAY R J 11/14 Released w/o Limitations Dariel christiansen [place] [facility](TBI Occupat ional Therapy ) Dariel weaver [place] [facility](TBI Occupatio nal Therapy) OUTPATIENT [id number] TBI GWOT group Gym PETERMARY KAY 11/15 Released w/o Limitations Dariel christiansen [place] [facility](TBI Occupat ional Therapy ) Dariel weaver [place] [facility](Physic al Therapy [facility]) OUTPATIENT [id number] PRITESH BOWERS 11/19 Released w/o Limitations Dariel christiansen [place] [facility](Phys ical Therapy [facility]) Dariel weaver [place] [facility](GWOT/W arrior In Transitio n) OUTPATIENT [id number] NCM weekly f/u. SHANIA PATEL 11/19 Released with Work/Duty Limitations Dariel christiansen [place] /Warrio r In Transit ion) Dariel weaver [place](TBI Occupatio nal Therapy) OUTPATIENT [id number] TBI GWOT group Gym 5 [facility] 11/21 Released w/o Limitations Dariel christiansen [place](TBI Occupat ional Therapy ) Dariel weaver [place]/W arrior In Transitio n) OUTPATIENT [id number] NCM weekly f/u. SHANIA PATEL 11/26 Released with Work/Duty Limitations Dariel christiansen [facility] [place](GW[place] /Warrio r In Transit ion) Dariel weaver [facility] [place](GW[place]/W arrior In Transitio n) OUTPATIENT [id number] [place] weekly f/u. SHANIA PATEL 11/27 Released with Work/Duty Limitations Dariel christiansen [place](GW[place] /Warrio r In Transit ion) Dariel weaver [facility](TBI Occupatio nal Therapy) OUTPATIENT [id number] TBI GWOT group Gym 5 [facility] 11/28 Released w/o Limitations Dariel christiansen [place] [facility](TBI Occupat ional Therapy ) Dariel weaver [place] [facility]) OUTPATIENT [id number] kidney stone symptom s/pain KALEN ASKEW 11/28 Released w/o Limitations Dariel christiansen [place] [facility]) Dariel weaver [place] [facility](TBI Occupatio nal Therapy) OUTPATIENT [id number] TBI GWOT group Gym 5 CARLOS AMARY KAY Oglesby 11/29 Released w/o Limitations Dariel christiansen [place] [facility](TBI Occupat ional Therapy ) Dariel weaver [place]/W arrior In Transitio n) OUTPATIENT [id number] [facility] f/u after SHANIA Hampton 11/29 Released with Work/Duty Limitations Dariel christiansen [place] [place] [place] [employer]) [place] weaver [place]([facility]) OUTPATIENT [id number] f/u CT Scan results KALEN ASKEW 12/02 Released with Work/Duty Limitations [place]en [place]([facility]) Dariel weaver [place](Physic al Therapy [facility]) OUTPATIENT [id number] f/u PRITESH CALLAHAN 12/03 Released w/o Limitations Dariel christiansen [place] [place](Phys ical Therapy [facility]) [place]iel weaver [place] [place] [employer]) OUTPATIENT [id number] [facility] weekly f/u. SHANIA PATEL 12/03 Released with Work/Duty Limitations [place] christ[place]en [place] [employer]) Dariel weaver [place](Physic al Therapy [facility]) OUTPATIENT [id number] per/DEANGELO Sauer i 12/04 Released with Work/Duty Limitations Dariel christiansen [place](Phys ical Therapy [facility]) [place]iel [place]([facility]) OUTPATIENT [id number] TBI GW[employer] group Gym 5 MARY KAY ROBLERO 12/04 Released w/o Limitations Dariel christiansen [place]([facility] Occup[facility] ional [facility] ) Dariel weaver [place]([facility]) OUTPATIENT [id number] TBI GWOT initial , FRP Eval per SHAGGY Nelson 12/05 Released w/o Limitations Dariel christiansen [place] [place]([facility]) [place]iel weaver [place](Physic al Therapy [facility]) OUTPATIENT [id number] f/u PRITESH CALLAHAN 12/06 Released w/o Limitations Dariel christiansen [place] [place](Phys ical Therapy [facility]) Dariel Bowser [place] [place](Physic al Therapy [facility]) OUTPATIENT [id number] KEATON Amor 12/09 Released w/o Limitations Dariel christiansen [place] [place](Phys ical Therapy [facility]) Dariel Bowser [place] [place] [employer]) OUTPATIENT [id number] [facility] weekly f/u. SHANIA PATEL 12/09 Released with Work/Duty Limitations [place]iel christiansen [place] [place]) Dariel Bowser [place]([facility] Occup[facility] nal Therapy) OUTPATIENT [id number] TBI GW[employer] group Gym 5 MARY KAY ROBLERO 12/10 Released w/o Limitations Dariel christiansen [place] [place]([facility] Occupat ional Therapy ) Dariel Bowser [place](Physic al Therapy [facility]) OUTPATIENT [id number] f/u PRITESH CALLAHAN 12/11 Released w/o Limitations Dariel christiansen [place] [place](Phys ical Therapy [facility]) [place]iel weaver [place]([facility] Occup[facility] nal Therapy) OUTPATIENT [id number] TBI GWOT group Gym 5 MARY KAY ROBLERO 12/12 Released w/o Limitations Dariel christiansen [place]([facility] Occupat ional Therapy ) Dariel Bow[place] [place]) OUTPATIENT [id number] [place] weekly f/u. SHANIA PATEL 12/18 Released with Work/Duty Limitations Dar[place] christ[place]en [place] [place]) [place]([facility]) OUTPATIENT [id number] kidney stone pain/f/ u seen in emergen cy room 12/16 KALEN ASKEW 12/18 Sick at Home/Quarter s Dariel christ[place]en [place]([facility]) Dariel Pachecoe r [place] [place] [employer]) OUTPATIENT [id number] NCM weekly f/u SHANIA PATEL A 12/23 Released with Work/Duty Limitations [facility] [place]) Dariel [place]coe [place](Physic al Therapy [facility]) OUTPATIENT [id number] rehab RUFUSKEATON MAYER 12/23 Released with Work/Duty Limitations Dariel Baker [facility] [place](Phys ical Therapy [facility]) [place]iel [place]([facility]) OUTPATIENT [id number] kidney stones KALEN ASKEW 12/23 Sick at Home/Quarter s Dariel Baker [facility] [place]) Dariel Bowser [place](Physic al Therapy [facility]) OUTPATIENT [id number] f/u PRITESH CALLAHAN 12/25 Released w/o Limitations Dariel Baker [facility] [place](Phys ical Therapy [facility]) Dariel Bowser [place](Physic al Therapy [facility]) OUTPATIENT [id number] rehab KEATON HOOPER 12/27 Released with Work/Duty Limitations Dariel Baker [facility] [place](Phys ical Therapy [facility]) Dariel Bowser [place] [place] In [employer]) OUTPATIENT [id number] NCM weekly f/u. SHANIA PATEL 01/01 Released with Work/Duty Limitations Dariel Baker [facility] [place]) Dariel Sandsenhjanicee r [place]([facility]) OUTPATIENT [id number] medicat ion/fin al eval/ou tprocHANNA Aldrich 01/01 Released w/o Limitations Dariel christiansen [place] Mark HENDRICK[place]([facility]) Dariel weaver [facility] [employer] HENDRICKSON(Soldie r Readiness Procedure ) OUTPATIENT [id number] PDHRA, PPD SHAGGY BOOKER 01/06 Released w/o Limitations Dariel christiansen [facility] HENDRICKSON(Sold ier Readine ss Procedu re) Dariel weaver [facility] [employer] [place](GW[employer]/W arrior In Transitio n) OUTPATIENT [id number] [facility] NCM follow up SHANIA PATEL A 01/07 Released with Work/Duty Limitations Dariel christiansen [facility] [employer] [place]ICK[place](GWOT /Warrio r In Transit ion) Dariel weaver [facility] [employer] [place](Neurol ogy) OUTPATIENT [id number] NARGIS NORWOOD 01/09 Released w/o Limitations Dariel christiansen [facility] [place](Neur ology) [facility] Outpatient Encounter [id number] [id number] 11/24 [facility] KO ADJ JNT POS R SUP PRE DIRECTOR FINANCIAL ANALYSIS [id number] [id number] Diagnos is: ICD-10- CM Z46.89 Encount er for fitting and adjustm ent of oth devices ABRAHAM ARTIS 11/30 [facility] Outpatient Encounter [id number] [id number] 12/02 [facility] Outpatient Encounter 30124-2.65 [id number] 12/[address] 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 Outpatient Encounter 35539-6.65 [id number] 01/[address] [facility] Outpatient Encounter [id number] [id number] 01/[address] [facility] QNHP OL DIG ASSMT&MGMT 5-10 96235-2.65 [id number] 2 Diagnos is: ICD-10- CM G43.009 Migrain e w/o aura, not intract able, w/o status migrain osus LILIYA SULLIVAN HY D 01/[address] [facility] Outpatient Encounter [id number] [id number] 01/18 [facility] OFFICE O/P EST LOW 20 MIN 91334-2.65 [id number] Diagnos is: ICD-10- CM F32.A Depress ion, unspeci fied VAMSI CHILDERS RA I 01/20 [facility] Outpatient Encounter 68810-2.65 [id number] Francisco WELCH 01/[address] [facility] Outpatient Encounter [id number] [id number] 01/27 [facility] OT EVAL LOW COMPLEX 30 MIN 22644-0.65 [id number] Diagnos is: ICD-10- CM M79.642 Pain in left hand TRACEY BUTTS 01/30 [facility] Outpatient Encounter 67410-4.65 [id number] 02/[address] [facility] Outpatient Encounter 72512-5.65 [id number] JÚNIOR HOLLEY L 02/[address] [facility] Outpatient Encounter 82648-1.65 [id number] JÚNIOR HOLLEY L 02/[address] [facility] Outpatient Encounter 14485-6.65 [id number] 02/[address] [facility] Outpatient Encounter 02353-9.65 [id number] 02/[address] [facility] Outpatient Encounter 04363-2.65 [id number] 02/[address] 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 Outpatient Encounter 98128-2.65 [id number] 02/[address] [facility] Outpatient Encounter 83994-8.65 [id number] 02/27 [facility] OFFICE O/P EST MOD 30 MIN 79867-3.65 [id number] Diagnos is: ICD-10- CM J44.9 Chronic obstruc tive pulmona ry disease , unspeci Bonilla Burk B 02/27 [facility] OFFICE O/P EST HI 40 MIN 30777-0.65 [id number] Diagnos is: ICD-10- CM E55.9 Vitamin D deficie ncy, unspeci frannie ASHANTI,MON U 03/01 [facility] OT RE-EVAL EST PLAN CARE 96302-3. 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 QNHP OL DIG ASSMT&MGMT 5-10 00191-6.65 [id number] Diagnos is: ICD-10- CM J44.9 Chronic obstruc tive pulmona ry disease , unspeci fied Hari LY NEERAJFrancisco A 03/15 [facility] OFFICE O/P EST MOD 30 MIN 21465-3.65 [id number] Diagnos is: ICD-10- CM N20.0 Calculu s of kidney TED CASTILLO S 03/17 [facility] OFFICE O/P EST LOW 20 MIN 42333-8.65 [id number] Diagnos is: ICD-10- CM M25.561 Pain in right knee EMILIASINANDARLIN PEREZ A 03/31 [facility] HLTH&WB COACHING INDIV 1ST 90248-7.65 [id number] Diagnos is: ICD-10- CM 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 FELICIANO Hairston 04/06 [facility] Outpatient Encounter 53637-3.65 [id number] 04/07 [facility] Outpatient Encounter 92439-5.65 [id number] 04/18 [facility] OFFICE O/P EST MOD 30 MIN 63737-4.65 [id number] Diagnos is: ICD-10- CM F32.A Depress ion, unspeci VAMSI Burns RA I 04/24 [facility] Outpatient Encounter 18200-0.65 [id number] ASIA HANNAH S 05/05 [facility] OFFICE O/P EST LOW 20 MIN 55655-9.65 [id number] Diagnos is: ICD-10- CM M25.561 Pain in right knee GONZÁLEZ NIETO 06/02 [facility] Outpatient Encounter [id number] [id number] 06/[address] [facility] Outpatient Encounter 34975-9.65 [id number] 06/05 [facility] OFFICE O/P EST MOD 30 MIN 33319-0.65 [id number] Diagnos is: ICD-10- CM H53.19 Other subject alex visual disturb ances MANI GROSS 06/12 [facility] Outpatient Encounter 87925-5.65 [id number] Marquis FRAGA 06/19 [facility] OFFICE O/P EST LOW 20 MIN 79593-1.65 [id number] Diagnos is: ICD-10- CM F32.A Depress ion, unspeci VAMSI Burns RA I 06/23 [facility] Outpatient Encounter 82864-2.65 [id number] 07/[address] [facility] Outpatient Encounter 64821-5.65 [id number] ALIYAHHari PICKARDFrancisco Francisco 08/[address] [facility] OFFICE O/P EST HI 40 MIN 49529-5.65 [id number] Diagnos is: ICD-10- CM J44.9 Chronic obstruc tive pulmona ry disease , unspeci fied AINSLEY,TER RI 08/[address] 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 Outpatient Encounter 69423-9.65 [id number] 09/[address] [facility] Outpatient Encounter 13279-7.65 [id number] 09/[address] [facility] OFFICE O/P EST LOW 20 MIN 42713-4.65 [id number] Diagnos is: ICD-10- CM N20.0 Calculu s of kidney TED CASTILLO S 09/[address] [facility] Outpatient Encounter 00657-1.65 [id number] 09/[address] [facility] Outpatient Encounter 39107-0.65 [id number] 09/[address] 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 MEASURE BLOOD OXYGEN LEVEL 05439-6.65 [id number] 0 Diagnos is: ICD-10- CM J44.9 Chronic obstruc tive pulmona ry disease , unspeci fied ML BARAHONA ARU CAJAL 10/[address] [facility] OFFICE O/P EST MOD 30 MIN 19965-0.65 [id number] Diagnos is: ICD-10- CM J44.9 Chronic obstruc tive pulmona ry disease , unspeci fied AINSLEY,TER RI 10/[address] [facility] Outpatient Encounter 61476-1.65 [id number] 10/17 [facility] PSYCH DIAG EVAL W/MED SRVCS 93226-5. [id number] Diagnos is: ICD-10- CM F43.12 Post-tr aumatic stress disorde r, chronic LONNY,SHAGGY D 10/18 [facility] Outpatient Encounter 43472-0. [id number] MAJO SWANSON A 10/[address] [facility] PH1 ASSMT&MGMT NQHP 5-10 28602-7.65 [id number] 6 Diagnos is: ICD-10- CM J44.9 Chronic obstruc tive pulmona ry disease , unspeci fied Hari LY A 11/[address] [facility] Outpatient Encounter 93736-9.65 [id number] 9 MAT ULLOA R 11/[address] [facility] EMERGENCY DEPT VISIT MOD MDM 70860-6.65 [id number] 5 Diagnos is: ICD-10- CM J44.9 Chronic obstruc tive pulmona ry disease , unspeci fied MAT ULLOA R 11/[address] [facility] Outpatient Encounter 92543-2.65 [id number] SEJAL BENITEZ P 11/[address] [facility] Outpatient Encounter 87382-2.65 [id number] 11/[address] [facility] Outpatient Encounter 63516-4. [id number] MAT ULLOA R 11/[address] [facility] Outpatient Encounter 14960-7.65 [id number] 3 MARIA D REYNOLDSO 11/[address] 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 Outpatient Encounter 44718-2.65 [id number] 01/[address] 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 En[facility] 79322-6.65 [id number] 01/[address] [facility] Outpatient Encounter 32150-1.65 [id number] 2 02/[address] [facility] Outpatient Encounter 01530-7.65 [id number] 02/[address] [facility] OFFICE O/P EST MOD 30 MIN 09941-6.65 [id number] 0 Diagnos is: ICD-10- CM J44.9 Chronic obstruc tive pulmona ry disease , unspeci fied PALMER 02/22 [facility] OFFICE O/P EST LOW 20 MIN 69394-9.65 [id number] Diagnos is: ICD-10- CM N20.0 Calculu s of kidney JORDANISAURO IS J 02/[address] [facility] Outpatient Encounter 12184-4.65 [id number] 03/[address] [facility] Outpatient Encounter 69731-9.65 [id number] 1 Hari LY 03/[address] [facility] Outpatient Encounter 30650-8.65 [id number] JÚNIOR HOLLEY 04/[address] [facility] Outpatient Encounter 87205-1.65 [id number] JÚNIOR HOLLEY 04/02 [facility] Outpatient Encounter 20277-7.65 [id number] SHAGGY PATEL 04/05 [facility] Outpatient Encounter 42127-4.65 [id number] 2 JÚNIOR HOLLEY 04/06 [facility] N [facility] Outpatient Encounter 27790-2.65 [id number] 9 [facility] RLA F 04/09 [facility] OFF/OP EST MAY X REQ PHY/QHP 43697-8.65 [id number] Diagnos is: ICD-10- CM G40.89 Other seizure s JERROD,CY NTHIA A 04/09 [facility] N [facility] Outpatient Encounter 22937-9.65 [id number] JERROD,CY NTHIA A 04/09 [facility] PH1 ASSMT&MGMT NQHP 5-10 14425-0.65 [id number] Diagnos is: ICD-10- CM J44.9 Chronic obstruc tive pulmona ry disease , unspeci fied Hari LY A 04/11 [facility] N 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 Outpatient Encounter 51634-6.65 [id number] 04/12 [facility] 3D RENDER W/INTRP POSTPROCES 44772-0.65 [id number] Diagnos is: ICD-10- CM R06.00 Dyspnea , unspeci fied OU,ANNAFU 04/18 [facility] Outpatient Encounter 17349-2.77 [id number] 05/10 [facility] OFFICE O/P EST HI 40 MIN 52348-0.65 [id number] 5 Diagnos is: ICD-10- CM G43.009 Migrain e w/o aura, not intract able, w/o status migrain os BART MARTEL 05/[address] [facility] NQHP OL DIG ASSMT&MGMT 5-10 74663-8. [id number] Diagnos is: ICD-10- CM G43.009 Migrain e w/o aura, not intract able, w/o status migrain osus BREE BILLINGS 05/15 [facility] Procedures Combined list of: 1) Procedures from Department of Veterans Affairs facilities going back up to thelast 18 months, not all VA non-surgical procedures are included; 2) All procedures from the Department of Defense facilities. Procedure Procedure Type Code Date Perfomer Comments Sour e OPHTHALMOLOGICAL SERVICES: MEDICAL EXAMINATION AND EVALUATION WITH INITIATION OF DIAGNOSTIC AND TREATMENT PROGRAM; INTERMEDIATE, NEW PATIENT 05/21 [facility] PSYCHIATRIC DIAGNOSTIC INTERVIEW EXAMINATION 06/16 [facility] INTERACTIVE GROUP PSYCHOTHERAPY 06/16 [facility] INTERACTIVE GROUP PSYCHOTHERAPY 06/15 [facility] MEDICAL NUTRITION THERAPY; INITIAL ASSESSMENT AND INTERVENTION, INDIVIDUAL, [id number] WITH THE PATIENT, EACH 15 MINUTES 06/14 [facility] INTERACTIVE GROUP PSYCHOTHERAPY 06/14 [facility] PSYCHIATRIC DIAGNOSTIC INTERVIEW EXAMINATION 05/31 [facility] ELECTROENCEPHALOGRAM (EEG); INCLUDING RECORDING AWAKE AND ASLEEP 05/31 [facility] ELECTROENCEPHALOGRAM (EEG); INCLUDING RECORDING AWAKE AND DROWSY 05/31 [facility] ELECTROENCEPHALOGRAM (EEG); INCLUDING RECORDING AWAKE AND ASLEEP 05/30 [facility] ELECTROCARDIOGRAM, ROUTINE ECG WITH AT LEAST 12 LEADS; WITH INTERPRETATION AND REPORT 04/05 [facility] THERAPEUTIC PROCEDURE, 1 OR MORE AREAS, EACH 15 MINUTES; THERAPEUTIC EXERCISES TO DEVELOP STRENGTH AND ENDURANCE, RANGE OF MOTION AND FLEXIBILITY 03/28 [facility] HEALTH&BEHAV ASSESSMENT (EG, HEALTH-FOC CLINICAL INTERVIEW, BEHAVIORAL OBSERVATIONS, PSYCHOPHYSICOLOGICAL MONITOR, HEALTH-ORIENT QUESTIONNAIRES), EA 15 MIN [id number] W THE PATIENT; INIT ASSESSMENT 03/28 [facility] ACOUSTIC REFLEX TESTING, THRESHOLD 01/29 [facility] PURE TONE AUDIOMETRY (THRESHOLD); AIR ONLY 01/23 [facility] COLLECTION OF VENOUS BLOOD BY VENIPUNCTURE 11/29 [facility] SCREENING TEST OF VISUAL ACUITY, QUANTITATIVE, BILATERAL 11/29 [facility] VIS FUNCT SCREEN,AUTOMAT/SEMI-AU TOMAT BILAT QUANT DETERM VISUAL ACUITY,OCULAR ALIGN,COLOR VISION,PSEUDOISOCHROMA T PLATES,& FIELD VIS (MAY INC ALL/SOME SCRN DETERM FOR CONTRAST SENSITIV,VIS UND GLARE) 09/28 [facility] DETERMINATION OF REFRACTIVE STATE 03/21 [facility] FITTING OF SPECTACLES, EXCEPT FOR APHAKIA; MONOFOCAL 03/15 [facility] CASE MANAGEMENT, EACH 15 MINUTES 01/07 [facility] CASE MANAGEMENT, EACH 15 MINUTES 01/01 [facility] SELF-CARE/HOME MANAGMENT TRAIN (EG,ACT OF DAILY LIVING (ADL) &COMPENSAT TRAIN,MEAL PREPARATION,SAFETY PROCS,AND INSTRUCT IN USE OF ASST TECHNOLOGY DEV/ADPT EQUIP) DIR ONE-ON-ONE CONT,EA 15 MINUTES 12/27 [facility] SELF-CARE/HOME MANAGMENT TRAIN (EG,ACT OF DAILY LIVING (ADL) &COMPENSAT TRAIN,MEAL PREPARATION,SAFETY PROCS,AND INSTRUCT IN USE OF ASST TECHNOLOGY DEV/ADPT EQUIP) DIR ONE-ON-ONE CONT,EA 15 MINUTES 12/25 [facility] APPLICATION OF A MODALITY TO 1 OR MORE AREAS; ELECTRICAL STIMULATION (MANUAL), EACH 15 MINUTES 12/23 [facility] INDIVIDUAL PSYCHOTHERAPY, INSIGHT ORIENTED, BEHAVIOR MODIFYING AND/OR SUPPORTIVE, IN AN OFFICE OR OUTPATIENT FACILITY, APPROXIMATELY 20 TO 30 MINUTES [id number] WITH THE PATIENT 12/23 [facility] CASE MANAGEMENT, EACH 15 MINUTES 12/23 [facility] INDIVIDUAL PSYCHOTHERAPY, INSIGHT ORIENTED, BEHAVIOR MODIFYING AND/OR SUPPORTIVE, IN AN OFFICE OR OUTPATIENT FACILITY, APPROXIMATELY 20 TO 30 MINUTES [id number] W THE PATIENT; W MED EVAL & MGT SER 12/19 DoD CASE MANAGEMENT, EACH 15 MINUTES 12/18 DoD THERAPEUTIC PROCEDURE, 1 OR MORE AREAS, EACH 15 MINUTES; THERAPEUTIC EXERCISES TO DEVELOP STRENGTH AND ENDURANCE, RANGE OF MOTION AND FLEXIBILITY 12/12 DoD APPLICATION OF A MODALITY TO 1 OR MORE AREAS; HOT OR COLD PACKS 12/11 DoD THERAPEUTIC PROCEDURE, 1 OR MORE AREAS, EACH 15 MINUTES; THERAPEUTIC EXERCISES TO DEVELOP STRENGTH AND ENDURANCE, RANGE OF MOTION AND FLEXIBILITY 12/10 DoD CASE MANAGEMENT, EACH 15 MINUTES 12/09 DoD APPLICATION OF A MODALITY TO 1 OR MORE AREAS; HOT OR COLD PACKS 12/09 DoD THERAPEUTIC PROCEDURE, 1 OR MORE AREAS, EACH 15 MINUTES; THERAPEUTIC EXERCISES TO DEVELOP STRENGTH AND ENDURANCE, RANGE OF MOTION AND FLEXIBILITY 12/06 DoD INDIVIDUAL PSYCHOTHERAPY, INSIGHT ORIENTED, BEHAVIOR MODIFYING AND/OR SUPPORTIVE, IN AN OFFICE OR OUTPATIENT FACILITY, APPROXIMATELY 45 TO 50 MINUTES [id number] WITH THE PATIENT 12/04 DoD THERAPEUTIC PROCEDURE, 1 OR MORE AREAS, EACH 15 MINUTES; THERAPEUTIC EXERCISES TO DEVELOP STRENGTH AND ENDURANCE, RANGE OF MOTION AND FLEXIBILITY 12/04 [facility] SELF-CARE/HOME MANAGMENT TRAIN (EG,ACT OF DAILY LIVING (ADL) &COMPENSAT TRAIN,MEAL PREPARATION,SAFETY PROCS,AND INSTRUCT IN USE OF ASST TECHNOLOGY DEV/ADPT EQUIP) DIR ONE-ON-ONE CONT,EA 15 MINUTES 12/04 DoD CASE MANAGEMENT, EACH 15 MINUTES 12/03 DoD INDIVIDUAL PSYCHOTHERAPY, INSIGHT ORIENTED, BEHAVIOR MODIFYING AND/OR SUPPORTIVE, IN AN OFFICE OR OUTPATIENT FACILITY, APPROXIMATELY 20 TO 30 MINUTES [id number] W THE PATIENT; W MED EVAL & MGT SER 12/03 DoD PHYSICAL THERAPY RE-EVALUATION 12/03 DoD CASE MANAGEMENT, EACH 15 MINUTES 11/29 DoD THERAPEUTIC PROCEDURE, 1 OR MORE AREAS, EACH 15 MINUTES; THERAPEUTIC EXERCISES TO DEVELOP STRENGTH AND ENDURANCE, RANGE OF MOTION AND FLEXIBILITY 11/29 DoD CASE MANAGEMENT, EACH 15 MINUTES 11/27 DoD CASE MANAGEMENT, EACH 15 MINUTES 11/26 DoD THERAPEUTIC PROCEDURE, 1 OR MORE AREAS, EACH 15 MINUTES; THERAPEUTIC EXERCISES TO DEVELOP STRENGTH AND ENDURANCE, RANGE OF MOTION AND FLEXIBILITY 11/21 DoD CASE MANAGEMENT, EACH 15 MINUTES 11/19 DoD SELF-CARE/HOME MANAGMENT TRAIN (EG,ACT OF DAILY LIVING (ADL) &COMPENSAT TRAIN,MEAL PREPARATION,SAFETY PROCS,AND INSTRUCT IN USE OF ASST TECHNOLOGY DEV/ADPT EQUIP) DIR ONE-ON-ONE CONT,EA 15 MINUTES 11/19 DoD THERAPEUTIC PROCEDURE, 1 OR MORE AREAS, EACH 15 MINUTES; THERAPEUTIC EXERCISES TO DEVELOP STRENGTH AND ENDURANCE, RANGE OF MOTION AND FLEXIBILITY 11/15 DoD THERAPEUTIC PROCEDURE, 1 OR MORE AREAS, EACH 15 MINUTES; THERAPEUTIC EXERCISES TO DEVELOP STRENGTH AND ENDURANCE, RANGE OF MOTION AND FLEXIBILITY 11/14 DoD THERAPEUTIC PROCEDURE, 1 OR MORE AREAS, EACH 15 MINUTES; THERAPEUTIC EXERCISES TO DEVELOP STRENGTH AND ENDURANCE, RANGE OF MOTION AND FLEXIBILITY 11/13 [facility] INDIVIDUAL PSYCHOTHERAPY, INSIGHT ORIENTED, BEHAVIOR MODIFYING AND/OR SUPPORTIVE, IN AN OFFICE OR OUTPATIENT FACILITY, APPROXIMATELY 45 TO 50 MINUTES [id number] WITH THE PATIENT 11/12 DoD THERAPEUTIC PROCEDURE, 1 OR MORE AREAS, EACH 15 MINUTES; THERAPEUTIC EXERCISES TO DEVELOP STRENGTH AND ENDURANCE, RANGE OF MOTION AND FLEXIBILITY 11/12 [facility] CASE MANAGEMENT, EACH 15 MINUTES 11/12 [facility] THERAPEUTIC PROCEDURE, 1 OR MORE AREAS, EACH 15 MINUTES; THERAPEUTIC EXERCISES TO DEVELOP STRENGTH AND ENDURANCE, RANGE OF MOTION AND FLEXIBILITY 11/11 DoD THERAPEUTIC PROCEDURE, 1 OR MORE AREAS, EACH 15 MINUTES; THERAPEUTIC EXERCISES TO DEVELOP STRENGTH AND ENDURANCE, RANGE OF MOTION AND FLEXIBILITY 11/08 DoD INDIVIDUAL PSYCHOTHERAPY, INSIGHT ORIENTED, BEHAVIOR MODIFYING AND/OR SUPPORTIVE, IN AN OFFICE OR OUTPATIENT FACILITY, APPROXIMATELY 45 TO 50 MINUTES [id number] WITH THE PATIENT 11/06 DoD THERAPEUTIC PROCEDURE, 1 OR MORE AREAS, EACH 15 MINUTES; THERAPEUTIC EXERCISES TO DEVELOP STRENGTH AND ENDURANCE, RANGE OF MOTION AND FLEXIBILITY 11/06 [facility] INDIVIDUAL PSYCHOTHERAPY, INSIGHT ORIENTED, BEHAVIOR MODIFYING AND/OR SUPPORTIVE, IN AN OFFICE OR OUTPATIENT FACILITY, APPROXIMATELY 20 TO 30 MINUTES [id number] W THE PATIENT; W MED EVAL & MGT SER 11/04 [facility] CASE MANAGEMENT, EACH 15 MINUTES 11/04 [facility] INDIVIDUAL PSYCHOTHERAPY, INSIGHT ORIENTED, BEHAVIOR MODIFYING AND/OR SUPPORTIVE, IN AN OFFICE OR OUTPATIENT FACILITY, APPROXIMATELY 45 TO 50 MINUTES [id number] WITH THE PATIENT 10/17 [facility] PHARMACOLOGIC MANAGEMENT, INCLUDING PRESCRIPTION, USE, AND REVIEW OF MEDICATION WITH NO MORE THAN MINIMAL MEDICAL PSYCHOTHERAPY 10/16 [facility] INDIVIDUAL PSYCHOTHERAPY, INSIGHT ORIENTED, BEHAVIOR MODIFYING AND/OR SUPPORTIVE, IN AN OFFICE OR OUTPATIENT FACILITY, APPROXIMATELY 45 TO 50 MINUTES [id number] WITH THE PATIENT 10/16 DoD CASE MANAGEMENT, EACH 15 MINUTES 10/16 DoD THERAPEUTIC PROCEDURE, 1 OR MORE AREAS, EACH 15 MINUTES; THERAPEUTIC EXERCISES TO DEVELOP STRENGTH AND ENDURANCE, RANGE OF MOTION AND FLEXIBILITY 10/16 DoD THERAPEUTIC PROCEDURE, 1 OR MORE AREAS, EACH 15 MINUTES; THERAPEUTIC EXERCISES TO DEVELOP STRENGTH AND ENDURANCE, RANGE OF MOTION AND FLEXIBILITY 10/15 DoD THERAPEUTIC PROCEDURE(S), GROUP (2 OR MORE INDIVIDUALS) 10/14 DoD THERAPEUTIC PROCEDURE, 1 OR MORE AREAS, EACH 15 MINUTES; THERAPEUTIC EXERCISES TO DEVELOP STRENGTH AND ENDURANCE, RANGE OF MOTION AND FLEXIBILITY 10/09 DoD CASE MANAGEMENT, EACH 15 MINUTES 10/08 DoD THERAPEUTIC PROCEDURE, 1 OR MORE AREAS, EACH 15 MINUTES; THERAPEUTIC EXERCISES TO DEVELOP STRENGTH AND ENDURANCE, RANGE OF MOTION AND FLEXIBILITY 10/08 [facility] THERAPEUTIC PROCEDURE(S), GROUP (2 OR MORE INDIVIDUALS) 10/07 [facility] PSYCHIATRIC DIAGNOSTIC INTERVIEW EXAMINATION 10/04 [facility] THERAPEUTIC PROCEDURE(S), GROUP (2 OR MORE INDIVIDUALS) 10/04 [facility] GROUP PSYCHOTHERAPY (OTHER THAN OF A MULTIPLE-FAMILY GROUP) 10/03 [facility] INDIVIDUAL PSYCHOTHERAPY, INSIGHT ORIENTED, BEHAVIOR MODIFYING AND/OR SUPPORTIVE, IN AN OFFICE OR OUTPATIENT FACILITY, APPROXIMATELY 45 TO 50 MINUTES [id number] WITH THE PATIENT 10/03 DoD THERAPEUTIC PROCEDURE, 1 OR MORE AREAS, EACH 15 MINUTES; THERAPEUTIC EXERCISES TO DEVELOP STRENGTH AND ENDURANCE, RANGE OF MOTION AND FLEXIBILITY 10/03 DoD THERAPEUTIC PROCEDURE, 1 OR MORE AREAS, EACH 15 MINUTES; THERAPEUTIC EXERCISES TO DEVELOP STRENGTH AND ENDURANCE, RANGE OF MOTION AND FLEXIBILITY 10/02 DoD CASE MANAGEMENT, EACH 15 MINUTES 10/01 [facility] SELF-CARE/HOME MANAGMENT TRAIN (EG,ACT OF DAILY LIVING (ADL) &COMPENSAT TRAIN,MEAL PREPARATION,SAFETY PROCS,AND INSTRUCT IN USE OF ASST TECHNOLOGY DEV/ADPT EQUIP) DIR ONE-ON-ONE CONT,EA 15 MINUTES 09/30 [facility] INDIVIDUAL PSYCHOTHERAPY, INSIGHT ORIENTED, BEHAVIOR MODIFYING AND/OR SUPPORTIVE, IN AN OFFICE OR OUTPATIENT FACILITY, APPROXIMATELY 45 TO 50 MINUTES [id number]-GI-[id number] WITH THE PATIENT 09/25 DoD THERAPEUTIC PROCEDURE, 1 OR MORE AREAS, EACH 15 MINUTES; THERAPEUTIC EXERCISES TO DEVELOP STRENGTH AND ENDURANCE, RANGE OF MOTION AND FLEXIBILITY 09/24 DoD CASE MANAGEMENT, EACH 15 MINUTES 09/23 DoD THERAPEUTIC PROCEDURE, 1 OR MORE AREAS, EACH 15 MINUTES; THERAPEUTIC EXERCISES TO DEVELOP STRENGTH AND ENDURANCE, RANGE OF MOTION AND FLEXIBILITY 09/23 DoD COMM/WRK REINTEGRAT TRAIN (EG,SHOPPING,TRANSPORT ATION,MONEY MANAGEMENT,AVOC ACT &/ WRK ENVIRON/MODIFICATION ANAL,WRK TASK ANAL,USE OF ASST TECHNOLOGY DEV/ADPT EQUIP),DIR ONE-ON-ONE CONT,EA 15 MINUTES 09/20 DoD THERAPEUTIC PROCEDURE, 1 OR MORE AREAS, EACH 15 MINUTES; THERAPEUTIC EXERCISES TO DEVELOP STRENGTH AND ENDURANCE, RANGE OF MOTION AND FLEXIBILITY 09/20 DoD INDIVIDUAL PSYCHOTHERAPY, INSIGHT ORIENTED, BEHAVIOR MODIFYING AND/OR SUPPORTIVE, IN AN OFFICE OR OUTPATIENT FACILITY, APPROXIMATELY 20 TO 30 MINUTES [id number] WITH THE PATIENT 09/19 DoD CASE MANAGEMENT, EACH 15 MINUTES 09/19 DoD THERAPEUTIC PROCEDURE, 1 OR MORE AREAS, EACH 15 MINUTES; THERAPEUTIC EXERCISES TO DEVELOP STRENGTH AND ENDURANCE, RANGE OF MOTION AND FLEXIBILITY 09/19 DoD INDIVIDUAL PSYCHOTHERAPY, INSIGHT ORIENTED, BEHAVIOR MODIFYING AND/OR SUPPORTIVE, IN AN OFFICE OR OUTPATIENT FACILITY, APPROXIMATELY 45 TO 50 MINUTES [id number] WITH THE PATIENT 09/18 DoD THERAPEUTIC PROCEDURE, 1 OR MORE AREAS, EACH 15 MINUTES; THERAPEUTIC EXERCISES TO DEVELOP STRENGTH AND ENDURANCE, RANGE OF MOTION AND FLEXIBILITY 09/18 DoD THERAPEUTIC PROCEDURE, 1 OR MORE AREAS, EACH 15 MINUTES; THERAPEUTIC EXERCISES TO DEVELOP STRENGTH AND ENDURANCE, RANGE OF MOTION AND FLEXIBILITY 09/17 DoD SELF-CARE/HOME MANAGMENT TRAIN (EG,ACT OF DAILY LIVING (ADL) &COMPENSAT TRAIN,MEAL PREPARATION,SAFETY PROCS,AND INSTRUCT IN USE OF ASST TECHNOLOGY DEV/ADPT EQUIP) DIR ONE-ON-ONE CONT,EA 15 MINUTES 09/16 [facility] PHARMACOLOGIC MANAGEMENT, INCLUDING PRESCRIPTION, USE, AND REVIEW OF MEDICATION WITH NO MORE THAN MINIMAL MEDICAL PSYCHOTHERAPY 09/16 DoD THERAPEUTIC PROCEDURE(S), GROUP (2 OR MORE INDIVIDUALS) 09/13 DoD CASE MANAGEMENT, EACH 15 MINUTES 09/13 DoD SELF-CARE/HOME MANAGMENT TRAIN (EG,ACT OF DAILY LIVING (ADL) &COMPENSAT TRAIN,MEAL PREPARATION,SAFETY PROCS,AND INSTRUCT IN USE OF ASST TECHNOLOGY DEV/ADPT EQUIP) DIR ONE-ON-ONE CONT,EA 15 MINUTES 09/13 DoD GROUP PSYCHOTHERAPY (OTHER THAN OF A MULTIPLE-FAMILY GROUP) 09/12 [facility] INDIVIDUAL PSYCHOTHERAPY, INSIGHT ORIENTED, BEHAVIOR MODIFYING AND/OR SUPPORTIVE, IN AN OFFICE OR OUTPATIENT FACILITY, APPROXIMATELY 45 TO 50 MINUTES [id number] WITH THE PATIENT 09/12 DoD THERAPEUTIC PROCEDURE, 1 OR MORE AREAS, EACH 15 MINUTES; THERAPEUTIC EXERCISES TO DEVELOP STRENGTH AND ENDURANCE, RANGE OF MOTION AND FLEXIBILITY 09/12 DoD SELF-CARE/HOME MANAGMENT TRAIN (EG,ACT OF DAILY LIVING (ADL) &COMPENSAT TRAIN,MEAL PREPARATION,SAFETY PROCS,AND INSTRUCT IN USE OF ASST TECHNOLOGY DEV/ADPT EQUIP) DIR ONE-ON-ONE CONT,EA 15 MINUTES 09/09 DoD ATHLETIC TRAINING EVALUATION 09/09 DoD CASE MANAGEMENT, EACH 15 MINUTES 09/06 DoD GROUP PSYCHOTHERAPY (OTHER THAN OF A MULTIPLE-FAMILY GROUP) 09/05 [facility] INDIVIDUAL PSYCHOTHERAPY, INSIGHT ORIENTED, BEHAVIOR MODIFYING AND/OR SUPPORTIVE, IN AN OFFICE OR OUTPATIENT FACILITY, APPROXIMATELY 45 TO 50 MINUTES [id number] WITH THE PATIENT 09/05 DoD HEALTH AND BEHAVIOR INTERVENTION, EACH 15 MINUTES, LLZK-[id number]-[id number]; INDIVIDUAL 08/30 [facility] INDIVIDUAL PSYCHOTHERAPY, INSIGHT ORIENTED, BEHAVIOR MODIFYING AND/OR SUPPORTIVE, IN AN OFFICE OR OUTPATIENT FACILITY, APPROXIMATELY 45 TO 50 MINUTES [id number] WITH THE PATIENT 08/30 DoD GROUP PSYCHOTHERAPY (OTHER THAN OF A MULTIPLE-FAMILY GROUP) 08/29 DoD CASE MANAGEMENT, EACH 15 MINUTES 08/28 DoD PSYCHIATRIC DIAGNOSTIC INTERVIEW EXAMINATION 08/26 DoD HEALTH&BEHAV ASSESSMENT (EG, HEALTH-FOC CLINICAL INTERVIEW, BEHAVIORAL OBSERVATIONS, PSYCHOPHYSICOLOGICAL MONITOR, HEALTH-ORIENT QUESTIONNAIRES), EA 15 MIN ITIT-AW-[id number] W THE PATIENT; INIT ASSESSMENT 08/26 DoD SELF-CARE/HOME MANAGMENT TRAIN (EG,ACT OF DAILY LIVING (ADL) &COMPENSAT TRAIN,MEAL PREPARATION,SAFETY PROCS,AND INSTRUCT IN USE OF ASST TECHNOLOGY DEV/ADPT EQUIP) DIR ONE-ON-ONE CONT,EA 15 MINUTES 08/22 [facility] UNLISTED AMBULANCE SERVICE 08/21 DoD CASE MANAGEMENT, EACH 15 MINUTES 08/19 DoD PSYCHIATRIC DIAGNOSTIC INTERVIEW EXAMINATION 08/19 DoD GROUP PSYCHOTHERAPY (OTHER THAN OF A MULTIPLE-FAMILY GROUP) 08/15 DoD INDIVIDUAL PSYCHOTHERAPY, INSIGHT ORIENTED, BEHAVIOR MODIFYING AND/OR SUPPORTIVE, IN AN OFFICE OR OUTPATIENT FACILITY, APPROXIMATELY 20 TO 30 MINUTES THMW-[id number] WITH THE PATIENT 08/15 DoD CASE MANAGEMENT, EACH 15 MINUTES 08/13 DoD INDIVIDUAL PSYCHOTHERAPY, INSIGHT ORIENTED, BEHAVIOR MODIFYING AND/OR SUPPORTIVE, IN AN OFFICE OR OUTPATIENT FACILITY, APPROXIMATELY 45 TO 50 MINUTES [id number]-BA-[id number] WITH THE PATIENT 08/08 DoD CASE MANAGEMENT, EACH 15 MINUTES 08/05 DoD PSYCHOLOG TESTING (ASSESS EMOTION,INTELLECT ABILITIES,PERSONALITY & PSYCHOPATH,EG,MMPI,ROR [place])/HR PSYCHOLOGIST/PHYS TIME,BOTH HOWN-OJ-NOWW ADMIN TEST TO PAT & INTERP TEST RESULT & PREP RPT 07/31 DoD OPHTHALMOLOGICAL SERVICES: MEDICAL EXAMINATION AND EVALUATION, WITH INITIATION OR CONTINUATION OF DIAGNOSTIC AND TREATMENT PROGRAM; INTERMEDIATE, ESTABLISHED PATIENT 07/30 DoD CASE MANAGEMENT, EACH 15 MINUTES 07/30 DoD CASE MANAGEMENT, EACH 15 MINUTES 07/26 DoD INDIVIDUAL PSYCHOTHERAPY, INSIGHT ORIENTED, BEHAVIOR MODIFYING AND/OR SUPPORTIVE, IN AN OFFICE OR OUTPATIENT FACILITY, APPROXIMATELY 45 TO 50 MINUTES STNA-MF-SBIK WITH THE PATIENT 07/26 [facility] INFLUENZA VIRUS VACCINE, TRIVALENT, LIVE (LAIV3), FOR INTRANASAL USE 07/24 DoD CASE MANAGEMENT, EACH 15 MINUTES 07/24 DoD CASE MANAGEMENT, EACH 15 MINUTES 07/22 DoD INDIVIDUAL PSYCHOTHERAPY, INTERACTIVE, USING PLAY EQUIP, PHYSICAL DEVICES, POULTRY CUTTER/OTH MECHANISMS OF NON-VERBAL COMM, IN AN OFFICE/OUTPATIENT FACIL,APPROX 45-50 MIN [id number] W THE PAT 07/19 [facility] GLUCOSE, BLOOD BY GLUCOSE MONITORING DEVICE(S) CLEARED BY THE FDA SPECIFICALLY FOR HOME USE 07/17 DoD CASE MANAGEMENT, EACH 15 MINUTES 07/15 DoD GROUP PSYCHOTHERAPY (OTHER THAN OF A MULTIPLE-FAMILY GROUP) 07/11 DoD PSYCHIATRIC DIAGNOSTIC INTERVIEW EXAMINATION 07/11 DoD CASE MANAGEMENT, EACH 15 MINUTES 07/10 DoD COMM/WRK REINTEGRAT TRAIN (EG,SHOPPING,TRANSPORT ATION,MONEY MANAGEMENT,AVOC ACT &/ WRK ENVIRON/MODIFICATION ANAL,WRK TASK ANAL,USE OF ASST TECHNOLOGY DEV/ADPT EQUIP),DIR ONE-ON-ONE CONT,EA 15 MINUTES 07/04 DoD GROUP PSYCHOTHERAPY (OTHER THAN OF A MULTIPLE-FAMILY GROUP) 07/04 [facility] INDIVIDUAL PSYCHOTHERAPY, INSIGHT ORIENTED, BEHAVIOR MODIFYING AND/OR SUPPORTIVE, IN AN OFFICE OR OUTPATIENT FACILITY, APPROXIMATELY 20 TO 30 MINUTES [id number] WITH THE PATIENT 07/02 DoD CASE MANAGEMENT, EACH 15 MINUTES 07/02 [facility] FITTING OF SPECTACLES, EXCEPT FOR APHAKIA; MONOFOCAL 07/01 DoD CASE MANAGEMENT, EACH 15 MINUTES 06/28 DoD GROUP PSYCHOTHERAPY (OTHER THAN OF A MULTIPLE-FAMILY GROUP) 06/27 [facility] SKIN TEST; TUBERCULOSIS, INTRADERMAL 06/25 DoD CASE MANAGEMENT, EACH 15 MINUTES 06/25 DoD THERAPEUTIC PROCEDURE(S), GROUP (2 OR MORE INDIVIDUALS) 06/21 [facility] THERAPEUTIC PROCEDURE(S), GROUP (2 OR MORE INDIVIDUALS) 06/20 [facility] THERAPEUTIC PROCEDURE(S), GROUP (2 OR MORE INDIVIDUALS) 06/19 DoD THERAPEUTIC PROCEDURE(S), GROUP (2 OR MORE INDIVIDUALS) 06/18 [facility] OCCUPATIONAL THERAPY EVALUATION 06/18 [facility] PSYCHIATRIC DIAGNOSTIC INTERVIEW EXAMINATION 06/17 DoD Case Management, each 15 minutes 09/13 SHANIA PATEL [facility] Psychiatric Therapy Group (Interview) Psychiatric Therapy Group (Interview) [id number] 09/12 PRINCESS GONZALES [facility] Athletic Training Evaluation Athletic Training Evaluation [id number] 09/10 NICOLE ROBLERO [facility] Training And Self-Care Skills Training And Self-Care Skills 28017 09/10 SKYLER MO [facility] Psych Therapy Indiv Psychophys, W/ Biofeed Approx 20-30 Min 09/10 SKYLER MO [facility] Social Work Individual Outpatient Counseling 45-50 Minutes Social Work Individual Outpatient Counseling 45-50 Minutes [id number] 09/09 BNI RAPP [facility] Psychiatric Therapy Group (Interview) Psychiatric Therapy Group (Interview) [id number] 09/09 SHAGGY PEDRO DoD Case Management, each 15 minutes 09/06 SHANIA PATEL [facility] Training And Self-Care Skills Training And Self-Care Skills 12143 09/05 SKYLER MO [facility] Occupational Therapy Evaluation Occupational Therapy Evaluation 57052 09/05 SKYLER MO DoD Health And Behav A e mt Each 15 Min Initial A e ment Health And Behav Assessmt Each 15 Min Initial Assessment 80206 09/01 SKYLER MO [facility] Training And Self-Care Skills Training And Self-Care Skills 86872 09/01 SKYLER MO [facility] Health And Behavior Intervention, Each 15 Minutes Individual Health And Behavior Intervention, Each 15 Minutes Individual [id number] 09/01 SKYLER MO [facility] Psych Therapy Indiv Psychophys, W/ Biofeed Approx 20-30 Min 09/01 SKYLER MO [facility] Psychiatric Therapy Group (Interview) Psychiatric Therapy Group (Interview) [id number] 08/29 SHAGGY PEDRO [facility] Case Management, each 15 minutes 08/28 SHANIA PATEL [facility] Psychoactive Medication Management Psychoactive Medication Management 89984 08/26 NICOLE VAZQUEZ [facility] Psychiatric Evaluation Comprehensive Examination Psychiatric Evaluation Comprehensive Examination 82697 08/26 NICOLE VAZQUEZ [facility] Social Work Individual Outpatient Counseling 45-50 Minutes Social Work Individual Outpatient Counseling 45-50 Minutes 88925 08/20 BIN RAPP [facility] Psychiatric Evaluation Comprehensive Examination Psychiatric Evaluation Comprehensive Examination 66483 08/19 VENANCIO COVINGTON [facility] Case Management, each 15 minutes 08/19 SHANIA PATEL [facility] Psychiatric Therapy Group (Interview) Psychiatric Therapy Group (Interview) [id number] 08/19 SHAGGY PEDRO [facility] Psychiatric Therapy Individual Approximately 20-30 Minutes Psychiatric Therapy Individual Approximately 20-30 Minutes 89952 08/16 NICOLE VAZQUEZ [facility] Case Management, each 15 minutes 08/13 SHANIA PATEL [facility] Case Management, each 15 minutes 08/05 SHANIA PATEL [facility] Psychologic Testing And Report Administered By Physician Psychologic Testing And Report Administered By Physician [id number] 07/31 SHAGGY PEDRO [facility] Ophthalmological Prior Patient Start Intermediate Level Care Ophthalmological Prior Patient Start Intermediate Level Care [id number] 07/30 GWENDOLYN CALLAHAN Do[facility] Case Management, each 15 minutes 07/30 SHANIA PATEL [facility] Social Work Individual Outpatient Counseling 45-50 Minutes Social Work Individual Outpatient Counseling 45-50 Minutes [id number] 07/29 BIN RAPP DoD Case Management, each 15 minutes 07/26 SHANIA PATEL [facility] Influenza Virus Vaccine Live Intranasal 07/25 ESDRAS MUNSON [facility] Immunization Administration One Vaccine Immunization Administration One Vaccine 46682 07/25 ESDRAS MUNSON [facility] Psychiat Ther Indiv Interactive Approximately 45-50 Minutes Psychiat Ther Indiv Interactive Approximately 45-50 Minutes [id number] 07/24 BIN RAPP Case Management, each 15 minutes 07/24 SHANIA PATEL [facility] Case Management, each 15 minutes 07/23 SHANIA PATEL [facility] Psychiatric Evaluation Comprehensive Examination Psychiatric Evaluation Comprehensive Examination [id number] 07/16 BIN RAPP [facility] Syringe with needle, sterile 3 cc, each 07/16 RONNY HSIEH [facility] Adhesive bandage, first-aid type, any size, each 07/16 RONNY HSIEH [facility] Supervised Injection Intramuscular Supervised Injection Intramuscular 81782 07/16 RONNY HSIEH Patient identification verified by having patient state FULL NAME and . Allergies verified and in computer. Providers orders verified and in computer. Procedure explained to patient and patient has no questions or concerns at this time. Ketorolac 60mg, LOT NUMBER [id number], EXPIRATION DATE JAN 09 administered IM via right hip utilizing 23GAUGE NEEDLE. Patient tolerated procedure without incident. Patient instructed to remain in waiting area for 20 minutes for adverse reactions. [facility] Case Management, each 15 minutes 07/15 SHANIA PATEL [facility] Psychiatric Therapy Group (Interview) Psychiatric Therapy Group (Interview) [id number] 07/11 SHAGGY PEDRO [facility] Case Management, each 15 minutes 07/10 SHANIA PATEL [facility] Shellfish Manager [employer] [facility] Reintegration Training - Per 15 Min Shellfish Manager [facility] Community Reintegration Training - Per 15 Min 10470 07/04 JARON MONK [facility] Psychiatric Therapy Group (Interview) Psychiatric Therapy Group (Interview) [id number] 07/04 SHAGGY PEDRO [facility] Social Work Individual Outpatient Counseling 20-30 Minutes Social Work Individual Outpatient Counseling 20-30 Minutes 28841 07/02 BIN RAPP [facility] Psychiatric Therapy Group (Interview) Psychiatric Therapy Group (Interview) 95419 07/02 SHAGGY PEDRO [facility] Case Management, each 15 minutes 07/02 SHANIA PATEL [facility] Spectacles Services Fitting Monofocals (Not For Aphakia) [employer] Fitting Monofocals (Not For Aphakia) 89690 07/01 GWENDOLYN CALLAHAN [facility] Determination Of Refractive State Determination Of Refractive State 35436 07/01 GWENDOLYN CALLAHAN [facility] Ophthalmological New Patient Start Comprehensive Care Ophthalmological New Patient Start Comprehensive Care 00416 07/01 GWENDOLYN CALLAHAN [facility] Case Management, each 15 minutes 06/28 SHANIA PATEL [facility] Skin Test Anergy Tuberculin Intradermal Skin Test Anergy Tuberculin Intradermal 86559 06/25 ESDRAS MUNSON [facility] Case Management, each 15 minutes 06/25 SHANIA PATEL [facility] Physical Medicine - Group Physical Therapy Se ion Physical Medicine - Group Physical Therapy Session 17919 06/24 PRITESH ALSTON [facility] Occupational Therapy Evaluation Occupational Therapy Evaluation 89224 06/24 PRITESH ALSTON [facility] Clinical Social Work Counseling Group Clinical Social Work Counseling Group 58640 06/16 FERNANDO AVILA [facility] Clinical Social Work Counseling Group Clinical Social Work Counseling Group 50812 06/15 FERNANDO AVILA [facility] Medical Nutrition Therapy Initial A e ment, Intervention Medical Nutrition Therapy Initial Assessment, Intervention 97578 06/14 ELIANE CASILLAS [facility] Clinical Social Work Counseling Group Clinical Social Work Counseling Group 28935 06/14 SRIDHAR BORJA [facility] Psychiatric Evaluation Comprehensive Examination Psychiatric Evaluation Comprehensive Examination 55990 05/31 HANNA ESPINOSA [facility] EEG Technique Exam Recording Awake And Asleep EEG Technique Exam Recording Awake And Asleep 67660 05/31 TROY ZIMMER [facility] EEG Technique Exam Recording Awake And Drowsy EEG Technique Exam Recording Awake And Drowsy 01333 05/31 TROY ZIMMER [facility] ECG 12-Lead With Interpretation And Report ECG 12-Lead With Interpretation And Report [id number] 04/05 DONN GROVER [facility] Physical Therapy: ___ Se ion Segments, 15 Minutes Each Physical Therapy: ___ Session Segments, 15 Minutes Each 61104 03/28 POLLO GUTIERREZ*JOHNNYCT Y Michelle Physical Medicine Physical Therapy Evaluation Physical Medicine Physical Therapy Evaluation 98102 03/28 POLLO GUTIERREZ*JOHNNYCT Y Michelle Evoked Otoacoustic Mindi ions Limited 01/30 EMIL LEWIS Acoustic Reflex Testing 01/30 EMIL LEWIS Tympanometry Tympanometry 57315 01/30 EMIL LEWIS Comprehensive Audiometry Comprehensive Audiometry 95844 01/30 EMIL LEWIS Threshold Audiogram (Pure Tone) Threshold Audiogram (Pure Tone) 14488 01/23 MAULIK DUKES Visual Function Screening Visual Function Screening 28650 09/28 FRANCISCO BUNN [employer] [facility] Fitting Monofocals (Not For Aphakia) [employer] Fitting Monofocals (Not For Aphakia) 19330 03/15 JACE CASILLAS Ophthalmological New Patient Start Comprehensive Care Ophthalmological New Patient Start Comprehensive Care 63801 03/15 JACE CASILLAS Determination Of Refractive State Determination Of Refractive State 63811 03/15 JACE CASILLAS Ophthalmological New Patient Start Intermediate Level Care Ophthalmological New Patient Start Intermediate Level Care 84632 05/24 GERALD PICHARDO [employer] [facility] Fitting Monofocals (Not For Aphakia) [employer] [facility] Fitting Monofocals (Not For Aphakia) 41312 05/21 OWEN CISSE Screening Test Of Visual Acuity, Quantitative, Bilateral Screening Test Of Visual Acuity, Quantitative, Bilateral 13432 05/21 BETITO [place] Michelle Determination Of Refractive State Determination Of Refractive State 87666 05/21 OWEN CISSE Case Management, each 15 minutes 01/07 SHANIA PATEL Case Management, each 15 minutes 01/01 SHANIA PATEL Phys Therapy Education Self Care Training - Per 15 Minutes Phys Therapy Education Self Care Training - Per 15 Minutes 04270 12/27 KEATON HOOPER paperwork filled out [facility] Phys Therapy Education Self Care Training - Per 15 Minutes Phys Therapy Education Self Care Training - Per 15 Minutes 88872 12/25 PRITESH CALLAHAN [facility] Modalities Cryotherapy Cold Packs Modalities Cryotherapy Cold Packs 31766 12/25 PRITESH CALLAHAN [facility] Modalities Electrical Stimulation Modalities Electrical Stimulation 78804 12/25 PRITESH CALLAHAN [facility] Physical Therapy Mobilization Joint Physical Therapy Mobilization Joint 38325 12/25 PRITESH CALLAHAN [facility] Physical Medicine Physical Therapy Re-Evaluation Physical Medicine Physical Therapy Re-Evaluation 87124 12/25 PRITESH CALLAHAN [facility] Modalities Electrical Stimulation Modalities Electrical Stimulation 53334 12/23 KEATON HOOPER [facility] Psychiatric Therapy Individual Approximately 20-30 Minutes Psychiatric Therapy Individual Approximately 20-30 Minutes 95617 12/23 SHAGGY PEDRO [facility] Case Management, each 15 minutes 12/23 SHANIA PATEL Exercises A isted Exercises For ROM [place] 64902 12/20 NICOLE ROBLERO Psychoactive Medication Management Psychoactive Medication Management 26841 12/19 NICOLE VAZQUEZ Psychiatric Therapy Individual Approximately 20-30 Minutes Psychiatric Therapy Individual Approximately 20-30 Minutes 54897 12/19 NICOLE VAZQUEZ Case Management, each 15 minutes 12/18 SHANIA PATEL Exercises A isted Exercises For ROM [place] 83855 12/13 NICOLE ROBLERO Modalities Cryotherapy Cold Packs Modalities Cryotherapy Cold Packs 48980 12/11 PRITESH CALLAHAN [facility] Modalities Electrical Stimulation Modalities Electrical Stimulation 29345 12/11 PRITESH CALLAHAN Exercises A isted Exercises For ROM [place] 02328 12/11 PRITESH CALLAHAN [facility] Physical Medicine Physical Therapy Re-Evaluation Physical Medicine Physical Therapy Re-Evaluation 45744 12/11 PRITESH CALLAHAN Exercises A isted Exercises For ROM [place] 41498 12/09 NICOLE ROBLERO Case Management, each 15 minutes 12/09 SHANIA PATEL Modalities Cryotherapy Cold Packs Modalities Cryotherapy Cold Packs 93525 12/09 KEATON HOOPER Modalities Electrical Stimulation Modalities Electrical Stimulation 93559 12/09 KEATON HOOPER Modalities Cryotherapy Cold Packs Modalities Cryotherapy Cold Packs 33799 12/06 PRITESH CALLAHAN Modalities Electrical Stimulation Modalities Electrical Stimulation 67338 12/06 PRITESH CALLAHAN Exercises A isted Exercises For ROM Exercises Assisted [place]ises [place] ROM 04471 12/06 PRITESH CALLAHAN Physical Therapy Mobilization Joint Physical Therapy Mobilization Joint 08469 12/06 PRITESH CALLAHAN Social Work Individual Outpatient Counseling 45-50 Minutes Social Work Individual Outpatient Counseling 45-50 Minutes 01732 12/05 BIN RAPP Phys Therapy Education Self Care Training - Per 15 Minutes Phys Therapy Education Self Care Training - Per 15 Minutes 86522 12/04 DEANGELO ZEPEDA Exercises A isted Exercises For ROM [place]erc[place] 62239 12/04 DEANGELO ZEPEDA Physical Medicine Physical Therapy Evaluation Physical Medicine Physical Therapy Evaluation 41470 12/04 DEANGELO ZEPEDA Psychoactive Medication Management Psychoactive Medication Management 92898 12/03 NICOLE VAZQUEZ Psychiatric Therapy Individual Approximately 20-30 Minutes Psychiatric Therapy Individual Approximately 20-30 Minutes 04661 12/03 NICOLE VAZQUEZ Case Management, each 15 minutes 12/03 SHANIA PATEL Modalities Electrical Stimulation Modalities Electrical Stimulation 95488 12/03 PRITESH CALLAHAN Modalities Cryotherapy Cold Packs Modalities Cryotherapy Cold Packs 10387 12/03 PRITESH CALLAHAN Exercises A isted Exercises For ROM Exercises Assisted [place]ises [place] ROM 16057 12/03 PRITESH CALLAHAN Physical Medicine Physical Therapy Re-Evaluation Physical Medicine Physical Therapy Re-Evaluation 72520 12/03 PRITESH CALLAHAN Exercises A isted Exercises For ROM [place]erc[place] 48867 11/30 NICOLE ROBLERO [facility] Case Management, each 15 minutes 11/29 SHANIA PATEL Case Management, each 15 minutes 11/27 SHANIA PATEL Case Management, each 15 minutes 11/26 SHANIA PATEL Exercises A isted Exercises For ROM Exercises [place] 59859 11/21 NICOLE ROBLERO [facility] Case Management, each 15 minutes 11/19 SHANIA PATEL Phys Therapy Education Self Care Training - Per 15 Minutes Phys Therapy Education Self Care Training - Per 15 Minutes 78036 11/19 PRITESH CALLAHAN Physical Medicine Physical Therapy Evaluation Physical Medicine Physical Therapy Evaluation 95913 11/19 PRITESH CALLAHAN Exercises A isted Exercises For ROM [place] 96382 11/15 NICOLE ROBLERO Exercises A isted Exercises For ROM [place] 98375 11/14 NICOLE ROBLERO Social Work Individual Outpatient Counseling 45-50 Minutes Social Work Individual Outpatient Counseling 45-50 Minutes 95918 11/14 BIN RAPP Exercises A isted Exercises For ROM [place] 24931 11/13 NICOLE ROBLERO Case Management, each 15 minutes 11/12 SHANIA PATEL Exercises A isted Exercises For [place] 42153 11/11 NICOLE ROBLERO Exercises A isted Exercises For ROM Exercises [place] 63961 11/07 NICOLE ROBLERO Social Work Individual Outpatient Counseling 45-50 Minutes Social Work Individual Outpatient Counseling 45-50 Minutes 76211 11/07 BIN RAPP Psychoactive Medication Management Psychoactive Medication Management 86119 11/04 NICOLE VAZQUEZ Psychiatric Therapy Individual Approximately 20-30 Minutes Psychiatric Therapy Individual Approximately 20-30 Minutes 13676 11/04 NICOLE VAZQUEZ Case Management, each 15 minutes 11/04 SHANIA PATEL Psychiatric Therapy Individual Approximately 45-50 Minutes Psychiatric Therapy Individual Approximately 45-50 Minutes 68940 10/18 SHAGGY PEDRO Exercises A isted Exercises For ROM Exercises [place] 06680 10/17 NICOLE ROBLERO Psychoactive Medication Management Psychoactive Medication Management 38979 10/16 NICOLE VAZQUEZ Psychiatric Therapy Individual Approximately 20-30 Minutes Psychiatric Therapy Individual Approximately 20-30 Minutes 57766 10/16 NICOLE VAZQUEZ Social Work Individual Outpatient Counseling 45-50 Minutes Social Work Individual Outpatient Counseling 45-50 Minutes 63341 10/16 BIN RAPP [employer] Case Management, each 15 minutes 10/16 SHANIA PATEL [facility] Physical Medicine - Group Physical Therapy Se ion Physical Medicine - Group Physical Therapy Session 05793 10/14 NICOLE ROBLERO Exercises A isted Exercises For ROM Exercises [place] 33039 10/11 NICOLE ROBLERO Exercises A isted Exercises For [place] 32957 10/09 NICOLE ROBLERO Physical Medicine - Group Physical Therapy Se ion Physical Medicine - Group Physical Therapy Session 14487 10/09 NICOLE ROBLERO Case Management, each 15 minutes 10/08 SHANIA PATEL [facility] Psychiatric Evaluation Comprehensive Examination Psychiatric Evaluation Comprehensive Examination 66759 10/07 NARGIS BOWEN [facility] Physical Medicine - Group Physical Therapy Se ion Physical Medicine - Group Physical Therapy Session 05345 10/07 NICOLE ROBLERO Exercises A isted Exercises For ROM Exercises [place] 27709 10/04 NICOLE ROBLERO Psychiatric Therapy Group (Interview) Psychiatric Therapy Group (Interview) 71645 10/03 SHAGGY PEDRO [facility] Social Work Individual Outpatient Counseling 45-50 Minutes Social Work Individual Outpatient Counseling 45-50 Minutes 28069 10/03 BIN RAPP Training And Self-Care Skills Training And Self-Care Skills 14813 10/03 SKYLER MO [facility] Psych Therapy Indiv Psychophys, W/ Biofeed Approx 20-30 Min 10/03 SKYLER MO [employer] Case Management, each 15 minutes 10/01 SHANIA PATEL Social Work Individual Outpatient Counseling 45-50 Minutes Social Work Individual Outpatient Counseling 45-50 Minutes 43984 09/30 BIN RAPP Exercises A isted Exercises For ROM [place] 66428 09/25 NICOLE ROBLERO [employer] Re[employer] Training - Per 15 Min [employer] Manager [employer] Reintegration Training - Per 15 Min 25865 09/25 NICOLE ROBLERO Exercises A isted Exercises For [place] 53678 09/24 NICOLE ROBLERO Exercises A isted Exercises For ROM [place] 23948 09/23 NICOLE ROBLERO Case Management, each 15 minutes 09/23 SHANIA PATEL [facility] Social Work Individual Outpatient Counseling 45-50 Minutes Social Work Individual Outpatient Counseling 45-50 Minutes 08478 09/20 BIN RAPP Training And Self-Care Skills Training And Self-Care Skills 97645 09/19 SKYLER MO [facility] Health And Behavior Intervention, Each 15 Minutes Individual Health And Behavior Intervention, Each 15 Minutes Individual 81720 09/19 SKYLER MO [facility] Psychiatric Therapy Individual Approximately 20-30 Minutes Psychiatric Therapy Individual Approximately 20-30 Minutes 30393 09/19 SHAGGY PEDRO [facility] Exercises A isted Exercises For ROM [place]erc[place] 37544 09/19 NICOLE ROBLERO [facility] Case Management, each 15 minutes 09/19 SHANIA PATEL Training And Self-Care Skills Training And Self-Care Skills 53330 09/18 SKYLER MO [facility] Psychoactive Medication Management Psychoactive Medication Management 93065 09/16 NICOLE VAZQUEZ [facility] Physical Medicine - Group Physical Therapy Se [facility] Physical Medicine - Group Physical Therapy Session 29894 09/13 NICOLE ROBLERO Exercises A isted Exercises For ROM [place] 06710 09/13 NICOLE ROBLERO Social Work Individual Outpatient Counseling 45-50 Minutes Social Work Individual Outpatient Counseling 45-50 Minutes 28049 09/13 BIN RAPP Social History Combined list of available smoking, tobacco, and other social history from Department of 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 Social History Type Response Date Comment Sourc e Tobacco smoking status NHIS VA-TOBACCO NEVER USED 06/19/2024 [facility] History of tobacco use AH-[employer]PR SMOKING DEPLOYMENT NO 09/03/2023 [facility] History of tobacco use VA-TOBACCO FORMER USER 06/23/2023 [facility] History of tobacco use ORYX ADMIT TOBACCO SCREEN NO 09/23/2022 [facility] History of tobacco use ORYX ADMIT TOBACCO SCREEN NO 09/06/2022 [facility] History of tobacco use VA-TOBACCO NEVER USED 04/27/2022 [facility] History of tobacco use VA-TOBACCO NEVER USED 10/10/2020 [facility] History of tobacco use VA-TOBACCO NEVER USED 08/09/[address] [facility] History of tobacco use LIFETIME NON-USER OF TOBACCO 05/09/2018 [facility] History of tobacco use QUIT TOBACCO >12 MO and <7 YRS AGO 03/04/2017 [facility] History of tobacco use QUIT TOBACCO >7 YEARS AGO 05/12/2016 [facility] History of tobacco use QUIT TOBACCO IN THE LAST 12 MONTHS 01/29/2015 [facility] of tobacco use TOBACCO OFFERRED PT MEDS (PROVIDER) 04/02/2014 [facility] History of tobacco use CURRENT TOBACCO USER 03/29/2014 [facility] History of tobacco use CURRENT TOBACCO USER 09/15/2011 [facility] History of tobacco use CURRENT TOBACCO USER 04/13/2011 [facility] History of tobacco use TOBACCO OFFERRED PT MEDS (PROVIDER) 05/22/2010 [facility] History of tobacco use CURRENT TOBACCO USER 04/21/2010 [facility] This section is an empty social history section. DoD Plan of Care List of future care activities from Department of [facility] Affairs facilities. Additional future care activities may be listed in the Assessment and Plan section. Date/Time Care Activity Care Activity Detail Facili ty 06/29/2025 AMBULATORY - NEUROLOGY AMBULATORY - NEURO LOGY [facility]
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
--- OUTSIDE RECORDS SUMMARY | 2025-05-24 11:53 | XMS_ITS | Clinical Summary ---
Author Organization [facility] Healthcare Address [address] [place] [address] Care Team Providers Care Ham Clerk Name Role Phone No, Physician Primary Care Provider [phone] Allergies Active Allergy Reactions Criticality Noted Date [...] - 03/01/2025 11:59 PM CDT Hospital Encounter [facility] [address] [place] [id number] Discharge Disposition: Discharge to home or self care 03/01/2025 1:00 PM CDT Office Visit [facility] [address] [facility] 8th [place] [address] [place] [address] Birdie Coleman MD Bronchiolitis obliterans (HCC) (Primary Dx); Chronic obstructive pulmonary disease, unspecified COPD type (HCC) 03/01/2025 11:14 AM CDT - 03/01/2025 11:59 PM CDT Hospital Encounter [facility] [address] [facility] [address] [facility] [address] [place] [address] Bronchiolitis obliterans (HCC) Discharge Disposition: Discharge to home or self care 03/01/2025 11:02 AM CDT - 03/01/2025 11:59 PM CDT Hospital Encounter [facility] ([facility]) [address] [place] [id number] Bronchiolitis obliterans (HCC) Discharge Disposition: Discharge to [...] on file Legal Sex Male 2:34 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 Gender Identity Not on file Sexual Orientation [...] 12:37 PM CDT) FVC PRE 1.57 L [facility] FVC %PRE PRED 34 % [facility] FVC POST 2.11 L [facility] FVC %POST PRED 46 % [facility] FEV1 PRE 0.92 L [facility] FEV1 %PRE PRED 24 % [facility] FEV1 POST 1.48 L [facility] FEV1 %POST PRED 39 % [facility] FEV1/FVC PRE 58.8 % [facility] FEV1/FVC POST 70.1 % [facility] FRC PL PRE 3.16 L [facility] FRC PL %PRE PRED 98 % [facility] RV PRE 2.53 L [facility] RV %PRE PRED 149 % [facility] TLC PRE 4.62 L [facility] TLC %PRE PRED 70 % [facility] DLCO PRE 10.9 ml/min/mmH g [facility] DLCO %PRE PRED 36 % [facility] FIO2 % 21.00 % [facility] PaO2 70.0 mmHg [facility] PaCO2 40.0 mmHg [facility] pH 7.40 [facility] A-aDO2 POC 30.0 mmHg [facility] METHGB % 0.5 % [facility] COHb POC 1.4 % [facility] HCO3 24.8 mEq/L [facility] Anatomical Region Laterality Modality PFT 03/01/2025 11:4 3 AM CDT Narrative 03/01/2025 6:45 PM CDT Table formatting from the original result was not included. [facility] Division of Pulmonary & Critical Care Medicine [address] [place] [address]; [address] [facility]; [place] [address]; [phone] Pulmonary Function Laboratory Pulmonary Stress Test Simple/Oxygen [...] Work [distance (m) x body wt (kg)]: 64711 kg.m (normal >60,000kg.m) Oxygen required to maintain [...] with the written final report. PFT performed at:->[facility] Adult PFT Lab- [facility] Procedure:->Oxygen Assessment [...] %HbO2 is age dependent. However, the [facility] Pulmonary Function Laboratory defines hypoxemia as a PaO2 <56 mm Hg or a %HbO2 <89%. Starting on November of 2024 the [facility] Pulmonary Function Laboratory utilizes race neutral GLI [...] Resu lt from Last 3 Months Insurance [employer] [facility] MEDICARE ADVANTAGE [facility] Address: [address] [address] [place] [address] [facility] MD COMMUNITY CARE MD COMMUNITY CARE [facility] MEDICARE ADVANTAGE Advance Directives For more information, please contact: [phone] * Full Code (Latest Code Status on File) Date Activated Date Inactivated Comments 10/05/2022 5:48 PM 10/06/2022 10:50 PM Care Teams Ham Clerk Relationship Specialty Start Date End Date No, Physician PCP - General 03/24/24
--- OUTSIDE RECORDS SUMMARY | 2025-05-24 11:53 | XMS_ITS | Encounter Summary ---
Author Name [facility] [place] Organization [place] Address [address] [place] [address] Care Team Providers Care Patient Registrar Name Role Phone HENRY POPE Primary Care [...] Name Patient's Relationship to Policy Lowe AARP [facility] ([facility]) MEDICARE ADVANTAGE [facility] ([facility]) Nov 01, 2024 [id number] ALLI RAMOS PATIENT AETNA [facility] ([facility]) MEDICARE ADVANTAGE [facility] ([facility]) Nov 01, 2021 [id number] ALLI RAMOS PATIENT INACTIVE [facility] TRI Oct 14, 2009 [facility] [id number] ALLI RAMOS PATIENT MEDICARE (WN) MEDICARE (M) PART A Sep 01, 2015 PART A [id number] ALLI RAMOS PATIENT MEDICARE (WN) MEDICARE (M) PART B Sep 01, 2015 PART B [id number] ALLI RAMOS PATIENT -FO R-LIFE [facility]ICA RE [facility] LIFE WNR Nov 01, 2017 [facility] [id number] [phone] ALLI RAMOS PATIENT Selected Encounter This section includes the information on record at CT for the Encounter. Date/Time Encounter Type Encounter Description Reason Provider Source Feb 23, 2025 08:20 AM OFFICE O/P EST LOW 20 MIN UROLOGY CLINIC ICD-10-CM N20.0 Calculus of kidney RUPERTO ORTEGA Marquis Encounter Template Text not used by CT Assessments - Encounter Diagnoses This section includes the primary and secondary diagnoses documented for the Encounter. Date/Time Primary/Secondary Diagnosis Diagnosis Name Provider Source Feb 23, 2025 11:25 AM PRIMARY Calculus of kidney MANSI RENEE [facility] Plan of [...] Date/Time Appointment Type Appointme nt Facility Name March 01, 2025 11:15 AM AMBULATORY - MEDICINE [facility] Apr 05, 2025 11:00 AM AMBULATORY - PSYCHIATRY [facility] Apr 12, 2025 09:30 AM AMBULATORY - MEDICINE [facility] Apr 18, 2025 08:00 AM AMBULATORY - MEDICINE [facility] May 15, 2025 09:00 AM AMBULATORY - MEDICINE [facility] Jun 13, 2025 10:00 AM AMBULATORY - SURGERY [facility] Jun 29, 2025 01:30 PM AMBULATORY - NEUROLOGY [facility] Jul 03, 2025 01:30 PM AMBULATORY - SURGERY [facility] Jul 19, 2025 03:00 PM AMBULATORY - MEDICINE [facility] Active, Pending, and Scheduled Orders This section includes a listing of several types of active, pending, and scheduled orders, including clinic medications orders, diagnostic test orders, procedure orders and consult orders; where the start date of the order is 45 days before the date of the Encounter or 45 days after the date of theEncounter. The data comes from all [place] treatment facilities. Test Date/Time Test Type Test Details Facility Name Apr 05, 2025 08:18 AM Consult Order COMMUNITY CARE-STL ORTHO SURG Cons Filing And Polishing Supervisor's Choice [facility] Vital Signs: All taken on the encounter date This section contains inpatient and outpatient Vital Signs collected on the date of the Encounter. Date/Time Temperature Pulse Blood Pressure Respiratory Rate SP02 Pain Height Weight Body Mass Index Source Feb 23, 2025 08:04 AM 98 79 115/76 18 98 0 68 219.3 33 [facility] Social History: Smoking Status [...] 2023 12:30 PM AH-BPR SMOKING DEPLOYMENT NO [facility] Tobacco Use History This section includes a history of the smoking, or tobacco-related health factors, that were collected on or before the date of the Encounter. The data comes from the [place] facility where the Encounter took place. Date/Time Smoking Status/Tobacco Use Comment F acility Sep 23, 2022 12:40 AM ORYX ADMIT TOBACCO SCREEN NO [facility] Sep 06, 2022 05:41 AM ORYX ADMIT TOBACCO SCREEN NO [facility] May 09, 2018 08:36 PM LIFETIME NON-USER OF TOBACCO [facility] Apr 02, 2014 10:48 AM CURRENT TOBACCO USER [facility] Apr 02, 2014 10:48 AM TOBACCO OFFERRED P T MEDS (PROVIDER) [facility] Sep 15, 2011 10:37 AM CURRENT TOBACCO USER [facility] Apr 13, 2011 02:21 PM CURRENT TOBACCO USER [facility] May 22, 2010 02:00 PM CURRENT TOBACCO USER [facility] May 22, 2010 02:[address] OP SMOKING CLINIC [facility] May 22, 2010 02:00 PM TOBACCO OFFERRED P T MEDS (PROVIDER) [facility] Apr 21, 2010 02:03 PM CURRENT TOBACCO USER [facility] Apr 21, 2010 02:03 PM TOBACCO MEDS OFFER ED BUT DECLINED [facility] Encounter Notes: All associated encounter notes This section contains the clinical notes associated to the Encounter. Date/Time Encounter Note(s) Provider Source Feb 23, 2025 08:31 AM UROLOGY NOTE: LOCAL TITLE: UROLOGY NOTE STANDARD TITLE: UROLOGY NOTE DATE OF NOTE: FEB 23, 2025@08:31 ENTRY DATE: FEB 23, 2025@08:31:15 AUTHOR: MANSI RENEE EXP COSIGNER: RUPERTO ORTEGA URGENCY: STATUS: COMPLETED CHIEF COMPLAINT, HPI, EXAM & DATA CC: nephrolithiasis HPI: 39 yo M with hx of stage 4 COPD, hx. of nephrolithiasis (topiramate stones now off topomax) most recently presented with 4 mm proximal ureteral stone s/p URS 09/09/22. > stone analysis with calcium oxalate > RBUS 10/28/2024 - no visible stones, stable cyst > 24 hr urine: patient is following with nephrology - has hypocitraturia,hypercalciuria and has elevated supersaturation for CaOx and CaP > denies UTIs, hematuria or passage of stones ROS/PMH Denies F/C/N/V/CP/SOB Remainder of PMH listed below and reviewed? Yes TARGETED PHYSICAL EXAM: Gen: NAD HEENT: NC/AT Resp: NLB Abd: s/nt/nd, no rebound or guarding Back: No CVAT bilaterally Ext: WWP MSK: MAEW Neuro: non-focal Skin: warm and dry CREATININE:CREATININE 0.91 mg/dL 11/02/2024 17:05 PSA: No PSA EO data found IMAGIN09/21/2024 RBUS Impression: 1. Mildly complex right kidney upper pole cyst with layering milk of calcium, hemorrhage, or proteinaceous material. This is likely benign. 2. No evidence of hydronephrosis or renal calculi bilaterally. Dictated by Huey Mendez M.D. (Police Inspector) I, Darnell Daniel, have reviewed the images and report and concur with these findings. ASSESSMENT AND PLAN 39 yo M with hx of CaOx nephrolithiasis with hypercalciuria and hypocitraturia. He continues to be stone free. FOLLOW-UP: RTC 1 year with RBUS (MORE INFORMATION) * LABS ---- PSA Trend: No PSA (LAST 10 5Y) EO data found BMP: SODIUM 137 mEq/L 11/02/2024 17:05 POTASSIUM 3.3 L mEq/L 11/02/2024 17:05 CHLORIDE 106 mEq/L 11/02/2024 17:05 UREA NITROGEN 15.6 mg/dL 11/02/2024 17:05 CREATININE 0.91 mg/dL 11/02/2024 17:05 CALCIUM 9.5 mg/dL 11/02/2024 17:05 CARBON DIOXIDE 18 L mEq/L 11/02/2024 17:05 GLUCOSE 148 H mg/dL 11/02/2024 17:05 EGFR (CKD-EPI 2020) 110.6 11/02/2024 17:05 CBC: WBC 7.1 10*3/uL 11/02/2024 17:05 RBC [...] 17:05 BASOPHILS, ABSOLUTE 0.01 10*3/uL 11/02/2024 17:05 UA: No URINALYSIS EO data found - PAST MEDICAL, SOCIAL, FAMILY HX AND ROS 1) Migraine (SNOMED CT 60987231) 2) Seizure (SNOMED CT 31884143) 3) Lumbar radiculopathy (SNOMED CT 170059591) 4) Low back pain 5) Obesity 6) Kidney stone 7) Fatty liver 8) COPD - Chronic Obstructive Pulmonary Disease (SCT 17131930) 9) Vitamin D deficiency 10) Low testosterone 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 12) Pulmonary embolism 13) Therapeutic drug effect 14) Tachycardia 15) Right knee pain 16) Iron deficiency anemia 17) Contact with and (Suspected) Exposure to Air Pollution 18) Contact with and (suspected) exposure to other hazardous substances 19) Exposure to Disaster, War and other Hostilities 20) Exposure to Potentially Hazardous Substance ([facility] [id number]) 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 22) Chronic post-traumatic stress disorder 23) History of alcohol abuse 24) Dry eyes 25) Trigger finger MEDICATIONS: Active Outpatient Medications (including Supplies): Active Outpatient Medications Status = 1) ALBUTEROL 90MCG (CFC-F) 200D ORAL [...] DAY NEEDED Indication: FOR DRY EYE(S) 5) SERTRALINE HCL 100MG TAB TAKE ONE TABLET BY MOUTH AT BEDTIME ACTIVE (S) Indication: PTSD Active Non-VA Medications Status = 1) Non-VA CHOLECALCIFEROL (LOW DOSE VIT [...] INJ,SOLN DEEP ACTIVE INTRAMUSCULARLY 10 Total Medications Allergies: TOPAMAX 25MG TABLET /es/ MANSI RENEE MD RESIDENT Signed: 02/23/2025 11:25 /loren/ RUPERTO ORTEGA MD Staff Physician, Urology Cosigned: 03/03/2025 09:38 MANSI RENEE [facility]
--- OUTSIDE RECORDS SUMMARY | 2025-05-24 11:53 | XMS_ITS ---
Author Name [facility] [place] Address [address] [place] [address] Care Team Providers Care Baggage Agent Name Role Phone HENRY POPE Primary Care [...] Relationship to Policy Lowe AARP [facility] ([facility]) MEDICARE ADVANTAGE [facility] ([facility]) Nov 01, 2024 [id number] ALLI RAMOS PATIENT AETNA [facility] ([facility]) MEDICARE ADVANTAGE [facility] ([facility]) Nov 01, 2021 [id number] ALLI RAMOS PATIENT INACTIVE [facility] TRI Oct 14, 2009 [facility] [id number] ALLI RAMOS PATIENT MEDICARE (WNR) MEDICARE (M) PART A Sep 01, 2015 PART A [id number] ALLI RAMOS PATIENT MEDICARE (WN) MEDICARE (M) PART B Sep 01, 2015 PART B [id number] ALLI RAMOS PATIENT -FO R-LIFE TRICA RE [facility] LIFE WNR Nov 01, 2017 [facility] [id number] [phone] ALLI RAMOS PATIENT Selected Encounter This section includes the information on record at [place] for the Encounter. Date/Time Encounter Type Encounter Description Reason Provider Source Apr 09, 2025 09:41 AM Outpatient Encounter COMMUNITY CARE CONSULT YUN LOUIS Encounter Template Text not used by [place] Plan of Treatment: Future Appointments (+ 6 months) and Future Tests (+/- 45 days) The Plan of Treatment section includes future care activities for the patient [facility] [place] [facility] This section includes future appointments and future orders which are active, pending or scheduled. Future Appointments This section includes appointments that were scheduled to occur 6 months from the date of the Encounter, up to a maximum of 20 appointments. The data comes from all [facility]. Appointment Date/Time Appointment Type Appointme nt Facility Name Apr 12, 2025 09:30 AM AMBULATORY - MEDICINE [facility] Apr 18, 2025 08:00 AM AMBULATORY - MEDICINE [facility] May 15, 2025 09:00 AM AMBULATORY - MEDICINE [facility] Jun 13, 2025 10:00 AM AMBULATORY - SURGERY [facility] Jun 29, 2025 01:30 PM AMBULATORY - NEUROLOGY [facility] Jul 03, 2025 01:30 PM AMBULATORY - SURGERY [facility] Jul 19, 2025 03:00 PM AMBULATORY - MEDICINE [facility] Sep 04, 2025 11:20 AM AMBULATORY - MEDICINE [facility] Active, Pending, and Scheduled Orders This section includes a listing of several types of active, pending, and scheduled orders, including clinic medications orders, diagnostic test orders, procedure orders and consult orders; where the start date of the order is 45 days before the date of the Encounter or 45 days after the date of theEncounter. The data comes from all [facility]. Test Date/Time Test Type Test Details Facility Name Apr 05, 2025 08:18 AM Consult Order COMMUNITY CARE-STL ORTHO SURG Cons Leaf [facility] May 15, 2025 09:46 AM Consult Order NEUROLOGY BOTOX INJECTION OUTPATIENT AWILDA Cons Leaf Tier's Choice [facility] Social History: Smoking Status (Most current) and Tobacco Use (All prior to encounter date) This section includes the most current, and the historical, smoking and tobacco- related health factors from the [place] facility where the Encounter took place. Current Smoking Status This section includes the most current smoking, or tobacco-related health factor, from the [place] facility where the Encounter took place. Date/Time Current Smoking Status Comment Facil ity Sep 03, 2023 12:30 PM AH-BPR SMOKING DEPLOYMENT NO [facility] Tobacco Use History This section includes a history of the smoking, or tobacco-related health factors, that were collected on or before the date of the Encounter. The data comes from the [place] facility where the Encounter took place. Date/Time [...] MEDS OFFER ED BUT DECLINED [facility] Encounter Notes: All associated encounter notes This section contains the clinical notes associated to the Encounter. Date/Time Encounter Note(s) Provider Source Apr 09, 2025 09:41 AM NONVA NOTE: LOCAL TITLE: COMMUNITY CARE-CARE COORDINATION PLAN NOTE 6[address] STANDARD TITLE: NONVA NOTE DATE OF NOTE: APR 09, 2025@09:41 ENTRY DATE: APR 09, 2025@09:41:27 AUTHOR: YUN LOUIS EXP COSIGNER: URGENCY: STATUS: COMPLETED Community Care Consult: ortho surgery Consult No: [id number] HSRM Referral #: Chief Complaint: left hand pain Patient Admitted? No Level of Care Coordination Moderate Care Coordination was determined from: Chart Review Facility Community Care Office Contact Care Coordination Point of Contact: yun prakash rn Phone Number: [phone] Services: Basic Care Coordination Services Monitoring and coordination of Rehab/PT Services Direct communication to referring provider Care management, if appropriate Plan: evaluation and treatmemt Will follow until consult is scheduled. Will navigate services regarding protocol; monitoring and coordinating CC appt, monitor disease process, report significant findings, communicate with monthly for complex coordination and quarterly for moderate. Will transition care to the referring provider after community care EOC is completed /es/ YUN LOUISRN MSN REGISTERED NURSE Signed: 04/09/2025 09:42 YUN LOUIS [facility]
--- OUTSIDE RECORDS SUMMARY | 2025-05-24 11:53 | XMS_ITS | Referral Summary ---
Author Organization [facility] Healthcare Address [address] [place] [address] Care Team Providers Care Blanket Washer Name Role Phone No, Physician Primary Care Provider [phone] Encounters Date Type Department Care Team Description 03/01/2025 2:27 PM CDT - 03/01/2025 11:59 PM CDT Hospital Encounter [facility] ([facility]) [address] [place] [id number] Discharge Disposition: Discharge to home or self care 03/01/2025 11:02 AM CDT - 03/01/2025 11:59 PM CDT Hospital Encounter [facility] ([facility]) [address] [place] [address] 61402 Bronchiolitis obliterans (HCC) Discharge Disposition: Discharge to home or self care 03/01/2025 1:00 PM CDT Office Visit [facility] [address] [place] [address] Advanced Medicine 8th [place] [address] [place] [address] Birdie Coleman MD Bronchiolitis obliterans (HCC) (Primary Dx); Chronic obstructive pulmonary disease, unspecified COPD type (HCC) 03/01/2025 11:14 AM CDT - 03/01/2025 11:59 PM CDT Hospital Encounter [facility] [address] [facility] [address] [place] [id number] Bronchiolitis obliterans (HCC) Discharge Disposition: Discharge to [...] on file Legal Sex Male 2:34 PM WELDER OXYHYDROGEN Gender Identity Not on file Sexual Orientation [...] 12:37 PM CDT) FVC PRE 1.57 L [facility] FVC %PRE PRED 34 % [facility] FVC POST 2.11 L [facility] FVC %POST PRED 46 % [facility] FEV1 PRE 0.92 L [facility] FEV1 %PRE PRED 24 % [facility] FEV1 POST 1.48 L [facility] FEV1 %POST PRED 39 % [facility] FEV1/FVC PRE 58.8 % [facility] FEV1/FVC POST 70.1 % [facility] FRC PL PRE 3.16 L [facility] FRC PL %PRE PRED 98 % [facility] RV PRE 2.53 L [facility] RV %PRE PRED 149 % [facility] TLC PRE 4.62 L [facility] TLC %PRE PRED 70 % [facility] DLCO PRE 10.9 ml/min/mmH g [facility] DLCO %PRE PRED 36 % [facility] FIO2 % 21.00 % [facility] PaO2 70.0 mmHg [facility] PaCO2 40.0 mmHg [facility] pH 7.40 [facility] A-aDO2 POC 30.0 mmHg [facility] METHGB % 0.5 % [facility] COHb POC 1.4 % [facility] HCO3 24.8 mEq/L [facility] Anatomical Region Laterality Modality PFT 03/01/2025 11:4 3 AM CDT Narrative 03/01/2025 6:45 PM CDT Table formatting from the original result was not included. [facility] Division of Pulmonary & Critical Care Medicine [address] [place] [address]; [address] [facility]; [place] [address]; [phone] Pulmonary Function Laboratory Pulmonary Stress Test Simple/Oxygen [...] Work [distance (m) x body wt (kg)]: 38371 kg.m (normal >60,000kg.m) Oxygen required to maintain [...] with the written final report. PFT performed at:->[facility] Adult PFT Lab- CAM-8D Procedure:->Oxygen Assessment [...] and %HbO2 is age dependent. However, the [facility] Pulmonary Function Laboratory defines hypoxemia as a PaO2 <56 mm Hg or a %HbO2 <89%. Starting on November of 2024 the [facility] Pulmonary Function Laboratory utilizes race neutral GLI [...] agrees with it. Electronically signed by: Chaparro Chille MD, PHD Genevieve Butcher MD IMG XR PROCEDURES Final Resu lt from Last 3 Months Insurance [facility] MEDICARE ADVANTAGE [facility] Address: [address] [address] [place] [address] [facility] MEDICARE ADVANTAGE [facility] Address: [id number] [place] [phone] Advance Directives For more information, please contact: [phone] * Full Code (Latest Code Status on File) Date Activated Date Inactivated Comments 10/05/2022 5:48 PM 10/06/2022 10:50 PM Care Teams Blanket Washer Relationship Specialty Start Date End Date No, Physician PCP - General 03/24/24
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
--- OUTSIDE RECORDS SUMMARY | 2025-05-24 11:53 | XMS_ITS | Encounter Summary ---
Author Name [place] Address [address] [place] [address] Care Team Providers Care Fire Engine Operator Name Role Phone HENRY POPE Primary [...] Name Patient's Relationship to Policy Lowe AENA [facility] ([facility]) MEDICARE ADVANTAGE [facility] ([facility]) Nov 01, 2021 [id number] ALLI RAMOS PATIENT AETNA [facility] ([facility]) MEDICARE ADVANTAGE [place] INDIV IDUAL - [facility] Nov 01, 2019 [id number] ARIELANGELATAL ALLI PATIENT INACTIVE [facility] TRI Oct 14, 2009 [facility] [id number] ALLI RAMOS PATIENT MEDICARE (WNR) MEDICARE (M) PART A Sep 01, 2015 PART A [id number] ALLI RAMOS PATIENT MEDICARE (WN) MEDICARE (M) PART B Sep 01, 2015 PART B [id number] ALLI RAMOS PATIENT -FO R-LIFE [facility] RE [facility] WNR Nov 01, 2017 [facility] [id number] ALLI RAMOS PATIENT Selected Encounter This section includes the information on record at CT for the Encounter. Date/Time Encounter Type Encounter Description Reason Provider Source Jun 02, 2024 11:30 AM OFFICE O/P EST LOW 20 MIN ORTHO/JOINT SURG ICD-10-CM M25.561 Pain in right knee GONZÁLEZ NIETOANA Francisco [facility] Encounter Template Text not used by CT Assessments - Encounter Diagnoses This section includes the primary and secondary diagnoses documented for the Encounter. Date/Time Primary/Secondary Diagnosis Diagnosis Name Provider Source Jun 02, 2024 12:00 PM PRIMARY Pain in right knee EMILIABIRGIT [facility] Jun 02, 2024 12:00 PM SECONDARY Low back pain, unspecified [facility] Plan of Treatment: Future Appointments (+ 6 months) and Future Tests (+/- 45 days) The Plan of Treatment section includes future care activities for the [facility] This section includes future appointments and future orders which are active, pending or scheduled. Future Appointments This section includes appointments that were scheduled to occur 6 months from the date of the Encounter, up to a maximum of 20 appointments. The data comes from all CT treatment facilities. Appointment Date/Time Appointment Type Appointme nt Facility Name Jun 12, 2024 10:00 AM AMBULATORY - SURGERY . [facility] Jun 23, 2024 11:00 AM AMBULATORY - PSYCHIATRY [facility] Jun 30, 2024 07:00 AM AMBULATORY - SURGERY [facility] Jul 25, 2024 08:30 AM AMBULATORY - NONE [facility] Aug 08, 2024 11:00 AM AMBULATORY - MEDICINE [facility] Aug 25, 2024 11:00 AM AMBULATORY - REHAB MEDICIN E [facility] Aug 31, 2024 02:00 PM AMBULATORY - REHAB MEDICIN E [facility] Sep 12, 2024 09:40 AM AMBULATORY - MEDICINE [facility] Sep 14, 2024 03:30 PM AMBULATORY - NONE . AAYUSH Keller [facility] Sep 21, 2024 01:30 PM AMBULATORY - MEDICINE [facility] Sep 22, 2024 07:50 AM AMBULATORY - SURGERY . Maty VALLES [facility] Oct 16, 2024 02:00 PM AMBULATORY - MEDICINE [facility] Oct 16, 2024 02:30 PM AMBULATORY - MEDICINE [facility] Oct 18, 2024 08:00 AM AMBULATORY - PSYCHIATRY [facility] Nov 02, 2024 04:33 PM AMBULATORY - MEDICINE [facility] Vital Signs: All taken on the encounter date This section contains inpatient and outpatient Vital Signs collected on the date of the Encounter. Date/Time Temperature Pulse Blood Pressure Respiratory Rate SP02 Pain Height Weight Body Mass Index Source Jun 02, 2024 11:22 AM 98.4 74 131/79 20 97 0 [facility] Social History: Smoking [...] 2023 12:30 PM AH-BPR SMOKING DEPLOYMENT NO [facility] Tobacco Use History This section includes a history of the smoking, or tobacco-related health factors, that were collected on or before the date of the Encounter. The data comes from the CT facility where the Encounter took place. Date/Time Smoking Status/Tobacco Use Comment F acility Apr 27, 2022 11:01 AM VA-TOBACCO NEVER USED [facility] Oct 10, 2020 10:[address]-TOBACCO NEVER USED [facility] Encounter Notes: All associated encounter notes This section contains the clinical notes associated to the Encounter. Date/Time Encounter Note(s) Provider Source Jun 02, 2024 11:26 AM ORTHOPEDIC SURGERY NOTE: LOCAL TITLE: ORTHOPEDIC [facility] STANDARD TITLE: ORTHOPEDIC SURGERY NOTE DATE OF NOTE: JUN 02, 2024@11:26 ENTRY DATE: JUN 02, 2024@11:26:29 AUTHOR: BIRGIT NIETO COSIGNER: URGENCY: STATUS: COMPLETED Name: ALLI RAMOS SSN: [id number] AGE: 38 : Jul HPI: ALLI RAMOS is a 38 MALE who presents to [facility] on 02 June 2024 for follow up on right knee pain. MRI demonstrated a possible plica, a ganglion cyst in the popliteal space, but no meniscus tear or ligament injury. Quad strengthening encouraged. Cortisone injection offered but declined, he did not feel his symptoms were severe enough to warrant. Much improved today after starting Tumeric 3 weeks ago. Does say his back pain has persisted. Does not see anyone at the CT for care of this, interested in pursuing further care. Initial History: NOV 12, 2023 for evaluation of right knee pain following an injury 18 June 2023 when he was in the attic of his home and fell through the ceiling. He experienced a hyperextension type injury of the right knee. Since that time, he continues to have progressive medial sied pain, popping and buckling. He must wear a brace for stability. Swelling occurs with increased activity. Trialed physical therapy without improvement. He does have some night time disturbance due to his knee pain. Vitals: 06/02/24 11:22 T: 98.4 F (36.9 C) P: 74 R: 20 B/P: 131/79 Pulse Oximetry: 97% Pain: 0 - No pain Physical Exam: General - Alert & oriented x 3, pleasant, cooperative, appears stated age. Musculoskeletal - Right Knee: No longer joint effusion, no erythema, ecchymosis or signs of infection throughout extremity. No muscular atrophy noted. Mild tenderness with palpation of the joint line medially, but no longer along the pes anserine bursa and the distal medial tibia. Patient can actively flex to 110 and extend knee to 0 without difficulty nor discomfort. Clicking noted. Adequate strength in quads > hamstrings against resistance. Negative Tuan's and anterior drawer test. No laxity with varus or valgus stress. Negative Kenia's medially today. Sensation intact in all distributions. Toes pink and warm with capillary refill < 2 seconds. DP pulse 2+. Calf soft and nontender. Xrays: Right Knee - AP and lateral views of the right knee examination followed by sunrise view of the patella shows no fracture dislocation. Irregular cortical thickening seen along the medial aspect of distal femur and no interval change. No other evidence of lytic bony lesion. No joint space narrowing or suprapatellar effusion. No radiopaque foreign body or abnormal calcification. MRI: Impression: 1. Superficial posteromedial ganglion cyst at the popliteal space. 2. Minor linear edema along the expected course of the infrapatellar plica within Hoffa's fat. 3. Otherwise, no visible internal derangement. Assessment: Right knee pain Plan: The anatomic basis and natural history of the problem were discussed with the patient. The patient conveyed an understanding of the condition. The following recommendations were made: - Continue activities as tolerated with right knee. - Will go ahead and start work-up for low back for patient to see CT spine specialists - x-ray ordered today, update MRI lumbar spine, PT for low back. Once completed, he can then seek NSGY referral if desired. /loren/ BIRGIT NIETO PA-C Physician Athletic Gear Custodian, Orthopedic Signed: 06/02/2024 12:00 BIRGIT NIETO [facility]
[2025-05-24 13:46] VITALS: BP 127/82; PULSE 106; RESP 20; O2SAT 96
[2025-05-24 15:29] VITALS: BP 126/96; PULSE 102; RESP 20; O2SAT 95
== END 2025-05-24 15:32 | disposition home or self-care (01) ==
PROVIDERS: Emergency Provider Physician Assistant; PCP Internal Medicine
DX: T78.40XA Allergy, unspecified, initial encounter (principal); K21.9 Gastro-esophageal reflux disease without esophagitis; Z86.711 Personal history of pulmonary embolism; Z79.01 Long term (current) use of anticoagulants; J44.9 Chronic obstructive pulmonary disease, unspecified; F32.A Depression, unspecified
CPT/HCPCS: 94640; 96372; 96374; 96375; 99284; J0166; J1200; J2919